=== PATIENT | female | born 1955 | race American Indian/Alaskan Native ===

== ENCOUNTER 2016-06-03 21:40 | Inpatient (IN) | payer MEDICAID ==
--- NOTE | 2016-06-03 22:20 | ED PDOC ---
Arrival/HPI - General Time Seen by Provider: 06/03/16 21:46 Historian: Patient, Parent (daughter ) - Critical Care Critical Care Minutes: 30 minutes - History of Present Illness Narrative History of Present Illness (Text): 06/03/16 22:15 Иван Stringer is a 60 year old female, with a history of uterine CA s/p hysterectomy in Mar 2015 treated with immediate followup chemotherapy and radiation, presents to the emergency department complaining of 1 week duration of weakness and lethargy. According to daughter, patient has had poor appetite and lost weight in recent past. States that cancer recurred again and was started on chemotherapy on March of 2016. Patient has appointment with PMD in a couple of weeks. Evaluated at [facility] for similar symptoms last week. Denies any fever, chills, headache, dizziness, chest pain, difficulty breathing, nausea , vomiting, diarrhea, urinary symptoms or any other complaints at this time. Time/Duration: 1 week Symptom Onset: Gradual Symptom Course: Unchanged Severity Level: Mild Activities at Onset: Light Context: Home Past Medical History - Provider Review Nursing Documentation Reviewed: Yes Family/Social History - Physician Review Nursing Documentation Reviewed: Yes Family/Social History: No Known Family HX Allergies/Home Meds Allergies/Adverse Reactions: Allergies No Known Allergies Allergy (Unverified 06/03/16 22:32) Review of Systems - Physician Review All systems were reviewed & negative as marked: Yes - Review of Systems Constitutional: Fatigue (Weak and lethargic ), Other (weight loss ). absent: Fevers Respiratory: Normal. absent: SOB, Cough Cardiovascular: Normal. absent: Chest Pain Gastrointestinal: Appetite Changes. absent: Abdominal Pain, Diarrhea, Nausea, Vomiting Neurological: Normal. absent: Headache, Dizziness Psychiatric: Normal Physical Exam Vital Signs Reviewed: Yes Vital Signs Temp Pulse Resp BP Pulse Ox 06/03/16 21:40 100.9 F H 123 H 16 116/47 L 100 Temperature: Febrile Blood Pressure: Normal Pulse: Tachycardic Respiratory Rate: Normal Appearance: Positive for: Non-Toxic, Comfortable, Cachectic Pain Distress: None Mental Status: Positive for: Alert and Oriented X 3 - Systems Exam Head: Present: Atraumatic, Normocephalic Pupils: Present: PERRL Extroacular Muscles: Present: EOMI Conjunctiva: Present: Other (sunken eyeballs ) Mouth: Present: Dry Respiratory/Chest: Present: Clear to Auscultation, Good Air Exchange. No: Respiratory Distress, Accessory Muscle Use Cardiovascular: Present: Regular Rate and Rhythm, Normal S1, S2. No: Murmurs Abdomen: Present: Distention, Normal Bowel Sounds, Other (firm, distended, and non-tender ). No: Tenderness, Peritoneal Signs Upper Extremity: Present: Normal Inspection. No: Cyanosis, Edema Lower Extremity: Present: Edema (bilateral lower extremity edema. ) Neurological: Present: GCS=15, CN II-XII Intact, Speech Normal Skin: Present: Warm, Dry, Normal Color. No: Rashes Psychiatric: Present: Alert, Oriented x 3, Normal Insight, Normal Concentration Medical Decision Making ED Course and Treatment: 06/03/16 22:24 Impression: A 60 year old female who presents to the ed complaining of generalized weakness, lethargy and weight loss for past week. Plan: -- Labs -- CT abdomen pelvis -- Labs, cardiac enzymes -- CXR Progress Notes: 06/03/16 23:55 CT abdomen pelvis reviewed: IMPRESSION: 1. There is a multiloculated right pleural effusion. This appears to have a thick soft tissue rim suggesting that this could be a malignant or an infected effusion. Within the right basilar effusion there is one and possibly 2 pleural drainage catheters. 2. There is mild perisplenic ascites. There is diffuse anasarca. 3. There is a large mass extending through the entire pelvis and lower and mid abdomen. This measures at least 22.7 CM craniocaudal by 22.6 CM transverse by 16.5 CM AP. This is compatible with the given history of uterine cancer. 4. Question rectal wall thickening versus underdistention. Underlying lesion is not excluded. 06/04/16 01:16 Patient is febrile, tachy and lactate of 2.5. Code sepsis called. Case discussed with , production control technologist, who accepts patient to the ICU for Sepsis and SIRS - Lab Interpretations Lab Results: 06/04/16 00:20 06/04/16 00:20 Lab Results 06/04/16 00:20: WBC 17.3 H, RBC 2.95 L, Hgb 8.3 L, Hct 26.7 L, MCV 90.5, MCH 28.1, MCHC 31.1, RDW 22.2 H, Plt Count 278, MPV 9.2, PT 12.0 H, INR 1.11 H, APTT 39.9 H, pO2 49, VBG pH 7.47 H, VBG pCO2 43.0, VBG HCO3 31.3 H, VBG Total CO2 32.6 H, VBG O2 Sat (Calc) 87.5 H, VBG Base Excess 6.8 H, VBG Potassium 3.0 L , Glucose 117 H, Lactate 2.5 H, FiO2 21.0, Sodium 142.0, Potassium 3.2 L, Chloride 107.0, Carbon Dioxide 31, Anion Gap 12, BUN 10, Creatinine 0.7, Est GFR ( Amer) > 60, Est GFR (Non-Af Amer) > 60, Random Glucose 109, Calcium 8.2 L, Total Bilirubin 0.5, AST 35, ALT 30, Alkaline Phosphatase 131, Lactate Dehydrogenase 2513 H, Total Creatine Kinase 24 L, Troponin I < 0.01, Total Protein 4.7 L, Albumin 2.1 L, Globulin 2.6, Albumin/Globulin Ratio 0.8 L, Lipase 12 L, Venous Blood Potassium 3.0 L I have reviewed the lab results: Yes - RAD Interpretation Narrative RAD Interpretations (Text): EXAM: CT Abdomen and Pelvis Without Intravenous Contrast FINDINGS: Lower thorax: There is a multiloculated right pleural effusion. This appears to have a thick soft tissue rim suggesting that this could be a malignant or an infected effusion. Within the right basilar effusion there is one and possibly 2 pleural drainage catheters. There is coronary artery calcification. ABDOMEN: Liver: AtThere are no focal liver lesions present. Gallbladder and bile ducts: A calcified gallstone is present. No ductal dilation. Pancreas: The pancreas is normal. No ductal dilation. Spleen: The spleen is normal. Adrenals: The adrenal glands are normal. Kidneys and ureters: The kidneys are normal. No obstructing stones. No hydronephrosis. Stomach and bowel: Question rectal wall thickening versus underdistention. Underlying lesion is not excluded. Stomach is predominantly decompressed. There is no evidence of intestinal obstruction. Appendix: No findings to suggest acute appendicitis. PELVIS: Bladder: Bladder is decompressed. No stones. Reproductive: There is a large mass extending through the entire pelvis and lower and mid abdomen. This measures at least 22.7 CM craniocaudal by 22.6 CM transverse by 16.5 CM AP. This is compatible with the given history of uterine cancer. ABDOMEN and PELVIS: Intraperitoneal space: There is mild perisplenic ascites. There is diffuse anasarca. There is no free intraperitoneal air. Bones/joints: There are moderate degenerative changes present. There is mild diffuse osteopenia. No acute fracture. No dislocation. Soft tissues: Unremarkable. Vasculature: There is mild calcification of the aortic root. The aorta demonstrates moderate atherosclerotic calcification. There is an infrarenal IVC filter. No abdominal aortic aneurysm. Lymph nodes: There is no evidence of lymphadenopathy. IMPRESSION: 1. There is a multiloculated right pleural effusion. This appears to have a thick soft tissue rim suggesting that this could be a malignant or an infected effusion. Within the right basilar effusion there is one and possibly 2 pleural drainage catheters. 2. There is mild perisplenic ascites. There is diffuse anasarca. 3. There is a large mass extending through the entire pelvis and lower and mid abdomen. This measures at least 22.7 CM craniocaudal by 22.6 CM transverse by 16.5 CM AP. This is compatible with the given history of uterine cancer. 4. Question rectal wall thickening versus underdistention. Underlying lesion is not excluded. 5. Additional incidental and/or chronic findings as described. Radiology Orders: 06/03/16 22:33 CHEST PORTABLE [RAD] Stat 06/03/16 22:35 ABD & PELVIS W/O PO OR IV CONT [CT] Stat [employer] Valuer: Radiologist - Medication Orders Current Medication Orders: Furosemide (Lasix) 40 mg IVP BID ANDRY Levofloxacin/Dextrose (Levaquin 750mg) 150 mls @ 100 mls/hr IVPB DAILY ANDRY Piperacillin Sod/Tazobactam Sod (Zosyn 3.375 In Ns 100ml) 100 mls @ 200 mls/hr IVPB Q6 ANDRY PRN Reason: Protocol Stop: 06/04/16 12:29 Vancomycin HCl (Vancomycin 1gm) 250 mls @ 167 mls/hr IVPB Q12H ANDRY PRN Reason: Protocol Discontinued Medications Furosemide (Lasix) 40 mg IVP STAT STA Stop: 06/04/16 01:29 - Scribe Statement The provider has reviewed the documentation as recorded by the Luis Enrique Castaneda Provider Attestation: All medical record entries made by the Scribe were at my direction and personally dictated by me. I have reviewed the chart and agree that the record accurately reflects my personal performance of the history, physical exam, medical decision making, and the department course for this patient. I have also personally directed, reviewed, and agree with the discharge instructions and disposition. Disposition/Present on Arrival - Present on Arrival Any Indicators Present on Arrival: No History of DVT/PE: No History of Uncontrolled Diabetes: No Urinary Catheter: No History of Decub. Ulcer: No History Surgical Site Infection Following: None - Disposition Have Diagnosis and Disposition been Completed?: Yes Diagnosis: Sepsis, SIRS (systemic inflammatory response syndrome), Uterine cancer, Pleural effusion, Abdominal mass Disposition: HOSPITALIZED Disposition Time: 01:31 Patient Plan: ICU Patient Problems: Current Active Problems Problem Status Diagnosed Abdominal mass Acute Pleural effusion Acute SIRS (systemic inflammatory response syndrome) Acute Sepsis Acute Uterine cancer Acute Condition: STABLE Discharge Instructions (ExitCare): Sepsis (ED) Referrals: Nicky Keys, [Primary Care Provider] - Follow up with primary
[2016-06-03 22:32] VITALS: BMI 22.6
--- NOTE | 2016-06-03 23:44 | CT ---
EXAM: CT Abdomen and Pelvis Without Intravenous Contrast CLINICAL HISTORY: 60 years old, female; Signs and symptoms; Bloating; Patient HX: On chemo for uterine ca. Abd mass; Additional info: Distention/hx. Uterine ca TECHNIQUE: Axial computed tomography images of the abdomen and pelvis without intravenous contrast. This CT exam was performed using one or more of the following dose reduction techniques: automated exposure control, adjustment of the mA and/or kV according to patient size, and/or use of iterative reconstruction technique. Coronal and sagittal reformatted images were created and reviewed. COMPARISON: No relevant prior studies available. FINDINGS: Lower thorax: There is a multiloculated right pleural effusion. This appears to have a thick soft tissue rim suggesting that this could be a malignant or an infected effusion. Within the right basilar effusion there is one and possibly 2 pleural drainage catheters. There is coronary artery calcification. ABDOMEN: Liver: AtThere are no focal liver lesions present. Gallbladder and bile ducts: A calcified gallstone is present. No ductal dilation. Pancreas: The pancreas is normal. No ductal dilation. Spleen: The spleen is normal. Adrenals: The adrenal glands are normal. Kidneys and ureters: The kidneys are normal. No obstructing stones. No hydronephrosis. Stomach and bowel: Question rectal wall thickening versus underdistention. Underlying lesion is not excluded. Stomach is predominantly decompressed. There is no evidence of intestinal obstruction. Appendix: No findings to suggest acute appendicitis. PELVIS: Bladder: Bladder is decompressed. No stones. Reproductive: There is a large mass extending through the entire pelvis and lower and mid abdomen. This measures at least 22.7 CM craniocaudal by 22.6 CM transverse by 16.5 CM AP. This is compatible with the given history of uterine cancer. ABDOMEN and PELVIS: Intraperitoneal space: There is mild perisplenic ascites. There is diffuse anasarca. There is no free intraperitoneal air. Bones/joints: There are moderate degenerative changes present. There is mild diffuse osteopenia. No acute fracture. No dislocation. Soft tissues: Unremarkable. Vasculature: There is mild calcification of the aortic root. The aorta demonstrates moderate atherosclerotic calcification. There is an infrarenal IVC filter. No abdominal aortic aneurysm. Lymph nodes: There is no evidence of lymphadenopathy. IMPRESSION: 1. There is a multiloculated right pleural effusion. This appears to have a thick soft tissue rim suggesting that this could be a malignant or an infected effusion. Within the right basilar effusion there is one and possibly 2 pleural drainage catheters. 2. There is mild perisplenic ascites. There is diffuse anasarca. 3. There is a large mass extending through the entire pelvis and lower and mid abdomen. This measures at least 22.7 CM craniocaudal by 22.6 CM transverse by 16.5 CM AP. This is compatible with the given history of uterine cancer. 4. Question rectal wall thickening versus underdistention. Underlying lesion is not excluded. 5. Additional incidental and/or chronic findings as described.
[2016-06-04 00:38] LABS: VENOUS BLOOD GAS BASE EXCESS 6.8 mmol/L (0.0-2.0); VENOUS BLOOD PH 7.47 (7.32-7.43)
[2016-06-04 00:43] LABS: HEMATOCRIT 26.7 % (36.0-48.0); MEAN CELL VOLUME 90.5 fL (80.0-105.0); MEAN CORPUSCULAR HEMOGLOBIN 28.1 pg (25.0-35.0); MEAN CORPUSCULAR HGB CONC 31.1 g/dl (31.0-37.0); MEAN PLATELET VOLUME 9.2 fl (7.0-11.0); WHITE BLOOD COUNT 17.3 10^3/ul (4.5-11.0)
[2016-06-04 00:48] LABS: INR 1.11 (0.93-1.08); PARTIAL THROMBOPLASTIN TIME 39.9 Seconds (23.7-30.8)
[2016-06-04 00:50] LABS: ALB/GLOB RATIO 0.8 (1.1-1.8); ALKALINE PHOSPHATASE 131 U/L (38-133); ALT/SGPT 30 U/L (7-56); AST/SGOT 35 U/L (15-39); BILIRUBIN,TOTAL 0.5 mg/dL (0.2-1.3); BLOOD UREA NITROGEN 10 mg/dL (7-21); CALCIUM 8.2 mg/dL (8.4-10.5); CARBON DIOXIDE 31 mmol/L (21-33); CHLORIDE 102 mmol/L (95-110); GFR AFRICAN-AMERICAN > 60; GLUCOSE,RANDOM 109 mg/dL (70-110); LIPASE 12 U/L (23-300); POTASSIUM 3.2 mmol/L (3.6-5.0); SODIUM 142 mmol/L (132-148); TOTAL PROTEIN 4.7 g/dL (5.8-8.3)
[2016-06-04 01:13] LABS: TROPONIN I < 0.01 ng/mL
[2016-06-04] MEDS ORDERED: Potassium Chloride 40 mEq/30 ml LIQ UD PO STA (01:40)
--- NOTE | 2016-06-04 01:50 | CP.PCM.HP ---
<RuedaMarciMarisela - Last Filed: 06/04/16 02:38> History of Present Illness - History of Present Illness History of Present Illness: Internal medicine H & P for Hospitalist Service-Marisela Rueda, PGY-1 Pt S & E at bedside. 60F w/PMH sig for uterine CA on chemo admitted to ICU with lethargy x ~1 wk. Pt reports last chemo in wk prior to [facility], has been lethargic with a poor appetite since. Admits to B/L LE swelling, "heavy legs", increased sleep, weakness, fatigue. Denies N/V/F/C, SOB, CP, abdominal pain, changes in bowel or bladder habits, recent illness, sore throat, rhinorrhea, cough, sinus congestion, changes in vision. PMH: uterine CA (03/2015) on chem x 2, LLE DVT, pleural effusions, HTN PSH: Hysterectomy (03/28), R pleurex catheter, portacath, fly filter in place All: Denies SH: remote hx of tobacco use, denies ETOH or illicit drug use PMD: [facility] Onc: Franky at [facility] Present on Admission - Present on Admission Any Indicators Present on Admission: Yes History of DVT/PE: Yes History of Uncontrolled Diabetes: No Urinary Catheter: No Decubitus Ulcer Present: No Review of Systems - Review of Systems All systems: reviewed and no additional remarkable complaints except - Constitutional Constitutional: Fatigue, Lethargy, Weight Loss, Weakness. absent: Chills, Fever , Headache, Increased Appetite - EENT Eyes: absent: Change in Vision Ears: absent: Dizziness Nose/Mouth/Throat: absent: Nasal Discharge, Sore Throat - Cardiovascular Cardiovascular: absent: Chest Pain, Chest Pain with Activity, Palpitations - Respiratory Respiratory: absent: Cough, Chest Congestion - Gastrointestinal Gastrointestinal: absent: Abdominal Pain, Constipation, Diarrhea, Hematemesis, Hematochezia, Nausea, Vomiting - Genitourinary Genitourinary: absent: Change in Urinary Stream, Dysuria - Musculoskeletal Musculoskeletal: absent: Numbness, Tingling - Integumentary Integumentary: absent: Rash - Neurological Neurological: Weakness. absent: Numbness, Headaches, Tingling Past Patient History - Past Social History Smoking Status: Never Smoked - CARDIAC Hx Hypertension: Yes - GENITOURINARY/GYNECOLOGICAL Hx Uterine Cancer: Yes - PSYCHIATRIC Hx Substance Use: No - SURGICAL HISTORY Hx Hysterectomy: Yes - ANESTHESIA Hx Anesthesia: Yes Hx Anesthesia Reactions: No Hx Malignant Hyperthermia: No Meds Allergies/Adverse Reactions: Allergies Allergy/AdvReac Type Severity Reaction Status Date / Time No Known Allergies Allergy Unverified 06/03/16 22:32 Physical Exam - Constitutional Appears: Non-toxic, No Acute Distress, Cachectic, Chronically Ill, Other ( lethargic) - Head Exam Head Exam: ATRAUMATIC, NORMAL INSPECTION, NORMOCEPHALIC - Eye Exam Eye Exam: EOMI, Normal appearance Pupil Exam: Fixed, Miosis - ENT Exam ENT Exam: Mucous Membranes Moist, Normal Exam - Neck Exam Neck exam: Positive for: Full Rom, Normal Inspection. Negative for: Tenderness - Respiratory Exam Respiratory Exam: Decreased Breath Sounds (B/L bases), NORMAL BREATHING PATTERN. absent: Accessory Muscle Use, Chest Wall Tenderness, Rales, Rhonchi, Wheezes, Respiratory Distress Additional comments: Port in Right chest wall - Cardiovascular Exam Cardiovascular Exam: Tachycardia, +S1, +S2 - GI/Abdominal Exam GI & Abdominal Exam: Distended, Firm, Hypoactive Bowel Sounds. absent: Guarding , Hernia, Rebound, Rigid, Soft, Tenderness - Extremities Exam Extremities exam: Positive for: pedal edema (3+ pitting edema). Negative for: tenderness - Neurological Exam Neurological exam: Alert, CN II-XII Intact, Oriented x3 - Psychiatric Exam Psychiatric exam: Normal Affect, Normal Mood - Skin Skin Exam: Dry, Intact, Normal Color, Warm Results - Vital Signs Recent Vital Signs: Last Vital Signs Temp 100.9 F H 06/03/16 21:40 Pulse 123 H 06/03/16 21:40 Resp 16 06/03/16 21:40 BP 116/47 L 06/03/16 21:40 Pulse Ox 100 06/03/16 21:40 - Labs Result Diagrams: 06/04/16 00:20 06/04/16 00:20 Assessment & Plan - Assessment and Plan (Free Text) Assessment: SIRS R/O sepsis Febrile 100.9 Tachycardic at 122 BP 117/59 Lactate 2.5 Leukocytosis 17.3 Hgb 8.3 Hct 26.7 LDH 2513 VBG pH 7.47, p02 49, pCO2 43, HCO3 31.3 Lasix 40mg IVP BID Started on Zosyn 3.375mg Q6H Started on Vancomycin 1gm Q12H Started on Levaquin 750mg QD FU Blood cx FU urine cx FU U/A FU TSH FU Trop FU procalcitonin ID Consulted- Karmen Hypokalemia K 3.2 Replaced 40mEq KCL Monitor Hx LLE DVT Continued on Therapeutic Lovenox 70mg SC Q12H as per pt hx Monitor Uterine CA on chemo CT ab w. There is a multiloculated right pleural effusion. This appears to have a thick soft tissue rim suggesting that this could be a malignant or an infected effusion. Within the right basilar effusion there is one and possibly 2 pleural drainage catheters. 2. There is mild perisplenic ascites. There is diffuse anasarca. 3. There is a large mass extending through the entire pelvis and lower and mid abdomen. This measures at least 22.7 CM craniocaudal by 22.6 CM transverse by 16.5 CM AP. This is compatible with the given history of uterine cancer. 4. Question rectal wall thickening versus underdistention. Underlying lesion is not excluded. GI/DVT ppx On therapeutic lovenox Protonix 40mg IVP daily SCDs contraindicated due to DVT Dispo Admit to ICU VS Q1H Zofran 4mg Q6H PRN O2 PRN HHD HOB to 30 degrees Strict I/Os DW attending - Date & Time Date: 06/04/16 Time: 02:00 Decision To Admit - Pt Status Changed To: Hospital Disposition Of: Inpatient Admission - Admit Certification Admit to Inpatient:: After my assessment, the patient will require hospitalization for at least two midnights. This is because of the severity of symptoms shown, intensity of services needed, and/or the medical risk in this patient being treated as an outpatient. - . Bed Request Type: Critical Care Admitting Physician: Wil Coleman MD <Wil Coleman MD - Last Filed: 06/04/16 03:26> Results - Vital Signs Recent Vital Signs: Last Vital Signs Temp 99.7 F H 06/04/16 02:45 Pulse 119 H 06/04/16 02:59 Resp 28 H 06/04/16 02:59 BP 125/76 06/04/16 02:59 Pulse Ox 99 06/04/16 02:59 - Labs Result Diagrams: 06/04/16 00:20 06/04/16 00:20 Labs: Laboratory Results - last 24 hr 06/04/16 02:30 Urine Color Yellow Urine Appearance Clear Urine pH 6.0 Ur Specific [place] >= 1.030 Urine Protein 100 H Urine Glucose (UA) Negative Urine Ketones Negative Urine Blood Negative Urine Nitrate Negative Urine Bilirubin Small H Urine Urobilinogen 1.0 H Ur Leukocyte Esterase Negative Attending/Attestation - Attestation I have personally seen and examined this patient.: Yes I have fully participated in the care of the patient.: Yes I have reviewed all pertinent clinical information: Yes Notes (Text): 06/04/16 03:20 -I agree with the above H&P completed by the resident physician. -Briefly, the patient is a 60 year old woman with a history of uterine cancer ( last chemo approx 2weeks ago), pleural effusions, HTN and DVT (s/p IVC and on SQ Lovenox) who presents with acute onset of lethargy and decreased appetite. In the ED, she was found to be septic, presumably due to pneumonia. Imaging shows right pleural effusion. She will be started on empiric IV antibiotics for healthcare associated pneumonia given her immunocompromised state. Also, will start IV Lasix 40mg Q12 for her anasarca. We will continue her home therapeutic dose of SQ Lovenox. ID has been consulted.
[2016-06-04 01:57] LABS: RED CELL DISTRIBUTION WIDTH 22.2 % (11.5-14.5)
[2016-06-04] MEDS: Vancomycin 1gm in NS 250ml 250 ML IVPB SCH ×2 (02:32→13:05)
[2016-06-04 02:59] LABS: URINE BILIRUBIN SMALL (NEGATIVE); URINE BLOOD NEGATIVE (NEGATIVE); URINE GLUCOSE (UA) NEGATIVE (NEGATIVE); URINE KETONE NEGATIVE (NEGATIVE); URINE LEUKOCYTE ESTERASE NEGATIVE Leu/uL (NEGATIVE); URINE PROTEIN 100 mg/dL (<30 mg/dL)
[2016-06-04 03:17] LABS: URINE APPEARANCE CLEAR (CLEAR); URINE COLOR YELLOW (YELLOW)
[2016-06-04 03:26] LABS: URINE RBC 0 - 2 /hpf (0-2)
[2016-06-04 03:31] LABS: URINE BACTERIA SMALL (NEG)
[2016-06-04 03:47] LABS: VENOUS BLOOD GAS BASE EXCESS 4.5 mmol/L (0.0-2.0); VENOUS BLOOD PH 7.42 (7.32-7.43)
[2016-06-04 04:06] LABS: ADD MANUAL DIFF? NO
[2016-06-04] MEDS ORDERED: Piperacillin/Tazobact 3.375 gm 100 ML IVPB SCH (06:00)
[2016-06-04 06:22] LABS: ALB/GLOB RATIO 0.7 (1.1-1.8); ALKALINE PHOSPHATASE 118 U/L (38-133); ALT/SGPT 24 U/L (7-56); AST/SGOT 32 U/L (15-39); BILIRUBIN,TOTAL 0.6 mg/dL (0.2-1.3); BLOOD UREA NITROGEN 10 mg/dL (7-21); CALCIUM 8.4 mg/dL (8.4-10.5); CARBON DIOXIDE 29 mmol/L (21-33); CHLORIDE 101 mmol/L (98-107); GFR AFRICAN-AMERICAN > 60; GLUCOSE,RANDOM 110 mg/dL (70-110); PHOSPHOROUS 3.4 mg/dL (2.5-4.5); POTASSIUM 3.2 mmol/L (3.6-5.0); SODIUM 140 mmol/L (132-148); TOTAL PROTEIN 5.4 g/dL (5.8-8.3)
[2016-06-04 07:35] LABS: BASO # 0.03 K/mm3 (0.0-2.0); BASO % 0.1 % (0.0-3.0); EOS % 0.2 % (1.5-5.0); GRAN # 19.64 (1.4-6.5); GRAN % 87.6 % (50.0-68.0); HEMATOCRIT 24.8 % (36.0-48.0); LYMPH # 1.2 (1.2-3.4); LYMPH % 5.4 % (22.0-35.0); MEAN CELL VOLUME 91.2 fL (80.0-105.0); MEAN CORPUSCULAR HEMOGLOBIN 28.3 pg (25.0-35.0); MEAN PLATELET VOLUME 9.3 fl (7.0-11.0); MONO # 1.5 (0.1-0.6); MONO % 6.7 % (1.0-6.0); PLATELET COUNT 300 10^3/uL (120.0-450.0); RED CELL DISTRIBUTION WIDTH 22.6 % (11.5-14.5); WHITE BLOOD COUNT 22.4 10^3/ul (4.5-11.0)
--- NOTE | 2016-06-04 07:59 | RAD ---
HISTORY: weak COMPARISON: No prior. FINDINGS: LUNGS: No pulmonary infiltrate. PLEURA: Right basilar chest tube. Small right pleural effusion. No pneumothorax. No left pleural effusion. Probable small calcified granuloma in the left upper lobe at interspace between 3rd and 4th rib posterior laterally. z CARDIOVASCULAR: Right central venous infusion port. Normal heart size. OSSEOUS STRUCTURES: No significant abnormalities. VISUALIZED UPPER ABDOMEN: Normal. OTHER FINDINGS: None. IMPRESSION: Small right pleural effusion. Right basilar chest tube. No pneumothorax. Probable old calcified granuloma left upper lobe.
--- NOTE | 2016-06-04 11:17 | CARD ---
APPROVED REPORT EKG Measurement Heart [id number] <Conclusion> Sinus tachycardia with premature atrial complexes Cannot rule out Anterior infarct, age undetermined Abnormal ECG
[2016-06-04] MEDS: Metoprolol 1 mg/ml Inj IVP SCH ×3 (12:02→23:19)
[2016-06-04] MEDS: Meropenem 1g/NS 100mL IVPB 1 GM/100 ML PIGGYBACK IVPB SCH ×3 (12:03→21:58)
[2016-06-04] MEDS ORDERED: Potassium Chloride 20 mEq ER Tab PO ONE (12:26)
--- NOTE | 2016-06-04 13:02 | CP.PCM.CON ---
History of Present Illness - History of Present Illness History of Present Illness: Palliative consult requested by Dr Beau Hoover Reason: Goals of care/advance care planning HPI: Presented to ED with lethargy, fatigue,decreased appetite lower extremity swelling since receiving chemotherapy [address] of abdomen pelvis showed multil oculated right pleural effusion with soft tissue rim suggestive of malignant or infected effusion, mild perisplenic ascites, large mass extending through the entire pelvis and lower abdomen compatible with history of uterine cancer, questionable rectal wall thickening. PMHx:uterine cancer 02/25 s/p hysterectomy, radiation,chemotherapy, recently relapsed has chemotherapy 1 week ago, LLE DVT, HTN, pleural effusions right pleurax catheter. Family History: Social History: Limited tobacco use, stopped many years ago, no alcohol or drug use.Single, lives in [facility], currently in [place] visiting daughter. Advance Care Planning:The patient does not have an Advance Directive. Review of Systems:As per HPI, all other systems reviewed and are negative Past Patient History - Past Social History Smoking Status: Former Smoker - CARDIAC Hx Cardiac Disorders: Yes Hx Hypertension: Yes - PULMONARY Hx Respiratory Disorders: Yes Other/Comment: Right pleural effusion - NEUROLOGICAL Hx Neurological Disorder: No - RENAL Hx Chronic Kidney Disease: No - ENDOCRINE/METABOLIC Hx Endocrine Disorders: No - HEMATOLOGICAL/ONCOLOGICAL Hx Cancer: Yes (Uterine -dx chemo and radiation) Other/Comment: DVT - LLE. Cancer reoccurred - chemo restarted - INTEGUMENTARY Hx Dermatological Problems: No - MUSCULOSKELETAL/RHEUMATOLOGICAL Hx Falls: No - GENITOURINARY/GYNECOLOGICAL Hx Genitourinary Disorders: No - PSYCHIATRIC Hx Psychophysiologic Disorder: No Hx Substance Use: No - SURGICAL HISTORY Hx Surgeries: Yes Hx Hysterectomy: Yes Other/Comment: IVC filter. Right Portacath. Right pleurX cath. - ANESTHESIA Hx Anesthesia: Yes Hx Anesthesia Reactions: No Hx Malignant Hyperthermia: No Meds Allergies/Adverse Reactions: Allergies Allergy/AdvReac Type Severity Reaction Status Date / Time No Known Allergies Allergy Unverified 06/03/16 22:32 - Medications Medications: Current Medications Acetaminophen (Tylenol 325mg Tab) 650 mg PO Q6H PRN PRN Reason: Fever >100.4 F Enoxaparin Sodium (Lovenox) 70 mg SC Q12H [facility] PRN Reason: Protocol Furosemide (Lasix) 40 mg IVP BID [facility] Last Admin: 06/04/16 09:29 Dose: 40 mg Levofloxacin/Dextrose (Levaquin 750mg) 150 mls @ 100 mls/hr IVPB DAILY [facility] Last Admin: 06/04/16 09:28 Dose: 100 mls/hr Vancomycin HCl (Vancomycin 1gm) 250 mls @ 167 mls/hr IVPB Q12H [facility] PRN Reason: Protocol Last Admin: 06/04/16 02:32 Dose: 167 mls/hr Meropenem 1g/NS 100mL IVPB (Meropenem 1g/Ns 100ml Ivpb) 1 gm in 100 mls @ 100 mls/hr IVPB Q8 [facility] PRN Reason: Protocol Stop: 06/11/16 10:04 Last Admin: 06/04/16 12:03 Dose: 100 mls/hr Metoprolol Tartrate (Lopressor) 5 mg IVP Q6H [facility] Last Admin: 06/04/16 12:02 Dose: 5 mg Ondansetron HCl (Zofran Inj) 4 mg IVP Q6H PRN PRN Reason: Nausea/Vomiting Pantoprazole Sodium (Protonix Inj) 40 mg IVP DAILY [facility] Last Admin: 06/04/16 09:28 Dose: 40 mg Physical Exam - Constitutional Appears: Cachectic, Chronically Ill - Eye Exam Eye Exam: Normal appearance, PERRL - ENT Exam ENT Exam: Mucous Membranes Moist, Normal Oropharynx - Neck Exam Neck exam: Positive for: Normal Inspection - Respiratory Exam Respiratory Exam: Decreased Breath Sounds, NORMAL BREATHING PATTERN Additional comments: right chest pleurex in situ - Cardiovascular Exam Cardiovascular Exam: REGULAR RHYTHM, +S1, +S2 - GI/Abdominal Exam GI & Abdominal Exam: Normal Bowel Sounds, Soft - Extremities Exam Extremities exam: Positive for: pedal pulses present Additional comments: bilateral lower extremity edema - Neurological Exam Neurological exam: Alert, Oriented x3 - Skin Skin Exam: Dry, Warm Additional comments: right chest port a cath patent Results - Vital Signs Recent Vital Signs: Last Vital Signs Temp 98.7 F 06/04/16 03:37 Pulse 126 H 06/04/16 03:37 Resp 24 06/04/16 03:37 BP 124/68 06/04/16 03:37 Pulse Ox 99 06/04/16 02:59 - Labs Result Diagrams: 06/04/16 04:00 06/04/16 04:00 Labs: Laboratory Results - last 24 hr 06/04/16 06/04/16 06/04/16 02:30 03:30 04:00 WBC 22.4 H D RBC 2.72 L Hgb 7.7 L Hct 24.8 L MCV 91.2 MCH 28.3 MCHC 31.0 RDW 22.6 H Plt Count 300 MPV 9.3 Gran % 87.6 H Lymph % (Auto) 5.4 L [place] % (Auto) 6.7 H Eos % (Auto) 0.2 L Baso % (Auto) 0.1 Gran # 19.64 H Lymph # 1.2 [place] # 1.5 H Eos # 0.0 Baso # 0.03 pO2 165 H VBG pH 7.42 VBG pCO2 46.0 VBG HCO3 29.8 H VBG Total CO2 31.2 H VBG O2 Sat (Calc) 99.7 H VBG Base Excess 4.5 H VBG Potassium 3.0 L Sodium 143.0 Chloride 110.0 H Glucose 106 H Lactate 3.6 H FiO2 21.0 Potassium Carbon Dioxide Anion Gap BUN Creatinine Est GFR ( Amer) Est GFR (Non-Af Amer) Random Glucose Calcium Phosphorus Magnesium Total Bilirubin AST ALT Alkaline Phosphatase Ammonia Total Protein Albumin Globulin Albumin/Globulin Ratio Venous Blood Potassium 3.0 L Urine Color Yellow Urine Appearance Clear Urine pH 6.0 Ur Specific [place] >= 1.030 Urine Protein 100 H Urine Glucose (UA) Negative Urine Ketones Negative Urine Blood Negative Urine Nitrate Negative Urine Bilirubin Small H Urine Urobilinogen 1.0 H Ur Leukocyte Esterase Negative Urine RBC 0 - 2 Urine WBC 2 - 5 Ur Epithelial Cells 1 - 3 Urine Bacteria Small Urine Other Mucus 06/04/16 06/04/16 04:00 11:35 WBC RBC Hgb Hct MCV MCH MCHC RDW Plt Count MPV Gran % Lymph % (Auto) [place] % (Auto) Eos % (Auto) Baso % (Auto) Gran # Lymph # [place] # Eos # Baso # pO2 VBG pH VBG pCO2 VBG HCO3 VBG Total CO2 VBG O2 Sat (Calc) VBG Base Excess VBG Potassium Sodium 140 Chloride 101 Glucose Lactate FiO2 Potassium 3.2 L Carbon Dioxide 29 Anion Gap 13 BUN 10 Creatinine 0.7 Est GFR ( Amer) > 60 Est GFR (Non-Af Amer) > 60 Random Glucose 110 Calcium 8.4 Phosphorus 3.4 Magnesium 2.0 Total Bilirubin 0.6 AST 32 ALT 24 Alkaline Phosphatase 118 Ammonia 12 Total Protein 5.4 L Albumin 2.3 L Globulin 3.1 Albumin/Globulin Ratio 0.7 L Venous Blood Potassium Urine Color Urine Appearance Urine pH Ur Specific [place] Urine Protein Urine Glucose (UA) Urine Ketones Urine Blood Urine Nitrate Urine Bilirubin Urine Urobilinogen Ur Leukocyte Esterase Urine RBC Urine WBC Ur Epithelial Cells Urine Bacteria Urine Other Assessment & Plan - Assessment and Plan (Free Text) Assessment: 60 year old female admitted admitted with sepsis. Extensive medical history , please see PHI. I was asked to see this patient to discuss goals of care advance care planning. I had extensive discussion with her oncologist, Dr Wilkins who indicated that he had initiated a discussion regarding goals of care and advance care planning during their last visit. He stated that the patient was not open to further discussion. He also indicated that she had a very strong rastafarian kwasi and that she felt God would help her to heal. During my meeting with this patient I explained the palliative services role. I clarified that she was aware of her diagnosis and the extent of her disease. I asked if she relied on her kwasi to get her through tough times, and she affirmed that she did. I asker her tell me more about her rastafarian beliefs and what was important to her. She stated that she didn't feel the need to share her thoughts. She also stated that she felt the our conversation was depressing and that there was no hope left. I explained that, to the contrary I would like to find out more about what was important to her in order to help her with future planning. She became more guarded and less talkative. I offered to bring in a spiritual counselor, which she declined. Plan: Continue current medical management Will follow and assist with establishing future goals of care
[2016-06-04] MEDS: Enoxaparin 80 mg Syringe SC SCH (13:05)
--- NOTE | 2016-06-04 13:13 | CP.PCM.CON ---
History of Present Illness - History of Present Illness History of Present Illness: 60 year old female with PMH of uterine cancer on chemotherapy last session 3 weeks ago S/P hysterectomy, history of left lower extremity DVT, HTN, S/P right pleurex catheter placement, S/P port-a-cath placement came in to [facility] complaining of lethargy for about a week now with poor appetite and generalized malaise. She denies fever or chills, no nausea or vomiting, no chest pain or SOB, no sore throat, no rhinorrhea, no cough, no has occasional abdominal discomfort, feels her lower extremities are heavy, denies diarrhea. In the ED she was noted to have leukocytosis and fever and Infectious diseases consult is requested to further evaluate and manage. Review of Systems - Review of Systems All systems: reviewed and no additional remarkable complaints except (as per HPI ) Past Patient History - Past Social History Smoking Status: Former Smoker - CARDIAC Hx Cardiac Disorders: Yes Hx Hypertension: Yes - PULMONARY Hx Respiratory Disorders: Yes Other/Comment: Right pleural effusion - NEUROLOGICAL Hx Neurological Disorder: No - RENAL Hx Chronic Kidney Disease: No - ENDOCRINE/METABOLIC Hx Endocrine Disorders: No - HEMATOLOGICAL/ONCOLOGICAL Hx Cancer: Yes (Uterine -dx chemo and radiation) Other/Comment: DVT - LLE. Cancer reoccurred - chemo restarted - INTEGUMENTARY Hx Dermatological Problems: No - MUSCULOSKELETAL/RHEUMATOLOGICAL Hx Falls: No - GENITOURINARY/GYNECOLOGICAL Hx Genitourinary Disorders: No - PSYCHIATRIC Hx Psychophysiologic Disorder: No Hx Substance Use: No - SURGICAL HISTORY Hx Surgeries: Yes Hx Hysterectomy: Yes Other/Comment: IVC filter. Right Portacath. Right pleurX cath. - ANESTHESIA Hx Anesthesia: Yes Hx Anesthesia Reactions: No Hx Malignant Hyperthermia: No Meds Allergies/Adverse Reactions: Allergies Allergy/AdvReac Type Severity Reaction Status Date / Time No Known Allergies Allergy Unverified 06/03/16 22:32 - Medications Medications: Current Medications Enoxaparin Sodium (Lovenox) 70 mg SC Q12H [facility] PRN Reason: Protocol Furosemide (Lasix) 40 mg IVP BID [facility] Last Admin: 06/04/16 09:29 Dose: 40 mg Levofloxacin/Dextrose (Levaquin 750mg) 150 mls @ 100 mls/hr IVPB DAILY [facility] Last Admin: 06/04/16 09:28 Dose: 100 mls/hr Piperacillin Sod/Tazobactam Sod (Zosyn 3.375 In Ns 100ml) 100 mls @ 200 mls/hr IVPB Q6 [facility] PRN Reason: Protocol Stop: 06/04/16 12:29 Vancomycin HCl (Vancomycin 1gm) 250 mls @ 167 mls/hr IVPB Q12H [facility] PRN Reason: Protocol Last Admin: 06/04/16 02:32 Dose: 167 mls/hr Ondansetron HCl (Zofran Inj) 4 mg IVP Q6H PRN PRN Reason: Nausea/Vomiting Pantoprazole Sodium (Protonix Inj) 40 mg IVP DAILY [facility] Last Admin: 06/04/16 09:28 Dose: 40 mg Physical Exam - Constitutional Appears: Cachectic, Chronically Ill - Head Exam Head Exam: NORMAL INSPECTION - ENT Exam ENT Exam: Mucous Membranes Moist - Neck Exam Neck exam: Negative for: Lymphadenopathy, Meningismus - Respiratory Exam Respiratory Exam: Decreased Breath Sounds - Cardiovascular Exam Cardiovascular Exam: +S1, +S2 - GI/Abdominal Exam GI & Abdominal Exam: Distended, Soft. absent: Tenderness - Extremities Exam Extremities exam: Positive for: pedal edema (4+) Results - Vital Signs Recent Vital Signs: Last Vital Signs Temp 98.7 F 06/04/16 03:37 Pulse 126 H 06/04/16 03:37 Resp 24 06/04/16 03:37 BP 124/68 06/04/16 03:37 Pulse Ox 99 06/04/16 02:59 - Labs Result Diagrams: 06/04/16 04:00 06/04/16 04:00 Labs: Laboratory Results - last 24 hr 06/04/16 06/04/16 06/04/16 02:30 03:30 04:00 WBC 22.4 H D RBC 2.72 L Hgb 7.7 L Hct 24.8 L MCV 91.2 MCH 28.3 MCHC 31.0 RDW 22.6 H Plt Count 300 MPV 9.3 Gran % 87.6 H Lymph % (Auto) 5.4 L [place] % (Auto) 6.7 H Eos % (Auto) 0.2 L Baso % (Auto) 0.1 Gran # 19.64 H Lymph # 1.2 [place] # 1.5 H Eos # 0.0 Baso # 0.03 pO2 165 H VBG pH 7.42 VBG pCO2 46.0 VBG HCO3 29.8 H VBG Total CO2 31.2 H VBG O2 Sat (Calc) 99.7 H VBG Base Excess 4.5 H VBG Potassium 3.0 L Sodium 143.0 Chloride 110.0 H Glucose 106 H Lactate 3.6 H FiO2 21.0 Potassium Carbon Dioxide Anion Gap BUN Creatinine Est GFR ( Amer) Est GFR (Non-Af Amer) Random Glucose Calcium Phosphorus Magnesium Total Bilirubin AST ALT Alkaline Phosphatase Total Protein Albumin Globulin Albumin/Globulin Ratio Venous Blood Potassium 3.0 L Urine Color Yellow Urine Appearance Clear Urine pH 6.0 Ur Specific [place] >= 1.030 Urine Protein 100 H Urine Glucose (UA) Negative Urine Ketones Negative Urine Blood Negative Urine Nitrate Negative Urine Bilirubin Small H Urine Urobilinogen 1.0 H Ur Leukocyte Esterase Negative Urine RBC 0 - 2 Urine WBC 2 - 5 Ur Epithelial Cells 1 - 3 Urine Bacteria Small Urine Other Mucus 06/04/16 04:00 WBC RBC Hgb Hct MCV MCH MCHC RDW Plt Count MPV Gran % Lymph % (Auto) [place] % (Auto) Eos % (Auto) Baso % (Auto) Gran # Lymph # [place] # Eos # Baso # pO2 VBG pH VBG pCO2 VBG HCO3 VBG Total CO2 VBG O2 Sat (Calc) VBG Base Excess VBG Potassium Sodium 140 Chloride 101 Glucose Lactate FiO2 Potassium 3.2 L Carbon Dioxide 29 Anion Gap 13 BUN 10 Creatinine 0.7 Est GFR ( Amer) > 60 Est GFR (Non-Af Amer) > 60 Random Glucose 110 Calcium 8.4 Phosphorus 3.4 Magnesium 2.0 Total Bilirubin 0.6 AST 32 ALT 24 Alkaline Phosphatase 118 Total Protein 5.4 L Albumin 2.3 L Globulin 3.1 Albumin/Globulin Ratio 0.7 L Venous Blood Potassium Urine Color Urine Appearance Urine pH Ur Specific [place] Urine Protein Urine Glucose (UA) Urine Ketones Urine Blood Urine Nitrate Urine Bilirubin Urine Urobilinogen Ur Leukocyte Esterase Urine RBC Urine WBC Ur Epithelial Cells Urine Bacteria Urine Other Assessment & Plan - Assessment and Plan (Free Text) Plan: Assessment Systemic Inflammatory Response Syndrome R/O sepsis source to be determined r/O HCAP, R/O SBP, R/O bacteremia from port infection uterine cancer on chemotherapy last session 3 weeks ago S/P hysterectomy history of left lower extremity DVT HTN S/P right pleurex catheter placement S/P port-a-cath placement Plan Started the patient on Vancomycin and Merrem pending blood cx, urine cx; reviewed CXR; follow up PCT Will trend WBC count and monitor clinically
--- NOTE | 2016-06-04 14:59 | US ---
HISTORY: Leg pain and swelling. Evaluate for DVT PHYSICIAN(S): Alistair Hare MD. TECHNIQUE: Duplex sonography and color-flow Doppler with graded compression were used to evaluate the deep venous systems of both lower extremities. The exam is limited by edema. FINDINGS: There is partially occlusive thrombus in the left common femoral vein. Adherent thrombus is noted in the proximal left femoral vein. The mid left femoral vein and distal left femoral vein are patent and compressible. The left popliteal vein is patent and compressible. There is no sonographic evidence for deep venous thrombosis the visualized segments of the right lower extremity. IMPRESSION: Segmental thrombus in the left common femoral vein and proximal left femoral vein
--- NOTE | 2016-06-04 16:03 | CP.CCUPN ---
<Heladio Bhatti - Last Filed: 06/04/16 17:46> CCU Subjective - Physician Review Subjective (Free Text): 06/04/16 15:59 Patient seen and examined at bedside in ICU. Resting comfortably in bed. No acute issues since admission. Fever in the ED resolved. Patient today states that she is generally feeling better. Denies chest pain, shortness of breath, pain with respiration, sensation of worsened LE swelling, or nausea/emesis. Malaise/Lethargy/Fatigue persist, minimally improved. Patient reports that she rarely ambulates at baseline, due to sensation of heaviness in the leg, but denies prior stroke or direct trauma to the leg. CCU Objective - Vital Signs / Intake & Output Intake and Output (Last 8hrs): Intake & Output 06/04/16 06/04/16 06/04/16 06:59 14:59 22:59 Output Total 525 Balance -525 Weight 63.503 kg Output: Urine 525 Urine, Voided 525 Other: Voiding Method Bedpan Bedpan - Physical Exam Head: Positive for: Atraumatic, Normocephalic Pupils: Negative for: Pinpoint Extroacular Muscles: Positive for: EOMI. Negative for: Gaze Palsy, Entrapment Conjunctiva: Positive for: Normal, Other (sunken eyeballs ). Negative for: Injected, Icteric Mouth: Positive for: Moist Mucous Membranes, Normal Tounge, Normal Teeth Nose (External): Positive for: Atraumatic. Negative for: Abrasion, Contusion, Laceration Neck: Positive for: Normal Range of Motion, Trachea Midline. Negative for: JVD Respiratory/Chest: Positive for: Rales (diffuse mild-moderate rales in all auscultated luong, R>L, most prominent on R base). Negative for: Clear to Auscultation, Good Air Exchange, Respiratory Distress, Accessory Muscle Use Cardiovascular: Positive for: Regular Rate and Rhythm, Normal S1, S2. Negative for: Murmurs, Irregular Rhythm, Tachycardic, Bradycardic Abdomen: Positive for: Distention, Normal Bowel Sounds, Other (firm, distended, and non-tender ). Negative for: Tenderness, Peritoneal Signs Upper Extremity: Positive for: Normal Inspection, Normal ROM, NORMAL PULSES (+2 radials bilaterally). Negative for: Cyanosis, Edema, Tenderness, Swelling, Erythema, Deformity Lower Extremity: Positive for: Edema (3+ pitting edema in bilateral legs extending from feet to inferior aspect of knees, +1 pitting edema above knees bilaterally), Swelling. Negative for: CALF TENDERNESS, NORMAL PULSES (unable to palpate pedal pulses), Normal ROM (minimal movement, 2/2 "heaviness" of legs) , Tenderness, Erythema Neurological: Positive for: GCS=15, CN II-XII Intact, Speech Normal. Negative for: Motor Func Grossly Intact (upper trunk and upper extremity ROM grossly intact, minimal LE ROM 2/2 "heaviness") Skin: Positive for: Warm, Dry, Normal Color. Negative for: Rashes Psychiatric: Positive for: Alert, Oriented x 3 (x4 (self, location, time, president)), Normal Insight, Normal Concentration, Normal Affect, Anxious - Medications Active Medications: Active Medications Generic Name Dose Route Start Last Admin Trade Name Freq PRN Reason Stop Dose Admin Acetaminophen 650 mg 06/04/16 10:58 06/04/16 15:29 Tylenol 325mg Tab PO 650 mg Q6H PRN Administration Fever >100.4 F Docusate Sodium 100 mg 06/04/16 14:00 06/04/16 13:05 Colace PO 100 mg TID ANDRY Administration Enoxaparin Sodium 70 mg 06/04/16 02:00 06/04/16 13:05 Lovenox SC 70 mg Q12H ANDRY Administration Protocol Furosemide 40 mg 06/04/16 10:00 06/04/16 09:29 Lasix IVP 40 mg BID ANDRY Administration Levofloxacin/Dextrose 150 mls @ 100 mls/hr 06/04/16 10:00 06/04/16 09:28 Levaquin 750mg IVPB 100 mls/hr DAILY ANDRY Administration Vancomycin HCl 250 mls @ 167 mls/hr 06/04/16 01:30 06/04/16 13:05 Vancomycin 1gm IVPB 167 mls/hr Q12H ANDRY Administration Protocol Meropenem 1g/NS 100mL IVPB 1 gm in 100 mls @ 100 mls/hr 06/04/16 10:03 14:44 Meropenem 1g/Ns 100ml Ivpb IVPB 06/11/16 10:04 100 mls/hr Q8 ANDRY Administration Protocol Metoprolol Tartrate 5 mg 06/04/16 11:30 06/04/16 12:02 Lopressor IVP 5 mg Q6H ANDRY Administration Ondansetron HCl 4 mg 06/04/16 01:30 Zofran Inj IVP Q6H PRN Nausea/Vomiting Pantoprazole Sodium 40 mg 06/04/16 10:00 06/04/16 09:28 Protonix Inj IVP 40 mg DAILY ANDRY Administration Polyethylene Glycol 17 gm 06/04/16 18:00 Miralax PO BID ANDRY - Patient Studies Lab Studies: Lab Studies 06/04/16 06/04/16 06/04/16 Range/Units 12:50 11:35 04:00 WBC (4.5-11.0) 10^3/ul RBC (3.5-6.1) 10^6/uL Hgb (12.0-16.0) gm/dL Hct (36.0-48.0) % MCV (80.0-105.0) fL MCH (25.0-35.0) pg MCHC (31.0-37.0) g/dl RDW (11.5-14.5) % Plt Count (120.0-450.0) 10^3/uL MPV (7.0-11.0) fl Gran % (50.0-68.0) % Lymph % (Auto) (22.0-35.0) % Bibb % (Auto) (1.0-6.0) % Eos % (Auto) (1.5-5.0) % Baso % (Auto) (0.0-3.0) % Gran # (1.4-6.5) Lymph # (1.2-3.4) Bibb # (0.1-0.6) Eos # (0.0-0.7) Baso # (0.0-2.0) K/mm3 pO2 (30-55) mm/Hg VBG pH (7.32-7.43) VBG pCO2 (40-60) VBG HCO3 (21-28) mmol/l VBG Total CO2 (22-28) mmol.L VBG O2 Sat (Calc) (40-65) % VBG Base Excess (0.0-2.0) mmol/L VBG Potassium (3.6-5.2) mmol/L Sodium 140 (132-148) mmol/L Chloride 101 (98-107) mmol/L Glucose (65-105) mg/dl Lactate (0.7-2.1) mmol/L FiO2 % Potassium 3.2 L (3.6-5.0) mmol/L Carbon Dioxide 29 (21-33) mmol/L Anion Gap 13 (10-20) BUN 10 (7-21) mg/dL Creatinine 0.7 (0.5-1.4) mg/dL Est GFR ( Amer) > 60 Est GFR (Non-Af Amer) > 60 Random Glucose 110 (70-110) mg/dL Calcium 8.4 (8.4-10.5) mg/dL Phosphorus 3.4 (2.5-4.5) mg/dL Magnesium 2.0 (1.7-2.2) mg/dL Total Bilirubin 0.6 (0.2-1.3) mg/dL AST 32 (15-39) U/L ALT 24 (7-56) U/L Alkaline Phosphatase 118 (38-133) U/L Ammonia 12 (9-33) umol/L NT-Pro-B Natriuret Pep 507 H (0-450) pg/mL Total Protein 5.4 L (5.8-8.3) g/dL Albumin 2.3 L (3.0-4.8) g/dL Globulin 3.1 gm/dL Albumin/Globulin Ratio 0.7 L (1.1-1.8) Procalcitonin (0.19-0.49) NG/ML Venous Blood Potassium (3.6-5.2) mmol/L Urine Color (YELLOW) Urine Appearance (CLEAR) Urine pH (4.7-8.0) Ur Specific [place] (1.005-1.035) Urine Protein (<30 mg/dL) mg/dL Urine Glucose (UA) (NEGATIVE) mg/dL Urine Ketones (NEGATIVE) mg/dL Urine Blood (NEGATIVE) Urine Nitrate (NEGATIVE) Urine Bilirubin (NEGATIVE) Urine Urobilinogen (<1 E.U./dL) E.U./dL Ur Leukocyte Esterase (NEGATIVE) Joseph/uL Urine RBC (0-2) /hpf Urine WBC (0-6) /hpf Ur Epithelial Cells (0-5) /hpf Urine Bacteria (NEG) Urine Other 06/04/16 06/04/1617 Range/Units 04:00 04:00 03:30 WBC 22.4 H D (4.5-11.0) 10^3/ul RBC 2.72 L (3.5-6.1) 10^6/uL Hgb 7.7 L (12.0-16.0) gm/dL Hct 24.8 L (36.0-48.0) % MCV 91.2 (80.0-105.0) fL MCH 28.3 (25.0-35.0) pg MCHC 31.0 (31.0-37.0) g/dl RDW 22.6 H (11.5-14.5) % Plt Count 300 (120.0-450.0) 10^3/uL MPV 9.3 (7.0-11.0) fl Gran % 87.6 H (50.0-68.0) % Lymph % (Auto) 5.4 L (22.0-35.0) % Bibb % (Auto) 6.7 H (1.0-6.0) % Eos % (Auto) 0.2 L (1.5-5.0) % Baso % (Auto) 0.1 (0.0-3.0) % Gran # 19.64 H (1.4-6.5) Lymph # 1.2 (1.2-3.4) Bibb # 1.5 H (0.1-0.6) Eos # 0.0 (0.0-0.7) Baso # 0.03 (0.0-2.0) K/mm3 pO2 165 H (30-55) mm/Hg VBG pH 7.42 (7.32-7.43) VBG pCO2 46.0 (40-60) VBG HCO3 29.8 H (21-28) mmol/l VBG Total CO2 31.2 H (22-28) mmol.L VBG O2 Sat (Calc) 99.7 H (40-65) % VBG Base Excess 4.5 H (0.0-2.0) mmol/L VBG Potassium 3.0 L (3.6-5.2) mmol/L Sodium 143.0 (132-148) mmol/L Chloride 110.0 H (98-107) mmol/L Glucose 106 H (65-105) mg/dl Lactate 3.6 H (0.7-2.1) mmol/L FiO2 21.0 % Potassium (3.6-5.0) mmol/L Carbon Dioxide (21-33) mmol/L Anion Gap (10-20) BUN (7-21) mg/dL Creatinine (0.5-1.4) mg/dL Est GFR ( Amer) Est GFR (Non-Af Amer) Random Glucose (70-110) mg/dL Calcium (8.4-10.5) mg/dL Phosphorus (2.5-4.5) mg/dL Magnesium (1.7-2.2) mg/dL Total Bilirubin (0.2-1.3) mg/dL AST (15-39) U/L ALT (7-56) U/L Alkaline Phosphatase (38-133) U/L Ammonia (9-33) umol/L NT-Pro-B Natriuret Pep (0-450) pg/mL Total Protein (5.8-8.3) g/dL Albumin (3.0-4.8) g/dL Globulin gm/dL Albumin/Globulin Ratio (1.1-1.8) Procalcitonin 30.13 H (0.19-0.49) NG/ML Venous Blood Potassium 3.0 L (3.6-5.2) mmol/L Urine Color (YELLOW) Urine Appearance (CLEAR) Urine pH (4.7-8.0) Ur Specific [place] (1.005-1.035) Urine Protein (<30 mg/dL) mg/dL Urine Glucose (UA) (NEGATIVE) mg/dL Urine Ketones (NEGATIVE) mg/dL Urine Blood (NEGATIVE) Urine Nitrate (NEGATIVE) Urine Bilirubin (NEGATIVE) Urine Urobilinogen (<1 E.U./dL) E.U./dL Ur Leukocyte Esterase (NEGATIVE) Joseph/uL Urine RBC (0-2) /hpf Urine WBC (0-6) /hpf Ur Epithelial Cells (0-5) /hpf Urine Bacteria (NEG) Urine Other 06/04/16 Range/Units 02:30 WBC (4.5-11.0) 10^3/ul RBC (3.5-6.1) 10^6/uL Hgb (12.0-16.0) gm/dL Hct (36.0-48.0) % MCV (80.0-105.0) fL MCH (25.0-35.0) pg MCHC (31.0-37.0) g/dl RDW (11.5-14.5) % Plt Count (120.0-450.0) 10^3/uL MPV (7.0-11.0) fl Gran % (50.0-68.0) % Lymph % (Auto) (22.0-35.0) % Bibb % (Auto) (1.0-6.0) % Eos % (Auto) (1.5-5.0) % Baso % (Auto) (0.0-3.0) % Gran # (1.4-6.5) Lymph # (1.2-3.4) Bibb # (0.1-0.6) Eos # (0.0-0.7) Baso # (0.0-2.0) K/mm3 pO2 (30-55) mm/Hg VBG pH (7.32-7.43) VBG pCO2 (40-60) VBG HCO3 (21-28) mmol/l VBG Total CO2 (22-28) mmol.L VBG O2 Sat (Calc) (40-65) % VBG Base Excess (0.0-2.0) mmol/L VBG Potassium (3.6-5.2) mmol/L Sodium (132-148) mmol/L Chloride (98-107) mmol/L Glucose (65-105) mg/dl Lactate (0.7-2.1) mmol/L FiO2 % Potassium (3.6-5.0) mmol/L Carbon Dioxide (21-33) mmol/L Anion Gap (10-20) BUN (7-21) mg/dL Creatinine (0.5-1.4) mg/dL Est GFR ( Amer) Est GFR (Non-Af Amer) Random Glucose (70-110) mg/dL Calcium (8.4-10.5) mg/dL Phosphorus (2.5-4.5) mg/dL Magnesium (1.7-2.2) mg/dL Total Bilirubin (0.2-1.3) mg/dL AST (15-39) U/L ALT (7-56) U/L Alkaline Phosphatase (38-133) U/L Ammonia (9-33) umol/L NT-Pro-B Natriuret Pep (0-450) pg/mL Total Protein (5.8-8.3) g/dL Albumin (3.0-4.8) g/dL Globulin gm/dL Albumin/Globulin Ratio (1.1-1.8) Procalcitonin (0.19-0.49) NG/ML Venous Blood Potassium (3.6-5.2) mmol/L Urine Color Yellow (YELLOW) Urine Appearance Clear (CLEAR) Urine pH 6.0 (4.7-8.0) Ur Specific [place] >= 1.030 (1.005-1.035) Urine Protein 100 H (<30 mg/dL) mg/dL Urine Glucose (UA) Negative (NEGATIVE) mg/dL Urine Ketones Negative (NEGATIVE) mg/dL Urine Blood Negative (NEGATIVE) Urine Nitrate Negative (NEGATIVE) Urine Bilirubin Small H (NEGATIVE) Urine Urobilinogen 1.0 H (<1 E.U./dL) E.U./dL Ur Leukocyte Esterase Negative (NEGATIVE) Joseph/uL Urine RBC 0 - 2 (0-2) /hpf Urine WBC 2 - 5 (0-6) /hpf Ur Epithelial Cells 1 - 3 (0-5) /hpf Urine Bacteria Small (NEG) Urine Other Mucus Laboratory Results - last 24 hr 06/04/16 06/04/16 06/04/16 02:30 03:30 04:00 WBC RBC Hgb Hct MCV MCH MCHC RDW Plt Count MPV Gran % Lymph % (Auto) Bibb % (Auto) Eos % (Auto) Baso % (Auto) Gran # Lymph # Bibb # Eos # Baso # pO2 165 H VBG pH 7.42 VBG pCO2 46.0 VBG HCO3 29.8 H VBG Total CO2 31.2 H VBG O2 Sat (Calc) 99.7 H VBG Base Excess 4.5 H VBG Potassium 3.0 L Sodium 143.0 Chloride 110.0 H Glucose 106 H Lactate 3.6 H FiO2 21.0 Potassium Carbon Dioxide Anion Gap BUN Creatinine Est GFR ( Amer) Est GFR (Non-Af Amer) Random Glucose Calcium Phosphorus Magnesium Total Bilirubin AST ALT Alkaline Phosphatase Ammonia NT-Pro-B Natriuret Pep Total Protein Albumin Globulin Albumin/Globulin Ratio Procalcitonin 30.13 H Venous Blood Potassium 3.0 L Urine Color Yellow Urine Appearance Clear Urine pH 6.0 Ur Specific [place] >= 1.030 Urine Protein 100 H Urine Glucose (UA) Negative Urine Ketones Negative Urine Blood Negative Urine Nitrate Negative Urine Bilirubin Small H Urine Urobilinogen 1.0 H Ur Leukocyte Esterase Negative Urine RBC 0 - 2 Urine WBC 2 - 5 Ur Epithelial Cells 1 - 3 Urine Bacteria Small Urine Other Mucus 06/04/16 06/04/16 06/04/16 04:00 04:00 11:35 WBC 22.4 H D RBC 2.72 L Hgb 7.7 L Hct 24.8 L MCV 91.2 MCH 28.3 MCHC 31.0 RDW 22.6 H Plt Count 300 MPV 9.3 Gran % 87.6 H Lymph % (Auto) 5.4 L Bibb % (Auto) 6.7 H Eos % (Auto) 0.2 L Baso % (Auto) 0.1 Gran # 19.64 H Lymph # 1.2 Bibb # 1.5 H Eos # 0.0 Baso # 0.03 pO2 VBG pH VBG pCO2 VBG HCO3 VBG Total CO2 VBG O2 Sat (Calc) VBG Base Excess VBG Potassium Sodium 140 Chloride 101 Glucose Lactate FiO2 Potassium 3.2 L Carbon Dioxide 29 Anion Gap 13 BUN 10 Creatinine 0.7 Est GFR ( Amer) > 60 Est GFR (Non-Af Amer) > 60 Random Glucose 110 Calcium 8.4 Phosphorus 3.4 Magnesium 2.0 Total Bilirubin 0.6 AST 32 ALT 24 Alkaline Phosphatase 118 Ammonia 12 NT-Pro-B Natriuret Pep Total Protein 5.4 L Albumin 2.3 L Globulin 3.1 Albumin/Globulin Ratio 0.7 L Procalcitonin Venous Blood Potassium Urine Color Urine Appearance Urine pH Ur Specific [place] Urine Protein Urine Glucose (UA) Urine Ketones Urine Blood Urine Nitrate Urine Bilirubin Urine Urobilinogen Ur Leukocyte Esterase Urine RBC Urine WBC Ur Epithelial Cells Urine Bacteria Urine Other 06/04/16 12:50 WBC RBC Hgb Hct MCV MCH MCHC RDW Plt Count MPV Gran % Lymph % (Auto) Bibb % (Auto) Eos % (Auto) Baso % (Auto) Gran # Lymph # Bibb # Eos # Baso # pO2 VBG pH VBG pCO2 VBG HCO3 VBG Total CO2 VBG O2 Sat (Calc) VBG Base Excess VBG Potassium Sodium Chloride Glucose Lactate FiO2 Potassium Carbon Dioxide Anion Gap BUN Creatinine Est GFR ( Amer) Est GFR (Non-Af Amer) Random Glucose Calcium Phosphorus Magnesium Total Bilirubin AST ALT Alkaline Phosphatase Ammonia NT-Pro-B Natriuret Pep 507 H Total Protein Albumin Globulin Albumin/Globulin Ratio Procalcitonin Venous Blood Potassium Urine Color Urine Appearance Urine pH Ur Specific [place] Urine Protein Urine Glucose (UA) Urine Ketones Urine Blood Urine Nitrate Urine Bilirubin Urine Urobilinogen Ur Leukocyte Esterase Urine RBC Urine WBC Ur Epithelial Cells Urine Bacteria Urine Other Review of Systems - Constitutional Constitutional: Weakness, Malaise. absent: Fever, Chills - EENT Eyes: absent: Blurred Vision, Change in Vision, Loss of Vision Ears: absent: Dizziness Nose/Mouth/Throat: absent: Sore Throat, Neck Pain - Cardiovascular Cardiovascular: absent: Chest Pain, Dyspnea, Lightheadedness, Syncope - Respiratory Respiratory: absent: Cough, Dyspnea, Hemoptysis, Pain on Inspiration - Gastrointestinal Gastrointestinal: Constipation (normally moves bowels every 1-2 days, reports no BM x4 days, but still passing flatus). absent: Abdominal Pain (but complains of abdominal fullness), Diarrhea, Nausea, Vomiting - Genitourinary Genitourinary: absent: Dysuria, Flank Pain, Hematuria - Musculoskeletal Musculoskeletal: absent: Numbness - Integumentary Integumentary: Swelling (in bilateral LE, longstanding but worse in last week). absent: Pruritus, Rash - Neurological Neurological: Abnormal Gait (limited walking due to "heaviness" in legs), Weakness. absent: Confusion, Focal Weakness, Loss of Vision, Syncope, Other Visual Disturbances - Endocrine Endocrine: Fatigue. absent: Palpitations Critical Care Progress Note - Nutrition Nutrition: Nutrition Category Date Time Status Heart Healthy Diet [DIET] Diets 06/04/16 Breakfast Ordered Assessment/Plan - Assessment and Plan (Free Text) Assessment: This is a 60 yo AA F with PMH of Metastatic Uterine CA (s/p Chemo + Surgery, now on Chemo s/p reoccurence of CA), LLE DVT, prior pleural effusions and abdominal ascites (s/p thoracentesis and paracentesis ~1 year prior), and HTN who was admitted to the ICU for possible sepsis with multiloculated R pleural effusion. Plan: Neuro: -AAOx4, moving upper extremities and following all commands appropriately -maintain normothermia; fever with Tmax 100.9 F on admission, no further fevers but has PRN tylenol should they recur -continue to monitor -PT/OT Pulm: -CT abd on admission notable for: Right multiloculated pleural effusion, soft tissue rim suggestive of malignant vs infected effusion -IR consult for drainage of effusion/assess for empyema pending decision by patient and family regarding goals of care (Palliative care consulted) -Satting well on room air, no indication for supplemental O2 at this time -Maintain SaO2 > 90% -Covering with Meropenem and Vanc, as per ID -ID (Dr. Peraza) and Heme/Onc (Dr. Syeda Grullon) consulted, appreciate any recs -procal 30.13 Cardio: -Tachycardic but regular, may be 2/2 sepsis vs off of home lopressor, will restart lopressor -Maintain MAP > 65 -therapeutic lovenox q12 for LLE DVT, high risk for DVT/PE given cancer and bed- bound state -Pitting edema vs ANASARCA in bilateral LE, given malignancy and large mass may be compressing the IVC and impeding venous return -Continuing Lasix 40mg IV BID to diurese GI: -Heart-healthy diet -Protonix for GI ppx -CT abd notable for mild perisplenic ascites, diffuse anasarca, large mass through pelvic and lower/mid abdomen (22.7x22.6x16.5 cm), and questionable rectal wall thickening vs underdistention -Heme/onc consulted, appreciate any recs Renal: -Cr 0.7 -monitor and replete electrolytes as needed; K repleted, recheck ordered -avoid nephrotoxic drugs where feasible -maintain euglycemia (BG 140-180); not euvolemia as diuresing with Lasix BID ID: -WBC increased to 22.4, febrile overnight but resolved since this AM -possible infectious effusion/empyema vs 2/2 malignancy -Procal 30.13, more indicative of infectious etiology -ID (Dr. Peraza) on board, appreciate all recs -Covering with Meropenem and Vanc per ID -Blood, Urine, and MRSA cultures pending Heme: -Hgb 7.7, was 8.3 -continue to monitor, if Hgb < 7 would consider transfusing -Therapeutic lovenox q12 for LLE DVT Dispo: ICU, stable for transfer to telemetry, pending Palliative discussion with patient and family regarding goals of care FEN: Heart-healthy diet Access: Peripheral IV, R-chest port-a-cath Consults: ID, Heme-onc, Palliative Ppx: Protonix for GI, Therapeutic lovenox covers for DVT Patient seen, reviewed, and discussed with attending, Dr. Lomeli. - Date & Time Date: 06/04/16 Time: 17:54 <Kvng Lomeli - Last Filed: 06/05/16 16:14> CCU Objective - Vital Signs / Intake & Output Vital Signs (Last 4 hours): Vital Signs Temp Pulse Resp BP 06/05/16 15:40 98.9 F 130 H 33 H 138/78 06/05/16 14:32 138/86 06/05/16 12:54 99.4 F 102 H 29 H 120/65 06/05/16 12:32 123 H 124/40 L Intake and Output (Last 8hrs): Intake & Output 06/05/16 06/05/16 06/05/16 06:59 14:59 22:59 Intake Total 450 0 375 Output Total 1000 Balance -550 0 375 Weight 183 lb 1.6 oz Intake: IV 200 Right Hand 200 Oral 250 Blood Product 0 325 Red Blood Cells Cpd As1 0 325 Lr Unit [id number] Other 50 Red Blood Cells Cpd As1 50 Lr Unit [id number] Output: Urine 500 Urine, Voided 500 Stool 500 Other: Voiding Method Bedpan # Bowel Movements 0 - Medications Active Medications: Active Medications Generic Name Dose Route Start Last Admin Trade Name Freq PRN Reason Stop Dose Admin Acetaminophen 650 mg 06/04/16 10:58 06/05/16 05:07 Tylenol 325mg Tab PO 650 mg Q6H PRN Administration Fever >100.4 F Docusate Sodium 100 mg 06/04/16 14:00 06/05/16 13:10 Colace PO 100 mg TID ANDRY Administration Enoxaparin Sodium 70 mg 06/04/16 02:00 06/05/16 13:10 Lovenox SC 70 mg Q12H ANDRY Administration Protocol Furosemide 40 mg 06/04/16 10:00 06/04/16 09:29 Lasix IVP 40 mg BID ANDRY Administration Hydromorphone HCl 0.5 mg 06/05/16 16:05 Dilaudid IVP Q3H PRN Pain, moderate (4-7) Levofloxacin/Dextrose 150 mls @ 100 mls/hr 06/04/16 10:00 06/05/16 09:50 Levaquin 750mg IVPB 100 mls/hr DAILY ANDRY Administration Vancomycin HCl 250 mls @ 167 mls/hr 06/04/16 01:30 06/05/16 13:11 Vancomycin 1gm IVPB 167 mls/hr Q12H ANDRY Administration Protocol Meropenem 1g/NS 100mL IVPB 1 gm in 100 mls @ 100 mls/hr 06/04/16 10:03 13:12 Meropenem 1g/Ns 100ml Ivpb IVPB 06/11/16 10:04 100 mls/hr Q8 ANDRY Administration Protocol Metoprolol Tartrate 5 mg 06/04/16 11:30 06/05/16 12:32 Lopressor IVP 5 mg Q6H ANDRY Administration Ondansetron HCl 4 mg 06/04/16 01:30 Zofran Inj IVP Q6H PRN Nausea/Vomiting Pantoprazole Sodium 40 mg 06/04/16 10:00 06/05/16 09:50 Protonix Inj IVP 40 mg DAILY ANDRY Administration Polyethylene Glycol 17 gm 06/04/16 18:00 06/05/16 09:50 Miralax PO 17 gm BID ANDRY Administration - Patient Studies Lab Studies: Microbiology Studies 06/04/16 04:05 MRSA Culture (Admit) - Final Nose MRSA NOT DETECTED 06/04/16 02:30 Urine Culture - Preliminary Urine Gram Positive Cocci 06/04/16 01:30 Blood Culture - Preliminary Blood-Venous NO GROWTH AFTER 24 HOURS Lab Studies 06/05/16 06/05/16 06/05/16 Range/Units 09:41 08:50 08:50 WBC (4.5-11.0) 10^3/ul RBC (3.5-6.1) 10^6/uL Hgb (12.0-16.0) gm/dL Hct (36.0-48.0) % MCV (80.0-105.0) fL MCH (25.0-35.0) pg MCHC (31.0-37.0) g/dl RDW (11.5-14.5) % Plt Count (120.0-450.0) 10^3/uL MPV (7.0-11.0) fl Gran % (50.0-68.0) % Lymph % (Auto) (22.0-35.0) % Bibb % (Auto) (1.0-6.0) % Eos % (Auto) (1.5-5.0) % Baso % (Auto) (0.0-3.0) % Gran # (1.4-6.5) Lymph # (1.2-3.4) Bibb # (0.1-0.6) Eos # (0.0-0.7) Baso # (0.0-2.0) K/mm3 Retic Count (0.5-1.5) % Sodium (132-148) mmol/L Potassium (3.6-5.0) mmol/L Chloride (98-107) mmol/L Carbon Dioxide (21-33) mmol/L Anion Gap (10-20) BUN (7-21) mg/dL Creatinine (0.5-1.4) mg/dL Est GFR ( Amer) Est GFR (Non-Af Amer) Random Glucose (70-110) mg/dL Calcium (8.4-10.5) mg/dL Phosphorus (2.5-4.5) mg/dL Magnesium (1.7-2.2) mg/dL Iron (45-180) ug/dL TIBC (265-497) ug/dL % Saturation (20-55) % Ferritin 3730.0 ng/mL Total Bilirubin (0.2-1.3) mg/dL AST (15-39) U/L ALT (7-56) U/L Alkaline Phosphatase (38-133) U/L Troponin I ng/mL Total Protein (5.8-8.3) g/dL Albumin (3.0-4.8) g/dL Globulin gm/dL Albumin/Globulin Ratio (1.1-1.8) Vitamin B12 > 1000 H (239-931) pg/mL Folate 4.9 ng/mL TSH 3rd Generation (0.46-4.68) mIU/mL Blood Type O POSITIVE Blood Type Confirm O POSITIVE Antibody Screen Negative Crossmatch See Detail BBK History Checked No verified bt 06/05/16 06/05/16 06/05/16 Range/Units 08:50 07:30 06:00 WBC (4.5-11.0) 10^3/ul RBC (3.5-6.1) 10^6/uL Hgb (12.0-16.0) gm/dL Hct (36.0-48.0) % MCV (80.0-105.0) fL MCH (25.0-35.0) pg MCHC (31.0-37.0) g/dl RDW (11.5-14.5) % Plt Count (120.0-450.0) 10^3/uL MPV (7.0-11.0) fl Gran % (50.0-68.0) % Lymph % (Auto) (22.0-35.0) % Bibb % (Auto) (1.0-6.0) % Eos % (Auto) (1.5-5.0) % Baso % (Auto) (0.0-3.0) % Gran # (1.4-6.5) Lymph # (1.2-3.4) Bibb # (0.1-0.6) Eos # (0.0-0.7) Baso # (0.0-2.0) K/mm3 Retic Count 1.83 H (0.5-1.5) % Sodium (132-148) mmol/L Potassium (3.6-5.0) mmol/L Chloride (98-107) mmol/L Carbon Dioxide (21-33) mmol/L Anion Gap (10-20) BUN (7-21) mg/dL Creatinine (0.5-1.4) mg/dL Est GFR ( Amer) Est GFR (Non-Af Amer) Random Glucose (70-110) mg/dL Calcium (8.4-10.5) mg/dL Phosphorus (2.5-4.5) mg/dL Magnesium (1.7-2.2) mg/dL Iron 20 L (45-180) ug/dL TIBC 120 L (265-497) ug/dL % Saturation 17 L (20-55) % Ferritin ng/mL Total Bilirubin (0.2-1.3) mg/dL AST (15-39) U/L ALT (7-56) U/L Alkaline Phosphatase (38-133) U/L Troponin I ng/mL Total Protein (5.8-8.3) g/dL Albumin (3.0-4.8) g/dL Globulin gm/dL Albumin/Globulin Ratio (1.1-1.8) Vitamin B12 (239-931) pg/mL Folate ng/mL TSH 3rd Generation 4.69 H (0.46-4.68) mIU/mL Blood Type Blood Type Confirm Antibody Screen Crossmatch BBK History Checked 06/05/16 06/05/16 06/04/16 Range/Units 06:00 06:00 21:54 WBC 17.4 H D (4.5-11.0) 10^3/ul RBC 2.43 L (3.5-6.1) 10^6/uL Hgb 6.9 L* (12.0-16.0) gm/dL Hct 22.0 L (36.0-48.0) % MCV 90.5 (80.0-105.0) fL MCH 28.4 (25.0-35.0) pg MCHC 31.4 (31.0-37.0) g/dl RDW 22.4 H (11.5-14.5) % Plt Count 248 (120.0-450.0) 10^3/uL MPV 8.7 (7.0-11.0) fl Gran % 90.9 H (50.0-68.0) % Lymph % (Auto) 3.8 L (22.0-35.0) % Bibb % (Auto) 5.1 (1.0-6.0) % Eos % (Auto) 0.1 L (1.5-5.0) % Baso % (Auto) 0.1 (0.0-3.0) % Gran # 15.83 H (1.4-6.5) Lymph # 0.7 L (1.2-3.4) Bibb # 0.9 H (0.1-0.6) Eos # 0.0 (0.0-0.7) Baso # 0.01 (0.0-2.0) K/mm3 Retic Count (0.5-1.5) % Sodium 141 (132-148) mmol/L Potassium 3.7 3.2 L (3.6-5.0) mmol/L Chloride 102 (98-107) mmol/L Carbon Dioxide 31 (21-33) mmol/L Anion Gap 12 (10-20) BUN 14 (7-21) mg/dL Creatinine 0.8 (0.5-1.4) mg/dL Est GFR ( Amer) > 60 Est GFR (Non-Af Amer) > 60 Random Glucose 104 (70-110) mg/dL Calcium 8.0 L (8.4-10.5) mg/dL Phosphorus 2.8 (2.5-4.5) mg/dL Magnesium 1.8 (1.7-2.2) mg/dL Iron (45-180) ug/dL TIBC (265-497) ug/dL % Saturation (20-55) % Ferritin ng/mL Total Bilirubin 0.5 (0.2-1.3) mg/dL AST 39 (15-39) U/L ALT 32 (7-56) U/L Alkaline Phosphatase 112 (38-133) U/L Troponin I < 0.01 ng/mL Total Protein 5.0 L (5.8-8.3) g/dL Albumin 2.0 L (3.0-4.8) g/dL Globulin 2.9 gm/dL Albumin/Globulin Ratio 0.7 L (1.1-1.8) Vitamin B12 (239-931) pg/mL Folate ng/mL TSH 3rd Generation (0.46-4.68) mIU/mL Blood Type Blood Type Confirm Antibody Screen Crossmatch BBK History Checked Laboratory Results - last 24 hr 06/04/16 06/05/16 06/05/16 21:54 06:00 06:00 WBC 17.4 H D RBC 2.43 L Hgb 6.9 L* Hct 22.0 L MCV 90.5 MCH 28.4 MCHC 31.4 RDW 22.4 H Plt Count 248 MPV 8.7 Gran % 90.9 H Lymph % (Auto) 3.8 L [place] % (Auto) 5.1 Eos % (Auto) 0.1 L Baso % (Auto) 0.1 Gran # 15.83 H Lymph # 0.7 L [place] # 0.9 H Eos # 0.0 Baso # 0.01 Retic Count Sodium 141 Potassium 3.2 L 3.7 Chloride 102 Carbon Dioxide 31 Anion Gap 12 BUN 14 Creatinine 0.8 Est GFR ( Amer) > 60 Est GFR (Non-Af Amer) > 60 Random Glucose 104 Calcium 8.0 L Phosphorus 2.8 Magnesium 1.8 Iron TIBC % Saturation Ferritin Total Bilirubin 0.5 AST 39 ALT 32 Alkaline Phosphatase 112 Troponin I < 0.01 Total Protein 5.0 L Albumin 2.0 L Globulin 2.9 Albumin/Globulin Ratio 0.7 L Vitamin B12 Folate TSH 3rd Generation Blood Type Blood Type Confirm Antibody Screen Crossmatch BBK History Checked 06/05/16 06/05/16 06/05/16 06:00 07:30 08:50 WBC RBC Hgb Hct MCV MCH MCHC RDW Plt Count MPV Gran % Lymph % (Auto) [place] % (Auto) Eos % (Auto) Baso % (Auto) Gran # Lymph # [place] # Eos # Baso # Retic Count 1.83 H Sodium Potassium Chloride Carbon Dioxide Anion Gap BUN Creatinine Est GFR ( Amer) Est GFR (Non-Af Amer) Random Glucose Calcium Phosphorus Magnesium Iron 20 L TIBC 120 L % Saturation 17 L Ferritin Total Bilirubin AST ALT Alkaline Phosphatase Troponin I Total Protein Albumin Globulin Albumin/Globulin Ratio Vitamin B12 Folate TSH 3rd Generation 4.69 H Blood Type Blood Type Confirm Antibody Screen Crossmatch BBK History Checked 06/05/16 06/05/16 06/05/16 08:50 08:50 09:41 WBC RBC Hgb Hct MCV MCH MCHC RDW Plt Count MPV Gran % Lymph % (Auto) [place] % (Auto) Eos % (Auto) Baso % (Auto) Gran # Lymph # [place] # Eos # Baso # Retic Count Sodium Potassium Chloride Carbon Dioxide Anion Gap BUN Creatinine Est GFR ( Amer) Est GFR (Non-Af Amer) Random Glucose Calcium Phosphorus Magnesium Iron TIBC % Saturation Ferritin 3730.0 Total Bilirubin AST ALT Alkaline Phosphatase Troponin I Total Protein Albumin Globulin Albumin/Globulin Ratio Vitamin B12 > 1000 H Folate 4.9 TSH 3rd Generation Blood Type O POSITIVE Blood Type Confirm O POSITIVE Antibody Screen Negative Crossmatch See Detail BBK History Checked No verified bt Critical Care Progress Note - Nutrition Nutrition: Nutrition Category Date Time Status Heart Healthy Diet [DIET] Diets 06/04/16 Breakfast Ordered Addendum Addendum: 06/05/16 16:[address] Lomeli's note
--- NOTE | 2016-06-04 16:30 | PN ---
DATE: 06/04/2016 This is a 60-year-old lady with history of uterine cancer stage IV, status post hysterectomy in 03/2015, treated with immediate chemotherapy and XRT who presented yesterday to [facility] ER complaining of 1-week duration of weakness and lethargy. She had fatigue and malaise and had poor appetite and lost some weight in recent past. No nausea, no vomiting, no diarrhea, no constipation. PAST MEDICAL HISTORY: Pleural effusion, hypertension, left lower extremity DVT. SOCIAL HISTORY: Remote history of tobacco use. No alcohol or illicit drug abuse. FAMILY HISTORY: Noncontributory. ALLERGIES: NKDA. MEDICATIONS: Tylenol p.r.n., Colace, Lovenox 70 mg subQ q. 12, levofloxacin, meropenem, metoprolol 5 mg IV q. 6 hours, Zofran p.r.n., Protonix, vancomycin. PHYSICAL EXAMINATION: VITAL SIGNS: Heart rate 123, blood pressure 116/56, oxygen saturation 97%, respiratory rate 20-30. HEAD AND NECK: Atraumatic. LUNGS: Clear to auscultation bilaterally. HEART: Regular rate and rhythm. S1, S2 normal. ABDOMEN: A little bit tense, distended (there is residual mass after hysterectomy due to cancer). MUSCULOSKELETAL: 3+ bilateral pedal and ankle edema. NEUROLOGIC: The patient moves all extremities spontaneously. PSYCHIATRIC: The patient is alert and oriented x 3. LABORATORY DATA: WBC 22.4, hemoglobin 7.7, platelet count 300. Sodium 140, potassium 3.2, chloride 101, carbon dioxide 29, BUN 10, creatinine 0.7. Ammonia 12, albumin 2.3, glucose 110. AST 32, ALT 24. ASSESSMENT AND PLAN: This is a 60-year-old lady who presented with severe sepsis with potential source being infected loculated effusion in the right lower lobe. Pleurex catheter was removed by IR. We will continue with fluid maintenance, broad-spectrum antibiotics, infectious disease service consultation. The patient is on therapeutic anticoagulation for deep venous thrombosis. We will continue with that. The patient was on beta blockers at home. We will continue with that as well. We will continue to target euvolemia , euglycemia, normothermia and oxygen saturation more than 90%. We will continue with gastrointestinal prophylaxis. Addendum: If patient still deteriorated after catheter removal, repeated thoracenthesis would need to be attempted to rule out empyema with its subsequent drainage ccm time 40 min Kvng Lomeli MD cc: [id number] TT: 06/04/2016 16:30:07 Confirmation # [id number] Dictation # [id number] tn BETTINA
[2016-06-04] MEDS ORDERED: Lidocaine 1% Inj (20ml) IJ STA (16:58)
[2016-06-04] MEDS ORDERED: Morphine 2 mg/ml ISec IVP ONE (17:15)
[2016-06-04] MEDS: POLYETHYLENE GLYCOL 3350 17 GM/Dose PACKET PO SCH (17:27)
[2016-06-04] MEDS ORDERED: Potassium Chloride 40 mEq/30 ml LIQ UD PO ONE (23:42)
[2016-06-05] MEDS: Enoxaparin 80 mg Syringe SC SCH ×2 (02:01→13:10)
[2016-06-05] MEDS: Meropenem 1g/NS 100mL IVPB 1 GM/100 ML PIGGYBACK IVPB SCH ×3 (05:07→22:09)
--- NOTE | 2016-06-05 05:24 | CP.PCM.CON ---
History of Present Illness - History of Present Illness History of Present Illness: Surgery for Dr. Coughlin 60 year old female with PMH of uterine cancer on chemotherapy last session 3 weeks ago S/P hysterectomy, history of left lower extremity DVT, HTN, S/P right pleurex catheter placement, S/P port-a-cath placement and IVC filter came in to [facility] complaining of lethargy for about a week now with poor appetite and generalized malaise. She denies fever or chills, no nausea or vomiting, no chest pain or SOB, no sore throat, no rhinorrhea, no cough. Pt has occasional abdominal discomfort, feels her lower extremities are heavy, denies diarrhea. In the ED she was noted to have leukocytosis and fever. CT showed loculated pleural effusion on the R chest. Pt came with pleurex catheter that was put in a few weeks ago at [facility]. It was taken out yesterday for possible source of sepsis. Review of Systems - Review of Systems Review of Systems: See HPI Past Patient History - Past Social History Smoking Status: Former Smoker - CARDIAC Hx Cardiac Disorders: Yes Hx Hypertension: Yes - PULMONARY Hx Respiratory Disorders: Yes Other/Comment: Right pleural effusion - NEUROLOGICAL Hx Neurological Disorder: No - RENAL Hx Chronic Kidney Disease: No - ENDOCRINE/METABOLIC Hx Endocrine Disorders: No - HEMATOLOGICAL/ONCOLOGICAL Hx Cancer: Yes (Uterine -dx chemo and radiation) Other/Comment: DVT - LLE. Cancer reoccurred - chemo restarted - INTEGUMENTARY Hx Dermatological Problems: No - MUSCULOSKELETAL/RHEUMATOLOGICAL Hx Falls: No - GENITOURINARY/GYNECOLOGICAL Hx Genitourinary Disorders: No - PSYCHIATRIC Hx Psychophysiologic Disorder: No Hx Substance Use: No - SURGICAL HISTORY Hx Surgeries: Yes Hx Hysterectomy: Yes Other/Comment: IVC filter. Right Portacath. Right pleurX cath. - ANESTHESIA Hx Anesthesia: Yes Hx Anesthesia Reactions: No Hx Malignant Hyperthermia: No Meds Allergies/Adverse Reactions: Allergies Allergy/AdvReac Type Severity Reaction Status Date / Time No Known Allergies Allergy Unverified 06/03/16 22:32 - Medications Medications: Current Medications Acetaminophen (Tylenol 325mg Tab) 650 mg PO Q6H PRN PRN Reason: Fever >100.4 F Last Admin: 06/05/16 05:07 Dose: 650 mg Docusate Sodium (Colace) 100 mg PO TID [facility] Last Admin: 06/04/16 17:27 Dose: 100 mg Enoxaparin Sodium (Lovenox) 70 mg SC Q12H [facility] PRN Reason: Protocol Last Admin: 06/05/16 02:01 Dose: 70 mg Furosemide (Lasix) 40 mg IVP BID [facility] Last Admin: 06/04/16 09:29 Dose: 40 mg Levofloxacin/Dextrose (Levaquin 750mg) 150 mls @ 100 mls/hr IVPB DAILY [facility] Last Admin: 06/04/16 09:28 Dose: 100 mls/hr Vancomycin HCl (Vancomycin 1gm) 250 mls @ 167 mls/hr IVPB Q12H [facility] PRN Reason: Protocol Last Admin: 06/04/16 13:05 Dose: 167 mls/hr Meropenem 1g/NS 100mL IVPB (Meropenem 1g/Ns 100ml Ivpb) 1 gm in 100 mls @ 100 mls/hr IVPB Q8 [facility] PRN Reason: Protocol Stop: 06/11/16 10:04 Last Admin: 06/05/16 05:07 Dose: 100 mls/hr Metoprolol Tartrate (Lopressor) 5 mg IVP Q6H [facility] Last Admin: 06/04/16 23:19 Dose: 5 mg Ondansetron HCl (Zofran Inj) 4 mg IVP Q6H PRN PRN Reason: Nausea/Vomiting Pantoprazole Sodium (Protonix Inj) 40 mg IVP DAILY [facility] Last Admin: 06/04/16 09:28 Dose: 40 mg Polyethylene Glycol (Miralax) 17 gm PO BID [facility] Last Admin: 06/04/16 17:27 Dose: 17 gm Physical Exam - Constitutional Appears: Non-toxic - Head Exam Head Exam: ATRAUMATIC, NORMAL INSPECTION, NORMOCEPHALIC - Eye Exam Eye Exam: EOMI, Normal appearance, PERRL Pupil Exam: NORMAL ACCOMODATION, PERRL - ENT Exam ENT Exam: Mucous Membranes Moist, Normal Exam - Neck Exam Neck exam: Positive for: Normal Inspection - Respiratory Exam Respiratory Exam: Clear to Auscultation Bilateral, NORMAL BREATHING PATTERN. absent: Accessory Muscle Use, Respiratory Distress - Cardiovascular Exam Cardiovascular Exam: Tachycardia, REGULAR RHYTHM - GI/Abdominal Exam GI & Abdominal Exam: Distended, Soft. absent: Guarding, Hernia, Pulsatile Mass , Rebound, Rigid, Tenderness - Extremities Exam Extremities exam: Positive for: full ROM, normal inspection - Back Exam Back exam: NORMAL INSPECTION - Neurological Exam Neurological exam: Alert, CN II-XII Intact, Oriented x3, Reflexes Normal - Psychiatric Exam Psychiatric exam: Normal Affect, Normal Mood - Skin Skin Exam: Dry, Intact, Normal Color, Warm Results - Vital Signs Recent Vital Signs: Last Vital Signs Temp 98.6 F 06/05/16 00:00 Pulse 116 H 06/04/16 23:19 Resp 32 H 06/04/16 20:20 BP 100/54 L 06/04/16 23:19 Pulse Ox 100 06/04/16 20:20 - Labs Result Diagrams: 06/04/16 04:00 06/04/16 21:54 Labs: Laboratory Results - last 24 hr 06/04/16 06/04/16 06/04/16 04:00 04:00 04:00 WBC 22.4 H D RBC 2.72 L Hgb 7.7 L Hct 24.8 L MCV 91.2 MCH 28.3 MCHC 31.0 RDW 22.6 H Plt Count 300 MPV 9.3 Gran % 87.6 H Lymph % (Auto) 5.4 L [place] % (Auto) 6.7 H Eos % (Auto) 0.2 L Baso % (Auto) 0.1 Gran # 19.64 H Lymph # 1.2 [place] # 1.5 H Eos # 0.0 Baso # 0.03 Sodium 140 Potassium 3.2 L Chloride 101 Carbon Dioxide 29 Anion Gap 13 BUN 10 Creatinine 0.7 Est GFR ( Amer) > 60 Est GFR (Non-Af Amer) > 60 Random Glucose 110 Calcium 8.4 Phosphorus 3.4 Magnesium 2.0 Total Bilirubin 0.6 AST 32 ALT 24 Alkaline Phosphatase 118 Ammonia NT-Pro-B Natriuret Pep Total Protein 5.4 L Albumin 2.3 L Globulin 3.1 Albumin/Globulin Ratio 0.7 L Procalcitonin 30.13 H 06/04/16 06/04/16 06/04/16 11:35 12:50 21:54 WBC RBC Hgb Hct MCV MCH MCHC RDW Plt Count MPV Gran % Lymph % (Auto) [place] % (Auto) Eos % (Auto) Baso % (Auto) Gran # Lymph # [place] # Eos # Baso # Sodium Potassium 3.2 L Chloride Carbon Dioxide Anion Gap BUN Creatinine Est GFR ( Amer) Est GFR (Non-Af Amer) Random Glucose Calcium Phosphorus Magnesium Total Bilirubin AST ALT Alkaline Phosphatase Ammonia 12 NT-Pro-B Natriuret Pep 507 H Total Protein Albumin Globulin Albumin/Globulin Ratio Procalcitonin Assessment & Plan - Assessment and Plan (Free Text) Assessment: R Loculated pleural effusion s/p R pleurex removal Pt is on theraputic Lovenox for LLE DVT Procal: 30 No dyspnea Leukocytosis 22k -CXR -f/u pleural fluids cx, catheter tip cx -Continue medical management -We will continue to follow Will [place] Coughlin
[2016-06-05 06:20] LABS: ADD MANUAL DIFF? NO
[2016-06-05 06:26] LABS: BASO # 0.01 K/mm3 (0.0-2.0); BASO % 0.1 % (0.0-3.0); EOS % 0.1 % (1.5-5.0); GRAN # 15.83 (1.4-6.5); GRAN % 90.9 % (50.0-68.0); LYMPH # 0.7 (1.2-3.4); LYMPH % 3.8 % (22.0-35.0); MEAN CELL VOLUME 90.5 fL (80.0-105.0); MEAN CORPUSCULAR HEMOGLOBIN 28.4 pg (25.0-35.0); MEAN CORPUSCULAR HGB CONC 31.4 g/dl (31.0-37.0); MEAN PLATELET VOLUME 8.7 fl (7.0-11.0); MONO # 0.9 (0.1-0.6); MONO % 5.1 % (1.0-6.0); PLATELET COUNT 248 10^3/uL (120.0-450.0); RED CELL DISTRIBUTION WIDTH 22.4 % (11.5-14.5); WHITE BLOOD COUNT 17.4 10^3/ul (4.5-11.0)
[2016-06-05 06:38] LABS: ALB/GLOB RATIO 0.7 (1.1-1.8); ALKALINE PHOSPHATASE 112 U/L (38-133); ALT/SGPT 32 U/L (7-56); AST/SGOT 39 U/L (15-39); BILIRUBIN,TOTAL 0.5 mg/dL (0.2-1.3); BLOOD UREA NITROGEN 14 mg/dL (7-21); CARBON DIOXIDE 31 mmol/L (21-33); CHLORIDE 102 mmol/L (98-107); GFR AFRICAN-AMERICAN > 60; GLUCOSE,RANDOM 104 mg/dL (70-110); MAGNESIUM 1.8 mg/dL (1.7-2.2); PHOSPHOROUS 2.8 mg/dL (2.5-4.5); POTASSIUM 3.7 mmol/L (3.6-5.0); SODIUM 141 mmol/L (132-148)
--- NOTE | 2016-06-05 07:03 | CP.PCM.CON ---
History of Present Illness - History of Present Illness History of Present Illness: 60 year old female with a history of stated uterine cancer diagnosed in 2016 and treated with hysterectomy, currently on chemotherapy, DVT with an IVC filter and treated with anticoagulation, admitted with failure to thrive and loculated pleural effusion. The patient reports to progressive weakness and debility. She is in [place] visiting her daughter and was brought to the hospital due to her profound fatigue. Her appetite is poor and she is losing weight. Past medical history: Likely stage IV uterine cancer, DVT Past surgical history: hysterectomy Family history: Mother had breast cancer. Social history: Denies tobacco, alcohol, and illicit drug use. Allergies: NKA Review of systems: All remaining review of systems including HEENT, cardiovascular, respiratory, gastrointestinal, genitourinary, musculoskeletal, dermatologic, neurologic, and psychiatric are negative unless mentioned in the HPI. Past Patient History - Past Social History Smoking Status: Former Smoker - CARDIAC Hx Cardiac Disorders: Yes Hx Hypertension: Yes - PULMONARY Hx Respiratory Disorders: Yes Other/Comment: Right pleural effusion - NEUROLOGICAL Hx Neurological Disorder: No - RENAL Hx Chronic Kidney Disease: No - ENDOCRINE/METABOLIC Hx Endocrine Disorders: No - HEMATOLOGICAL/ONCOLOGICAL Hx Cancer: Yes (Uterine -dx chemo and radiation) Other/Comment: DVT - LLE. Cancer reoccurred - chemo restarted - INTEGUMENTARY Hx Dermatological Problems: No - MUSCULOSKELETAL/RHEUMATOLOGICAL Hx Falls: No - GENITOURINARY/GYNECOLOGICAL Hx Genitourinary Disorders: No - PSYCHIATRIC Hx Psychophysiologic Disorder: No Hx Substance Use: No - SURGICAL HISTORY Hx Surgeries: Yes Hx Hysterectomy: Yes Other/Comment: IVC filter. Right Portacath. Right pleurX cath. - ANESTHESIA Hx Anesthesia: Yes Hx Anesthesia Reactions: No Hx Malignant Hyperthermia: No Meds Allergies/Adverse Reactions: Allergies Allergy/AdvReac Type Severity Reaction Status Date / Time No Known Allergies Allergy Unverified 06/03/16 22:32 - Medications Medications: Current Medications Acetaminophen (Tylenol 325mg Tab) 650 mg PO Q6H PRN PRN Reason: Fever >100.4 F Last Admin: 06/05/16 05:07 Dose: 650 mg Docusate Sodium (Colace) 100 mg PO TID [facility] Last Admin: 06/04/16 17:27 Dose: 100 mg Enoxaparin Sodium (Lovenox) 70 mg SC Q12H [facility] PRN Reason: Protocol Last Admin: 06/05/16 02:01 Dose: 70 mg Furosemide (Lasix) 40 mg IVP BID [facility] Last Admin: 06/04/16 09:29 Dose: 40 mg Levofloxacin/Dextrose (Levaquin 750mg) 150 mls @ 100 mls/hr IVPB DAILY [facility] Last Admin: 06/04/16 09:28 Dose: 100 mls/hr Vancomycin HCl (Vancomycin 1gm) 250 mls @ 167 mls/hr IVPB Q12H [facility] PRN Reason: Protocol Last Admin: 06/04/16 13:05 Dose: 167 mls/hr Meropenem 1g/NS 100mL IVPB (Meropenem 1g/Ns 100ml Ivpb) 1 gm in 100 mls @ 100 mls/hr IVPB Q8 [facility] PRN Reason: Protocol Stop: 06/11/16 10:04 Last Admin: 06/05/16 05:07 Dose: 100 mls/hr Metoprolol Tartrate (Lopressor) 5 mg IVP Q6H [facility] Last Admin: 06/04/16 23:19 Dose: 5 mg Ondansetron HCl (Zofran Inj) 4 mg IVP Q6H PRN PRN Reason: Nausea/Vomiting Pantoprazole Sodium (Protonix Inj) 40 mg IVP DAILY [facility] Last Admin: 06/04/16 09:28 Dose: 40 mg Polyethylene Glycol (Miralax) 17 gm PO BID [facility] Last Admin: 06/04/16 17:27 Dose: 17 gm Physical Exam - Constitutional Appears: Cachectic - Head Exam Head Exam: ATRAUMATIC - Eye Exam Eye Exam: Normal appearance - ENT Exam ENT Exam: Mucous Membranes Dry - Respiratory Exam Respiratory Exam: Decreased Breath Sounds - Cardiovascular Exam Cardiovascular Exam: +S1, +S2 - GI/Abdominal Exam GI & Abdominal Exam: Normal Bowel Sounds - Extremities Exam Extremities exam: Positive for: pedal edema - Neurological Exam Neurological exam: Oriented x3 - Psychiatric Exam Psychiatric exam: Normal Affect, Normal Mood - Skin Skin Exam: Warm Results - Vital Signs Recent Vital Signs: Last Vital Signs Temp 98.6 F 06/05/16 00:00 Pulse 118 H 06/05/16 05:30 Resp 26 H 06/05/16 05:30 BP 123/67 06/05/16 05:00 Pulse Ox 99 06/05/16 05:30 - Labs Result Diagrams: 06/05/16 06:00 06/04/16 21:54 Labs: Laboratory Results - last 24 hr 06/04/16 06/04/16 06/04/16 04:00 04:00 11:35 WBC 22.4 H D RBC 2.72 L Hgb 7.7 L Hct 24.8 L MCV 91.2 MCH 28.3 MCHC 31.0 RDW 22.6 H Plt Count 300 MPV 9.3 Gran % 87.6 H Lymph % (Auto) 5.4 L [place] % (Auto) 6.7 H Eos % (Auto) 0.2 L Baso % (Auto) 0.1 Gran # 19.64 H Lymph # 1.2 [place] # 1.5 H Eos # 0.0 Baso # 0.03 Potassium Ammonia 12 NT-Pro-B Natriuret Pep Procalcitonin 30.13 H 06/04/16 06/04/16 06/05/16 12:50 21:54 06:00 WBC 17.4 H D RBC 2.43 L Hgb 6.9 L* Hct 22.0 L MCV 90.5 MCH 28.4 MCHC 31.4 RDW 22.4 H Plt Count 248 MPV 8.7 Gran % 90.9 H Lymph % (Auto) 3.8 L [place] % (Auto) 5.1 Eos % (Auto) 0.1 L Baso % (Auto) 0.1 Gran # 15.83 H Lymph # 0.7 L [place] # 0.9 H Eos # 0.0 Baso # 0.01 Potassium 3.2 L Ammonia NT-Pro-B Natriuret Pep 507 H Procalcitonin Assessment & Plan - Assessment and Plan (Free Text) Assessment: 1. Anemia - will check ferritin, retic count, b12, folate, FOBT to further characterize - likely anemia of chronic disease from malignancy - transfusion support PRN 2. Pleural effusion - suspect malignant effusion - evaluation for drainage and chest tube 3. DVT - likely provoked from immobility and malignancy - had IVC filter, on therapeutic lovenox 4. Leukocytosis - on antibiotics 5. Uterine cancer - supportive care, palliative care - poor prognosis Thank you for this interesting consult.
[2016-06-05 07:06] LABS: TROPONIN I < 0.01 ng/mL
[2016-06-05] MEDS: Metoprolol 1 mg/ml Inj IVP SCH ×4 (07:28→23:44)
--- NOTE | 2016-06-05 08:39 | RAD ---
HISTORY: R loculated pleural effusion, s/p pleurex removal COMPARISON: 06/03/2016 FINDINGS: LUNGS: The right inferolateral pleural parenchymal opacity consistent with an element pleural fluid here probably loculated is renoted. The overlying drains here have been removed. No pneumothorax is appreciated. No new opacities are perceived. The prior right central line in the superior vena cava -right atrial junction is as before. Left perihilar nodular opacities in left upper lobe 2 to 3 mm nodular opacity is present these findings are unchanged no earlier chest x-rays to assess stability are available. Their etiology is uncertain. Tiny benign and malignant etiologies are considerations. PLEURA: As above CARDIOVASCULAR: Left ventricular enlargement configuration suggested- unchanged OSSEOUS STRUCTURES: No significant abnormalities. VISUALIZED UPPER ABDOMEN: Normal. OTHER FINDINGS: Elevated right [id number] IMPRESSION: Interval removal of drains over a right inferolateral pleural parenchymal opacity - consistent with a loculated pleural effusion component. The overall opacity here is unchanged. No interval pneumothorax appreciated Tiny sub cm left perihilar and left upper lobe nodular opacities of unclear significance as discussed above. If further evaluation needed consider CT chest imaging
[2016-06-05 09:21] LABS: IRON 20 ug/dL (45-180)
[2016-06-05] MEDS: POLYETHYLENE GLYCOL 3350 17 GM/Dose PACKET PO SCH ×2 (09:50→18:20)
--- NOTE | 2016-06-05 10:44 | CP.PCM.PN ---
<Bridget Washington - Last Filed: 06/05/16 11:51> Subjective - Date & Time of Evaluation Date of Evaluation: 06/05/16 Time of Evaluation: 08:05 - Subjective Subjective: Hosptalist progress note for Dr. Gonzalez Pt s/e at bedside in the ICU this AM. NAEO. Patient states that she is feeling better and was able to tolerate food yesterday. Patient states that she is passing gas but denies bowel movement. Denies SOB, chest pain, fevers, chills, light headedness, abdominal pain, dysuria, or hematuria. Objective - Vital Signs/Intake and Output Vital Signs (last 24 hours): Temp Pulse Resp BP Pulse Ox 98.9 F 117 H 25 H 96/67 L 100 06/05/16 06:07 06/05/16 07:50 06/05/16 07:50 06/05/16 07:28 06/05/16 07:50 Intake and Output: 06/05/16 06/05/16 06:59 18:59 Intake Total 450 Output Total 1000 Balance -550 - Medications Medications: Current Medications Acetaminophen (Tylenol 325mg Tab) 650 mg PO Q6H PRN PRN Reason: Fever >100.4 F Last Admin: 06/05/16 05:07 Dose: 650 mg Docusate Sodium (Colace) 100 mg PO TID [facility] Last Admin: 06/05/16 09:50 Dose: 100 mg Enoxaparin Sodium (Lovenox) 70 mg SC Q12H ANDRY PRN Reason: Protocol Last Admin: 06/05/16 02:01 Dose: 70 mg Furosemide (Lasix) 40 mg IVP BID ANDRY Last Admin: 06/04/16 09:29 Dose: 40 mg Levofloxacin/Dextrose (Levaquin 750mg) 150 mls @ 100 mls/hr IVPB DAILY [facility] Last Admin: 06/05/16 09:50 Dose: 100 mls/hr Vancomycin HCl (Vancomycin 1gm) 250 mls @ 167 mls/hr IVPB Q12H ANDRY PRN Reason: Protocol Last Admin: 06/04/16 13:05 Dose: 167 mls/hr Meropenem 1g/NS 100mL IVPB (Meropenem 1g/Ns 100ml Ivpb) 1 gm in 100 mls @ 100 mls/hr IVPB Q8 ANDRY PRN Reason: Protocol Stop: 06/11/16 10:04 Last Admin: 06/05/16 05:07 Dose: 100 mls/hr Metoprolol Tartrate (Lopressor) 5 mg IVP Q6H [facility] Last Admin: 06/05/16 07:28 Dose: 5 mg Ondansetron HCl (Zofran Inj) 4 mg IVP Q6H PRN PRN Reason: Nausea/Vomiting Pantoprazole Sodium (Protonix Inj) 40 mg IVP DAILY [facility] Last Admin: 06/05/16 09:50 Dose: 40 mg Polyethylene Glycol (Miralax) 17 gm PO BID [facility] Last Admin: 06/05/16 09:50 Dose: 17 gm - Labs Labs: 06/05/16 06:00 06/05/16 06:00 PT 12.0 Seconds (9.9-11.8) H 06/04/16 00:20 INR 1.11 (0.93-1.08) H 06/04/16 00:20 APTT 39.9 Seconds (23.7-30.8) H 06/04/16 00:20 - Constitutional Appears: No Acute Distress, Older Than Stated Age, Cachectic, Chronically Ill - Head Exam Head Exam: ATRAUMATIC, NORMOCEPHALIC - Eye Exam Eye Exam: Normal appearance. absent: Conjunctival injection, Scleral icterus - ENT Exam ENT Exam: Mucous Membranes Moist, Normal Oropharynx - Respiratory Exam Respiratory Exam: Clear to Ausculation Bilateral. absent: Accessory Muscle Use , Respiratory Distress - Cardiovascular Exam Cardiovascular Exam: Tachycardia, REGULAR RHYTHM, +S1, +S2. absent: Murmur - GI/Abdominal Exam GI & Abdominal Exam: Distended (severely distended), Soft, Mass (large mass R>L) . absent: Tenderness - Extremities Exam Extremities Exam: Pedal Edema (3+ pitting edema from the feet extending to upper thigh). absent: Calf Tenderness - Neurological Exam Neurological Exam: Alert, Awake, Oriented x3 - Psychiatric Exam Psychiatric exam: Flat Affect, Normal Mood - Skin Skin Exam: Dry, Intact, Normal Color, Warm Assessment and Plan - Assessment and Plan (Free Text) Assessment: 60 yo F with PMH of Metastatic Uterine CA (s/p Chemo + Surgery, now on Chemo s/ p recurrence of CA), LLE DVT, persistent R pleural effusions s/p indwelling R pleural cath insertion, abdominal ascites, and HTN who was admitted to the ICU for possible sepsis with multiloculated R pleural effusion. SIRS R/O sepsis Afebrile overnight Persistent tachycardia 110-120's BP 123/63 Leukocytosis 17.4 down from 22.4 yesterday Hgb 6.9 Blood cx: [id number] procalcitonin 30 Pleural cath d/c'd as possible nidus of sepsis Per Dr. 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 CXR: no change in effusion Plan: Lasix 40mg IVP BID--May give stat dose of 20IV if concern for fluid overload post transfusion Merrem, Vanc, and Levaquin per ID F/u heme/onc recs f/u ID recs f/u blood and pleural fluid culture Persistent R pleural effusion CXR: no change in effusion IR stated that the could not use pleural catheter, it was d/c'd as possible nidus of infection bnp: 500 Plan Continue ABX per ID f/u ID recs f/u surgery recs monitor for SOB Lasix 40 IV BID Anemia Hgb 6.9 down from 7.7 Tachycardia 110-120's mildly improved from yesterday Iron: 20, TIBC: 120, 17% saturation Plan Transfuse 1 unit PRBC. Have one unit on hold. Repeat H/H after transfusion F/u heme/onc recs Monitor for fluid overload, administer 20 iv lasix if SOB f/u ferriten f/u folate, b12 Hypokalemia K 3.7 up from 3.2 Monitor Hx LLE DVT BL LE duplex: Segmental thrombus in L common femoral and L proximal femoral vein S/p IVC filter Plan Continued on Therapeutic Lovenox 70mg SC Q12H as per pt hx Monitor No SCD's Uterine CA on chemo CT Abd/pelvis: large neoplasm throughout the pelvis, perisplenic ascites, multiloculated pleural effusion Per Dr. 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 Grullon recs f/u Diane Paramontdoris discussions with patient and family regarding end of life decisions/therapy Constipation BM for 5-6 days Passing gas plan: miralax, colace GI/DVT ppx On therapeutic lovenox Protonix 40mg IVP daily SCDs contraindicated due to DVT Dispo transferred to Telemetry when bed available VS Q4H Zofran 4mg Q6H PRN O2 PRN HHD HOB to 30 degrees Strict I/Os Patient seen and discussed with Dr. Lisa Washington, PGy1 <Alyson Gonzalez - Last Filed: 06/05/16 12:42> Objective - Vital Signs/Intake and Output Vital Signs (last 24 hours): Temp Pulse Resp BP Pulse Ox 99.2 F 120 H 24 134/73 100 06/05/16 12:09 06/05/16 12:09 06/05/16 12:09 06/05/16 12:09 06/05/16 07:50 Intake and Output: 06/05/16 06/05/16 06:59 18:59 Intake Total 450 0 Output Total 1000 Balance -550 0 - Medications Medications: Current Medications Acetaminophen (Tylenol 325mg Tab) 650 mg PO Q6H PRN PRN Reason: Fever >100.4 F Last Admin: 06/05/16 05:07 Dose: 650 mg Docusate Sodium (Colace) 100 mg PO TID [facility] Last Admin: 06/05/16 09:50 Dose: 100 mg Enoxaparin Sodium (Lovenox) 70 mg SC Q12H ANDRY PRN Reason: Protocol Last Admin: 06/05/16 02:01 Dose: 70 mg Furosemide (Lasix) 40 mg IVP BID [facility] Last Admin: 06/04/16 09:29 Dose: 40 mg Levofloxacin/Dextrose (Levaquin 750mg) 150 mls @ 100 mls/hr IVPB DAILY [facility] Last Admin: 06/05/16 09:50 Dose: 100 mls/hr Vancomycin HCl (Vancomycin 1gm) 250 mls @ 167 mls/hr IVPB Q12H ANDRY PRN Reason: Protocol Last Admin: 06/04/16 13:05 Dose: 167 mls/hr Meropenem 1g/NS 100mL IVPB (Meropenem 1g/Ns 100ml Ivpb) 1 gm in 100 mls @ 100 mls/hr IVPB Q8 ANDRY PRN Reason: Protocol Stop: 06/11/16 10:04 Last Admin: 06/05/16 05:07 Dose: 100 mls/hr Metoprolol Tartrate (Lopressor) 5 mg IVP Q6H [facility] Last Admin: 06/05/16 07:28 Dose: 5 mg Ondansetron HCl (Zofran Inj) 4 mg IVP Q6H PRN PRN Reason: Nausea/Vomiting Pantoprazole Sodium (Protonix Inj) 40 mg IVP DAILY [facility] Last Admin: 06/05/16 09:50 Dose: 40 mg Polyethylene Glycol (Miralax) 17 gm PO BID [facility] Last Admin: 06/05/16 09:50 Dose: 17 gm - Labs Labs: 06/05/16 06:00 06/05/16 06:00 PT 12.0 Seconds (9.9-11.8) H 06/04/16 00:20 INR 1.11 (0.93-1.08) H 06/04/16 00:20 APTT 39.9 Seconds (23.7-30.8) H 06/04/16 00:20 Attending/Attestation - Attestation I have personally seen and examined this patient.: Yes I have fully participated in the care of the patient.: Yes I have reviewed all pertinent clinical information, including history, physical exam and plan: Yes Notes (Text): 06/05/16 12:18 60 year old female with past medical history of uterine cancer on chemotherapy s /p hysterectomy, pleural effusions s/p right pleurex catheter, s/p port-a-cath placement, LLE DVT on anticoagulation, and hypertension who presented with complaint of weakness and lethargy. She was admitted for SIRS r/o sepsis. CT scan showed large neoplasm throughout the pelvis, anasarca and multiloculated pleural effusion. Procalcitonin is elevated. Leukocytosis is noted. Continue with iv antibiotics as per ID. Pleural catheter was removed yesterday. Surgery is following. Will follow up on cultures. Today she is anemic at 6.9. Anemia workup is ordered. Will transfuse prbc and monitor. Hematology evaluation was appreciated. She has anasarca for which she is on lasix bid. Will obtain echocardiogram. She is on lopressor for hypertension. Continue with lovenox for history of DVT. She has history of IVC filter. LE doppler was reviewed. She is being followed by Dr. Grullon for anemia and uterine cancer while in hospital. She sees Dr. Wilkins as outpatient. Palliative care consult was appreciated as well. She is on miralax and colace for constipation. Alyson Gonzalez MD Hospitalist.
[2016-06-05] MEDS: Vancomycin 1gm in NS 250ml 250 ML IVPB SCH (13:11)
[2016-06-05 13:22] LABS: FOLATE 4.9 ng/mL
[2016-06-05] MEDS ORDERED: Barium Sulfate Susp 2.1% w/v, 2.0% w/w 450 mL Bottle PO ONE (14:32)
--- NOTE | 2016-06-05 14:32 | CP.PCM.PN ---
Subjective - Date & Time of Evaluation Date of Evaluation: 06/05/16 Time of Evaluation: 10:40 - Subjective Subjective: Patient is feeling a little better today, no fevers overnight. Her pleurex catheter on the right chest has no been removed. Objective - Vital Signs/Intake and Output Vital Signs (last 24 hours): Temp Pulse Resp BP Pulse Ox 99.4 F 102 H 29 H 120/65 100 06/05/16 12:54 06/05/16 12:54 06/05/16 12:54 06/05/16 12:54 06/05/16 07:50 Intake and Output: 06/05/16 06/05/16 06:59 18:59 Intake Total 450 0 Output Total 1000 Balance -550 0 - Medications Medications: Current Medications Acetaminophen (Tylenol 325mg Tab) 650 mg PO Q6H PRN PRN Reason: Fever >100.4 F Last Admin: 06/05/16 05:07 Dose: 650 mg Docusate Sodium (Colace) 100 mg PO TID [facility] Last Admin: 06/05/16 13:10 Dose: 100 mg Enoxaparin Sodium (Lovenox) 70 mg SC Q12H ANDRY PRN Reason: Protocol Last Admin: 06/05/16 13:10 Dose: 70 mg Furosemide (Lasix) 40 mg IVP BID [facility] Last Admin: 06/04/16 09:29 Dose: 40 mg Furosemide (Lasix) 40 mg IVP ONCE ONE Stop: 06/05/16 15:01 Levofloxacin/Dextrose (Levaquin 750mg) 150 mls @ 100 mls/hr IVPB DAILY [facility] Last Admin: 06/05/16 09:50 Dose: 100 mls/hr Vancomycin HCl (Vancomycin 1gm) 250 mls @ 167 mls/hr IVPB Q12H ANDRY PRN Reason: Protocol Last Admin: 06/05/16 13:11 Dose: 167 mls/hr Meropenem 1g/NS 100mL IVPB (Meropenem 1g/Ns 100ml Ivpb) 1 gm in 100 mls @ 100 mls/hr IVPB Q8 ANDRY PRN Reason: Protocol Stop: 06/11/16 10:04 Last Admin: 06/05/16 13:12 Dose: 100 mls/hr Metoprolol Tartrate (Lopressor) 5 mg IVP Q6H [facility] Last Admin: 06/05/16 12:32 Dose: 5 mg Ondansetron HCl (Zofran Inj) 4 mg IVP Q6H PRN PRN Reason: Nausea/Vomiting Pantoprazole Sodium (Protonix Inj) 40 mg IVP DAILY [facility] Last Admin: 06/05/16 09:50 Dose: 40 mg Polyethylene Glycol (Miralax) 17 gm PO BID [facility] Last Admin: 06/05/16 09:50 Dose: 17 gm - Labs Labs: 06/05/16 06:00 06/05/16 06:00 PT 12.0 Seconds (9.9-11.8) H 06/04/16 00:20 INR 1.11 (0.93-1.08) H 06/04/16 00:20 APTT 39.9 Seconds (23.7-30.8) H 06/04/16 00:20 - Constitutional Appears: Non-toxic, No Acute Distress - Head Exam Head Exam: NORMAL INSPECTION - ENT Exam ENT Exam: Mucous Membranes Moist - Neck Exam Neck Exam: absent: Lymphadenopathy, Meningismus - Respiratory Exam Respiratory Exam: Decreased Breath Sounds - Cardiovascular Exam Cardiovascular Exam: +S1, +S2 - GI/Abdominal Exam GI & Abdominal Exam: Soft. absent: Tenderness - Extremities Exam Extremities Exam: Pedal Edema (4+) Assessment and Plan - Assessment and Plan (Free Text) Plan: Assessment Systemic Inflammatory Response Syndrome R/O sepsis source to be determined r/O HCAP, R/O pleural catheter infection on the right S/P removal uterine cancer on chemotherapy last session 3 weeks ago S/P hysterectomy history of left lower extremity DVT HTN S/P right pleurex catheter placement S/P port-a-cath placement Plan continue Vancomycin and Merrem day 2 pending final blood cx, pleural catheter cx results; reviewed CXR; PCT is elevated at 30.13 Will continue to trend WBC count and monitor clinically
[2016-06-05 14:38] LABS: RETIC% 1.83 % (0.5-1.5)
[2016-06-05] MEDS ORDERED: Iohexol 240 (50 ml) ONE (14:41)
[2016-06-05] MEDS: HYDROmorphone 0.5 mg/0.5 ml ISec IVP PRN (16:25)
--- NOTE | 2016-06-05 18:05 | CT ---
PROCEDURE: CT Chest without contrast HISTORY: R pleural effusion COMPARISON: None. TECHNIQUE: Contiguous axial images were obtained through the chest without intravenous contrast enhancement. Sagittal and coronal reconstructions were performed. Radiation dose (DLP): 515.33 mGy-cm. This CT exam was performed using one or more of the following dose reduction techniques: Automated exposure control, adjustment of the mA and/or kV according to patient size, and/or use of iterative reconstruction technique. FINDINGS: LUNGS: Probable compressive atelectasis right lower lobe. There is also ground-glass density in the posterior right lower lobe, possibly reflecting subsegmental atelectasis although a pneumonia cannot be excluded. There is calcified granuloma in the left upper lobe (series 4, image 36). There is trace left lower lobe compressive atelectasis. There is a calcified granuloma within this minimal atelectasis of the left lower lobe. MEDIASTINUM: Unremarkable thoracic aorta. No aneurysm. Normal sized heart. Main pulmonary artery unremarkable. No vascular congestion. No significant mediastinal or hilar lymphadenopathy. Calcified nodes are seen in the mediastinum and left hilum consistent with old granulomatous disease. A right central venous infusion port is noted. PLEURA: Loculated right pleural effusion. The 2 drainage catheters in the lateral lock you will of fluid seen on abdominal/pelvic CT of 06/03/2016 have been removed. There are additional small loculations of pleural fluid seen along the superior posterior pleural surface. There is also pleural fluid at the right lung base posteriorly and medially. There is a small left pleural effusion. BONES: Small lytic lesions are seen in multiple thoracic vertebral bodies. . Suspicious for metastasis. Mild anterior wedge compression deformity of the T7 vertebra, age indeterminate. No other fracture identified. UPPER ABDOMEN: Ascites. Anasarca. Punctate splenic calcifications consistent with old granulomatous disease. OTHER FINDINGS: None. IMPRESSION: Loculated right pleural effusion. Status post removal of drainage catheters compared to abdominal/pelvic CT of 06/03/2016. Small left pleural effusion. Compressive atelectasis at both lung bases, right greater than left. Cannot rule out right lower lobe pneumonia though the right lower lobe opacity most likely represents dependent atelectasis. Ascites. Anasarca. Mild compression deformity T7 vertebral body, age indeterminate. Small lucent lesions in multiple thoracic vertebral bodies suspicious for metastasis.
--- NOTE | 2016-06-05 19:08 | CP.PCM.PN ---
Subjective - Date & Time of Evaluation Date of Evaluation: 06/05/16 Time of Evaluation: 16:00 - Subjective Subjective: Lying in bed without any new complaints. No oxygen, no coughing, No overnight events Objective - Vital Signs/Intake and Output Vital Signs (last 24 hours): Temp Pulse Resp BP Pulse Ox 98.9 F 130 H 27 H 138/78 97 06/05/16 16:00 06/05/16 18:20 06/05/16 16:00 06/05/16 18:20 06/05/16 16:00 Intake and Output: 06/05/16 06/06/16 18:59 06:59 Intake Total 1560 Output Total 650 Balance 910 - Medications Medications: Current Medications Acetaminophen (Tylenol 325mg Tab) 650 mg PO Q6H PRN PRN Reason: Fever >100.4 F Last Admin: 06/05/16 05:07 Dose: 650 mg Docusate Sodium (Colace) 100 mg PO TID [facility] Last Admin: 06/05/16 18:19 Dose: 100 mg Enoxaparin Sodium (Lovenox) 70 mg SC Q12H ANDRY PRN Reason: Protocol Last Admin: 06/05/16 13:10 Dose: 70 mg Furosemide (Lasix) 40 mg IVP BID [facility] Last Admin: 06/05/16 18:20 Dose: 40 mg Hydromorphone HCl (Dilaudid) 0.5 mg IVP Q3H PRN PRN Reason: Pain, moderate (4-7) Last Admin: 06/05/16 16:25 Dose: 0.5 mg Levofloxacin/Dextrose (Levaquin 750mg) 150 mls @ 100 mls/hr IVPB DAILY [facility] Last Admin: 06/05/16 09:50 Dose: 100 mls/hr Vancomycin HCl (Vancomycin 1gm) 250 mls @ 167 mls/hr IVPB Q12H ANDRY PRN Reason: Protocol Last Admin: 06/05/16 13:11 Dose: 167 mls/hr Meropenem 1g/NS 100mL IVPB (Meropenem 1g/Ns 100ml Ivpb) 1 gm in 100 mls @ 100 mls/hr IVPB Q8 ANDRY PRN Reason: Protocol Stop: 06/11/16 10:04 Last Admin: 06/05/16 13:12 Dose: 100 mls/hr Metoprolol Tartrate (Lopressor) 5 mg IVP Q6H [facility] Last Admin: 06/05/16 18:20 Dose: 5 mg Ondansetron HCl (Zofran Inj) 4 mg IVP Q6H PRN PRN Reason: Nausea/Vomiting Pantoprazole Sodium (Protonix Inj) 40 mg IVP DAILY [facility] Last Admin: 06/05/16 09:50 Dose: 40 mg Polyethylene Glycol (Miralax) 17 gm PO BID [facility] Last Admin: 06/05/16 18:20 Dose: 17 gm - Labs Labs: 06/05/16 06:00 06/05/16 06:00 PT 12.0 Seconds (9.9-11.8) H 06/04/16 00:20 INR 1.11 (0.93-1.08) H 06/04/16 00:20 APTT 39.9 Seconds (23.7-30.8) H 06/04/16 00:20 - Constitutional Appears: Unkempt, Cachectic - Head Exam Head Exam: NORMAL INSPECTION - Eye Exam Eye Exam: EOMI Pupil Exam: NORMAL ACCOMODATION - ENT Exam ENT Exam: Mucous Membranes Moist - Neck Exam Neck Exam: Full ROM - Respiratory Exam Respiratory Exam: Decreased Breath Sounds, Rhonchi - GI/Abdominal Exam GI & Abdominal Exam: Soft, Normal Bowel Sounds - Extremities Exam Extremities Exam: Full ROM - Back Exam Back Exam: NORMAL INSPECTION - Neurological Exam Neurological Exam: Alert, Oriented x3 Assessment and Plan - Assessment and Plan (Free Text) Assessment: 60 y/o F w/ Metastatic Ca with likely R malignant Pleural effusion w/ removal of In dwelling catheter with concern of infection. On empiric abx, cx pending No resp Distress. On Inhalers PRN Surgical team follow up if need for pleurex or other care home catheter. No drainage of Pleural fluid, Not likely Empyema, but could be parapneumonic and or complicated PNA. Onc- Feels very end stage and no new line of treatment. Palliative care needed. .
[2016-06-05 19:38] LABS: HEMATOCRIT 28.4 % (36.0-48.0)
--- NOTE | 2016-06-05 22:34 | CP.PCM.PN ---
Subjective - Date & Time of Evaluation Date of Evaluation: 06/05/16 Time of Evaluation: 19:00 - Subjective Subjective: Feels better but still weak Objective - Vital Signs/Intake and Output Vital Signs (last 24 hours): Temp Pulse Resp BP Pulse Ox 98.9 F 119 H 28 H 119/97 H 97 06/05/16 20:00 06/05/16 20:00 06/05/16 20:00 06/05/16 20:00 06/05/16 20:00 Intake and Output: 06/05/16 06/06/16 18:59 06:59 Intake Total 1560 Output Total 650 Balance 910 - Medications Medications: Current Medications Acetaminophen (Tylenol 325mg Tab) 650 mg PO Q6H PRN PRN Reason: Fever >100.4 F Last Admin: 06/05/16 05:07 Dose: 650 mg Docusate Sodium (Colace) 100 mg PO TID [facility] Last Admin: 06/05/16 18:19 Dose: 100 mg Enoxaparin Sodium (Lovenox) 70 mg SC Q12H ANDRY PRN Reason: Protocol Last Admin: 06/05/16 13:10 Dose: 70 mg Furosemide (Lasix) 40 mg IVP BID [facility] Last Admin: 06/05/16 18:20 Dose: 40 mg Hydromorphone HCl (Dilaudid) 0.5 mg IVP Q3H PRN PRN Reason: Pain, moderate (4-7) Last Admin: 06/05/16 16:25 Dose: 0.5 mg Levofloxacin/Dextrose (Levaquin 750mg) 150 mls @ 100 mls/hr IVPB DAILY [facility] Last Admin: 06/05/16 09:50 Dose: 100 mls/hr Vancomycin HCl (Vancomycin 1gm) 250 mls @ 167 mls/hr IVPB Q12H ANDRY PRN Reason: Protocol Last Admin: 06/05/16 13:11 Dose: 167 mls/hr Meropenem 1g/NS 100mL IVPB (Meropenem 1g/Ns 100ml Ivpb) 1 gm in 100 mls @ 100 mls/hr IVPB Q8 ANDRY PRN Reason: Protocol Stop: 06/11/16 10:04 Last Admin: 06/05/16 22:09 Dose: 100 mls/hr Metoprolol Tartrate (Lopressor) 5 mg IVP Q6H [facility] Last Admin: 06/05/16 18:20 Dose: 5 mg Ondansetron HCl (Zofran Inj) 4 mg IVP Q6H PRN PRN Reason: Nausea/Vomiting Pantoprazole Sodium (Protonix Inj) 40 mg IVP DAILY [facility] Last Admin: 06/05/16 09:50 Dose: 40 mg Polyethylene Glycol (Miralax) 17 gm PO BID [facility] Last Admin: 06/05/16 18:20 Dose: 17 gm - Labs Labs: 06/05/16 19:32 06/05/16 06:00 PT 12.0 Seconds (9.9-11.8) H 06/04/16 00:20 INR 1.11 (0.93-1.08) H 06/04/16 00:20 APTT 39.9 Seconds (23.7-30.8) H 06/04/16 00:20 - Head Exam Head Exam: ATRAUMATIC - Eye Exam Eye Exam: Normal appearance - ENT Exam ENT Exam: Mucous Membranes Dry - Respiratory Exam Respiratory Exam: NORMAL BREATHING PATTERN - Cardiovascular Exam Cardiovascular Exam: +S1, +S2 - GI/Abdominal Exam GI & Abdominal Exam: Normal Bowel Sounds - Extremities Exam Extremities Exam: Normal Inspection Assessment and Plan (1) Anemia Assessment & Plan: chronic disease stool occult negative transfusion support PRN Status: Acute (2) Leukocytosis Assessment & Plan: on antibiotics Status: Acute (3) Uterine cancer Assessment & Plan: likely stage IV abdominal mass noted ?malignant effusion; for drainage supportive and palliative care Status: Acute
[2016-06-06] MEDS: Vancomycin 1gm in NS 250ml 250 ML IVPB SCH (01:56)
[2016-06-06] MEDS: Enoxaparin 80 mg Syringe SC SCH ×2 (01:57→14:45)
[2016-06-06] MEDS: Metoprolol 1 mg/ml Inj IVP SCH ×3 (05:35→18:13)
[2016-06-06] MEDS: Meropenem 1g/NS 100mL IVPB 1 GM/100 ML PIGGYBACK IVPB SCH ×3 (05:36→21:57)
[2016-06-06 06:02] LABS: ALB/GLOB RATIO 0.7 (1.1-1.8); ALKALINE PHOSPHATASE 148 U/L (38-133); ALT/SGPT 29 U/L (7-56); AST/SGOT 48 U/L (15-39); BILIRUBIN,TOTAL 0.5 mg/dL (0.2-1.3); BLOOD UREA NITROGEN 16 mg/dL (7-21); CALCIUM 8.1 mg/dL (8.4-10.5); CARBON DIOXIDE 32 mmol/L (21-33); CHLORIDE 102 mmol/L (98-107); GFR AFRICAN-AMERICAN > 60; GLUCOSE,RANDOM 91 mg/dL (70-110); MAGNESIUM 1.7 mg/dL (1.7-2.2); PHOSPHOROUS 3.3 mg/dL (2.5-4.5); POTASSIUM 3.5 mmol/L (3.6-5.0); SODIUM 139 mmol/L (132-148); TOTAL PROTEIN 5.2 g/dL (5.8-8.3)
[2016-06-06 06:16] LABS: HEMATOCRIT 27.5 % (36.0-48.0); MEAN CELL VOLUME 87.6 fL (80.0-105.0); MEAN PLATELET VOLUME 8.9 fl (7.0-11.0); PLATELET COUNT 270 10^3/uL (120.0-450.0); RED CELL DISTRIBUTION WIDTH 22.6 % (11.5-14.5); WHITE BLOOD COUNT 19.4 10^3/ul (4.5-11.0)
[2016-06-06 06:22] LABS: ADD MANUAL DIFF? YES
[2016-06-06 07:06] LABS: ANISOCYTOSIS 1+; ATYPICAL LYMPHOCYTE 1 % (0.0-0.0); BAND 1 % (0-2); NEUTROPHIL 85 % (50.0-70.0); PLATELET ESTIMATE NORMAL (NORMAL)
[2016-06-06] MEDS ORDERED: Potassium Chloride 20 mEq ER Tab PO ONE (10:03)
--- NOTE | 2016-06-06 10:10 | CP.PCM.PN ---
Subjective - Date & Time of Evaluation Date of Evaluation: 06/06/16 - Subjective Subjective: Hospitalist progress note for Dr. Lee Objective - Vital Signs/Intake and Output Vital Signs (last 24 hours): Temp Pulse Resp BP Pulse Ox 98.2 F 105 H 18 119/74 100 06/06/16 05:59 06/06/16 05:59 06/06/16 05:59 06/06/16 05:59 06/06/16 05:59 Intake and Output: 06/06/16 06/06/16 06:59 18:59 Intake Total 450 Balance 450 - Medications Medications: Current Medications Acetaminophen (Tylenol 325mg Tab) 650 mg PO Q6H PRN PRN Reason: Fever >100.4 F Last Admin: 06/05/16 05:07 Dose: 650 mg Docusate Sodium (Colace) 100 mg PO TID [facility] Last Admin: 06/05/16 18:19 Dose: 100 mg Enoxaparin Sodium (Lovenox) 70 mg SC Q12H ANDRY PRN Reason: Protocol Last Admin: 06/06/16 01:57 Dose: 70 mg Furosemide (Lasix) 40 mg IVP BID [facility] Last Admin: 06/05/16 18:20 Dose: 40 mg Hydromorphone HCl (Dilaudid) 0.5 mg IVP Q3H PRN PRN Reason: Pain, moderate (4-7) Last Admin: 06/05/16 16:25 Dose: 0.5 mg Levofloxacin/Dextrose (Levaquin 750mg) 150 mls @ 100 mls/hr IVPB DAILY [facility] Last Admin: 06/05/16 09:50 Dose: 100 mls/hr Vancomycin HCl (Vancomycin 1gm) 250 mls @ 167 mls/hr IVPB Q12H ANDRY PRN Reason: Protocol Last Admin: 06/06/16 01:56 Dose: 167 mls/hr Meropenem 1g/NS 100mL IVPB (Meropenem 1g/Ns 100ml Ivpb) 1 gm in 100 mls @ 100 mls/hr IVPB Q8 ANDRY PRN Reason: Protocol Stop: 06/11/16 10:04 Last Admin: 06/06/16 05:36 Dose: 100 mls/hr Metoprolol Tartrate (Lopressor) 5 mg IVP Q6H [facility] Last Admin: 06/06/16 05:35 Dose: 5 mg Ondansetron HCl (Zofran Inj) 4 mg IVP Q6H PRN PRN Reason: Nausea/Vomiting Pantoprazole Sodium (Protonix Inj) 40 mg IVP DAILY [facility] Last Admin: 06/05/16 09:50 Dose: 40 mg Polyethylene Glycol (Miralax) 17 gm PO BID [facility] Last Admin: 06/05/16 18:20 Dose: 17 gm Potassium Chloride (K-Dur 20 Meq Er Tab) 20 meq PO ONCE ONE Stop: 06/06/16 10:04 - Labs Labs: 06/06/16 05:00 06/06/16 05:00 PT 12.0 Seconds (9.9-11.8) H 06/04/16 00:20 INR 1.11 (0.93-1.08) H 06/04/16 00:20 APTT 39.9 Seconds (23.7-30.8) H 06/04/16 00:20
[2016-06-06] MEDS: POLYETHYLENE GLYCOL 3350 17 GM/Dose PACKET PO SCH ×2 (10:11→18:15)
--- NOTE | 2016-06-06 10:39 | CP.PCM.PN ---
<Boone Bowens - Last Filed: 06/06/16 10:28> Subjective - Date & Time of Evaluation Date of Evaluation: 06/06/16 Time of Evaluation: 10:28 - Subjective Subjective: Hospitalist note Pt s&e. Hbg found to be 6.0 yesterday. Got 1PRBC. Improved to 9.2 then 8.8 this AM. No complaints. Have some weakness. Has not walked with PT yet. No BM since admission. Denies F/C/N/V/D/CP/SOB. Tolerating PO. Objective - Vital Signs/Intake and Output Vital Signs (last 24 hours): Temp Pulse Resp BP Pulse Ox 98.2 F 105 H 18 129/79 100 06/06/16 05:59 06/06/16 05:59 06/06/16 05:59 06/06/16 10:13 06/06/16 05:59 Intake and Output: 06/06/16 06/06/16 06:59 18:59 Intake Total 450 Balance 450 - Medications Medications: Current Medications Acetaminophen (Tylenol 325mg Tab) 650 mg PO Q6H PRN PRN Reason: Fever >100.4 F Last Admin: 06/05/16 05:07 Dose: 650 mg Docusate Sodium (Colace) 100 mg PO TID [facility] Last Admin: 06/06/16 10:10 Dose: 100 mg Doxycycline Hyclate (Doryx) 100 mg PO Q12 [facility]RY PRN Reason: Protocol Stop: 06/13/16 22:01 Enoxaparin Sodium (Lovenox) 70 mg SC Q12H ANDRY PRN Reason: Protocol Last Admin: 06/06/16 01:57 Dose: 70 mg Furosemide (Lasix) 40 mg IVP BID [facility] Last Admin: 06/06/16 10:13 Dose: 40 mg Hydromorphone HCl (Dilaudid) 0.5 mg IVP Q3H PRN PRN Reason: Pain, moderate (4-7) Last Admin: 06/05/16 16:25 Dose: 0.5 mg Meropenem 1g/NS 100mL IVPB (Meropenem 1g/Ns 100ml Ivpb) 1 gm in 100 mls @ 100 mls/hr IVPB Q8 ANDRY PRN Reason: Protocol Stop: 06/11/16 10:04 Last Admin: 06/06/16 05:36 Dose: 100 mls/hr Metoprolol Tartrate (Lopressor) 5 mg IVP Q6H [facility] Last Admin: 06/06/16 05:35 Dose: 5 mg Ondansetron HCl (Zofran Inj) 4 mg IVP Q6H PRN PRN Reason: Nausea/Vomiting Pantoprazole Sodium (Protonix Inj) 40 mg IVP DAILY [facility] Last Admin: 06/06/16 10:13 Dose: 40 mg Polyethylene Glycol (Miralax) 17 gm PO BID [facility] Last Admin: 06/06/16 10:11 Dose: 17 gm - Labs Labs: 06/06/16 05:00 06/06/16 05:00 PT 12.0 Seconds (9.9-11.8) H 06/04/16 00:20 INR 1.11 (0.93-1.08) H 06/04/16 00:20 APTT 39.9 Seconds (23.7-30.8) H 06/04/16 00:20 - Constitutional Appears: No Acute Distress - Head Exam Head Exam: ATRAUMATIC, NORMAL INSPECTION, NORMOCEPHALIC - Eye Exam Eye Exam: EOMI, Normal appearance, PERRL Pupil Exam: NORMAL ACCOMODATION, PERRL - ENT Exam ENT Exam: Mucous Membranes Moist, Normal Exam - Neck Exam Neck Exam: Full ROM, Normal Inspection. absent: Lymphadenopathy - Respiratory Exam Respiratory Exam: Clear to Ausculation Bilateral, NORMAL BREATHING PATTERN. absent: Accessory Muscle Use, Respiratory Distress - Cardiovascular Exam Cardiovascular Exam: Tachycardia, REGULAR RHYTHM, +S1, +S2. absent: Murmur - GI/Abdominal Exam GI & Abdominal Exam: Distended, Firm, Soft, Normal Bowel Sounds. absent: Guarding, Rigid, Tenderness, Hernia, Pulsatile Mass, Rebound - Extremities Exam Extremities Exam: Normal Capillary Refill - Back Exam Back Exam: NORMAL INSPECTION - Neurological Exam Neurological Exam: Alert, Awake, CN II-XII Intact, Oriented x3 - Psychiatric Exam Psychiatric exam: Normal Affect, Normal Mood - Skin Skin Exam: Dry, Intact, Normal Color, Warm Assessment and Plan - Assessment and Plan (Free Text) Assessment: 60 yo F with PMH of Metastatic Uterine CA (s/p Chemo + Surgery, now on Chemo s/ p recurrence of CA), LLE DVT, persistent R pleural effusions s/p indwelling R pleural cath insertion, abdominal ascites, and HTN who was admitted to the ICU for possible sepsis with multiloculated R pleural effusion. SIRS R/O sepsis 2/2 pneumonia v UTI v Catheter infection Afebrile overnight Persistent tachycardia 100-130's Leukocytosis 19.4 <- 17.4 <-22.4 Hgb 6.9-> 8.8 after 1 PRBC Blood cx: [id number] procalcitonin 30 Pleural cath d/c'd as possible source of sepsis Per Dr. 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 Ascites, Possible metastatic lesions of vertebral body. Urine Cx: Gram + cocci Plan: Lasix 40mg IVP BID--May give stat dose of 20IV if concern for fluid overload post transfusion Merrem, Vanc, and Levaquin per ID F/u heme/onc recs f/u ID recs f/u blood and pleural fluid culture, catheter tip culture Persistent R pleural effusion CXR: no change in effusion IR stated that the could not use pleural catheter, it was d/c'd as possible nidus of infection bnp: 500 Plan Continue ABX per ID f/u ID recs f/u surgery recs monitor for SOB Lasix 40 IV BID Anemia : Imrpoved Hgb 8.8 <- 6.9 s/p 1 PRBC Tachycardia 100-130's Iron: 20, TIBC: 120, 17% saturation Plan F/u heme/onc recs Monitor for fluid overload, administer 20 iv lasix if SOB f/u ferriten f/u folate, b12 Hypokalemia K 3.5 20 po KDur Monitor Hx LLE DVT BL LE duplex: Segmental thrombus in L common femoral and L proximal femoral vein S/p IVC filter Plan Continued on Therapeutic Lovenox 70mg SC Q12H as per pt hx Monitor No SCD's Uterine CA on chemo CT Abd/pelvis: large neoplasm throughout the pelvis, perisplenic ascites, multiloculated pleural effusion Per Dr. 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 Grullon recs: Stage IV, surrportive care f/u Diane Paramonte discussions with patient and family regarding end of life decisions/therapy Constipation No BM for 5-6 days Passing gas plan: miralax, colace GI/DVT ppx On therapeutic lovenox Protonix 40mg IVP daily SCDs contraindicated due to DVT Dispo transferred to Telemetry VS Q4H Zofran 4mg Q6H PRN O2 PRN HHD HOB to 30 degrees Strict I/Os <Dariana Lee MD - Last Filed: 06/06/16 15:45> Objective - Vital Signs/Intake and Output Vital Signs (last 24 hours): Temp Pulse Resp BP Pulse Ox 97.8 F 112 H 20 124/79 100 06/06/16 12:00 06/06/16 13:55 06/06/16 12:00 06/06/16 13:55 06/06/16 05:59 Intake and Output: 06/06/16 06/06/16 06:59 18:59 Intake Total 450 Balance 450 - Medications Medications: Current Medications Acetaminophen (Tylenol 325mg Tab) 650 mg PO Q6H PRN PRN Reason: Fever >100.4 F Last Admin: 06/05/16 05:07 Dose: 650 mg Docusate Sodium (Colace) 100 mg PO TID [facility] Last Admin: 06/06/16 14:45 Dose: 100 mg Doxycycline Hyclate (Doryx) 100 mg PO Q12 ANDRY PRN Reason: Protocol Stop: 06/13/16 22:01 Enoxaparin Sodium (Lovenox) 70 mg SC Q12H [facility] PRN Reason: Protocol Last Admin: 06/06/16 14:45 Dose: 70 mg Furosemide (Lasix) 40 mg IVP BID [facility] Last Admin: 06/06/16 10:13 Dose: 40 mg Hydromorphone HCl (Dilaudid) 0.5 mg IVP Q3H PRN PRN Reason: Pain, moderate (4-7) Last Admin: 06/05/16 16:25 Dose: 0.5 mg Meropenem 1g/NS 100mL IVPB (Meropenem 1g/Ns 100ml Ivpb) 1 gm in 100 mls @ 100 mls/hr IVPB Q8 ANDRY PRN Reason: Protocol Stop: 06/11/16 10:04 Last Admin: 06/06/16 14:46 Dose: 100 mls/hr Metoprolol Tartrate (Lopressor) 5 mg IVP Q6H [facility] Last Admin: 06/06/16 13:55 Dose: 5 mg Ondansetron HCl (Zofran Inj) 4 mg IVP Q6H PRN PRN Reason: Nausea/Vomiting Pantoprazole Sodium (Protonix Inj) 40 mg IVP DAILY [facility] Last Admin: 06/06/16 10:13 Dose: 40 mg Polyethylene Glycol (Miralax) 17 gm PO BID [facility] Last Admin: 06/06/16 10:11 Dose: 17 gm - Labs Labs: 06/06/16 05:00 06/06/16 05:00 PT 12.0 Seconds (9.9-11.8) H 06/04/16 00:20 INR 1.11 (0.93-1.08) H 06/04/16 00:20 APTT 39.9 Seconds (23.7-30.8) H 06/04/16 00:20 Attending/Attestation - Attestation I have personally seen and examined this patient.: Yes I have fully participated in the care of the patient.: Yes I have reviewed all pertinent clinical information, including history, physical exam and plan: Yes Notes (Text): 06/06/16 15:43 Patient was seen and examined with medical administrative .Agreed with resident assessment and plan. 60 year old female with past medical history of uterine cancer on chemotherapy s /p hysterectomy, pleural effusions s/p right pleurex catheter, s/p port-a-cath placement, LLE DVT on anticoagulation, and hypertension who presented with complaint of weakness and lethargy. She was admitted for SIRS r/o sepsis. CT scan showed large neoplasm throughout the pelvis, anasarca and multiloculated pleural effusion. Procalcitonin was elevated, blood cultures are negative for any growth.SHe is on Meropenen and doxycycline as per ID.Pleural cathere was removed 2 days back. Prognosis is guarded. Management plan was discussed in detail with patient Education was provided.
--- NOTE | 2016-06-06 10:58 | PN ---
DATE: 06/06/2016 The patient is in bed, was seen earlier this morning in 265, bed 2. Uneventful night. No fevers and chills. PHYSICAL EXAMINATION: VITAL SIGNS: Temperature is 98, blood pressure is 119/70, respiratory rate of 18, heart rate of 105. HEENT: Unremarkable. NECK: Supple. LUNGS: Have decreased breath sounds. HEART: Normal S1, S2. ABDOMEN: Soft, nontender. LABORATORY EXAMINATION: Reveals a white count 19,400, hemoglobin of 8. Chemistries reveal the BUN o f 16, creatinine of 0.8 and procalcitonin level was 30.13 with a creatinine of 0.8. Microbiology rev eals the urine culture had gram-positive cocci. Nasal MRSA is negative. The blood cultures are nega tive. The patient had a CAT scan of the chest which reveals the patient to have a loculated right pl eural effusion, status post removal of drainage catheter compared to the CAT scan of the abdomen on and lytic lesions. Review of the orders reveals the patient is on IV Levaquin, IV vancomycin and meropenem. ASSESSMENT AND PLAN: A 60-year-old female with systemic inflammatory response syndrome with sepsis, healthcare-associated pneumonia with pleural catheter, loculated effusion, uterine cancer on chemothe rapy, status post hysterectomy, on vancomycin, meropenem, elevated procalcitonin. The patient is als o on Levaquin. EKG is reviewed. The patient with a QTC of 458 with negative blood cultures, gram-po sitive cocci in the urine with negative urinalysis. We will discontinue Levaquin and the IV vancomyc in and we will continue with meropenem and add p.o. doxycycline. I will make further recommendations . We will follow the WBCs, probably from the loculated effusion. Jose Solitario MD cc: 350 TT: 06/06/2016 10:57:18 Confirmation # [id number] Dictation # [id number] tn
--- NOTE | 2016-06-06 14:37 | CARD ---
APPROVED REPORT EXAM: Two-dimensional and M-mode echocardiogram with Doppler and color Doppler. INDICATION LV Function:SystolicDiastolic 2D DIMENSIONS Left Atrium (2D)4.1 (1.6-4.0cm)IVSd1.0 (0.7-1.1cm) LVDd4.4 (3.9-5.9cm)PWd1.0 (0.7-1.1cm) LVDs3.4 (2.5-4.0cm)FS (%) 23.3 % LVEF (%)46.8 (>50%) M-Mode DIMENSIONS Aortic Root2.90 (2.2-3.7cm)Aortic Cusp Exc.1.50 (1.5-2.0cm) Aortic Valve AoV Peak Hoifhnkl549.0cm/Jennifer Peak GR.7mmHg Mitral Valve E/A ratio0.0 TDI E/Lateral E'0.0E/Medial E'0.0 Tricuspid Valve TR Peak [id number] Peak Gr.27mmHg [id number] LEFT VENTRICLE The left ventricle is normal size. There is borderline concentric left ventricular hypertrophy. The systolic function is low normal to mildly impaired.EF-50% There is normal LV segmental wall motion. The left ventricular diastolic function is normal. No left ventricle thrombus noted on this study. There is no ventricular septal defect visualized. There is no left ventricular aneurysm. There is no mass noted in the left ventricle. RIGHT VENTRICLE The right ventricle is mildly to moderately dilated. There is normal right ventricular wall thickness. Systolic function of RV is mildly to moderately reduced. ATRIA The left atrium is mildly dilated. The right atrium is borderline dilated. The interatrial septum is intact with no evidence for an atrial septal defect. AORTIC VALVE The aortic valve is thickened but opens well. The aortic valve is mildly sclerotic. There is trace aortic regurgitation. There is no aortic valvular stenosis. There is no aortic valvular vegetation. MITRAL VALVE The mitral valve is thickened but opens well. Mitral regurgitation is mild. There is no mitral valve stenosis. There is no evidence of mitral valve prolapse. TRICUSPID VALVE The tricuspid valve leaflets are thickened , but open well. There is mild to moderate tricuspid regurgitation.RVSP-37 mmof Hg. There is no tricuspid valve stenosis. There is no tricuspid valve prolapse or vegetation. PULMONIC VALVE The pulmonic valve is not well visualized. GREAT VESSELS The aortic root is normal in size. The ascending aorta is normal in size. The pulmonary artery is normal. The IVC is normal in size and collapses >50% with inspiration. PERICARDIAL EFFUSION There is no pleural effusion. There is no pericardial effusion. <Conclusion> The left ventricle is normal size. There is borderline concentric left ventricular hypertrophy. The systolic function is low normal to mildly impaired.EF-50% The right ventricle is mildly to moderately dilated. Systolic function of RV is mildly to moderately reduced. There is trace aortic regurgitation. Mitral regurgitation is mild. There is mild to moderate tricuspid regurgitation.RVSP-37 mmof Hg. No Vegetation or thrombus noted.
--- NOTE | 2016-06-06 15:38 | CP.PCM.PN ---
Subjective - Date & Time of Evaluation Date of Evaluation: 06/06/16 Time of Evaluation: 15:36 - Subjective Subjective: No acute events overnight. Patient is afebrile. Denies shortness of breath, chills. Hgb is improved. Objective - Vital Signs/Intake and Output Vital Signs (last 24 hours): Temp Pulse Resp BP Pulse Ox 97.8 F 112 H 20 124/79 100 06/06/16 12:00 06/06/16 13:55 06/06/16 12:00 06/06/16 13:55 06/06/16 05:59 Intake and Output: 06/06/16 06/06/16 06:59 18:59 Intake Total 450 Balance 450 - Medications Medications: Current Medications Acetaminophen (Tylenol 325mg Tab) 650 mg PO Q6H PRN PRN Reason: Fever >100.4 F Last Admin: 06/05/16 05:07 Dose: 650 mg Docusate Sodium (Colace) 100 mg PO TID [facility] Last Admin: 06/06/16 14:45 Dose: 100 mg Doxycycline Hyclate (Doryx) 100 mg PO Q12 [facility] PRN Reason: Protocol Stop: 06/13/16 22:01 Enoxaparin Sodium (Lovenox) 70 mg SC Q12H ANDRY PRN Reason: Protocol Last Admin: 06/06/16 14:45 Dose: 70 mg Furosemide (Lasix) 40 mg IVP BID [facility] Last Admin: 06/06/16 10:13 Dose: 40 mg Hydromorphone HCl (Dilaudid) 0.5 mg IVP Q3H PRN PRN Reason: Pain, moderate (4-7) Last Admin: 06/05/16 16:25 Dose: 0.5 mg Meropenem 1g/NS 100mL IVPB (Meropenem 1g/Ns 100ml Ivpb) 1 gm in 100 mls @ 100 mls/hr IVPB Q8 ANDRY PRN Reason: Protocol Stop: 06/11/16 10:04 Last Admin: 06/06/16 14:46 Dose: 100 mls/hr Metoprolol Tartrate (Lopressor) 5 mg IVP Q6H [facility] Last Admin: 06/06/16 13:55 Dose: 5 mg Ondansetron HCl (Zofran Inj) 4 mg IVP Q6H PRN PRN Reason: Nausea/Vomiting Pantoprazole Sodium (Protonix Inj) 40 mg IVP DAILY [facility] Last Admin: 06/06/16 10:13 Dose: 40 mg Polyethylene Glycol (Miralax) 17 gm PO BID [facility] Last Admin: 06/06/16 10:11 Dose: 17 gm - Labs Labs: 06/06/16 05:00 06/06/16 05:00 PT 12.0 Seconds (9.9-11.8) H 06/04/16 00:20 INR 1.11 (0.93-1.08) H 06/04/16 00:20 APTT 39.9 Seconds (23.7-30.8) H 06/04/16 00:20 - Constitutional Appears: Non-toxic, No Acute Distress - Head Exam Head Exam: ATRAUMATIC, NORMOCEPHALIC - Eye Exam Eye Exam: EOMI, PERRL - ENT Exam ENT Exam: Mucous Membranes Moist - Neck Exam Neck Exam: Full ROM, Normal Inspection - Respiratory Exam Respiratory Exam: Decreased Breath Sounds - Cardiovascular Exam Cardiovascular Exam: REGULAR RHYTHM, +S1, +S2 - GI/Abdominal Exam GI & Abdominal Exam: Soft. absent: Tenderness - Extremities Exam Extremities Exam: absent: Calf Tenderness, Pedal Edema - Neurological Exam Neurological Exam: Alert, Awake, Oriented x3 - Psychiatric Exam Psychiatric exam: Normal Affect, Normal Mood - Skin Skin Exam: Normal Color, Warm Assessment and Plan - Assessment and Plan (Free Text) Assessment: 60 y/o female with loculated pleaural effusion, sepsis s/p pleurx catheter removal - continue abx per ID - blood cx negative x2 - pleural fluid analysis and culture pending - will continue to follow
[2016-06-07] MEDS: Enoxaparin 80 mg Syringe SC SCH ×3 (01:54→15:15)
[2016-06-07] MEDS: Metoprolol 1 mg/ml Inj IVP SCH ×4 (05:45→22:41)
[2016-06-07] MEDS: Meropenem 1g/NS 100mL IVPB 1 GM/100 ML PIGGYBACK IVPB SCH ×3 (06:07→21:22)
[2016-06-07 07:23] LABS: ADD MANUAL DIFF? NO
[2016-06-07 07:33] LABS: EOS % 0.1 % (1.5-5.0); GRAN % 88.2 % (50.0-68.0); HEMATOCRIT 26.7 % (36.0-48.0); LYMPH % 6.4 % (22.0-35.0); MEAN CELL VOLUME 88.4 fL (80.0-105.0); MEAN CORPUSCULAR HEMOGLOBIN 27.5 pg (25.0-35.0); MEAN CORPUSCULAR HGB CONC 31.1 g/dl (31.0-37.0); MEAN PLATELET VOLUME 8.9 fl (7.0-11.0); MONO # 0.8 (0.1-0.6); MONO % 5.3 % (1.0-6.0); PLATELET COUNT 265 10^3/uL (120.0-450.0); RED CELL DISTRIBUTION WIDTH 22.6 % (11.5-14.5); WHITE BLOOD COUNT 15.4 10^3/ul (4.5-11.0)
[2016-06-07 07:59] LABS: ALB/GLOB RATIO 0.7 (1.1-1.8); ALKALINE PHOSPHATASE 166 U/L (38-133); ALT/SGPT 28 U/L (7-56); AST/SGOT 45 U/L (15-39); BILIRUBIN,TOTAL 0.4 mg/dL (0.2-1.3); BLOOD UREA NITROGEN 20 mg/dL (7-21); CALCIUM 8.1 mg/dL (8.4-10.5); CARBON DIOXIDE 32 mmol/L (21-33); CHLORIDE 99 mmol/L (98-107); GFR AFRICAN-AMERICAN > 60; GLUCOSE,RANDOM 81 mg/dL (70-110); MAGNESIUM 1.7 mg/dL (1.7-2.2); PHOSPHOROUS 2.8 mg/dL (2.5-4.5); POTASSIUM 3.3 mmol/L (3.6-5.0); SODIUM 138 mmol/L (132-148); TOTAL PROTEIN 4.9 g/dL (5.8-8.3)
[2016-06-07] MEDS ORDERED: Potassium Chloride 20 mEq ER Tab PO ONE (09:22)
[2016-06-07] MEDS: POLYETHYLENE GLYCOL 3350 17 GM/Dose PACKET PO SCH ×2 (09:50→17:56)
--- NOTE | 2016-06-07 11:48 | PN ---
DATE: 06/07/2016 SUBJECTIVE: The patient was seen earlier today in 265, bed 2. No fevers and no chills. Had an unev entful night overall. PHYSICAL EXAMINATION: VITAL SIGNS: Temperature is 98, blood pressure is 111/50, respiratory rate of 20, heart rate of 113. HEENT: Unremarkable. NECK: Supple. LUNGS: Have decreased breath sounds. HEART: Normal S1, S2. ABDOMEN: Soft. LABORATORY DATA: Reveals a white count of 15,400, hemoglobin of 8, platelets of 265, BUN of 20, crea tinine of 0.9 and procalcitonin is 30.13. Urinalysis is noted. ASSESSMENT AND PLAN: This is a 60-year-old female with systemic inflammatory response syndrome with sepsis, healthcare-associated pneumonia, pleural catheter, loculated effusion, uterine cancer and bob motherapy, status post hysterectomy. The patient's white count has improved this morning. note is reviewed. Dr. Dariana Lee's note is also reviewed. Currently the patient is on meropene m and doxycycline. We will continue the current therapy, follow the WBC count. Jose Solitario MD cc: 350 TT: 06/07/2016 11:48:10 Confirmation # [id number] Dictation # [id number]
--- NOTE | 2016-06-07 12:12 | CP.PCM.PN ---
<Boone Bowens - Last Filed: 06/07/16 12:07> Subjective - Date & Time of Evaluation Date of Evaluation: 06/07/16 Time of Evaluation: 12:07 - Subjective Subjective: Hospitalist note Pt s&e w attending. JOAQUIN. Denies F/C/N/V/D/CP/SOB. Had regular BM. Non bloody. Objective - Vital Signs/Intake and Output Vital Signs (last 24 hours): Temp Pulse Resp BP Pulse Ox 97.1 F L 118 H 20 123/74 99 06/07/16 11:45 06/07/16 11:45 06/07/16 11:45 06/07/16 11:45 06/07/16 05:33 Intake and Output: 06/07/16 06/07/16 06:59 18:59 Intake Total 60 Balance 60 - Medications Medications: Current Medications Acetaminophen (Tylenol 325mg Tab) 650 mg PO Q6H PRN PRN Reason: Fever >100.4 F Last Admin: 06/05/16 05:07 Dose: 650 mg Docusate Sodium (Colace) 100 mg PO TID [facility] Last Admin: 06/07/16 09:49 Dose: 100 mg Doxycycline Hyclate (Doryx) 100 mg PO Q12 ANDRY PRN Reason: Protocol Stop: 06/13/16 22:01 Last Admin: 06/07/16 09:49 Dose: 100 mg Enoxaparin Sodium (Lovenox) 70 mg SC Q12H ANDRY PRN Reason: Protocol Last Admin: 06/07/16 01:54 Dose: 70 mg Furosemide (Lasix) 40 mg IVP BID [facility] Last Admin: 06/07/16 09:57 Dose: 40 mg Hydromorphone HCl (Dilaudid) 0.5 mg IVP Q3H PRN PRN Reason: Pain, moderate (4-7) Last Admin: 06/05/16 16:25 Dose: 0.5 mg Meropenem 1g/NS 100mL IVPB (Meropenem 1g/Ns 100ml Ivpb) 1 gm in 100 mls @ 100 mls/hr IVPB Q8 ANDRY PRN Reason: Protocol Stop: 06/11/16 10:04 Last Admin: 06/07/16 06:07 Dose: 100 mls/hr Metoprolol Tartrate (Lopressor) 5 mg IVP Q6H [facility] Last Admin: 06/07/16 05:45 Dose: 5 mg Ondansetron HCl (Zofran Inj) 4 mg IVP Q6H PRN PRN Reason: Nausea/Vomiting Pantoprazole Sodium (Protonix Inj) 40 mg IVP DAILY [facility] Last Admin: 06/07/16 09:50 Dose: 40 mg Polyethylene Glycol (Miralax) 17 gm PO BID [facility] Last Admin: 06/07/16 09:50 Dose: Not Given - Labs Labs: 06/07/16 06:30 06/07/16 06:30 PT 12.0 Seconds (9.9-11.8) H 06/04/16 00:20 INR 1.11 (0.93-1.08) H 06/04/16 00:20 APTT 39.9 Seconds (23.7-30.8) H 06/04/16 00:20 - Constitutional Appears: No Acute Distress, Cachectic - Head Exam Head Exam: ATRAUMATIC, NORMAL INSPECTION, NORMOCEPHALIC - Eye Exam Eye Exam: EOMI, Normal appearance, PERRL Pupil Exam: NORMAL ACCOMODATION, PERRL - ENT Exam ENT Exam: Mucous Membranes Moist, Normal Exam - Neck Exam Neck Exam: Full ROM, Normal Inspection. absent: Lymphadenopathy - Respiratory Exam Respiratory Exam: Clear to Ausculation Bilateral, NORMAL BREATHING PATTERN. absent: Accessory Muscle Use, Respiratory Distress - Cardiovascular Exam Cardiovascular Exam: Tachycardia, +S1, +S2. absent: Murmur - GI/Abdominal Exam GI & Abdominal Exam: Distended, Firm, Soft, Normal Bowel Sounds. absent: Guarding, Rigid, Tenderness, Rebound - Extremities Exam Extremities Exam: Full ROM, Normal Capillary Refill, Normal Inspection. absent : Joint Swelling, Pedal Edema - Back Exam Back Exam: NORMAL INSPECTION - Neurological Exam Neurological Exam: Alert, Awake, CN II-XII Intact, Oriented x3 - Psychiatric Exam Psychiatric exam: Normal Affect, Normal Mood - Skin Skin Exam: Dry, Intact, Normal Color, Warm Assessment and Plan - Assessment and Plan (Free Text) Assessment: 60 yo F with PMH of Metastatic Uterine CA (s/p Chemo + Surgery, now on Chemo s/ p recurrence of CA), LLE DVT, persistent R pleural effusions s/p indwelling R pleural cath insertion, abdominal ascites, and HTN SIRS R/O sepsis 2/2 pneumonia v UTI v Catheter infection Afebrile overnight Persistent tachycardia 100-120's Leukocytosis 15.4 <-19.4 <- 17.4 <-22.4 Improving Hgb 6.9-> 8.3 s/p 1 prbc Blood cx: NGTD procalcitonin 30, f/u repeat procal Pleural cath d/c'd as possible source of sepsis Per Dr. 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 Ascites, Possible metastatic lesions of vertebral body. Urine Cx: Group B strep Plan: Merrem, Vanc per ID F/u heme/onc recs f/u ID recs f/u blood and pleural fluid culture, catheter tip culture Ascites -Lasix 40mg IVP BID -Paracenthesis ordered Persistent R pleural effusion CXR: no change in effusion IR stated that the could not use pleural catheter, it was d/c'd as possible nidus of infection bnp: 500 Plan Continue ABX per ID f/u ID recs f/u surgery recs monitor for SOB Lasix 40 IV BID Anemia : Imrpoved Hgb 8.3 <- 6.9 s/p 1 PRBC Tachycardia 100-130's Iron: 20, TIBC: 120, 17% saturation Plan F/u heme/onc recs Monitor for fluid overload, administer 20 iv lasix if SOB Hypokalemia K 3.3 20 po KDur Monitor Hx LLE DVT BL LE duplex: Segmental thrombus in L common femoral and L proximal femoral vein S/p IVC filter Plan Continued on Therapeutic Lovenox 70mg SC Q12H as per pt hx Monitor No SCD's Uterine CA on chemo CT Abd/pelvis: large neoplasm throughout the pelvis, perisplenic ascites, multiloculated pleural effusion Per Dr. 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 Grullon recs: Stage IV, surpportive care f/u Diane Barrios discussions with patient and family regarding end of life decisions/therapy Constipation: had BM plan: miralax, colace GI/DVT ppx On therapeutic lovenox Protonix 40mg IVP daily SCDs contraindicated due to DVT Dispo transferred to Telemetry VS Q4H Zofran 4mg Q6H PRN O2 PRN HHD HOB to 30 degrees Strict I/Os Transition to PO ABX and possible DC soon. <Dariana Lee MD - Last Filed: 06/07/16 15:57> Objective - Vital Signs/Intake and Output Vital Signs (last 24 hours): Temp Pulse Resp BP Pulse Ox 97.1 F L 127 H 20 123/74 99 06/07/16 11:45 06/07/16 12:14 06/07/16 11:45 06/07/16 12:14 06/07/16 05:33 Intake and Output: 06/07/16 06/07/16 06:59 18:59 Intake Total 60 540 Balance 60 540 - Medications Medications: Current Medications Acetaminophen (Tylenol 325mg Tab) 650 mg PO Q6H PRN PRN Reason: Fever >100.4 F Last Admin: 06/05/16 05:07 Dose: 650 mg Docusate Sodium (Colace) 100 mg PO TID [facility] Last Admin: 06/07/16 14:30 Dose: Not Given Doxycycline Hyclate (Doryx) 100 mg PO Q12 ANDRY PRN Reason: Protocol Stop: 06/13/16 22:01 Last Admin: 06/07/16 09:49 Dose: 100 mg Enoxaparin Sodium (Lovenox) 70 mg SC Q12H ANDRY PRN Reason: Protocol Last Admin: 06/07/16 15:15 Dose: 70 mg Furosemide (Lasix) 40 mg IVP BID [facility] Last Admin: 06/07/16 09:57 Dose: 40 mg Hydromorphone HCl (Dilaudid) 0.5 mg IVP Q3H PRN PRN Reason: Pain, moderate (4-7) Last Admin: 06/05/16 16:25 Dose: 0.5 mg Meropenem 1g/NS 100mL IVPB (Meropenem 1g/Ns 100ml Ivpb) 1 gm in 100 mls @ 100 mls/hr IVPB Q8 ANDRY PRN Reason: Protocol Stop: 06/11/16 10:04 Last Admin: 06/07/16 15:15 Dose: 100 mls/hr Metoprolol Tartrate (Lopressor) 5 mg IVP Q6H [facility] Last Admin: 06/07/16 12:14 Dose: 5 mg Ondansetron HCl (Zofran Inj) 4 mg IVP Q6H PRN PRN Reason: Nausea/Vomiting Pantoprazole Sodium (Protonix Inj) 40 mg IVP DAILY [facility] Last Admin: 06/07/16 09:50 Dose: 40 mg Polyethylene Glycol (Miralax) 17 gm PO BID [facility] Last Admin: 06/07/16 09:50 Dose: Not Given - Labs Labs: 06/07/16 06:30 06/07/16 06:30 PT 12.0 Seconds (9.9-11.8) H 06/04/16 00:20 INR 1.11 (0.93-1.08) H 06/04/16 00:20 APTT 39.9 Seconds (23.7-30.8) H 06/04/16 00:20 Attending/Attestation - Attestation I have personally seen and examined this patient.: Yes I have fully participated in the care of the patient.: Yes I have reviewed all pertinent clinical information, including history, physical exam and plan: Yes Notes (Text): Patient was seen and examined with nurses medical assistants phlebotomists .Agreed with resident assessment and plan. 60 year old female with PMH of uterine ca s/p hysterectomy on chemo presented with sepsis likely secondary to HCAP/Group B streptococcus UTI, on Meropenem as per ID.Blood cultures are negative.Patient has loculated pleural effusion on Chest CT with anasarca. Had pleurex cath which was removed .WBC count is coming down On Lasix for anasarca. Not enough ascites to be drained. She is on lovenox for DVT.Hemoglobin is stable. Heme/ID/sx are following. Patient is refusing palliative care. Prognosis is guarded. Management plan was discussed in detail with patient Education was provided.
--- NOTE | 2016-06-07 14:26 | CP.PCM.PN ---
Subjective - Date & Time of Evaluation Date of Evaluation: 06/07/16 Time of Evaluation: 09:00 - Subjective Subjective: Patient seen and evaluated at bedside. No acute events overnight. Patient with sinus tachycardia this morning. She remains afebrile. Denies chills, abd pain, b /v/d. Objective - Vital Signs/Intake and Output Vital Signs (last 24 hours): Temp Pulse Resp BP Pulse Ox 97.1 F L 127 H 20 123/74 99 06/07/16 11:45 06/07/16 12:14 06/07/16 11:45 06/07/16 12:14 06/07/16 05:33 Intake and Output: 06/07/16 06/07/16 06:59 18:59 Intake Total 60 Balance 60 - Medications Medications: Current Medications Acetaminophen (Tylenol 325mg Tab) 650 mg PO Q6H PRN PRN Reason: Fever >100.4 F Last Admin: 06/05/16 05:07 Dose: 650 mg Docusate Sodium (Colace) 100 mg PO TID [facility] Last Admin: 06/07/16 09:49 Dose: 100 mg Doxycycline Hyclate (Doryx) 100 mg PO Q12 ANDRY PRN Reason: Protocol Stop: 06/13/16 22:01 Last Admin: 06/07/16 09:49 Dose: 100 mg Enoxaparin Sodium (Lovenox) 70 mg SC Q12H ANDRY PRN Reason: Protocol Last Admin: 06/07/16 01:54 Dose: 70 mg Furosemide (Lasix) 40 mg IVP BID [facility] Last Admin: 06/07/16 09:57 Dose: 40 mg Hydromorphone HCl (Dilaudid) 0.5 mg IVP Q3H PRN PRN Reason: Pain, moderate (4-7) Last Admin: 06/05/16 16:25 Dose: 0.5 mg Meropenem 1g/NS 100mL IVPB (Meropenem 1g/Ns 100ml Ivpb) 1 gm in 100 mls @ 100 mls/hr IVPB Q8 ANDRY PRN Reason: Protocol Stop: 06/11/16 10:04 Last Admin: 06/07/16 06:07 Dose: 100 mls/hr Metoprolol Tartrate (Lopressor) 5 mg IVP Q6H [facility] Last Admin: 06/07/16 12:14 Dose: 5 mg Ondansetron HCl (Zofran Inj) 4 mg IVP Q6H PRN PRN Reason: Nausea/Vomiting Pantoprazole Sodium (Protonix Inj) 40 mg IVP DAILY [facility] Last Admin: 06/07/16 09:50 Dose: 40 mg Polyethylene Glycol (Miralax) 17 gm PO BID [facility] Last Admin: 06/07/16 09:50 Dose: Not Given - Labs Labs: 06/07/16 06:30 06/07/16 06:30 PT 12.0 Seconds (9.9-11.8) H 06/04/16 00:20 INR 1.11 (0.93-1.08) H 06/04/16 00:20 APTT 39.9 Seconds (23.7-30.8) H 06/04/16 00:20 - Constitutional Appears: Non-toxic, No Acute Distress - Head Exam Head Exam: ATRAUMATIC, NORMOCEPHALIC - Eye Exam Eye Exam: EOMI, PERRL - ENT Exam ENT Exam: Mucous Membranes Moist - Neck Exam Neck Exam: Normal Inspection - Respiratory Exam Respiratory Exam: Decreased Breath Sounds (bilateral bases). absent: Respiratory Distress - Cardiovascular Exam Cardiovascular Exam: REGULAR RHYTHM, +S1, +S2 - GI/Abdominal Exam GI & Abdominal Exam: Soft, Normal Bowel Sounds. absent: Tenderness - Extremities Exam Extremities Exam: absent: Calf Tenderness, Pedal Edema - Back Exam Back Exam: NORMAL INSPECTION - Neurological Exam Neurological Exam: Alert, Awake - Skin Skin Exam: Normal Color, Warm Assessment and Plan - Assessment and Plan (Free Text) Assessment: 60 y/o female with PMH metastatic uterine on chemo presenting with loculated pleaural effusion likely 2/2 malignancy as well as sepsis. S/p pleural catheter removal due to possible source of sepsis. - continue vanc, merrem per ID - blood cx negative x2 - patient with stage IV malignancy. Palliative care consulted. Oncology is following - will continue to follow
--- NOTE | 2016-06-07 14:37 | PN ---
DATE: 06/07/2016 I reviewed the patient's abdominal/pelvic CT scan from 06/03/2016. There is a huge uterine mass with abdominal distention present. No significant ascites was appreciated. At the current time, I do not think a therapeutic paracentesis is indicated. An abdominal ultrasound can be performed to confirm the presence of significant ascites before paracentesis is ordered. Alistair Hare MD cc: [id number] TT: 06/07/2016 14:36:54 Confirmation # [id number] Dictation # [id number] barbara DUNBAR
--- NOTE | 2016-06-08 00:44 | CP.PCM.PN ---
Subjective - Date & Time of Evaluation Date of Evaluation: 06/08/16 Time of Evaluation: 06:41 - Subjective Subjective: General Surgery progress note for Dr. Coughlin Pt s/e at bedside, OSKAREO. Patient reports mild dyspnea today but denies any fevers, chills, chest pain, cough, abdominal pain, or any other symptoms. Diet is tolerated but she does not have a good appetite. Reports bowel movement last night. Objective - Vital Signs/Intake and Output Vital Signs (last 24 hours): Temp Pulse Resp BP Pulse Ox 98.6 F 117 H 22 120/70 99 06/07/16 18:00 06/07/16 22:41 06/07/16 18:00 06/07/16 22:41 06/07/16 05:33 Intake and Output: 06/07/16 06/08/16 18:59 06:59 Intake Total 540 420 Balance 540 420 - Medications Medications: Current Medications Acetaminophen (Tylenol 325mg Tab) 650 mg PO Q6H PRN PRN Reason: Fever >100.4 F Last Admin: 06/05/16 05:07 Dose: 650 mg Docusate Sodium (Colace) 100 mg PO TID [facility] Last Admin: 06/07/16 17:55 Dose: Not Given Doxycycline Hyclate (Doryx) 100 mg PO Q12 ANDRY PRN Reason: Protocol Stop: 06/13/16 22:01 Last Admin: 06/07/16 21:22 Dose: 100 mg Enoxaparin Sodium (Lovenox) 70 mg SC Q12H ANDRY PRN Reason: Protocol Last Admin: 06/07/16 15:15 Dose: 70 mg Furosemide (Lasix) 40 mg IVP BID [facility] Last Admin: 06/07/16 17:55 Dose: 40 mg Hydromorphone HCl (Dilaudid) 0.5 mg IVP Q3H PRN PRN Reason: Pain, moderate (4-7) Last Admin: 06/05/16 16:25 Dose: 0.5 mg Meropenem 1g/NS 100mL IVPB (Meropenem 1g/Ns 100ml Ivpb) 1 gm in 100 mls @ 100 mls/hr IVPB Q8 ANDRY PRN Reason: Protocol Stop: 06/11/16 10:04 Last Admin: 06/07/16 21:22 Dose: 100 mls/hr Metoprolol Tartrate (Lopressor) 5 mg IVP Q6H [facility] Last Admin: 06/07/16 22:41 Dose: 5 mg Ondansetron HCl (Zofran Inj) 4 mg IVP Q6H PRN PRN Reason: Nausea/Vomiting Pantoprazole Sodium (Protonix Inj) 40 mg IVP DAILY [facility] Last Admin: 06/07/16 09:50 Dose: 40 mg Polyethylene Glycol (Miralax) 17 gm PO BID [facility] Last Admin: 06/07/16 17:56 Dose: Not Given - Labs Labs: 06/07/16 06:30 06/07/16 06:30 PT 12.0 Seconds (9.9-11.8) H 06/04/16 00:20 INR 1.11 (0.93-1.08) H 06/04/16 00:20 APTT 39.9 Seconds (23.7-30.8) H 06/04/16 00:20 - Constitutional Appears: No Acute Distress, Older Than Stated Age, Cachectic - Head Exam Head Exam: ATRAUMATIC, NORMOCEPHALIC - Eye Exam Eye Exam: Normal appearance. absent: Conjunctival injection, Scleral icterus - ENT Exam ENT Exam: Mucous Membranes Moist, Normal Oropharynx - Respiratory Exam Respiratory Exam: NORMAL BREATHING PATTERN. absent: Accessory Muscle Use, Respiratory Distress Additional comments: Dressing over former catheter site in right chest dry and intact with minimal old serous saturation - Cardiovascular Exam Cardiovascular Exam: Tachycardia, REGULAR RHYTHM - GI/Abdominal Exam GI & Abdominal Exam: Distended, Soft, Mass. absent: Tenderness - Extremities Exam Extremities Exam: absent: Calf Tenderness, Pedal Edema, Tenderness - Back Exam Back Exam: absent: CVA tenderness (L), CVA tenderness (R) - Neurological Exam Neurological Exam: Alert, Awake, Oriented x3 - Psychiatric Exam Psychiatric exam: Flat Affect, Normal Mood - Skin Skin Exam: Dry, Intact, Normal Color, Warm Assessment and Plan - Assessment and Plan (Free Text) Assessment: 60 y/o female with PMH metastatic uterine on chemo presenting with loculated pleaural effusion likely 2/2 malignancy as well as sepsis. S/p pleural catheter removal due to possible source of sepsis. Afebrile, VSS CXR: grossly unchanged from prior CXR, official report pending Plan: - F/u CXR report - F/U CBC - continue vanc, merrem per ID - blood cx negative x2 - patient with stage IV malignancy. Follow palliative and oncology recs - will continue to follow Discussed with Dr. Ced Washington, PGY1
[2016-06-08] MEDS: Enoxaparin 80 mg Syringe SC SCH ×2 (03:10→14:17)
[2016-06-08] MEDS: Meropenem 1g/NS 100mL IVPB 1 GM/100 ML PIGGYBACK IVPB SCH ×3 (05:27→21:45)
[2016-06-08] MEDS: Metoprolol 1 mg/ml Inj IVP SCH ×5 (05:44→23:45)
[2016-06-08 07:21] LABS: ADD MANUAL DIFF? NO
[2016-06-08 07:31] LABS: BASO # 0.01 K/mm3 (0.0-2.0); BASO % 0.1 % (0.0-3.0); EOS % 0.2 % (1.5-5.0); GRAN # 10.74 (1.4-6.5); GRAN % 85.6 % (50.0-68.0); HEMATOCRIT 26.7 % (36.0-48.0); LYMPH % 7.6 % (22.0-35.0); MEAN CELL VOLUME 88.7 fL (80.0-105.0); MEAN CORPUSCULAR HEMOGLOBIN 27.6 pg (25.0-35.0); MEAN CORPUSCULAR HGB CONC 31.1 g/dl (31.0-37.0); MEAN PLATELET VOLUME 9.3 fl (7.0-11.0); MONO # 0.8 (0.1-0.6); MONO % 6.5 % (1.0-6.0); PLATELET COUNT 263 10^3/uL (120.0-450.0); WHITE BLOOD COUNT 12.6 10^3/ul (4.5-11.0)
[2016-06-08 07:42] LABS: ALB/GLOB RATIO 0.7 (1.1-1.8); ALKALINE PHOSPHATASE 127 U/L (38-133); ALT/SGPT 29 U/L (7-56); AST/SGOT 35 U/L (15-39); BILIRUBIN,TOTAL 0.3 mg/dL (0.2-1.3); BLOOD UREA NITROGEN 23 mg/dL (7-21); CARBON DIOXIDE 32 mmol/L (21-33); CHLORIDE 98 mmol/L (95-110); GFR AFRICAN-AMERICAN > 60; GLUCOSE,RANDOM 96 mg/dL (70-110); MAGNESIUM 1.5 mg/dL (1.7-2.2); PHOSPHOROUS 2.9 mg/dL (2.5-4.5); POTASSIUM 3.4 mmol/L (3.6-5.0); SODIUM 135 mmol/L (132-148); TOTAL PROTEIN 4.8 g/dL (5.8-8.3)
[2016-06-08] MEDS ORDERED: Magnesium Sulfate 2 GM in Sodium Chloride 0.9% 100 ML IVPB ONE (07:58)
[2016-06-08] MEDS: POLYETHYLENE GLYCOL 3350 17 GM/Dose PACKET PO SCH ×2 (09:45→17:34)
--- NOTE | 2016-06-08 11:33 | CP.PCM.PN ---
<GaboDafne - Last Filed: 06/08/16 11:26> Subjective - Date & Time of Evaluation Date of Evaluation: 06/08/16 Time of Evaluation: 11:26 - Subjective Subjective: HOSPITALIST PROGRESS NOTE Pt seen and examined at bedside. no acute events overnight. Patient is resting comfortably. Denies having any CP, SOB, abd pain, N/V/D/C. Continues to c/o LE edema Objective - Vital Signs/Intake and Output Vital Signs (last 24 hours): Temp Pulse Resp BP Pulse Ox 98.4 F 119 H 19 112/68 100 06/08/16 05:54 06/08/16 10:00 06/08/16 05:54 06/08/16 09:31 06/08/16 05:54 Intake and Output: 06/08/16 06/08/16 06:59 18:59 Intake Total 660 Output Total 0 Balance 660 - Medications Medications: Current Medications Acetaminophen (Tylenol 325mg Tab) 650 mg PO Q6H PRN PRN Reason: Fever >100.4 F Last Admin: 06/05/16 05:07 Dose: 650 mg Docusate Sodium (Colace) 100 mg PO TID [facility] Last Admin: 06/08/16 09:30 Dose: 100 mg Doxycycline Hyclate (Doryx) 100 mg PO Q12 ANDRY PRN Reason: Protocol Stop: 06/13/16 22:01 Last Admin: 06/08/16 09:30 Dose: 100 mg Enoxaparin Sodium (Lovenox) 70 mg SC Q12H ANDRY PRN Reason: Protocol Last Admin: 06/08/16 03:10 Dose: 70 mg Furosemide (Lasix) 40 mg IVP BID [facility] Last Admin: 06/08/16 09:31 Dose: 40 mg Hydromorphone HCl (Dilaudid) 0.5 mg IVP Q3H PRN PRN Reason: Pain, moderate (4-7) Last Admin: 06/05/16 16:25 Dose: 0.5 mg Meropenem 1g/NS 100mL IVPB (Meropenem 1g/Ns 100ml Ivpb) 1 gm in 100 mls @ 100 mls/hr IVPB Q8 ANDRY PRN Reason: Protocol Stop: 06/11/16 10:04 Last Admin: 06/08/16 05:27 Dose: 100 mls/hr Potassium Chloride (Potassium Chloride 20 Meq/100 Ml) 20 meq in 100 mls @ 50 mls/hr IVPB Q2H [facility] Stop: 06/08/16 11:59 Last Admin: 06/08/16 08:25 Dose: 50 mls/hr Metoprolol Tartrate (Lopressor) 5 mg IVP Q6H [facility] Last Admin: 06/08/16 05:44 Dose: 5 mg Ondansetron HCl (Zofran Inj) 4 mg IVP Q6H PRN PRN Reason: Nausea/Vomiting Pantoprazole Sodium (Protonix Inj) 40 mg IVP DAILY [facility] Last Admin: 06/08/16 09:46 Dose: 40 mg Polyethylene Glycol (Miralax) 17 gm PO BID [facility] Last Admin: 06/08/16 09:45 Dose: 17 gm - Labs Labs: 06/08/16 05:00 06/08/16 05:00 PT 12.0 Seconds (9.9-11.8) H 06/04/16 00:20 INR 1.11 (0.93-1.08) H 06/04/16 00:20 APTT 39.9 Seconds (23.7-30.8) H 06/04/16 00:20 - Constitutional Appears: Non-toxic, No Acute Distress - Head Exam Head Exam: ATRAUMATIC - Eye Exam Eye Exam: EOMI Pupil Exam: PERRL - ENT Exam ENT Exam: Mucous Membranes Moist - Respiratory Exam Respiratory Exam: Clear to Ausculation Bilateral. absent: Rales, Rhonchi, Wheezes - GI/Abdominal Exam GI & Abdominal Exam: Distended, Firm. absent: Guarding, Rigid, Tenderness - Extremities Exam Extremities Exam: Pedal Edema Additional comments: LE swelling 3+ up to mid thighs - Neurological Exam Neurological Exam: Alert, Awake, Oriented x3 - Psychiatric Exam Psychiatric exam: Normal Affect, Normal Mood - Skin Skin Exam: Dry, Intact, Normal Color, Warm Assessment and Plan - Assessment and Plan (Free Text) Assessment: 60 yo F with PMH of Metastatic Uterine CA (s/p Chemo + Surgery, now on Chemo s/ p recurrence of CA), LLE DVT, persistent R pleural effusions s/p indwelling R pleural cath insertion, abdominal ascites, and HTN SIRS R/O sepsis 2/2 pneumonia v UTI v Catheter infection Afebrile overnight Persistent tachycardia 100-120's WBC count trending down Hgb stable currently Blood cx: NGTD repeat procalcitonin 22.38 Pleural cath d/c'd as possible source of sepsis Per Dr. 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 Ascites, Possible metastatic lesions of vertebral body. Urine Cx: Group B strep Plan: Merrem, Vanc per ID F/u heme/onc recs f/u ID recs f/u blood and pleural fluid culture, catheter tip culture Ascites -Lasix 40mg IVP BID -No paracentesis performed because not enough fluid identified. Abd US ordered Persistent R pleural effusion CXR: no change in effusion IR stated that they could not use pleural catheter, it was d/c'd as possible nidus of infection bnp: 500 Plan Continue ABX per ID f/u ID recs f/u surgery recs monitor for SOB Lasix 40 IV BID Anemia : Imrpoved Hgb 8.3 <- 6.9 s/p 1 PRBC Tachycardia 100-130's Iron: 20, TIBC: 120, 17% saturation Plan F/u heme/onc recs Monitor for fluid overload, administer 20 iv lasix if SOB Hypokalemia will continue to monitor and replace as needed Hx LLE DVT BL LE duplex: Segmental thrombus in L common femoral and L proximal femoral vein S/p IVC filter Plan Continued on Therapeutic Lovenox 70mg SC Q12H as per pt hx Monitor No SCD's Uterine CA on chemo CT Abd/pelvis: large neoplasm throughout the pelvis, perisplenic ascites, multiloculated pleural effusion Per Dr. 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 Grullon recs: Stage IV, supportive care f/u Diane Barrios discussions with patient and family regarding end of life decisions/therapy Constipation: had BM plan: miralax, colace GI/DVT ppx On therapeutic lovenox Protonix 40mg IVP daily SCDs contraindicated due to DVT Dispo transferred to Telemetry VS Q4H Zofran 4mg Q6H PRN O2 PRN HHD HOB to 30 degrees Strict I/Os Transition to PO ABX and possible DC soon. Case discussed with attending Dr. Gonzalez <Alyson Gonzalez A - Last Filed: 06/08/16 12:13> Objective - Vital Signs/Intake and Output Vital Signs (last 24 hours): Temp Pulse Resp BP Pulse Ox 98.4 F 120 H 19 118/66 100 06/08/16 05:54 06/08/16 11:38 06/08/16 05:54 06/08/16 11:38 06/08/16 05:54 Intake and Output: 06/08/16 06/08/16 06:59 18:59 Intake Total 660 Output Total 0 Balance 660 - Medications Medications: Current Medications Acetaminophen (Tylenol 325mg Tab) 650 mg PO Q6H PRN PRN Reason: Fever >100.4 F Last Admin: 06/05/16 05:07 Dose: 650 mg Docusate Sodium (Colace) 100 mg PO TID [facility] Last Admin: 06/08/16 09:30 Dose: 100 mg Doxycycline Hyclate (Doryx) 100 mg PO Q12 [facility] PRN Reason: Protocol Stop: 06/13/16 22:01 Last Admin: 06/08/16 09:30 Dose: 100 mg Enoxaparin Sodium (Lovenox) 70 mg SC Q12H ANDRY PRN Reason: Protocol Last Admin: 06/08/16 03:10 Dose: 70 mg Furosemide (Lasix) 40 mg IVP BID [facility] Last Admin: 06/08/16 09:31 Dose: 40 mg Hydromorphone HCl (Dilaudid) 0.5 mg IVP Q3H PRN PRN Reason: Pain, moderate (4-7) Last Admin: 06/05/16 16:25 Dose: 0.5 mg Meropenem 1g/NS 100mL IVPB (Meropenem 1g/Ns 100ml Ivpb) 1 gm in 100 mls @ 100 mls/hr IVPB Q8 ANDRY PRN Reason: Protocol Stop: 06/11/16 10:04 Last Admin: 06/08/16 05:27 Dose: 100 mls/hr Metoprolol Tartrate (Lopressor) 5 mg IVP Q6H [facility] Last Admin: 06/08/16 11:38 Dose: 5 mg Ondansetron HCl (Zofran Inj) 4 mg IVP Q6H PRN PRN Reason: Nausea/Vomiting Pantoprazole Sodium (Protonix Inj) 40 mg IVP DAILY [facility] Last Admin: 06/08/16 09:46 Dose: 40 mg Polyethylene Glycol (Miralax) 17 gm PO BID [facility] Last Admin: 06/08/16 09:45 Dose: 17 gm - Labs Labs: 06/08/16 05:00 06/08/16 05:00 PT 12.0 Seconds (9.9-11.8) H 06/04/16 00:20 INR 1.11 (0.93-1.08) H 06/04/16 00:20 APTT 39.9 Seconds (23.7-30.8) H 06/04/16 00:20 Attending/Attestation - Attestation I have personally seen and examined this patient.: Yes I have fully participated in the care of the patient.: Yes I have reviewed all pertinent clinical information, including history, physical exam and plan: Yes Notes (Text): 06/08/16 12:09 60 year old female with past medical history of uterine cancer s/p hysterectomy on chemotherapy who presented with sepsis secondary to HCAP and GBS UTI. CT showed loculated pleural effusion and anasarca. Continue with antibiotics as per ID. Her pleurex catheter was removed. She is on lasix bid for anasarca and on anticoagulation for DVT. Abdominal ultrasound is pending. Continue to monitor cbc closely for anemia. Will replete and repeat potassium. She is being followed by hematology / oncology. She was also seen by palliative care earlier this week. Alyson Gonzalez MD Hospitalist.
--- NOTE | 2016-06-08 16:55 | RAD ---
HISTORY: SOB COMPARISON: Chest radiograph and CT scan chest both dated muse 06/05/2016 FINDINGS: LUNGS: Re- demonstrated is opacity in the right lateral lower lung field likely representing previously noted loculated right-sided effusion and compressive atelectasis seen to better advantage on prior CT scan. Small left effusion and minimal left basilar atelectasis also seen to better advantage on prior CT scan PLEURA: No pneumothorax apparent. CARDIOVASCULAR: Borderline cardiomegaly. OSSEOUS STRUCTURES: No significant abnormalities. VISUALIZED UPPER ABDOMEN: Normal. OTHER FINDINGS: No change right IJ MediPort. Muse IMPRESSION: Re- demonstrated is opacity in the right lateral lower lung field likely representing previously noted loculated right-sided effusion and compressive atelectasis seen to better advantage on prior CT scan. Small left effusion and minimal left basilar atelectasis also seen to better advantage on prior CT scan
--- NOTE | 2016-06-08 18:45 | PN ---
DATE: 06/08/2016 The patient is in bed in no acute distress, nontoxic. PHYSICAL EXAMINATION: VITAL SIGNS: Temperature is 98. The patient was seen earlier this morning in 265, bed 2 with a temp erature of 98, blood pressure is 110/70, respiratory rate of 16. HEENT: Unremarkable. NECK: Supple. LUNGS: Have decreased breath sounds. HEART: Normal S1, S2. ABDOMEN: Soft. LABORATORY DATA: Reveals the patient's white count is 12,600, hemoglobin of 8, platelets of 263. Ch emistries are BUN of 23, creatinine of 0.9. Procalcitonin yesterday was 22.38 which is less than bef ore, it was 30. Urinalysis is noted. Serology is negative. Microbiology reveals the urine culture has had a group B strep beta hemolytic strep, pansensitive and is resistant to clindamycin. Blood cu ltures have no growth. Review of the orders reveals the patient to be on p.o. doxycycline and meropenem. Review of the ches t x-ray from this morning reveals the redemonstrated opacity in the right lateral lower lobe lung fie ld. Dr. Gonzalez's note is reviewed and appreciated. Dr. Bridget Moore's note is reviewed from today. Review of the white count reveals the patient's white count is down to 12,600. The patient is on do xycycline and meropenem. Dr. Alistair Hare's note is reviewed which states that he has reviewed the CA T scan from 06/03, there is a huge uterine mass with abdominal distention present. No ascites. He do es not feel paracenteses is indicated and ____ note is reviewed. ASSESSMENT AND PLAN: This is a 60-year-old female with sepsis with group B strep urinary tract infec tion, healthcare-associated pneumonia, pleural catheter, loculated effusions, uterine cancer on chemo therapy, status post hysterectomy. Currently on doxycycline and meropenem. We will continue to foll ow the white count and thus far, there is just a group B strep in the urine culture, although the uri nalysis is not significant. The lytic lesion is to be worked up. Will also order an HIV on this pat ient because of her age. Will continue the doxycycline, meropenem and check on the white count in a. m. Jose Solitario MD cc: 350 TT: 06/08/2016 18:44:39 Confirmation # [id number] Dictation # [id number]
[2016-06-09] MEDS: Enoxaparin 80 mg Syringe SC SCH ×2 (02:17→14:15)
[2016-06-09] MEDS: Meropenem 1g/NS 100mL IVPB 1 GM/100 ML PIGGYBACK IVPB SCH ×2 (05:23→14:15)
[2016-06-09] MEDS: Metoprolol 1 mg/ml Inj IVP SCH ×5 (05:36→23:59)
[2016-06-09] MEDS: Pantoprazole 40 mg EC Tab PO SCH (05:37)
[2016-06-09 06:30] LABS: HEMATOCRIT 29.2 % (36.0-48.0); MEAN CELL VOLUME 88.5 fL (80.0-105.0); MEAN CORPUSCULAR HEMOGLOBIN 27.6 pg (25.0-35.0); MEAN CORPUSCULAR HGB CONC 31.2 g/dl (31.0-37.0); MEAN PLATELET VOLUME 9.4 fl (7.0-11.0); PLATELET COUNT 251 10^3/uL (120.0-450.0); RED CELL DISTRIBUTION WIDTH 21.7 % (11.5-14.5); WHITE BLOOD COUNT 10.7 10^3/ul (4.5-11.0)
[2016-06-09 06:34] LABS: ADD MANUAL DIFF? YES
[2016-06-09 06:43] LABS: ALB/GLOB RATIO 0.7 (1.1-1.8); ALKALINE PHOSPHATASE 128 U/L (38-133); ALT/SGPT 28 U/L (7-56); AST/SGOT 38 U/L (15-39); BILIRUBIN,TOTAL 0.5 mg/dL (0.2-1.3); BLOOD UREA NITROGEN 24 mg/dL (7-21); CALCIUM 8.1 mg/dL (8.4-10.5); CARBON DIOXIDE 33 mmol/L (21-33); CHLORIDE 97 mmol/L (98-107); GFR AFRICAN-AMERICAN > 60; GLUCOSE,RANDOM 100 mg/dL (70-110); MAGNESIUM 1.9 mg/dL (1.7-2.2); PHOSPHOROUS 3.2 mg/dL (2.5-4.5); POTASSIUM 3.5 mmol/L (3.6-5.0); SODIUM 134 mmol/L (132-148)
[2016-06-09] MEDS ORDERED: Potassium Chloride 40 mEq/30 ml LIQ UD PO ONE (06:52)
[2016-06-09 07:35] LABS: NEUTROPHIL 83 % (50.0-70.0)
[2016-06-09] MEDS: POLYETHYLENE GLYCOL 3350 17 GM/Dose PACKET PO SCH ×2 (11:02→18:28)
--- NOTE | 2016-06-09 13:42 | CP.PCM.PN ---
<Yaakov Schroeder - Last Filed: 06/09/16 13:36> Subjective - Date & Time of Evaluation Date of Evaluation: 06/09/16 Time of Evaluation: 08:15 - Subjective Subjective: Dr. Schroeder PGY 1 Hospitalist note Patient seen and evaluated at bedside with attending physician. She reports feeling bloated and constipated. She complains of some abdominal discomfort and waiting to have a bowel movement. She denies any pain, SOB, nausea, vomiting, fever, or chills. Per nursing, no acute events over night. She continues to have lower extremity edema. Objective - Vital Signs/Intake and Output Vital Signs (last 24 hours): Temp Pulse Resp BP Pulse Ox 98.6 F 119 H 22 100/53 L 98 06/09/16 12:00 06/09/16 12:00 06/09/16 12:00 06/09/16 12:00 06/09/16 06:00 Intake and Output: 06/09/16 06/09/16 06:59 18:59 Intake Total 200 Balance 200 - Medications Medications: Current Medications Acetaminophen (Tylenol 325mg Tab) 650 mg PO Q6H PRN PRN Reason: Fever >100.4 F Last Admin: 06/05/16 05:07 Dose: 650 mg Docusate Sodium (Colace) 100 mg PO TID [facility] Last Admin: 06/09/16 11:01 Dose: 100 mg Doxycycline Hyclate (Doryx) 100 mg PO Q12 [facility] PRN Reason: Protocol Stop: 06/13/16 22:01 Last Admin: 06/09/16 11:01 Dose: 100 mg Enoxaparin Sodium (Lovenox) 70 mg SC Q12H [facility] PRN Reason: Protocol Last Admin: 06/09/16 02:17 Dose: 70 mg Furosemide (Lasix) 40 mg IVP BID [facility] Last Admin: 06/09/16 11:02 Dose: Not Given Hydromorphone HCl (Dilaudid) 0.5 mg IVP Q3H PRN PRN Reason: Pain, moderate (4-7) Last Admin: 06/05/16 16:25 Dose: 0.5 mg Meropenem 1g/NS 100mL IVPB (Meropenem 1g/Ns 100ml Ivpb) 1 gm in 100 mls @ 100 mls/hr IVPB Q8 [facility] PRN Reason: Protocol Stop: 06/11/16 10:04 Last Admin: 06/09/16 05:23 Dose: 100 mls/hr Metoprolol Tartrate (Lopressor) 5 mg IVP Q6H [facility] Last Admin: 06/09/16 11:32 Dose: 5 mg Ondansetron HCl (Zofran Inj) 4 mg IVP Q6H PRN PRN Reason: Nausea/Vomiting Pantoprazole Sodium (Protonix Ec Tab) 40 mg PO 0630 [facility] Last Admin: 06/09/16 05:37 Dose: 40 mg Polyethylene Glycol (Miralax) 17 gm PO BID [facility] Last Admin: 06/09/16 11:02 Dose: 17 gm - Labs Labs: 06/09/16 06:00 06/09/16 06:00 PT 12.0 Seconds (9.9-11.8) H 06/04/16 00:20 INR 1.11 (0.93-1.08) H 06/04/16 00:20 APTT 39.9 Seconds (23.7-30.8) H 06/04/16 00:20 - Constitutional Appears: Non-toxic, No Acute Distress, Older Than Stated Age - Head Exam Head Exam: ATRAUMATIC, NORMOCEPHALIC - Eye Exam Eye Exam: EOMI, Normal appearance, PERRL Pupil Exam: NORMAL ACCOMODATION, PERRL - ENT Exam ENT Exam: Mucous Membranes Moist - Neck Exam Neck Exam: Normal Inspection - Respiratory Exam Respiratory Exam: Clear to Ausculation Bilateral, NORMAL BREATHING PATTERN. absent: Rales, Rhonchi, Wheezes - Cardiovascular Exam Cardiovascular Exam: REGULAR RHYTHM, +S1, +S2. absent: Gallop, Rubs, Murmur - GI/Abdominal Exam GI & Abdominal Exam: Distended, Firm. absent: Tenderness - Extremities Exam Extremities Exam: Pedal Edema (+3 bilateral lower LE to mid thigh) - Neurological Exam Neurological Exam: Alert, Awake, CN II-XII Intact, Oriented x3 - Psychiatric Exam Psychiatric exam: Normal Affect, Normal Mood - Skin Skin Exam: Dry, Intact, Normal Color, Warm Assessment and Plan - Assessment and Plan (Free Text) Assessment: 60 yo F with PMH of Metastatic Uterine CA (s/p Chemo + Surgery, now on Chemo s/ p recurrence of CA), LLE DVT, persistent R pleural effusions s/p indwelling R pleural cath insertion, abdominal ascites, and HTN. Plan: SIRS R/O sepsis 2/2 pneumonia v UTI v Catheter infection * Patient remains afebrile * Persistent tachycardia 100-120's * No leukocytosis * Hgb stable currently * Blood cx: NGTD * Urine Cx: Group B strep * repeat procalcitonin 22.38 * Pleural cath d/c'd as possible source of sepsis * Per Dr. 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 Ascites, Possible metastatic lesions of vertebral body. Plan: Merrem, Vanc per ID F/u heme/onc recs f/u ID recs f/u blood and pleural fluid culture, catheter tip culture Ascites * Lasix 40mg IVP BID * No paracentesis performed because not enough fluid identified. * Abd US ordered Persistent R pleural effusion * CXR: no change in effusion * IR stated that they could not use pleural catheter, it was d/c'd as possible source of infection * bnp: 500 Plan Continue ABX per ID f/u ID recs f/u surgery recs monitor for SOB Lasix 40 IV BID Anemia : Imrpoved * Hgb 9.1 today * Tachycardia 100-130's * Iron: 20, TIBC: 120, 17% saturation Plan F/u heme/onc recs Hypokalemia * will continue to monitor and replace as needed Hx LLE DVT * BL LE duplex: Segmental thrombus in L common femoral and L proximal femoral vein * S/p IVC filter Plan Continued on Therapeutic Lovenox 70mg SC Q12H as per pt hx Monitor No SCD's Uterine CA on chemo * CT Abd/pelvis: large neoplasm throughout the pelvis, perisplenic ascites, multiloculated pleural effusion * Per Dr. 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 Grullon recs: Stage IV, supportive care f/u Diane Barrios discussions with patient and family regarding end of life decisions/therapy Constipation: * patient eating little * had BM two days ago * likely due to opiods * plan: miralax, colace GI/DVT ppx * On therapeutic lovenox * Protonix 40mg IVP daily * SCDs contraindicated due to DVT and leg edema Dispo * monitor on telemetry * VS Q4H * Zofran 4mg Q6H PRN * O2 PRN * HHD * HOB to 30 degrees * Strict I/Os * possible DC soon. Case discussed with attending <Alyson Gonzalez - Last Filed: 06/09/16 14:22> Objective - Vital Signs/Intake and Output Vital Signs (last 24 hours): Temp Pulse Resp BP Pulse Ox 98.6 F 118 H 22 100/53 L 98 06/09/16 12:00 06/09/16 14:00 06/09/16 12:00 06/09/16 12:00 06/09/16 06:00 Intake and Output: 06/09/16 06/09/16 06:59 18:59 Intake Total 200 Balance 200 - Medications Medications: Current Medications Acetaminophen (Tylenol 325mg Tab) 650 mg PO Q6H PRN PRN Reason: Fever >100.4 F Last Admin: 06/05/16 05:07 Dose: 650 mg Docusate Sodium (Colace) 100 mg PO TID [facility] Last Admin: 06/09/16 14:15 Dose: 100 mg Doxycycline Hyclate (Doryx) 100 mg PO Q12 [facility] PRN Reason: Protocol Stop: 06/13/16 22:01 Last Admin: 06/09/16 11:01 Dose: 100 mg Enoxaparin Sodium (Lovenox) 70 mg SC Q12H [facility] PRN Reason: Protocol Last Admin: 06/09/16 14:15 Dose: 70 mg Furosemide (Lasix) 40 mg IVP BID [facility] Last Admin: 06/09/16 11:02 Dose: Not Given Hydromorphone HCl (Dilaudid) 0.5 mg IVP Q3H PRN PRN Reason: Pain, moderate (4-7) Last Admin: 06/05/16 16:25 Dose: 0.5 mg Meropenem 1g/NS 100mL IVPB (Meropenem 1g/Ns 100ml Ivpb) 1 gm in 100 mls @ 100 mls/hr IVPB Q8 [facility] PRN Reason: Protocol Stop: 06/11/16 10:04 Last Admin: 06/09/16 14:15 Dose: 100 mls/hr Metoprolol Tartrate (Lopressor) 5 mg IVP Q6H [facility] Last Admin: 06/09/16 11:32 Dose: 5 mg Ondansetron HCl (Zofran Inj) 4 mg IVP Q6H PRN PRN Reason: Nausea/Vomiting Pantoprazole Sodium (Protonix Ec Tab) 40 mg PO 0630 [facility] Last Admin: 06/09/16 05:37 Dose: 40 mg Polyethylene Glycol (Miralax) 17 gm PO BID [facility] Last Admin: 06/09/16 11:02 Dose: 17 gm - Labs Labs: 06/09/16 06:00 06/09/16 06:00 PT 12.0 Seconds (9.9-11.8) H 06/04/16 00:20 INR 1.11 (0.93-1.08) H 06/04/16 00:20 APTT 39.9 Seconds (23.7-30.8) H 06/04/16 00:20 Attending/Attestation - Attestation I have personally seen and examined this patient.: Yes I have fully participated in the care of the patient.: Yes I have reviewed all pertinent clinical information, including history, physical exam and plan: Yes Notes (Text): 06/09/16 14:18 60 year old female with past medical history of uterine cancer s/p hysterectomy on chemotherapy who presented with sepsis secondary to HCAP and GBS UTI. CT showed loculated pleural effusion and anasarca. Continue with antibiotics as per ID. Her pleurex catheter was removed. She was seen by hematology / oncology as well as palliative care. She is on lasix bid for anasarca. Abdominal ultrasound was ordered and pending. She is on lovenox for DVT. Continue to monitor cbc closely for anemia. Will replete and repeat potassium. She is on colace and miralax for constipation. Continue with physical therapy. Alyson Gonzalez MD Hospitalist.
--- NOTE | 2016-06-09 16:07 | PN ---
DATE: 06/09/2016 The patient is in bed in no acute distress, was seen earlier this morning in 265, bed 2. PHYSICAL EXAMINATION: VITAL SIGNS: Temperature is 98, blood pressure is 100/60, respiratory rate 16. HEENT: Unremarkable. NECK: Supple. LUNGS: Have decreased breath sounds. HEART: Normal S1, S2. ABDOMEN: Soft, nontender. LABORATORY DATA: Reveals a white count of 10,000, hemoglobin of 9 and platelets of 251 and a BUN of 24, creatinine of 0.9 and procalcitonin of 22. Urinalysis is noted. Influenza is negative and blood cultures are negative. Currently, patient is on p.o. doxycycline and meropenem. Dr. Gonzalez's note i s reviewed. ASSESSMENT AND PLAN: This is a 60-year-old female with sepsis with group B strep and urinary tract i nfection, healthcare-associated pneumonia, pleural catheter, loculated effusion, uterine cancer and c hemotherapy. The patient is status post hysterectomy on doxycycline and meropenem and normal white c ount now. Day #6 of antibiotics. We will discontinue the antibiotics with negative blood cultures a nd normal white count now, afebrile. Chest x-ray from yesterday read by Dr. Miko Gonzalez is noted. We will follow with you. We will check on the HIV also. Jose Solitario MD cc: 350 TT: 06/09/2016 16:07:07 Confirmation # [id number] Dictation # [id number]
--- NOTE | 2016-06-09 21:23 | CP.PCM.PN ---
Subjective - Date & Time of Evaluation Date of Evaluation: 06/09/16 Time of Evaluation: 13:00 - Subjective Subjective: Feels weak Objective - Vital Signs/Intake and Output Vital Signs (last 24 hours): Temp Pulse Resp BP Pulse Ox 98.8 F 125 H 20 108/65 98 06/09/16 18:00 06/09/16 18:27 06/09/16 18:00 06/09/16 18:26 06/09/16 06:00 Intake and Output: 06/09/16 06/10/16 18:59 06:59 Intake Total 480 Balance 480 - Medications Medications: Current Medications Acetaminophen (Tylenol 325mg Tab) 650 mg PO Q6H PRN PRN Reason: Fever >100.4 F Last Admin: 06/05/16 05:07 Dose: 650 mg Docusate Sodium (Colace) 100 mg PO TID [facility] Last Admin: 06/09/16 18:26 Dose: 100 mg Enoxaparin Sodium (Lovenox) 70 mg SC Q12H [facility] PRN Reason: Protocol Last Admin: 06/09/16 14:15 Dose: 70 mg Furosemide (Lasix) 40 mg IVP BID [facility] Last Admin: 06/09/16 18:26 Dose: 40 mg Hydromorphone HCl (Dilaudid) 0.5 mg IVP Q3H PRN PRN Reason: Pain, moderate (4-7) Last Admin: 06/05/16 16:25 Dose: 0.5 mg Metoprolol Tartrate (Lopressor) 5 mg IVP Q6H [facility] Last Admin: 06/09/16 18:27 Dose: 5 mg Ondansetron HCl (Zofran Inj) 4 mg IVP Q6H PRN PRN Reason: Nausea/Vomiting Pantoprazole Sodium (Protonix Ec Tab) 40 mg PO 0630 [facility] Last Admin: 06/09/16 05:37 Dose: 40 mg Polyethylene Glycol (Miralax) 17 gm PO BID [facility] Last Admin: 06/09/16 18:28 Dose: 17 gm - Labs Labs: 06/09/16 06:00 06/09/16 06:00 PT 12.0 Seconds (9.9-11.8) H 06/04/16 00:20 INR 1.11 (0.93-1.08) H 06/04/16 00:20 APTT 39.9 Seconds (23.7-30.8) H 06/04/16 00:20 - Constitutional Appears: Cachectic - Head Exam Head Exam: ATRAUMATIC - Eye Exam Eye Exam: Normal appearance - ENT Exam ENT Exam: Mucous Membranes Dry - Respiratory Exam Respiratory Exam: NORMAL BREATHING PATTERN - Cardiovascular Exam Cardiovascular Exam: +S1, +S2 - GI/Abdominal Exam GI & Abdominal Exam: Normal Bowel Sounds Assessment and Plan (1) Anemia Assessment & Plan: work up consistent with anemia of chronic disease Status: Acute (2) Uterine cancer Assessment & Plan: stage IV malignant pleural effusion per pts outpatient oncologist pleurex catheter removed for infection concern on outpatient chemotherapy supportive care/palliative care f/u Status: Acute
[2016-06-10] MEDS: Enoxaparin 80 mg Syringe SC SCH ×2 (02:30→18:08)
[2016-06-10] MEDS: Pantoprazole 40 mg EC Tab PO SCH (06:01)
[2016-06-10] MEDS: Metoprolol 1 mg/ml Inj IVP SCH ×4 (06:05→22:59)
[2016-06-10 07:22] LABS: ADD MANUAL DIFF? NO
[2016-06-10 07:27] LABS: BASO # 0.01 K/mm3 (0.0-2.0); BASO % 0.1 % (0.0-3.0); EOS % 0.1 % (1.5-5.0); GRAN # 9.79 (1.4-6.5); HEMATOCRIT 26.2 % (36.0-48.0); LYMPH # 1.1 (1.2-3.4); MEAN CELL VOLUME 88.8 fL (80.0-105.0); MEAN CORPUSCULAR HEMOGLOBIN 28.1 pg (25.0-35.0); MEAN CORPUSCULAR HGB CONC 31.7 g/dl (31.0-37.0); MEAN PLATELET VOLUME 9.3 fl (7.0-11.0); MONO # 1.2 (0.1-0.6); MONO % 9.8 % (1.0-6.0); PLATELET COUNT 284 10^3/uL (120.0-450.0); WHITE BLOOD COUNT 12.1 10^3/ul (4.5-11.0)
[2016-06-10 07:40] LABS: BLOOD UREA NITROGEN 29 mg/dL (7-21); CALCIUM 8.2 mg/dL (8.4-10.5); CARBON DIOXIDE 29 mmol/L (21-33); CHLORIDE 99 mmol/L (98-107); GFR AFRICAN-AMERICAN > 60; GLUCOSE,RANDOM 90 mg/dL (70-110); POTASSIUM 3.7 mmol/L (3.6-5.0); SODIUM 136 mmol/L (132-148)
--- NOTE | 2016-06-10 07:54 | CP.PCM.PN ---
Subjective - Date & Time of Evaluation Date of Evaluation: 06/10/16 Time of Evaluation: 07:52 - Subjective Subjective: General Surgery: Dr Coughlin Pt S&E. NAEO. Resting comfortably. Pt reports no SOB, no chest pain, fevers or chills. Denies N/V. Tolerating diet. WBC slightly elevated again today. ID recommendations noted: defer to their recs on abx course Objective - Vital Signs/Intake and Output Vital Signs (last 24 hours): Temp Pulse Resp BP Pulse Ox 99.1 F 127 H 18 95/63 L 96 06/10/16 06:00 06/10/16 06:05 06/10/16 06:00 06/10/16 06:58 06/10/16 06:00 Intake and Output: 06/10/16 06/10/16 06:59 18:59 Intake Total 360 Balance 360 - Medications Medications: Current Medications Acetaminophen (Tylenol 325mg Tab) 650 mg PO Q6H PRN PRN Reason: Fever >100.4 F Last Admin: 06/05/16 05:07 Dose: 650 mg Docusate Sodium (Colace) 100 mg PO TID [facility] Last Admin: 06/09/16 18:26 Dose: 100 mg Enoxaparin Sodium (Lovenox) 70 mg SC Q12H [facility] PRN Reason: Protocol Last Admin: 06/10/16 02:30 Dose: 70 mg Furosemide (Lasix) 40 mg IVP BID [facility] Last Admin: 06/09/16 18:26 Dose: 40 mg Hydromorphone HCl (Dilaudid) 0.5 mg IVP Q3H PRN PRN Reason: Pain, moderate (4-7) Last Admin: 06/05/16 16:25 Dose: 0.5 mg Metoprolol Tartrate (Lopressor) 5 mg IVP Q6H [facility] Last Admin: 06/10/16 06:05 Dose: Not Given Ondansetron HCl (Zofran Inj) 4 mg IVP Q6H PRN PRN Reason: Nausea/Vomiting Pantoprazole Sodium (Protonix Ec Tab) 40 mg PO 0630 [facility] Last Admin: 06/10/16 06:01 Dose: 40 mg Polyethylene Glycol (Miralax) 17 gm PO BID [facility] Last Admin: 06/09/16 18:28 Dose: 17 gm - Labs Labs: 06/10/16 07:00 06/10/16 07:00 PT 12.0 Seconds (9.9-11.8) H 06/04/16 00:20 INR 1.11 (0.93-1.08) H 06/04/16 00:20 APTT 39.9 Seconds (23.7-30.8) H 06/04/16 00:20 - Constitutional Appears: Non-toxic, No Acute Distress - Eye Exam Eye Exam: Normal appearance - Respiratory Exam Respiratory Exam: absent: Accessory Muscle Use, Respiratory Distress - GI/Abdominal Exam GI & Abdominal Exam: Soft. absent: Distended, Tenderness - Extremities Exam Extremities Exam: Pedal Edema. absent: Calf Tenderness Additional comments: +3 pitting edema - Neurological Exam Neurological Exam: Alert, Awake - Skin Skin Exam: Normal Color, Warm Assessment and Plan - Assessment and Plan (Free Text) Assessment: 60F with sepsis secondary to bactermia; sx consulted for loculated effusion Plan: Effusion likely malignant Pt poor surgical candidate No intervention planned for effusion cont abx per ID recommendations will cont to follow peripherally but please reconsult as necessary will d/w Dr Coughlin
--- NOTE | 2016-06-10 09:23 | CP.PCM.PN ---
<Laine Bowens - Last Filed: 06/10/16 16:47> Subjective - Date & Time of Evaluation Date of Evaluation: 06/10/16 Time of Evaluation: 07:30 - Subjective Subjective: Pt seen and evaluated at bedside. Pt denies SOB, N/V, chest pain, abdominal pain, hematuria, dysuria. Reports normal BM yesterday. Afebrile overnight. Objective - Vital Signs/Intake and Output Vital Signs (last 24 hours): Temp Pulse Resp BP Pulse Ox 99.1 F 127 H 18 95/63 L 96 06/10/16 06:00 06/10/16 06:05 06/10/16 06:00 06/10/16 06:58 06/10/16 06:00 Intake and Output: 06/10/16 06/10/16 06:59 18:59 Intake Total 360 Balance 360 - Medications Medications: Current Medications Acetaminophen (Tylenol 325mg Tab) 650 mg PO Q6H PRN PRN Reason: Fever >100.4 F Last Admin: 06/05/16 05:07 Dose: 650 mg Docusate Sodium (Colace) 100 mg PO TID [facility] Last Admin: 06/09/16 18:26 Dose: 100 mg Enoxaparin Sodium (Lovenox) 70 mg SC Q12H [facility] PRN Reason: Protocol Last Admin: 06/10/16 02:30 Dose: 70 mg Furosemide (Lasix) 40 mg IVP BID [facility] Last Admin: 06/09/16 18:26 Dose: 40 mg Hydromorphone HCl (Dilaudid) 0.5 mg IVP Q3H PRN PRN Reason: Pain, moderate (4-7) Last Admin: 06/05/16 16:25 Dose: 0.5 mg Metoprolol Tartrate (Lopressor) 5 mg IVP Q6H [facility] Last Admin: 06/10/16 06:05 Dose: Not Given Ondansetron HCl (Zofran Inj) 4 mg IVP Q6H PRN PRN Reason: Nausea/Vomiting Pantoprazole Sodium (Protonix Ec Tab) 40 mg PO 0630 [facility] Last Admin: 06/10/16 06:01 Dose: 40 mg Polyethylene Glycol (Miralax) 17 gm PO BID [facility] Last Admin: 06/09/16 18:28 Dose: 17 gm - Labs Labs: 06/10/16 07:00 06/10/16 07:00 PT 12.0 Seconds (9.9-11.8) H 06/04/16 00:20 INR 1.11 (0.93-1.08) H 06/04/16 00:20 APTT 39.9 Seconds (23.7-30.8) H 06/04/16 00:20 - Constitutional Appears: Non-toxic, No Acute Distress - Head Exam Head Exam: ATRAUMATIC, NORMOCEPHALIC - Eye Exam Eye Exam: EOMI, Normal appearance - Respiratory Exam Respiratory Exam: Clear to Ausculation Bilateral, NORMAL BREATHING PATTERN - Cardiovascular Exam Cardiovascular Exam: Tachycardia, +S1, +S2 - GI/Abdominal Exam GI & Abdominal Exam: Distended. absent: Tenderness - Exam External exam: absent: Ecchymosis, Erythema - Extremities Exam Extremities Exam: Pedal Edema. absent: Tenderness - Neurological Exam Neurological Exam: Alert, Awake - Skin Skin Exam: Dry, Intact Assessment and Plan - Assessment and Plan (Free Text) Plan: 60 yo F with PMH of Metastatic Uterine CA (s/p Chemo + Surgery, now on Chemo s/ p recurrence of CA), LLE DVT, persistent R pleural effusions s/p indwelling R pleural cath insertion, abdominal ascites, and HTN. SIRS R/O sepsis 2/2 pneumonia v UTI v Catheter infection * Patient remains afebrile * Persistent tachycardia 110-130's * leukocytosis of 12.1 * Hgb stable currently * Blood cx: NGTD * Urine Cx: Group B strep * repeat procalcitonin 22.38, f/u procalcitonin ordered * Pleural cath d/c'd as possible source of sepsis * Per Dr. 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 Ascites, Possible metastatic lesions of vertebral body. Plan: no abx currently, as per ID F/u heme/onc recs f/u ID recs f/u blood and pleural fluid culture, catheter tip culture IVF at 200cc/hr for hypotension, improved to 109/70 today low dose carvedilol for tachycardia Ascites * Lasix 40mg IVP BID * No paracentesis performed because not enough fluid identified. * Abd US ordered Persistent R pleural effusion * CXR: no change in effusion * IR stated that they could not use pleural catheter, it was d/c'd as possible source of infection * bnp: 500 Plan f/u ID recs f/u surgery recs monitor for SOB Lasix 40 IV BID Anemia : Improved * Hgb 8.3 today * Tachycardia 100-130's * Iron: 20, TIBC: 120, 17% saturation Plan F/u heme/onc recs Hypokalemia * will continue to monitor and replace as needed Hx LLE DVT * BL LE duplex: Segmental thrombus in L common femoral and L proximal femoral vein * S/p IVC filter Plan Continued on Therapeutic Lovenox 70mg SC Q12H as per pt hx Monitor No SCD's Uterine CA on chemo * CT Abd/pelvis: large neoplasm throughout the pelvis, perisplenic ascites, multiloculated pleural effusion * Per Dr. 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 Grullon recs: Stage IV, supportive care f/u Diane Barrios discussions with patient and family regarding end of life decisions/therapy Constipation: * patient eating little * had BM today after lactulose administration * likely due to opiods plan: miralax, colace GI/DVT ppx * On therapeutic lovenox * Protonix 40mg IVP daily * SCDs contraindicated due to DVT and leg edema Dispo * monitor on telemetry * VS Q4H * Zofran 4mg Q6H PRN * O2 PRN * HHD * HOB to 30 degrees * Strict I/Os Case discussed with attending <Rosa AMIN,Dariana - Last Filed: 06/10/16 17:45> Objective - Vital Signs/Intake and Output Vital Signs (last 24 hours): Temp Pulse Resp BP Pulse Ox 98.1 F 127 H 20 109/71 96 06/10/16 11:55 06/10/16 14:00 06/10/16 11:55 06/10/16 13:06 06/10/16 06:00 Intake and Output: 06/10/16 06/10/16 06:59 18:59 Intake Total 360 300 Balance 360 300 - Medications Medications: Current Medications Acetaminophen (Tylenol 325mg Tab) 650 mg PO Q6H PRN PRN Reason: Fever >100.4 F Last Admin: 06/05/16 05:07 Dose: 650 mg Carvedilol (Coreg) 6.25 mg PO Q12 [facility] Docusate Sodium (Colace) 100 mg PO TID [facility] Last Admin: 06/10/16 15:00 Dose: Not Given Enoxaparin Sodium (Lovenox) 70 mg SC Q12H [facility] PRN Reason: Protocol Last Admin: 06/10/16 02:30 Dose: 70 mg Furosemide (Lasix) 40 mg IVP BID [facility] Last Admin: 06/10/16 10:22 Dose: Not Given Hydromorphone HCl (Dilaudid) 0.5 mg IVP Q3H PRN PRN Reason: Pain, moderate (4-7) Last Admin: 06/05/16 16:25 Dose: 0.5 mg Sodium Chloride (Sodium Chloride 0.9%) 500 mls @ 200 mls/hr IV .Q2H30M [facility] Last Admin: 06/10/16 15:00 Dose: Not Given Metoprolol Tartrate (Lopressor) 5 mg IVP Q6H [facility] Last Admin: 06/10/16 11:45 Dose: 5 mg Ondansetron HCl (Zofran Inj) 4 mg IVP Q6H PRN PRN Reason: Nausea/Vomiting Pantoprazole Sodium (Protonix Ec Tab) 40 mg PO 0630 [facility] Last Admin: 06/10/16 06:01 Dose: 40 mg Polyethylene Glycol (Miralax) 17 gm PO BID [facility] Last Admin: 06/10/16 10:22 Dose: 17 gm - Labs Labs: 06/10/16 07:00 06/10/16 07:00 PT 12.0 Seconds (9.9-11.8) H 06/04/16 00:20 INR 1.11 (0.93-1.08) H 06/04/16 00:20 APTT 39.9 Seconds (23.7-30.8) H 06/04/16 00:20 Attending/Attestation - Attestation I have personally seen and examined this patient.: Yes I have fully participated in the care of the patient.: Yes I have reviewed all pertinent clinical information, including history, physical exam and plan: Yes Notes (Text): Patient was seen and examined with medical review coordinator .Agreed with resident assessment and plan. 60 F with Metastatic uterine cancer , malignant loculated pleural effusion, recently treated for HCAP and group B streptococuc UTI, was found to be tachycardiac and hypotensive today, was given fluid bolus, blood pressure has improved.Heart rate is coming down, patient does not look to be septic.She was on metoprolol at home which she is not getting here in hospital, anemia and pain could also be contributing to sinus tachycardia, . We will monitor in Tele, TSH was not low, will start low dose of coreg. WBC mildly up today, off antibiotics, we will monitor, if WBC increase, antibiotics may need to be restarted,ID is on case. Patient is on full anticoagulation for DVT. Management plan was discussed in detail with patient Education was provided.
[2016-06-10] MEDS: Sodium Chloride 0.9% 500 ML IV SCH ×4 (10:22→18:10)
[2016-06-10] MEDS: POLYETHYLENE GLYCOL 3350 17 GM/Dose PACKET PO SCH ×2 (10:22→18:10)
--- NOTE | 2016-06-10 15:31 | CARD ---
APPROVED REPORT EKG Measurement Heart [id number] <Conclusion> Sinus tachycardia Nonspecific T wave abnormality Abnormal ECG
--- NOTE | 2016-06-10 18:39 | PN ---
DATE: 06/10/2016 The patient is in bed, in no acute distress, nontoxic. PHYSICAL EXAMINATION: VITAL SIGNS: Temperature is 98, blood pressure is 107/60, respiratory rate 20, heart rate of 130. HEENT: Unremarkable. NECK: Supple. LUNGS: Have decreased breath sounds. HEART: Normal S1, S2. ABDOMEN: Soft, nontender. LABORATORY DATA: Reveals a white count of 12,100, hemoglobin of 8 and platelets of 289. Chemistries reveal the BUN of 29, creatinine of 0.9, alkaline phosphatase is 128. Procalcitonin is 22.38. MICROBIOLOGY: Reveals the urine to have group B strep. The blood cultures are no growth. Urinalysi s is unremarkable. REVIEW OF ORDERS: Reveals the patient to be off of antibiotics. The patient had a chest x-ray on 06/08/2016 which revealed redemonstrated opacity in right lateral lo wer lung field representing loculated right effusion. Dr. Lee's progress note is reviewed. Dr. Coughlin's note is reviewed. Of note, the patient's blood cultures are negative. The patient was never bacteremic. She did have 1 urine culture which was gr oup B strep in the urine, although the urinalysis was noncontributory and the patient's white count o f 12,100 with 81% granulocytosis. The patient is off of antibiotics. ASSESSMENT AND PLAN: This is a 60-year-old female with sepsis with group B streptococcal urinary tra ct infection with normal urinalysis actually, and a healthcare-associated pneumonia with a pleural ca theter and loculated effusion, uterine cancer and chemotherapy, history of hysterectomy. Currently, now the patient had received 6 days of meropenem and doxycycline. Currently off of antibiotics, afeb rile. Has mild leukocytosis. Overall prognosis is poor. The patient does have malignant pleural ef fusions per patient's outpatient oncologist, and a PleurX catheter removed, on outpatient chemotherap y, at stage IV malignant pleural effusion. Will follow closely with you. Jose Soiltario MD cc: 350 TT: 06/10/2016 18:38:27 Confirmation # [id number] Dictation # [id number] mn
[2016-06-11] MEDS: Enoxaparin 80 mg Syringe SC SCH ×2 (02:54→13:54)
[2016-06-11] MEDS: Pantoprazole 40 mg EC Tab PO SCH (05:47)
[2016-06-11] MEDS: Metoprolol 1 mg/ml Inj IVP SCH ×3 (05:47→16:59)
[2016-06-11 07:10] LABS: ADD MANUAL DIFF? NO; BASO # 0.01 K/mm3 (0.0-2.0); BASO % 0.1 % (0.0-3.0); GRAN # 12.85 (1.4-6.5); GRAN % 82.9 % (50.0-68.0); HEMATOCRIT 25.5 % (36.0-48.0); LYMPH % 6.3 % (22.0-35.0); MEAN CELL VOLUME 88.2 fL (80.0-105.0); MEAN CORPUSCULAR HEMOGLOBIN 27.7 pg (25.0-35.0); MEAN CORPUSCULAR HGB CONC 31.4 g/dl (31.0-37.0); MONO # 1.7 (0.1-0.6); MONO % 10.7 % (1.0-6.0); PLATELET COUNT 286 10^3/uL (120.0-450.0); RED CELL DISTRIBUTION WIDTH 21.8 % (11.5-14.5); WHITE BLOOD COUNT 15.5 10^3/ul (4.5-11.0)
[2016-06-11 07:32] LABS: ALB/GLOB RATIO 0.7 (1.1-1.8); BILIRUBIN,TOTAL 0.5 mg/dL (0.2-1.3); CALCIUM 8.1 mg/dL (8.4-10.5); POTASSIUM 3.9 mmol/L (3.6-5.0); TOTAL PROTEIN 4.9 g/dL (5.8-8.3)
[2016-06-11] MEDS ORDERED: Vancomycin 1gm in NS 250ml 1 GM/250 ML BAG IVPB SCH (11:15)
[2016-06-11] MEDS ORDERED: Sodium Chloride 0.9% 500 ML IV STA ×2 (12:00→13:35)
[2016-06-11] MEDS: Piperacill/Tazo 4.5gm in NS 4.5 GM/100 ML BAG IVPB SCH ×2 (12:30→17:11)
[2016-06-11] MEDS: POLYETHYLENE GLYCOL 3350 17 GM/Dose PACKET PO SCH ×2 (12:36→17:00)
--- NOTE | 2016-06-11 13:25 | CP.PCM.PN ---
<Laine Bowens - Last Filed: 06/11/16 13:40> Subjective - Date & Time of Evaluation Date of Evaluation: 06/11/16 Time of Evaluation: 07:35 - Subjective Subjective: Pt seen and evaluated at bedside. Pt denies SOB, N/V, abdominal pain, chest pain, urinary symptoms. BM yesterday multiple times after lactulose. Pt reports low appetite. Afebrile overnight. Objective - Vital Signs/Intake and Output Vital Signs (last 24 hours): Temp Pulse Resp BP Pulse Ox 97 F L 102 H 21 90/50 L 96 06/11/16 12:00 06/11/16 12:00 06/11/16 12:00 06/11/16 12:36 06/10/16 06:00 Intake and Output: 06/11/16 06/11/16 06:59 18:59 Intake Total 500 Balance 500 - Medications Medications: Current Medications Acetaminophen (Tylenol 325mg Tab) 650 mg PO Q6H PRN PRN Reason: Fever >100.4 F Last Admin: 06/05/16 05:07 Dose: 650 mg Carvedilol (Coreg) 6.25 mg PO Q12 [facility] Last Admin: 06/10/16 21:35 Dose: 6.25 mg Docusate Sodium (Colace) 100 mg PO TID [facility] Last Admin: 06/11/16 12:35 Dose: Not Given Enoxaparin Sodium (Lovenox) 70 mg SC Q12H [facility] PRN Reason: Protocol Last Admin: 06/11/16 02:54 Dose: 70 mg Furosemide (Lasix) 40 mg IVP BID [facility] Last Admin: 06/11/16 12:36 Dose: Not Given Hydromorphone HCl (Dilaudid) 0.5 mg IVP Q3H PRN PRN Reason: Pain, moderate (4-7) Last Admin: 06/05/16 16:25 Dose: 0.5 mg Sodium Chloride (Sodium Chloride 0.9%) 500 mls @ 200 mls/hr IV .Q2H30M [facility] Last Admin: 06/10/16 18:10 Dose: Not Given Vancomycin HCl (Vancomycin 1gm) 1 gm in 250 mls @ 167 mls/hr IVPB DAILY [facility] PRN Reason: Protocol Piperacillin Sod/Tazobactam Sod (Zosyn 4.5 Gm In Ns 100ml) 4.5 gm in 100 mls @ 200 mls/hr IVPB Q6 [facility] PRN Reason: Protocol Stop: 06/11/16 18:29 Metoprolol Tartrate (Lopressor) 5 mg IVP Q6H [facility] Last Admin: 06/11/16 12:36 Dose: Not Given Ondansetron HCl (Zofran Inj) 4 mg IVP Q6H PRN PRN Reason: Nausea/Vomiting Pantoprazole Sodium (Protonix Ec Tab) 40 mg PO 0630 [facility] Last Admin: 06/11/16 05:47 Dose: 40 mg Polyethylene Glycol (Miralax) 17 gm PO BID [facility] Last Admin: 06/11/16 12:36 Dose: Not Given - Labs Labs: 06/11/16 07:00 06/11/16 07:00 PT 12.0 Seconds (9.9-11.8) H 06/04/16 00:20 INR 1.11 (0.93-1.08) H 06/04/16 00:20 APTT 39.9 Seconds (23.7-30.8) H 06/04/16 00:20 - Constitutional Appears: Non-toxic, No Acute Distress - Head Exam Head Exam: ATRAUMATIC, NORMOCEPHALIC - Eye Exam Eye Exam: EOMI, Periorbital tenderness Pupil Exam: NORMAL ACCOMODATION - Respiratory Exam Respiratory Exam: Clear to Ausculation Bilateral, NORMAL BREATHING PATTERN - Cardiovascular Exam Cardiovascular Exam: +S1, +S2. absent: Bradycardia - GI/Abdominal Exam GI & Abdominal Exam: Distended. absent: Tenderness - Exam External exam: absent: Ecchymosis, Erythema - Extremities Exam Extremities Exam: Pedal Edema. absent: Tenderness - Neurological Exam Neurological Exam: Alert, Awake - Skin Skin Exam: Intact, Normal Color Assessment and Plan - Assessment and Plan (Free Text) Plan: 60 yo F with PMH of Metastatic Uterine CA (s/p Chemo + Surgery, now on Chemo s/ p recurrence of CA), LLE DVT, persistent R pleural effusions s/p indwelling R pleural cath insertion, abdominal ascites, and HTN. SIRS R/O sepsis 2/2 pneumonia v UTI v Catheter infection * Patient remains afebrile * Tachycardia resolved on carvedilol * Hgb stable currently * Blood cx: NG * Pleural cath d/c'd as possible source of sepsis * Per Dr. 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 Ascites, Possible metastatic lesions of vertebral body. * Urine Cx: Group B strep, repeat ordered * repeat procalcitonin 22.38, f/u procalcitonin 50+ * leukocytosis of 15.5 * lactic acid of 3.2 Plan: Vanc and Zosyn started today F/u heme/onc recs f/u ID recs f/u blood and pleural fluid culture, catheter tip culture low dose carvedilol for tachycardia bolus x1 for lactic acid, f/u lactic acid for 5:30 pm Ascites * Lasix 40mg IVP BID * No paracentesis performed because not enough fluid identified. * Abd US ordered Persistent R pleural effusion * CXR: no change in effusion * IR stated that they could not use pleural catheter, it was d/c'd as possible source of infection * bnp: 500 Plan f/u ID recs f/u surgery recs monitor for SOB Lasix 40 IV BID Anemia : Improved * Hgb 8.0 today * Tachycardia resolved * Iron: 20, TIBC: 120, 17% saturation Plan F/u heme/onc recs Hypokalemia * will continue to monitor and replace as needed Hx LLE DVT * BL LE duplex: Segmental thrombus in L common femoral and L proximal femoral vein * S/p IVC filter Plan Continued on Therapeutic Lovenox 70mg SC Q12H as per pt hx Monitor No SCD's Uterine CA on chemo * CT Abd/pelvis: large neoplasm throughout the pelvis, perisplenic ascites, multiloculated pleural effusion * Per Dr. 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 Grullon recs: Stage IV, supportive care f/u Diane Barrios discussions with patient and family regarding end of life decisions/therapy Constipation: * patient eating little * had BM yesterday after lactulose administration * constipation likely due to opiods plan: miralax, colace GI/DVT ppx * On therapeutic lovenox * Protonix 40mg IVP daily * SCDs contraindicated due to DVT and leg edema Dispo * monitor on telemetry * VS Q4H * Zofran 4mg Q6H PRN * O2 PRN * HHD * HOB to 30 degrees * Strict I/Os <Rosa AMIN,Dariana - Last Filed: 06/11/16 15:23> Objective - Vital Signs/Intake and Output Vital Signs (last 24 hours): Temp Pulse Resp BP Pulse Ox 97 F L 125 H 125 H 91/52 L 96 06/11/16 12:00 06/11/16 14:00 06/11/16 15:04 06/11/16 15:04 06/10/16 06:00 Intake and Output: 06/11/16 06/11/16 06:59 18:59 Intake Total 500 Balance 500 - Medications Medications: Current Medications Acetaminophen (Tylenol 325mg Tab) 650 mg PO Q6H PRN PRN Reason: Fever >100.4 F Last Admin: 06/05/16 05:07 Dose: 650 mg Carvedilol (Coreg) 6.25 mg PO Q12 [facility] Last Admin: 06/11/16 13:46 Dose: Not Given Docusate Sodium (Colace) 100 mg PO TID [facility] Last Admin: 06/11/16 13:46 Dose: Not Given Enoxaparin Sodium (Lovenox) 70 mg SC Q12H [facility] PRN Reason: Protocol Last Admin: 06/11/16 13:54 Dose: 70 mg Furosemide (Lasix) 40 mg IVP BID [facility] Last Admin: 06/11/16 12:36 Dose: Not Given Hydromorphone HCl (Dilaudid) 0.5 mg IVP Q3H PRN PRN Reason: Pain, moderate (4-7) Last Admin: 06/05/16 16:25 Dose: 0.5 mg Sodium Chloride (Sodium Chloride 0.9%) 500 mls @ 200 mls/hr IV .Q2H30M [facility] Last Admin: 06/10/16 18:10 Dose: Not Given Vancomycin HCl (Vancomycin 1gm) 1 gm in 250 mls @ 167 mls/hr IVPB DAILY [facility] PRN Reason: Protocol Last Admin: 06/11/16 13:48 Dose: 167 mls/hr Piperacillin Sod/Tazobactam Sod (Zosyn 4.5 Gm In Ns 100ml) 4.5 gm in 100 mls @ 200 mls/hr IVPB Q6 [facility] PRN Reason: Protocol Stop: 06/11/16 18:29 Last Admin: 06/11/16 12:30 Dose: 200 mls/hr Metoprolol Tartrate (Lopressor) 5 mg IVP Q6H [facility] Last Admin: 06/11/16 12:36 Dose: Not Given Ondansetron HCl (Zofran Inj) 4 mg IVP Q6H PRN PRN Reason: Nausea/Vomiting Pantoprazole Sodium (Protonix Ec Tab) 40 mg PO 0630 [facility] Last Admin: 06/11/16 05:47 Dose: 40 mg Polyethylene Glycol (Miralax) 17 gm PO BID [facility] Last Admin: 06/11/16 12:36 Dose: Not Given - Labs Labs: 06/11/16 07:00 06/11/16 07:00 PT 12.0 Seconds (9.9-11.8) H 06/04/16 00:20 INR 1.11 (0.93-1.08) H 06/04/16 00:20 APTT 39.9 Seconds (23.7-30.8) H 06/04/16 00:20 Attending/Attestation - Attestation I have personally seen and examined this patient.: Yes I have fully participated in the care of the patient.: Yes I have reviewed all pertinent clinical information, including history, physical exam and plan: Yes Notes (Text): 06/11/16 15:17 Patient was seen and examined with biomedical analytical scientist .Agreed with resident assessment and plan. 60 F with Metastatic UTreine cancer with malignant Pleural effusion was treated for HCAP Pneumonia and group B streptococus, antibiotics were discontinued 2 days back, now patient is hypotensive, lactic acid level is high and Procalcitonin level has increased.We will give IV fluid bolus, will do blood and urine cultures, will start on broad spectrum antibiotics Vancomycina nd Zosyn. was discussed by biomedical analytical scientist with ID attending. The issue of DNR and DNI was discussed with patient.Patient has decided to be DNI , but she is not DNR. Patient case was discussed with patient primary oncologist Dr.Hauf ferreira() who has recommended Hospice and palliative care for her .Patient is refusing for Palliative care at this time. Prognosis is guarded. Management plan was discussed in detail with patient Education was provided.
[2016-06-11 13:44] LABS: TROPONIN I < 0.01 ng/mL
--- NOTE | 2016-06-11 17:48 | CP.PCM.PN ---
Subjective - Date & Time of Evaluation Date of Evaluation: 06/11/16 Time of Evaluation: 12:10 - Subjective Subjective: Comfortable, afebrile overnight, not in distress. Objective - Vital Signs/Intake and Output Vital Signs (last 24 hours): Temp Pulse Resp BP Pulse Ox 98.4 F 122 H 18 96/58 L 96 06/11/16 06:00 06/11/16 06:00 06/11/16 06:00 06/11/16 06:00 06/10/16 06:00 Intake and Output: 06/11/16 06/11/16 06:59 18:59 Intake Total 500 Balance 500 - Medications Medications: Current Medications Acetaminophen (Tylenol 325mg Tab) 650 mg PO Q6H PRN PRN Reason: Fever >100.4 F Last Admin: 06/05/16 05:07 Dose: 650 mg Carvedilol (Coreg) 6.25 mg PO Q12 [facility] Last Admin: 06/10/16 21:35 Dose: 6.25 mg Docusate Sodium (Colace) 100 mg PO TID [facility] Last Admin: 06/10/16 18:10 Dose: Not Given Enoxaparin Sodium (Lovenox) 70 mg SC Q12H [facility] PRN Reason: Protocol Last Admin: 06/11/16 02:54 Dose: 70 mg Furosemide (Lasix) 40 mg IVP BID [facility] Last Admin: 06/10/16 18:08 Dose: 40 mg Hydromorphone HCl (Dilaudid) 0.5 mg IVP Q3H PRN PRN Reason: Pain, moderate (4-7) Last Admin: 06/05/16 16:25 Dose: 0.5 mg Sodium Chloride (Sodium Chloride 0.9%) 500 mls @ 200 mls/hr IV .Q2H30M [facility] Last Admin: 06/10/16 18:10 Dose: Not Given Metoprolol Tartrate (Lopressor) 5 mg IVP Q6H [facility] Last Admin: 06/11/16 05:47 Dose: Not Given Ondansetron HCl (Zofran Inj) 4 mg IVP Q6H PRN PRN Reason: Nausea/Vomiting Pantoprazole Sodium (Protonix Ec Tab) 40 mg PO 0630 [facility] Last Admin: 06/11/16 05:47 Dose: 40 mg Polyethylene Glycol (Miralax) 17 gm PO BID [facility] Last Admin: 06/10/16 18:10 Dose: Not Given - Labs Labs: 06/11/16 07:00 06/11/16 07:00 PT 12.0 Seconds (9.9-11.8) H 06/04/16 00:20 INR 1.11 (0.93-1.08) H 06/04/16 00:20 APTT 39.9 Seconds (23.7-30.8) H 06/04/16 00:20 - Constitutional Appears: Non-toxic, No Acute Distress - Head Exam Head Exam: NORMAL INSPECTION - ENT Exam ENT Exam: Mucous Membranes Moist - Neck Exam Neck Exam: absent: Lymphadenopathy, Meningismus - Respiratory Exam Respiratory Exam: Decreased Breath Sounds - Cardiovascular Exam Cardiovascular Exam: +S1, +S2 - GI/Abdominal Exam GI & Abdominal Exam: Soft. absent: Tenderness Assessment and Plan - Assessment and Plan (Free Text) Plan: Assessment S/P treatment for sepsis with group B strep UTI and right sided HCAP, clinically improved uterine cancer on chemotherapy last session 3 weeks ago S/P hysterectomy history of left lower extremity DVT HTN S/P right pleurex catheter placement S/P port-a-cath placement Plan Continue to monitor off antibiotics since she is at risk or nosocomial infections
[2016-06-11] MEDS ORDERED: Sodium Chloride 0.9% 1,000 ML IV STA (19:06)
--- NOTE | 2016-06-11 19:53 | PCM.SEPTIC ---
Sepsis Progress Note - Reassessment Type Date of Evaluation: 06/11/16 Time of Evaluation: 19:20 Reassessment Type: Non-invasive reassessment - Non Invasive Reassessment Were the most recent vital sign reviewed: Yes Vital Sign (Latest): Temp Pulse Resp BP Pulse Ox 98.3 F 127 H 21 93/52 L 96 06/11/16 16:47 06/11/16 18:00 06/11/16 16:47 06/11/16 16:59 06/11/16 16:47 Cardiovascular: Yes: Regular Rate, Rhythm, Chest Non Tender, Edema, Tachycardia Respiratory: Yes: Decreased Breath Sounds Capillary Refill: Normal (Less than 2 sec) Pulses: Normal Radial, Normal Dorsalis Pedis, Decreased Posterior Tibialis Skin: Warm, Dry - Invasive Reassessment (complete 2 of 4) Was a Central Venous Pressure Measurement obtained within 6 Hours after the presentation of septic shock: No Was a central venous oxygen measurement obtained within 6 hours after the presentation of septic shock: No Was a bedside cardiovascular ultrasound performed within 6 hours after the presentation of septic shock: No Was a passive leg raise performed or was a fluid challenge performed within 6 hrs of the initial fluid bolus: Yes Passive Leg Raise Result: Not Applicable Fluid Challenge performed: Yes
--- NOTE | 2016-06-11 20:30 | CP.PCM.PN ---
Subjective - Date & Time of Evaluation Date of Evaluation: 06/11/16 Time of Evaluation: 20:00 - Subjective Subjective: Appears fatigued noted to be hypotensive with concern for sepsis Objective - Vital Signs/Intake and Output Vital Signs (last 24 hours): Temp Pulse Resp BP Pulse Ox 98.3 F 127 H 21 93/52 L 96 06/11/16 16:47 06/11/16 18:00 06/11/16 16:47 06/11/16 16:59 06/11/16 16:47 Intake and Output: 06/11/16 06/12/16 18:59 06:59 Intake Total 240 Output Total 0 Balance 240 - Medications Medications: Current Medications Acetaminophen (Tylenol 325mg Tab) 650 mg PO Q6H PRN PRN Reason: Fever >100.4 F Last Admin: 06/05/16 05:07 Dose: 650 mg Carvedilol (Coreg) 6.25 mg PO Q12 [facility] Last Admin: 06/11/16 13:46 Dose: Not Given Docusate Sodium (Colace) 100 mg PO TID [facility] Last Admin: 06/11/16 17:00 Dose: Not Given Enoxaparin Sodium (Lovenox) 70 mg SC Q12H [facility] PRN Reason: Protocol Last Admin: 06/11/16 13:54 Dose: 70 mg Hydromorphone HCl (Dilaudid) 0.5 mg IVP Q3H PRN PRN Reason: Pain, moderate (4-7) Last Admin: 06/05/16 16:25 Dose: 0.5 mg Piperacillin Sod/Tazobactam Sod (Zosyn 4.5 Gm In Ns 100ml) 4.5 gm in 100 mls @ 200 mls/hr IVPB Q6 [facility] PRN Reason: Protocol Stop: 06/16/16 12:01 Last Admin: 06/11/16 17:11 Dose: 200 mls/hr Sodium Chloride (Sodium Chloride 0.9%) 1,000 mls @ 500 mls/hr IV .Q2H STA Stop: 06/11/16 21:05 Metoprolol Tartrate (Lopressor) 5 mg IVP Q6H [facility] Last Admin: 06/11/16 16:59 Dose: Not Given Ondansetron HCl (Zofran Inj) 4 mg IVP Q6H PRN PRN Reason: Nausea/Vomiting Pantoprazole Sodium (Protonix Ec Tab) 40 mg PO 0630 [facility] Last Admin: 06/11/16 05:47 Dose: 40 mg Polyethylene Glycol (Miralax) 17 gm PO BID [facility] Last Admin: 06/11/16 17:00 Dose: Not Given - Labs Labs: 06/11/16 07:00 06/11/16 07:00 PT 12.0 Seconds (9.9-11.8) H 06/04/16 00:20 INR 1.11 (0.93-1.08) H 06/04/16 00:20 APTT 39.9 Seconds (23.7-30.8) H 06/04/16 00:20 - Constitutional Appears: Cachectic - Head Exam Head Exam: ATRAUMATIC - ENT Exam ENT Exam: Mucous Membranes Dry - Respiratory Exam Respiratory Exam: Decreased Breath Sounds - Cardiovascular Exam Cardiovascular Exam: +S1, +S2 - GI/Abdominal Exam GI & Abdominal Exam: Normal Bowel Sounds Assessment and Plan (1) Anemia Assessment & Plan: chronic disease transfusion support PRN Status: Acute (2) Uterine cancer Assessment & Plan: stage IV malignant pleural effusion supportive care, palliative care Status: Acute
[2016-06-11 23:49] LABS: TROPONIN I < 0.01 ng/mL
[2016-06-12] MEDS: Piperacill/Tazo 4.5gm in NS 4.5 GM/100 ML BAG IVPB SCH ×4 (00:07→20:01)
[2016-06-12] MEDS: Enoxaparin 80 mg Syringe SC SCH ×2 (02:24→14:28)
[2016-06-12] MEDS ORDERED: Sodium Chloride 0.9% 500 ML IV STA ×2 (02:39→09:40)
[2016-06-12] MEDS: Pantoprazole 40 mg EC Tab PO SCH (06:38)
[2016-06-12] MEDS: Metoprolol 1 mg/ml Inj IVP SCH ×4 (07:37→20:01)
[2016-06-12 07:59] LABS: ADD MANUAL DIFF? NO
[2016-06-12 08:04] LABS: BASO # 0.01 K/mm3 (0.0-2.0); BASO % 0.1 % (0.0-3.0); MONO # 1.5 (0.1-0.6); WHITE BLOOD COUNT 18.5 10^3/ul (4.5-11.0)
[2016-06-12 08:19] LABS: EOS % 0.1 % (1.5-5.0); GRAN # 16.07 (1.4-6.5); LYMPH # 0.8 (1.2-3.4); LYMPH % 4.6 % (22.0-35.0); MEAN CORPUSCULAR HEMOGLOBIN 27.8 pg (25.0-35.0); MEAN CORPUSCULAR HGB CONC 31.6 g/dl (31.0-37.0); MEAN PLATELET VOLUME 8.8 fl (7.0-11.0); MONO % 8.2 % (1.0-6.0); PLATELET COUNT 274 10^3/uL (120.0-450.0)
[2016-06-12 08:21] LABS: ALB/GLOB RATIO 0.7 (1.1-1.8); BILIRUBIN,TOTAL 0.5 mg/dL (0.2-1.3); CALCIUM 7.3 mg/dL (8.4-10.5); POTASSIUM 3.8 mmol/L (3.6-5.0); TOTAL PROTEIN 4.7 g/dL (5.8-8.3)
[2016-06-12 08:27] LABS: HEMATOCRIT 20.6 % (36.0-48.0)
--- NOTE | 2016-06-12 10:20 | CP.PCM.PN ---
Subjective - Date & Time of Evaluation Date of Evaluation: 06/12/16 Time of Evaluation: 09:00 - Subjective Subjective: Lethargic, denies pain. Dyspnea on exertion. appetite, denies nausea/ vomiting. Objective - Vital Signs/Intake and Output Vital Signs (last 24 hours): Temp Pulse Resp BP Pulse Ox 97.8 F 122 H 18 101/63 99 06/12/16 06:00 06/12/16 06:00 06/12/16 06:00 06/12/16 06:00 06/12/16 00:01 Intake and Output: 06/12/16 06/12/16 06:59 18:59 Intake Total 2920 Output Total 2 Balance 2918 - Medications Medications: Current Medications Acetaminophen (Tylenol 325mg Tab) 650 mg PO Q6H PRN PRN Reason: Fever >100.4 F Last Admin: 06/05/16 05:07 Dose: 650 mg Carvedilol (Coreg) 6.25 mg PO Q12 [facility] Last Admin: 06/11/16 22:18 Dose: Not Given Docusate Sodium (Colace) 100 mg PO TID [facility] Last Admin: 06/12/16 09:43 Dose: 100 mg Enoxaparin Sodium (Lovenox) 70 mg SC Q12H [facility] PRN Reason: Protocol Last Admin: 06/12/16 02:24 Dose: 70 mg Hydromorphone HCl (Dilaudid) 0.5 mg IVP Q3H PRN PRN Reason: Pain, moderate (4-7) Last Admin: 06/05/16 16:25 Dose: 0.5 mg Piperacillin Sod/Tazobactam Sod (Zosyn 4.5 Gm In Ns 100ml) 4.5 gm in 100 mls @ 200 mls/hr IVPB Q6 [facility] PRN Reason: Protocol Stop: 06/16/16 12:01 Last Admin: 06/12/16 06:38 Dose: 200 mls/hr Metoprolol Tartrate (Lopressor) 5 mg IVP Q6H [facility] Last Admin: 06/12/16 07:37 Dose: Not Given Ondansetron HCl (Zofran Inj) 4 mg IVP Q6H PRN PRN Reason: Nausea/Vomiting Pantoprazole Sodium (Protonix Ec Tab) 40 mg PO 0630 [facility] Last Admin: 06/12/16 06:38 Dose: 40 mg Polyethylene Glycol (Miralax) 17 gm PO BID [facility] Last Admin: 06/11/16 17:00 Dose: Not Given - Labs Labs: 06/12/16 07:00 06/12/16 07:00 PT 12.0 Seconds (9.9-11.8) H 06/04/16 00:20 INR 1.11 (0.93-1.08) H 06/04/16 00:20 APTT 39.9 Seconds (23.7-30.8) H 06/04/16 00:20 - Constitutional Appears: Cachectic, Chronically Ill - Head Exam Head Exam: NORMAL INSPECTION - Eye Exam Eye Exam: Normal appearance, PERRL - ENT Exam ENT Exam: Normal Oropharynx - Neck Exam Neck Exam: Normal Inspection - Respiratory Exam Respiratory Exam: Decreased Breath Sounds, Rales - Cardiovascular Exam Cardiovascular Exam: REGULAR RHYTHM, +S1 - GI/Abdominal Exam GI & Abdominal Exam: Distended, Soft, Diminished Bowel Sounds - Extremities Exam Additional comments: 3 + pitting edema of both lower extremities - Neurological Exam Neurological Exam: Alert, Oriented x3 - Psychiatric Exam Psychiatric exam: Depressed - Skin Skin Exam: Pallor Assessment and Plan - Assessment and Plan (Free Text) Assessment: 60 year old female with metastatic uterine cancer s/p hysterectomy, s/p chemotherapy who is admitted weaknesses, lethargy, sepsis, ascites, anemia. She is lethargic, with dyspnea on exertion. She is oriented to self, place and time. She has been told by the medical team that she has very advanced cancer and that she is not a candidate for further treatment. She has been told that despite medical interventions, her condition is declining and that she is nearing end of life. Itried to discuss options for for comfort /hospice care. The patient is unwilling to engage in any discussions with me . Patient's daughter, Bertha Villalta met with myself and bilingual patient support caseworker to discuss option for hospice care. Bertha understands her mothers medical condition and terminal prognosis. I explained that her mother was not a candidate for chemotherapy and that her condition was rapidly declining. Daughter states that she understands that her mother is terminally ill. Options for hospice care discussed at length, questions answered. Also spoke with daughter about enacting DNR as well as DNI. Burdens of resuscitation explained Daughter states that she will speak with her mother about options for care and get back to us with an answer.Psychosocial support given. Time spent in discussion with patients daughter regarding goals of care/ hospice services and end of life counseling, 30 minutes Plan: Will assist with advance care planning, end of life counseling
--- NOTE | 2016-06-12 14:15 | CP.PCM.PN ---
Addendum entered and electronically signed by Laine Bowens DO 06/12/16 14:30: only one PRBC transfused today thus far Original Note: <Laine Bowens - Last Filed: 06/12/16 14:27> Subjective - Date & Time of Evaluation Date of Evaluation: 06/12/16 Time of Evaluation: 07:40 - Subjective Subjective: Pt seen and evaluated at bedside. Denies SOB/chest pain/n/v/urinary symptoms. Afebrile overnight. Lethargic in bed. Objective - Vital Signs/Intake and Output Vital Signs (last 24 hours): Temp Pulse Resp BP Pulse Ox 98 F 61 16 93/51 L 99 06/12/16 12:00 06/12/16 12:00 06/12/16 12:00 06/12/16 12:00 06/12/16 00:01 Intake and Output: 06/12/16 06/12/16 06:59 18:59 Intake Total 2920 Output Total 2 Balance 2918 - Medications Medications: Current Medications Acetaminophen (Tylenol 325mg Tab) 650 mg PO Q6H PRN PRN Reason: Fever >100.4 F Last Admin: 06/05/16 05:07 Dose: 650 mg Carvedilol (Coreg) 6.25 mg PO Q12 [facility] Last Admin: 06/11/16 22:18 Dose: Not Given Docusate Sodium (Colace) 100 mg PO TID [facility] Last Admin: 06/12/16 09:43 Dose: 100 mg Enoxaparin Sodium (Lovenox) 70 mg SC Q12H [facility] PRN Reason: Protocol Last Admin: 06/12/16 02:24 Dose: 70 mg Hydromorphone HCl (Dilaudid) 0.5 mg IVP Q3H PRN PRN Reason: Pain, moderate (4-7) Last Admin: 06/05/16 16:25 Dose: 0.5 mg Piperacillin Sod/Tazobactam Sod (Zosyn 4.5 Gm In Ns 100ml) 4.5 gm in 100 mls @ 200 mls/hr IVPB Q6 [facility] PRN Reason: Protocol Stop: 06/16/16 12:01 Last Admin: 06/12/16 06:38 Dose: 200 mls/hr Metoprolol Tartrate (Lopressor) 5 mg IVP Q6H [facility] Last Admin: 06/12/16 07:37 Dose: Not Given Ondansetron HCl (Zofran Inj) 4 mg IVP Q6H PRN PRN Reason: Nausea/Vomiting Pantoprazole Sodium (Protonix Ec Tab) 40 mg PO 0630 [facility] Last Admin: 06/12/16 06:38 Dose: 40 mg Polyethylene Glycol (Miralax) 17 gm PO BID [facility] Last Admin: 06/11/16 17:00 Dose: Not Given - Labs Labs: 06/12/16 07:00 06/12/16 07:00 PT 12.0 Seconds (9.9-11.8) H 06/04/16 00:20 INR 1.11 (0.93-1.08) H 06/04/16 00:20 APTT 39.9 Seconds (23.7-30.8) H 06/04/16 00:20 - Constitutional Appears: No Acute Distress, Chronically Ill - Head Exam Head Exam: ATRAUMATIC, NORMOCEPHALIC - Eye Exam Eye Exam: EOMI, Normal appearance - Respiratory Exam Respiratory Exam: Rhonchi, NORMAL BREATHING PATTERN Additional comments: L sided wheezing - Cardiovascular Exam Cardiovascular Exam: Tachycardia, +S1, +S2 - GI/Abdominal Exam GI & Abdominal Exam: Distended. absent: Tenderness - Exam External exam: absent: Ecchymosis, Erythema - Extremities Exam Extremities Exam: Pedal Edema. absent: Tenderness Additional comments: pitting edema of +3 - Neurological Exam Neurological Exam: Alert, Awake - Skin Skin Exam: Dry, Intact Assessment and Plan - Assessment and Plan (Free Text) Plan: 60 yo F with PMH of Metastatic Uterine CA (s/p Chemo + Surgery, now on Chemo s/ p recurrence of CA), LLE DVT, persistent R pleural effusions s/p indwelling R pleural cath insertion, abdominal ascites, and HTN. SIRS R/O sepsis 2/2 pneumonia v UTI v Catheter infection * Patient remains afebrile * Tachycardia resolved on carvedilol * Hgb stable currently * Blood cx: NG * Pleural cath d/c'd as possible source of sepsis * Per Dr. 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 Ascites, Possible metastatic lesions of vertebral body. * Urine Cx: Group B strep, repeat Ucx ordered * repeat procalcitonin 22.38, f/u procalcitonin 50+ * leukocytosis of 18.5 * lactic acid of 3.5 Plan: Zosyn F/u heme/onc recs f/u ID recs f/u blood and pleural fluid culture, catheter tip culture low dose carvedilol for tachycardia half bolus x1 for lactic acid Ascites * Lasix 40mg IVP BID * No paracentesis performed because not enough fluid identified. * Abd US ordered Persistent R pleural effusion * CXR: no change in effusion * IR stated that they could not use pleural catheter, it was d/c'd as possible source of infection * bnp: 500 Plan f/u ID recs f/u surgery recs monitor for SOB Lasix 40 IV BID Anemia : Improved * Hgb 6.5 today * Tachycardia in 120's * Iron: 20, TIBC: 120, 17% saturation Plan F/u heme/onc recs 2 PrBC transfused today Hypokalemia * will continue to monitor and replace as needed Hx LLE DVT * BL LE duplex: Segmental thrombus in L common femoral and L proximal femoral vein * S/p IVC filter Plan Continued on Therapeutic Lovenox 70mg SC Q12H as per pt hx Monitor No SCD's Uterine CA on chemo * CT Abd/pelvis: large neoplasm throughout the pelvis, perisplenic ascites, multiloculated pleural effusion * Per Dr. 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 Grullon recs: Stage IV, supportive care f/u Diane Barrios discussions with patient and family regarding end of life decisions/therapy Constipation: * patient eating little * had BM yesterday * constipation likely due to opiods plan: miralax, colace GI/DVT ppx * On therapeutic lovenox * Protonix 40mg IVP daily * SCDs contraindicated due to DVT and leg edema Dispo * monitor on telemetry * VS Q4H * Zofran 4mg Q6H PRN * O2 PRN * HHD * HOB to 30 degrees * Strict I/Os <Rosa AMIN,Dariana - Last Filed: 06/12/16 17:16> Objective - Vital Signs/Intake and Output Vital Signs (last 24 hours): Temp Pulse Resp BP Pulse Ox 97.5 F L 122 H 26 H 89/52 L 100 06/12/16 16:28 06/12/16 16:28 06/12/16 16:28 06/12/16 16:28 06/12/16 15:40 Intake and Output: 06/12/16 06/12/16 06:59 18:59 Intake Total 2920 420 Output Total 2 Balance 2918 420 - Medications Medications: Current Medications Acetaminophen (Tylenol 325mg Tab) 650 mg PO Q6H PRN PRN Reason: Fever >100.4 F Last Admin: 06/05/16 05:07 Dose: 650 mg Carvedilol (Coreg) 6.25 mg PO Q12 [facility] Last Admin: 06/12/16 14:21 Dose: Not Given Docusate Sodium (Colace) 100 mg PO TID [facility] Last Admin: 06/12/16 14:20 Dose: Not Given Enoxaparin Sodium (Lovenox) 70 mg SC Q12H [facility] PRN Reason: Protocol Last Admin: 06/12/16 14:28 Dose: Not Given Hydromorphone HCl (Dilaudid) 0.5 mg IVP Q3H PRN PRN Reason: Pain, moderate (4-7) Last Admin: 06/05/16 16:25 Dose: 0.5 mg Piperacillin Sod/Tazobactam Sod (Zosyn 4.5 Gm In Ns 100ml) 4.5 gm in 100 mls @ 200 mls/hr IVPB Q6 [facility] PRN Reason: Protocol Stop: 06/16/16 12:01 Last Admin: 06/12/16 14:23 Dose: 200 mls/hr Metoprolol Tartrate (Lopressor) 5 mg IVP Q6H [facility] Last Admin: 06/12/16 14:21 Dose: Not Given Ondansetron HCl (Zofran Inj) 4 mg IVP Q6H PRN PRN Reason: Nausea/Vomiting Pantoprazole Sodium (Protonix Ec Tab) 40 mg PO 0630 [facility] Last Admin: 06/12/16 06:38 Dose: 40 mg Polyethylene Glycol (Miralax) 17 gm PO BID [facility] Last Admin: 06/12/16 14:24 Dose: Not Given - Labs Labs: 06/12/16 07:00 06/12/16 07:00 PT 12.0 Seconds (9.9-11.8) H 06/04/16 00:20 INR 1.11 (0.93-1.08) H 06/04/16 00:20 APTT 39.9 Seconds (23.7-30.8) H 06/04/16 00:20 Attending/Attestation - Attestation I have personally seen and examined this patient.: Yes I have fully participated in the care of the patient.: Yes I have reviewed all pertinent clinical information, including history, physical exam and plan: Yes Notes (Text): 06/12/16 17:10 Patient was seen and examined with registered medical transcriptionist .Agreed with resident assessment and plan. 60 year old female with metastatic uterine cancer s/p hysterectomy, s/p chemotherapy who was admitted with weaknesses, lethargy, sepsis, ascites, anemia was treated for HCAP Pneumonia and group B streptococus UTI, now hypotensive and tachycardiac, due to sepsis, patient blood pressure has not improved despite aggressive IV hydration, She is DNI but not DNR.The issue of hospice and palliative care was discussed ind etail with her by me and palliative care , still not ready.She is on IV antibiotic Zosyn as per ID, was also given Vancomycin earlier.The case was discussed with ICU attending for possible transfer to ICU for pressor.ICU team is going to evaluate the patient.Patient hemoglobin dropped due to IV hydration.There is no evidence of bleeding.Patient is getting one unit of PRBC . Patient is DNI but not DNR. Prognosis is guarded.. Management plan was discussed in detail with patient Education was provided.
[2016-06-12] MEDS: POLYETHYLENE GLYCOL 3350 17 GM/Dose PACKET PO SCH ×2 (14:24→20:01)
--- NOTE | 2016-06-12 16:31 | CP.PCM.PN ---
Subjective - Date & Time of Evaluation Date of Evaluation: 06/12/16 Time of Evaluation: 12:35 - Subjective Subjective: Comfortable in bed, not in distress but feels weak. Appetite is poor. No fevers overnight. Objective - Vital Signs/Intake and Output Vital Signs (last 24 hours): Temp Pulse Resp BP Pulse Ox 97.5 F L 122 H 20 83/50 L 100 06/12/16 16:13 06/12/16 16:13 06/12/16 16:13 06/12/16 16:13 06/12/16 15:40 Intake and Output: 06/12/16 06/12/16 06:59 18:59 Intake Total 2920 420 Output Total 2 Balance 2918 420 - Medications Medications: Current Medications Acetaminophen (Tylenol 325mg Tab) 650 mg PO Q6H PRN PRN Reason: Fever >100.4 F Last Admin: 06/05/16 05:07 Dose: 650 mg Carvedilol (Coreg) 6.25 mg PO Q12 [facility] Last Admin: 06/12/16 14:21 Dose: Not Given Docusate Sodium (Colace) 100 mg PO TID [facility] Last Admin: 06/12/16 14:20 Dose: Not Given Enoxaparin Sodium (Lovenox) 70 mg SC Q12H [facility] PRN Reason: Protocol Last Admin: 06/12/16 14:28 Dose: Not Given Hydromorphone HCl (Dilaudid) 0.5 mg IVP Q3H PRN PRN Reason: Pain, moderate (4-7) Last Admin: 06/05/16 16:25 Dose: 0.5 mg Piperacillin Sod/Tazobactam Sod (Zosyn 4.5 Gm In Ns 100ml) 4.5 gm in 100 mls @ 200 mls/hr IVPB Q6 [facility] PRN Reason: Protocol Stop: 06/16/16 12:01 Last Admin: 06/12/16 14:23 Dose: 200 mls/hr Metoprolol Tartrate (Lopressor) 5 mg IVP Q6H [facility] Last Admin: 06/12/16 14:21 Dose: Not Given Ondansetron HCl (Zofran Inj) 4 mg IVP Q6H PRN PRN Reason: Nausea/Vomiting Pantoprazole Sodium (Protonix Ec Tab) 40 mg PO 0630 [facility] Last Admin: 06/12/16 06:38 Dose: 40 mg Polyethylene Glycol (Miralax) 17 gm PO BID [facility] Last Admin: 06/12/16 14:24 Dose: Not Given - Labs Labs: 06/12/16 07:00 06/12/16 07:00 PT 12.0 Seconds (9.9-11.8) H 06/04/16 00:20 INR 1.11 (0.93-1.08) H 06/04/16 00:20 APTT 39.9 Seconds (23.7-30.8) H 06/04/16 00:20 - Constitutional Appears: Non-toxic, No Acute Distress - Head Exam Head Exam: NORMAL INSPECTION - ENT Exam ENT Exam: Mucous Membranes Moist - Neck Exam Neck Exam: absent: Lymphadenopathy, Meningismus - Respiratory Exam Respiratory Exam: Decreased Breath Sounds - Cardiovascular Exam Cardiovascular Exam: +S1, +S2 - GI/Abdominal Exam GI & Abdominal Exam: Soft. absent: Tenderness Assessment and Plan - Assessment and Plan (Free Text) Plan: Assessment Persistent leukocytosis and transient episodes of hypotension, R/O new onset sepsis Acute renal failure S/P treatment for sepsis with group B strep UTI and right sided HCAP, clinically improved uterine cancer on chemotherapy last session 3 weeks ago S/P hysterectomy history of left lower extremity DVT HTN S/P right pleurex catheter placement S/P port-a-cath placement Plan Continue zosyn (given one dose of IV Vancomycin yesterday) pending urine cx, CXR ; Blood cx from yesterday are negative x 24 hours; PCT is elevated but it is not accurate in the setting of acute renal failure Overall prognosis is poor and there is discussion about hospice care
--- NOTE | 2016-06-12 17:58 | CP.PCM.PN ---
Subjective - Date & Time of Evaluation Date of Evaluation: 06/12/16 Time of Evaluation: 17:25 - Subjective Subjective: 60 y/o F w/ Metastatic uterine ca w/ RLL PNA and possible para pneumonic effusion/ Empyema Called by the hospitalist due to increased WOb and hypotension. Pt is aao x 3 and is unsure of her wishes at this stage of her disease. She cannot decide if sh ewants aggressive measure such as Chest tube etc/ Central lines / vasopressors etc. She has received several L of Normal saline and [id number]. Pt agreed to BIPAP while she thinks about her decisions. Objective - Vital Signs/Intake and Output Vital Signs (last 24 hours): Temp Pulse Resp BP Pulse Ox 97.6 F 124 H 26 H 86/50 L 100 06/12/16 17:13 06/12/16 17:13 06/12/16 17:13 06/12/16 17:13 06/12/16 15:40 Intake and Output: 06/12/16 06/12/16 06:59 18:59 Intake Total 2920 420 Output Total 2 Balance 2918 420 - Medications Medications: Current Medications Acetaminophen (Tylenol 325mg Tab) 650 mg PO Q6H PRN PRN Reason: Fever >100.4 F Last Admin: 06/05/16 05:07 Dose: 650 mg Carvedilol (Coreg) 6.[address] [facility] Last Admin: 06/12/16 14:21 Dose: Not Given Docusate Sodium (Colace) [address] [facility] Last Admin: 06/12/16 14:20 Dose: Not Given Enoxaparin Sodium (Lovenox) 70 mg SC Q12H [facility] PRN Reason: Protocol Last Admin: 06/12/16 14:28 Dose: Not Given Hydromorphone HCl (Dilaudid) 0.5 mg IVP Q3H PRN PRN Reason: Pain, moderate (4-7) Last Admin: 06/05/16 16:25 Dose: 0.5 mg Piperacillin Sod/Tazobactam Sod (Zosyn 4.5 Gm In Ns 100ml) 4.5 gm in 100 mls @ 200 mls/hr IVPB Q6 [facility] PRN Reason: Protocol Stop: 06/16/16 12:01 Last Admin: 06/12/16 14:23 Dose: 200 mls/hr Metoprolol Tartrate (Lopressor) [address] [facility] Last Admin: 06/12/16 14:21 Dose: Not Given Ondansetron HCl (Zofran Inj) 4 mg IVP Q6H PRN PRN Reason: Nausea/Vomiting Pantoprazole Sodium (Protonix Ec Tab) [address] [facility] Last Admin: 06/12/16 06:38 Dose: 40 mg Polyethylene Glycol (Miralax) [address] [facility] Last Admin: 06/12/16 14:24 Dose: Not Given - Labs Labs: 06/12/16 07:00 06/12/16 07:00 PT 12.0 Seconds (9.9-11.8) H 06/04/16 00:20 INR 1.11 (0.93-1.08) H 06/04/16 00:20 APTT 39.9 Seconds (23.7-30.8) H 06/04/16 00:20 - Constitutional Appears: In Acute Distress, Unkempt - Eye Exam Eye Exam: Normal appearance - ENT Exam ENT Exam: Mucous Membranes Moist - Respiratory Exam Respiratory Exam: Decreased Breath Sounds, Prolonged Expiratory Phase, Respiratory Distress - Cardiovascular Exam Cardiovascular Exam: Tachycardia - GI/Abdominal Exam GI & Abdominal Exam: Mass - Exam External exam: NORMAL EXTERNAL EXAM Assessment and Plan - Assessment and Plan (Free Text) Assessment: 60 y/o F w/ end stage Uterine CA w/ RLL PNA / empyema/ Complicated parapneumonic effusion. Plans currently unclear. Spoke to the patient's daughter as well, unclear as far as what aggressive measure to undertake. Ok for BIPAP to help with Increased WOB. Insert Acevedo to help with possible urinary retention and possible abd compartment syndrome. CXR images reviewed, w/ elevated WBC w/ RLL dense infiltrate concerning for source of infection. Chest tube could possibly help and be palliative as well. Continue broad spectrum abx and hold Lovenox tonight and a.m in the event that the patient is willing and able for a CT in the a.m. Very Poor prognosis cc time 72 min
--- NOTE | 2016-06-12 18:17 | CP.PCM.PN ---
Subjective - Date & Time of Evaluation Date of Evaluation: 06/12/16 Time of Evaluation: 17:10 - Subjective Subjective: General Surgery progress note for Dr. Coughlin Pt was seen and examined at beside on telemetry floor. Surgery was asked to re- evaluate the patient for worsening SOB and chest discomfort and possible need for a chest tube placement. Patient stated that she had a horrible feeling in the center of her chest like the "air was catching" making it so she couldn't breath properly. Patient states that she has never felt like this before. Patient is currently getting PRBC infusions for severe anemia and therapeutic doses of Lovenox for a chronic DVT. Patient is currently a DNI but not DNR, states that she wants to do whatever will give her relief, but is uncertain if she wants to have the chest tube placed at this time, and wants to see how her symptoms improve with BiPAP. Objective - Vital Signs/Intake and Output Vital Signs (last 24 hours): Temp Pulse Resp BP Pulse Ox 98 F 71 18 91/49 L 100 06/12/16 18:00 06/12/16 18:00 06/12/16 18:00 06/12/16 18:00 06/12/16 15:40 Intake and Output: 06/12/16 06/12/16 06:59 18:59 Intake Total 2920 420 Output Total 2 Balance 2918 420 - Medications Medications: Current Medications Acetaminophen (Tylenol 325mg Tab) 650 mg PO Q6H PRN PRN Reason: Fever >100.4 F Last Admin: 06/05/16 05:07 Dose: 650 mg Carvedilol (Coreg) 6.25 mg PO Q12 [facility] Last Admin: 06/12/16 14:21 Dose: Not Given Docusate Sodium (Colace) 100 mg PO TID [facility] Last Admin: 06/12/16 14:20 Dose: Not Given Enoxaparin Sodium (Lovenox) 70 mg SC Q12H ANDRY PRN Reason: Protocol Last Admin: 06/12/16 14:28 Dose: Not Given Hydromorphone HCl (Dilaudid) 0.5 mg IVP Q3H PRN PRN Reason: Pain, moderate (4-7) Last Admin: 06/05/16 16:25 Dose: 0.5 mg Piperacillin Sod/Tazobactam Sod (Zosyn 4.5 Gm In Ns 100ml) 4.5 gm in 100 mls @ 200 mls/hr IVPB Q6 ANDRY PRN Reason: Protocol Stop: 06/16/16 12:01 Last Admin: 06/12/16 14:23 Dose: 200 mls/hr Metoprolol Tartrate (Lopressor) 5 mg IVP Q6H [facility] Last Admin: 06/12/16 14:21 Dose: Not Given Ondansetron HCl (Zofran Inj) 4 mg IVP Q6H PRN PRN Reason: Nausea/Vomiting Pantoprazole Sodium (Protonix Ec Tab) 40 mg PO 0630 [facility] Last Admin: 06/12/16 06:38 Dose: 40 mg Polyethylene Glycol (Miralax) 17 gm PO BID [facility] Last Admin: 06/12/16 14:24 Dose: Not Given - Labs Labs: 06/12/16 07:00 06/12/16 07:00 PT 12.0 Seconds (9.9-11.8) H 06/04/16 00:20 INR 1.11 (0.93-1.08) H 06/04/16 00:20 APTT 39.9 Seconds (23.7-30.8) H 06/04/16 00:20 - Constitutional Appears: In Acute Distress, Older Than Stated Age, Cachectic - Head Exam Head Exam: ATRAUMATIC, NORMOCEPHALIC - Eye Exam Eye Exam: Normal appearance. absent: Conjunctival injection, Scleral icterus - ENT Exam ENT Exam: Mucous Membranes Moist, Normal Oropharynx - Respiratory Exam Respiratory Exam: Accessory Muscle Use, Respiratory Distress - Cardiovascular Exam Cardiovascular Exam: Tachycardia - GI/Abdominal Exam GI & Abdominal Exam: Distended, Mass - Extremities Exam Additional comments: Pitting edema from her feet to her thighs - Neurological Exam Neurological Exam: Alert, Awake, Oriented x3 - Psychiatric Exam Psychiatric exam: Anxious, Normal Affect - Skin Skin Exam: Dry, Normal Color, Warm Assessment and Plan - Assessment and Plan (Free Text) Assessment: 60F with sepsis secondary to bactermia, recurrent uterine cancer with large mass in abdomen/pelvis; chronic loculated pleural effusion with previous pleural cath for fluid drainage removed this admission for possible source of sepsis Hgb 6.5 Pt satting 100% on pulse ox, but tachypneic Cause of patient's symptoms are multifactorial: respiratory distress from R effusion vs. empyema vs. PNA, possible cardiac in nature Pleural effusion loculated on previous CT, likely need VATS by cardiothoracic surgeon for definitive, therapeutic treatment Currently on therapeutic dose of lovenox Patient undecided on whether or not she wants a chest tube Plan: No emergent surgical intervention at this time, given patient's severe anemia, current lovenox regimen, lack of hypoxia, and indecision regarding treatment Hold Lovenox Transfer to ICU--f/u effectiveness of BiPAP treatment cont abx per ID recommendations Possible large bore chest tube placement tomorrow AM for palliative purposes F/U patient's and family's decisions for further intervention NPO after midnight Discussed with Dr. Ced Washington, PGY1
[2016-06-12 19:26] LABS: ARTERIAL BLOOD GAS O2 CAPACITY 9.5 mL/dl (16-24); ARTERIAL BLOOD GAS O2 CONTENT 9.4 ML/dl (15-23); ARTERIAL BLOOD GAS PH 7.38 (7.35-7.45); HHB 0.6 % (0-5); METHEMOGLOBIN 0.5 % (0.0-3.0)
[2016-06-12] MEDS: Sodium Chloride 0.9% 1,000 ML IV SCH (22:25)
[2016-06-13] MEDS: Piperacill/Tazo 4.5gm in NS 4.5 GM/100 ML BAG IVPB SCH ×2 (00:36→05:31)
[2016-06-13] MEDS: Metoprolol 1 mg/ml Inj IVP SCH ×3 (01:10→12:00)
[2016-06-13 06:38] LABS: MEAN CELL VOLUME 85.8 fL (80.0-105.0); MEAN CORPUSCULAR HEMOGLOBIN 27.7 pg (25.0-35.0); MEAN CORPUSCULAR HGB CONC 32.3 g/dl (31.0-37.0); PLATELET COUNT 274 10^3/uL (120.0-450.0); RED CELL DISTRIBUTION WIDTH 21.8 % (11.5-14.5)
[2016-06-13 06:46] LABS: HEMATOCRIT 22.3 % (36.0-48.0)
[2016-06-13 06:48] LABS: ALB/GLOB RATIO 0.7 (1.1-1.8); BILIRUBIN,TOTAL 0.6 mg/dL (0.2-1.3); POTASSIUM 4.1 mmol/L (3.6-5.0); TOTAL PROTEIN 4.7 g/dL (5.8-8.3)
[2016-06-13 07:00] LABS: ADD MANUAL DIFF? YES
[2016-06-13 07:05] LABS: CALCIUM 6.8 mg/dL (8.4-10.5); INR 1.37 (0.93-1.08); PARTIAL THROMBOPLASTIN TIME 45.5 Seconds (23.7-30.8)
[2016-06-13 07:46] LABS: MAGNESIUM 2.1 mg/dL (1.7-2.2); PHOSPHOROUS 7.7 mg/dL (2.5-4.5)
[2016-06-13 08:24] LABS: BAND 2 % (0-2); HYPOCHROMIA 1+; NEUTROPHIL 91 % (50.0-70.0); PLATELET ESTIMATE NORMAL (NORMAL); POIKILOCYTOSIS SLIGHT; POLYCHROMASIA SLIGHT
[2016-06-13 08:25] LABS: ANISOCYTOSIS 1+; OVALOCYTES SLIGHT
--- NOTE | 2016-06-13 08:27 | RAD ---
HISTORY: SOB COMPARISON: 06/08/2016 FINDINGS: LUNGS: No active pulmonary disease. PLEURA: Small right-sided pleural effusion unchanged CARDIOVASCULAR: Normal. OSSEOUS STRUCTURES: No significant abnormalities. VISUALIZED UPPER ABDOMEN: Normal. OTHER FINDINGS: None. IMPRESSION: Small right-sided pleural effusion unchanged
[2016-06-13] MEDS: DOPamine 400mg/250ml D5W 400 MG/250 ML BAG IV PRN (08:29)
--- NOTE | 2016-06-13 08:39 | RAD ---
HISTORY: SOB, f/u COMPARISON: 06/12/2016 FINDINGS: The right IJV line terminates in the right atrium. LUNGS: There is redemonstration of a moderate loculated right pleural effusion. The left lung is clear. PLEURA: No left pleural effusion. No pneumothorax apparent. CARDIOVASCULAR: Normal. OSSEOUS STRUCTURES: No significant abnormalities. VISUALIZED UPPER ABDOMEN: Normal. OTHER FINDINGS: None. IMPRESSION: No significant interval change in moderate loculated right pleural effusion.
[2016-06-13] MEDS: Sodium Chloride 0.9% 1,000 ML IV SCH ×2 (09:15→23:25)
--- NOTE | 2016-06-13 09:19 | PN ---
DATE: 06/13/2016 The patient seen and examined at bedside. She appears to be breathing comfortably, however in mild respiratory distress when talks. She is on 8 mcg per minute of Levophed. PHYSICAL EXAMINATION: VITAL SIGNS: Blood pressure 98/62, heart rate 115, oxygen saturation 100%, respiratory rate 38. Of note, the patient is DNI. HEAD AND NECK: Atraumatic. LUNGS: Clear to auscultation bilaterally. HEART: Regular rate and rhythm. S1, S2 distant. ABDOMEN: Soft, distended, tense, but does not appear to be tender on palpation. Attempts at putting Asher in were unsuccessful before. We will get consult for probably a Asher catheter placement. MUSCULOSKELETAL: 2+ bilateral pedal and ankle edema. NEUROLOGIC: The patient moves all extremities spontaneously. SKIN: Moist. PSYCHIATRIC: The patient is alert and oriented x 3. LABORATORY DATA: WBC 24, hemoglobin 7.2, platelet count 274. Sodium 140, potassium 4.1, chloride 107, carbon dioxide 19, BUN 55, creatinine 2.3, glucose 96. MEDICATIONS: Tylenol p.r.n., Coreg, Colace, dopamine, Lovenox 70 mg subQ q. 12. Today, morning dose is on hold in anticipation of thoracentesis. Dilaudid p.r.n., metoprolol, midodrine, Zofran p.r.n., Protonix, normal saline 100 mL per hour, Zosyn. ASSESSMENT AND PLAN: This is a 60-year-old lady with advanced uterine malignancy with multiple metastases. At present time, the patient does not want to be intubated. She might be septic and we will rule out empyema as etiology for it. If pleural fluid comes back negative for empyema, possibility of intraabdominal pathology (provided very large tumor burden inside the belly) would be next possibility. We are trying to proceed with as minimally invasive approach as possible to maintain balance between her comfort and treating potentially reversible causes of her respiratory compromise; however, the patient would be unlikely a candidate for any aggressive chemotherapy or surgery to remove tumor bulk (as per her primary hospitalist and [facility] oncologist and reportedly as per her primary oncologist). We will continue to target euvolemia, euglycemia, normothermia and oxygen saturation more than 90%. We will continue with deep venous thrombosis treatment and gastrointestinal prophylaxis. We will continue with daily update the patient on her condition. We will continue with antibiotics at present time. Palliative care consult will be called. Addendum: pleural effusion tapped, chest tube placed by surgical service. called to put asher in as 3 prior attempts by non- providers failed--concern for mechanical obstruction present. Nephro consult is appreciated. ccm time 40 min Kvng Lomeli MD cc: [id number] TT: 06/13/2016 09:18:35 Confirmation # [id number] Dictation # [id number] tn MTDD
[2016-06-13] MEDS: POLYETHYLENE GLYCOL 3350 17 GM/Dose PACKET PO SCH ×2 (10:00→18:27)
[2016-06-13] MEDS: HYDROmorphone 0.5 mg/0.5 ml ISec IVP PRN (10:18)
--- NOTE | 2016-06-13 11:27 | RAD ---
HISTORY: assess right chest tube placement COMPARISON: Earlier same day FINDINGS: LUNGS: No active pulmonary disease. PLEURA: There is now a right-sided chest tube in place in the region of the minor fissure. There is no pneumothorax. There is persistent loculation in the right lung apex. CARDIOVASCULAR: Normal. OSSEOUS STRUCTURES: No significant abnormalities. VISUALIZED UPPER ABDOMEN: Normal. OTHER FINDINGS: None. IMPRESSION: There is now a right-sided chest tube in place in the region of the minor fissure. There is no pneumothorax. There is persistent loculation in the right lung apex.
--- NOTE | 2016-06-13 11:31 | PCM.PROC ---
Procedures Attestation:: I certify that I have explained the specified Operation(s) or Procedure(s), risks, benefits and reasonable alternatives to the Patient and/or other person responsible. The opportunity was given to ask questions and all questions answered - Chest Tube Chest Tube Location: Mid-Axillary Right (3rd intercostal space due to scar tissue from previous CTs and elevated diaphragm) Size of Tube (cm): 28 (Spanish) Chest Tube Procedure: Chlorhexidine Tube Sutured to Skin: Yes Sterile Dressing Applied: Yes Anesthesia: Lidocaine 1% Volume Anesthetic (mls): 15 Incision Made With: #11 blade Post Procedure: sutured to skin, sterile dressing applied, air occlusive dressing [place] of Air [place]: Yes Tube Drainage: fluid Amount of Initial Drainage: 200 Post Procedure CXR?: Yes Patient Tolerated Procedure: Yes Progress: Consent was obtained. Pt was prepped and draped in a sterile fashion. Pt was given 0.5mg Dilaudid prior to the procedure start. area was numbed using lidocaine. 32F tube was attempted; however was not able to be advanced between the rib space. 28F tube was successfully placed. O silk suture was used to close the incision and secure the chest tube to the abdominal wall.
[2016-06-13] MEDS ORDERED: DAPTOmycin 500 mg Inj (Cubicin) IV SCH (13:00)
--- NOTE | 2016-06-13 13:10 | PN ---
DATE: 06/13/2016 SUBJECTIVE: The patient is in bed. Was seen earlier in [facility], bed 2. Overall in poor condition, is w eak, short of breath. No fevers documented. PHYSICAL EXAMINATION: VITAL SIGNS: Temperature is 98, blood pressure is 90/60, respiratory rate of 22, heart rate of 120. HEENT: Unremarkable. NECK: Supple. LUNGS: Have decreased breath sounds. HEART: Normal S1, S2. ABDOMEN: Soft, nontender. LABORATORY DATA: Reveals a white count of 24,000, hemoglobin of 7 and platelets of 274, 91% polys. C oagulation is noted. Chemistries reveal the BUN of 55, creatinine is up to 2.3 (which is changed fro 06/10/2016 which was 0.9). The patient's lactic acid is noted to be at 4.2. Microbiology reveals the gram-positive cocci in clusters in 1 blood culture, and there is a urine culture with beta hemoly tic strep. Blood cultures are coag-negative staph. Review of the medications reveals the patient to be on Zosyn full dose. The patient also had a procalcitonin of 53. ASSESSMENT AND PLAN: This is a 60-year-old female seen in the ICU earlier, 128, bed 2, with severe s epsis with acute kidney injury, gram-positive cocci bacteremia, dose of vancomycin was given. Will s tart daptomycin and change the Zosyn to renal dosing in this patient who has uterine cancer on chemot herapy, status post hysterectomy, hypertension and right PleurX catheter placement. The patient has a Port-A-Cath. Will repeat the blood cultures x 2. Start daptomycin and Zosyn, dose adjusted, in th is patient who has a malignant pleural effusion, outpatient oncologist seen, PleurX catheter, status post chemotherapy and stage IV malignant pleural effusion. Overall prognosis is quite poor for this patient who is cachectic, end-stage, wasting syndrome. Will follow closely with you. Jose Solitario MD cc: [id number] TT: 06/13/2016 13:09:15 Confirmation # [id number] Dictation # [id number] mn
[2016-06-13 13:18] LABS: ADD MANUAL DIFF? NO
[2016-06-13 13:24] LABS: BASO # 0.01 K/mm3 (0.0-2.0); GRAN # 22.04 (1.4-6.5); LYMPH # 0.8 (1.2-3.4); LYMPH % 3.4 % (22.0-35.0); MEAN CELL VOLUME 86.9 fL (80.0-105.0); MEAN CORPUSCULAR HEMOGLOBIN 27.7 pg (25.0-35.0); MEAN CORPUSCULAR HGB CONC 31.9 g/dl (31.0-37.0); MEAN PLATELET VOLUME 8.7 fl (7.0-11.0); MONO # 1.4 (0.1-0.6); MONO % 5.6 % (1.0-6.0); PLATELET COUNT 262 10^3/uL (120.0-450.0); WHITE BLOOD COUNT 24.2 10^3/ul (4.5-11.0)
[2016-06-13 13:27] LABS: HEMATOCRIT 22.6 % (36.0-48.0)
--- NOTE | 2016-06-13 14:28 | CP.PCM.PN ---
<Laine Bowens - Last Filed: 06/14/16 06:21> Subjective - Date & Time of Evaluation Date of Evaluation: 06/13/16 Time of Evaluation: 07:20 - Subjective Subjective: Pt seen and evaluated at bedside. Chest tube inserted by surgery earlier in day. Pt denies SOB, N/V, abdominal and chest pain, urinary symptoms. Afebrile overnight. Pt refusing asher for today. Objective - Vital Signs/Intake and Output Vital Signs (last 24 hours): Temp Pulse Resp BP Pulse Ox 97.5 F L 126 H 26 H 87/44 L 100 06/13/16 12:00 06/13/16 10:35 06/13/16 10:35 06/13/16 10:35 06/13/16 10:35 Intake and Output: 06/13/16 06/13/16 06:59 18:59 Intake Total 1739 39 Balance 1739 39 - Medications Medications: Current Medications Acetaminophen (Tylenol 325mg Tab) 650 mg PO Q6H PRN PRN Reason: Fever >100.4 F Last Admin: 06/12/16 20:31 Dose: 650 mg Calcium Acetate (Phoslo) 1,334 mg PO WM ANDRY Carvedilol (Coreg) 6.25 mg PO Q12 [facility] Last Admin: 06/12/16 21:40 Dose: Not Given Daptomycin (Cubicin) 550 mg 6 mg/kg (550 mg) IV Q48H [facility] PRN Reason: Protocol Stop: 06/27/16 13:01 Docusate Sodium (Colace) 100 mg PO TID [facility] Last Admin: 06/12/16 20:00 Dose: Not Given Enoxaparin Sodium (Lovenox) 70 mg SC Q12H [facility] PRN Reason: Protocol Last Admin: 06/12/16 14:28 Dose: Not Given Hydromorphone HCl (Dilaudid) 0.5 mg IVP Q3H PRN PRN Reason: Pain, moderate (4-7) Last Admin: 06/13/16 10:18 Dose: 0.5 mg Sodium Chloride (Sodium Chloride 0.9%) 1,000 mls @ 100 mls/hr IV .Q10H [facility] Last Admin: 06/12/16 22:25 Dose: 100 mls/hr Dopamine HCl/Dextrose (Dopamine 400mg/250ml D5w) 400 mg in 250 mls @ 17.095 mls /hr IV .[id number] PRN; Protocol; 5 MCG/KG/MIN PRN Reason: TITRATE PER MD ORDER Last Titration: 06/13/16 10:20 Dose: 12 mcg/kg/min, 41.027 mls/hr Piperacillin Sod/Tazobactam Sod (Zosyn 2.25 Gm In 0.9% 100 Ml) 2.25 gm in 100 mls @ 100 mls/hr IV Q8 ANDRY PRN Reason: Protocol Stop: 06/27/16 14:01 Daptomycin 550 mg/ Sodium (Chloride) 100 mls @ 200 mls/hr IV Q48H [facility] Stop: 06/27/16 13:46 Metoprolol Tartrate (Lopressor) 5 mg IVP Q6H [facility] Last Admin: 06/13/16 11:30 Dose: Not Given Midodrine (Proamatine) 7.5 mg PO TID [facility] Ondansetron HCl (Zofran Inj) 4 mg IVP Q6H PRN PRN Reason: Nausea/Vomiting Pantoprazole Sodium (Protonix Ec Tab) 40 mg PO 0630 [facility] Last Admin: 06/12/16 06:38 Dose: 40 mg Polyethylene Glycol (Miralax) 17 gm PO BID [facility] Last Admin: 06/12/16 20:01 Dose: Not Given - Labs Labs: 06/13/16 13:00 06/13/16 06:00 PT 14.8 Seconds (9.9-11.8) H 06/13/16 06:00 INR 1.37 (0.93-1.08) H 06/13/16 06:00 APTT 45.5 Seconds (23.7-30.8) H 06/13/16 06:00 - GI/Abdominal Exam Additional comments: epigastric - Additional Findings Additional findings: - Constitutional Appears: No Acute Distress, Chronically Ill - Head Exam Head Exam: ATRAUMATIC, NORMOCEPHALIC - Eye Exam Eye Exam: EOMI, Normal appearance - Respiratory Exam Respiratory Exam: NORMAL BREATHING PATTERN, labored - Cardiovascular Exam Cardiovascular Exam: Tachycardia, +S1, +S2 - GI/Abdominal Exam GI & Abdominal Exam: Distended. absent: Tenderness - Exam External exam: absent: Ecchymosis, Erythema - Extremities Exam Extremities Exam: Pedal Edema. absent: Tenderness Additional comments: pitting edema of +3 - Neurological Exam Neurological Exam: Alert, Awake - Skin Skin Exam: Dry, Intact Assessment and Plan - Assessment and Plan (Free Text) Plan: 60 yo F with PMH of Metastatic Uterine CA (s/p Chemo + Surgery, now on Chemo s/ p recurrence of CA), LLE DVT, persistent R pleural effusions s/p indwelling R pleural cath insertion, abdominal ascites, and HTN. SIRS R/O sepsis 2/2 pneumonia v UTI v Catheter infection * Patient remains afebrile * Tachycardia resolved on carvedilol * Hgb at 7.2 this am * Blood cx: NG * Pleural cath d/c'd as possible source of sepsis * Per Dr. 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 Ascites, Possible metastatic lesions of vertebral body. * Urine Cx: Group B strep, repeat Ucx ordered * Bcx: G+ clusters * repeat procalcitonin 22.38, f/u procalcitonin 50+ * leukocytosis of 24 * lactic acid of 3.5 * hypotension * Under ICU care for hypotension and increased work of breathing Plan: Daptomycin Zosyn reduced today due to high creatinine, 2.3 F/u heme/onc recs f/u ID recs f/u blood and pleural fluid culture, catheter tip culture low dose carvedilol for tachycardia dopamine drip, midodrine for hypotension nephrology consulted Retaining 300+ cc in bladder but pt currently refusing asher. Ascites * Lasix 40mg IVP BID * No paracentesis performed because not enough fluid identified. * Abd US ordered Persistent R pleural effusion * CXR: no change in effusion * IR stated that they could not use pleural catheter, it was d/c'd as possible source of infection * bnp: 500 Plan f/u ID recs f/u surgery recs monitor for SOB Lasix 40 IV BID Anemia : Improved * Hgb 7.2 today * Tachycardia in 110's * Iron: 20, TIBC: 120, 17% saturation Plan F/u heme/onc recs 1 PrBC transfused yesterday Hypokalemia * will continue to monitor and replace as needed Hx LLE DVT * BL LE duplex: Segmental thrombus in L common femoral and L proximal femoral vein * S/p IVC filter Plan Continued on Therapeutic Lovenox 70mg SC Q12H as per pt hx Monitor No SCD's Uterine CA on chemo * CT Abd/pelvis: large neoplasm throughout the pelvis, perisplenic ascites, multiloculated pleural effusion * Per Dr. 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 Grullon recs: Stage IV, supportive care f/u Diane Barrios discussions with patient and family regarding end of life decisions/therapy Constipation: * patient eating little * had BM yesterday * constipation likely due to opiods plan: miralax, colace GI/DVT ppx * On therapeutic lovenox * Protonix 40mg IVP daily * SCDs contraindicated due to DVT and leg edema Dispo * monitor on telemetry * VS Q4H * Zofran 4mg Q6H PRN * O2 PRN * HHD * HOB to 30 degrees * Strict I/Os * * <Rosa AMIN,Nadiyamansfieldadamaris - Last Filed: 06/14/16 12:21> Objective - Vital Signs/Intake and Output Vital Signs (last 24 hours): Temp Pulse Resp BP Pulse Ox 93 F L 79 24 79/46 L 100 06/14/16 08:00 06/14/16 11:48 06/14/16 07:31 06/14/16 11:48 06/14/16 08:20 Intake and Output: 06/14/16 06/14/16 06:59 18:59 Intake Total 1930 100 Output Total 800 Balance 1130 100 - Medications Medications: Current Medications Acetaminophen (Tylenol 325mg Tab) 650 mg PO Q6H PRN PRN Reason: Fever >100.4 F Last Admin: 06/12/16 20:31 Dose: 650 mg Calcium Acetate (Phoslo) 1,334 mg PO WM [facility] Last Admin: 06/14/16 09:11 Dose: Not Given Carvedilol (Coreg) 6.25 mg PO Q12 [facility] Last Admin: 06/14/16 11:01 Dose: Not Given Docusate Sodium (Colace) 100 mg PO TID [facility] Last Admin: 06/14/16 11:01 Dose: Not Given Enoxaparin Sodium (Lovenox) 70 mg SC Q12H [facility] PRN Reason: Protocol Last Admin: 06/12/16 14:28 Dose: Not Given Hydromorphone HCl (Dilaudid) 0.5 mg IVP Q3H PRN PRN Reason: Pain, moderate (4-7) Last Admin: 06/13/16 10:18 Dose: 0.5 mg Sodium Chloride (Sodium Chloride 0.9%) 1,000 mls @ 100 mls/hr IV .Q10H [facility] Last Admin: 06/13/16 23:25 Dose: 100 mls/hr Dopamine HCl/Dextrose (Dopamine 400mg/250ml D5w) 400 mg in 250 mls @ 17.095 mls /hr IV .[id number] PRN; Protocol; 5 MCG/KG/MIN PRN Reason: TITRATE PER MD ORDER Last Admin: 06/14/16 09:55 Dose: 25 mcg/kg/min, 85.474 mls/hr Piperacillin Sod/Tazobactam Sod (Zosyn 2.25 Gm In 0.9% 100 Ml) 2.25 gm in 100 mls @ 100 mls/hr IV Q8 [facility] PRN Reason: Protocol Stop: 06/27/16 14:01 Last Admin: 06/14/16 07:12 Dose: 100 mls/hr Daptomycin 550 mg/ Sodium (Chloride) 100 mls @ 200 mls/hr IV Q48H [facility] Stop: 06/27/16 13:46 Last Admin: 06/13/16 14:20 Dose: 200 mls/hr Sodium Chloride (Sodium Chloride 0.9%) 1,000 mls @ 999 mls/hr IV .Q1H1M [facility] Stop: 06/14/16 12:16 Last Admin: 06/14/16 11:24 Dose: 999 mls/hr Metoprolol Tartrate (Lopressor) 5 mg IVP Q6H [facility] Last Admin: 06/14/16 11:48 Dose: Not Given Midodrine (Proamatine) 7.5 mg PO TID [facility] Last Admin: 06/14/16 11:02 Dose: Not Given Ondansetron HCl (Zofran Inj) 4 mg IVP Q6H PRN PRN Reason: Nausea/Vomiting Pantoprazole Sodium (Protonix Ec Tab) 40 mg PO 0630 [facility] Last Admin: 06/14/16 05:50 Dose: Not Given Polyethylene Glycol (Miralax) 17 gm PO BID [facility] Last Admin: 06/14/16 11:02 Dose: Not Given - Labs Labs: 06/14/16 05:35 06/14/16 05:35 PT 14.8 Seconds (9.9-11.8) H 06/13/16 06:00 INR 1.37 (0.93-1.08) H 06/13/16 06:00 APTT 45.5 Seconds (23.7-30.8) H 06/13/16 06:00 Attending/Attestation - Attestation I have personally seen and examined this patient.: Yes I have fully participated in the care of the patient.: Yes I have reviewed all pertinent clinical information, including history, physical exam and plan: Yes Notes (Text): 06/14/16 12:06 Patient was seen and examined with medical or surgical instrument maker .Agreed with resident assessment and plan. 60 year old female with metastatic uterine cancer s/p hysterectomy, s/p chemotherapy who was admitted with weaknesses, lethargy, sepsis, ascites, anemia was treated for HCAP Pneumonia and group B streptococus UTI, became hypotensive and tachycardiac on the floor , Lactic acid level was high, Patient hypotension and tachycardia did not improve with IV hydration and patient was transferred to ICU, Patient is on pressore, renal functions are getting worse.We will get Nephrology consult. Patient also had right sided chest tube placed , will follow up pleural fluid results. Patient is on IV zosyn as per ID, renal dose was adjusted. Critical care team/ ID are following. Prognosis is guarded Management plan was discussed in detail with patient Education was provided. Addendum Patient was DNI but she changed her code status to full and was intubated last night 06/14/16 12:20
[2016-06-13] MEDS: Piperacillin/Tazobact 2.25gm 2.25 GM/100 ML BAG IV SCH ×2 (14:35→21:55)
--- NOTE | 2016-06-13 18:09 | CT ---
CT abdomen and pelvis without IV contrast Indication: Rule out obstruction, assess Acevedo placement Technique: Contiguous axial images of the abdomen and pelvis. Oral contrast was administered. No IV contrast given. Coronal and Sagittal reformats generated and reviewed. This CT exam was performed using 1 or more of the following dose reduction techniques: Automated exposure control, adjustment of the MAA and/or kV according to patient size, and/or use of iterative reconstruction technique. Radiation dose: Total exam DLP = 1219.41 mGy-cm. Comparison: CT of the abdomen and pelvis without oral or IV contrast performed 06/03/16 Findings: Examination markedly limited due to paucity of intra-abdominal or intrapelvic fat as well as lack of IV or oral contrast. Right-sided chest tube. Loculated appearing right-sided pleural fluid and consolidation. Moderate left-sided pleural effusion and associated consolidation. No visible pneumothorax. Calcified mediastinal nodules, partially imaged. Suspect mild sludge within the gallbladder. Grossly unremarkable unenhanced appearance of the liver. Punctate splenic calcification, likely granuloma. The unenhanced pancreas and adrenal glands appear unremarkable. No hydronephrosis or obstructing calculus evident. No evidence of bowel obstruction. There is no definite free air. Small abdominal ascites. Large heterogeneous pelvic mass measuring approximately 31.5 cm on sagittal view in longest dimension, similar to prior study when remeasured in a similar location. The urinary bladder appears collapsed and contains air with Acevedo catheter present. IVC filter. Diffuse anasarca. Osseous demineralization. Degenerative changes. Impression: Examination markedly limited due to paucity of intra-abdominal or intrapelvic fat as well as lack of IV or oral contrast. Right-sided chest tube. Loculated appearing right-sided pleural fluid and consolidation. Moderate left-sided pleural effusion and associated consolidation. Small abdominal ascites. Large heterogeneous pelvic mass measuring approximately 31.5 cm on sagittal view in longest dimension, similar to prior study when remeasured in a similar location. This is compatible with provided history of uterine cancer. The urinary bladder appears collapsed and contains air with Acevedo catheter present. Recommend clinical correlation including urinalysis. IVC filter. Diffuse anasarca.
[2016-06-13] MEDS: Pantoprazole 40 mg EC Tab PO SCH (18:29)
[2016-06-13] MEDS ORDERED: Sodium Chloride 0.9% 1,000 ML IV STA (21:08)
[2016-06-14] MEDS: Metoprolol 1 mg/ml Inj IVP SCH ×4 (00:17→17:18)
--- NOTE | 2016-06-14 05:43 | CP.PCM.PCO ---
Physician Communication Note - Physician Communication Note Physician Communication Note: Pt w/ agonal breathing at 5:30AM and therefore intubated
[2016-06-14] MEDS: Pantoprazole 40 mg EC Tab PO SCH (05:50)
[2016-06-14 06:05] LABS: MEAN CELL VOLUME 92.1 fL (80.0-105.0); MEAN CORPUSCULAR HGB CONC 30.3 g/dl (31.0-37.0); MEAN PLATELET VOLUME 8.9 fl (7.0-11.0); PLATELET COUNT 232 10^3/uL (120.0-450.0); RED CELL DISTRIBUTION WIDTH 22.9 % (11.5-14.5); WHITE BLOOD COUNT 22.7 10^3/ul (4.5-11.0)
[2016-06-14 06:20] LABS: ALB/GLOB RATIO 0.7 (1.1-1.8); BILIRUBIN,TOTAL 0.5 mg/dL (0.2-1.3); TOTAL PROTEIN 4.5 g/dL (5.8-8.3)
[2016-06-14] MEDS ORDERED: Midazolam 5 MG/5 ML VIAL IVP ONE (06:32)
[2016-06-14 06:48] LABS: CALCIUM 6.4 mg/dL (8.4-10.5)
--- NOTE | 2016-06-14 06:50 | CP.PCM.CON ---
History of Present Illness - History of Present Illness History of Present Illness: 60 yo F w/ pmh of uterine cancer, s/p hysterectomy, last chemo round in May 2016, DVT s/p IVC filter on AC, pleural effusions w/ R pleurex catheter, initially admitted to ICU for possible sepsis in the setting of R loculated pleural effusion and after presenting with severe lethargy for 1 week; Patient with hypotension over past 2 days; on treatment for HCAP with coag neg Staph in recent blood culture; Further review of systems very limited as patient extremely lethargic, daughter who is at bedside unable to give much more details. Past Patient History - Past Social History Smoking Status: Former Smoker - CARDIAC Hx Hypertension: Yes - PULMONARY Hx Respiratory Disorders: Yes Other/Comment: Right pleural effusion - NEUROLOGICAL Hx Neurological Disorder: No - RENAL Hx Chronic Kidney Disease: No - ENDOCRINE/METABOLIC Hx Endocrine Disorders: No - HEMATOLOGICAL/ONCOLOGICAL Hx Cancer: Yes (Uterine -dx chemo and radiation) Other/Comment: DVT - LLE. Cancer reoccurred - chemo restarted - INTEGUMENTARY Hx Dermatological Problems: No - MUSCULOSKELETAL/RHEUMATOLOGICAL Hx Falls: No - GENITOURINARY/GYNECOLOGICAL Hx Genitourinary Disorders: No - PSYCHIATRIC Hx Psychophysiologic Disorder: No Hx Substance Use: No - SURGICAL HISTORY Hx Surgeries: Yes Hx Hysterectomy: Yes Other/Comment: IVC filter. Right Portacath. Right pleurX cath. - ANESTHESIA Hx Anesthesia: Yes Hx Anesthesia Reactions: No Hx Malignant Hyperthermia: No Meds Allergies/Adverse Reactions: Allergies Allergy/AdvReac Type Severity Reaction Status Date / Time No Known Allergies Allergy Unverified 06/03/16 22:32 - Medications Medications: Current Medications Acetaminophen (Tylenol 325mg Tab) 650 mg PO Q6H PRN PRN Reason: Fever >100.4 F Last Admin: 06/12/16 20:31 Dose: 650 mg Calcium Acetate (Phoslo) 1,334 mg PO WM [facility] Last Admin: 06/13/16 17:55 Dose: Not Given Carvedilol (Coreg) 6.25 mg PO Q12 [facility] Last Admin: 06/13/16 21:45 Dose: Not Given Docusate Sodium (Colace) 100 mg PO TID [facility] Last Admin: 06/13/16 18:08 Dose: Not Given Enoxaparin Sodium (Lovenox) 70 mg SC Q12H [facility] PRN Reason: Protocol Last Admin: 06/12/16 14:28 Dose: Not Given Hydromorphone HCl (Dilaudid) 0.5 mg IVP Q3H PRN PRN Reason: Pain, moderate (4-7) Last Admin: 06/13/16 10:18 Dose: 0.5 mg Sodium Chloride (Sodium Chloride 0.9%) 1,000 mls @ 100 mls/hr IV .Q10H [facility] Last Admin: 06/13/16 23:25 Dose: 100 mls/hr Dopamine HCl/Dextrose (Dopamine 400mg/250ml D5w) 400 mg in 250 mls @ 17.095 mls /hr IV .[id number] PRN; Protocol; 5 MCG/KG/MIN PRN Reason: TITRATE PER MD ORDER Last Titration: 06/14/16 05:04 Dose: 20 mcg/kg/min, 68.379 mls/hr Piperacillin Sod/Tazobactam Sod (Zosyn 2.25 Gm In 0.9% 100 Ml) 2.25 gm in 100 mls @ 100 mls/hr IV Q8 [facility] PRN Reason: Protocol Stop: 06/27/16 14:01 Last Admin: 06/13/16 21:55 Dose: 100 mls/hr Daptomycin 550 mg/ Sodium (Chloride) 100 mls @ 200 mls/hr IV Q48H [facility] Stop: 06/27/16 13:46 Last Admin: 06/13/16 14:20 Dose: 200 mls/hr Metoprolol Tartrate (Lopressor) 5 mg IVP Q6H [facility] Last Admin: 06/14/16 05:40 Dose: Not Given Midodrine (Proamatine) 7.5 mg PO TID [facility] Last Admin: 06/13/16 18:29 Dose: Not Given Ondansetron HCl (Zofran Inj) 4 mg IVP Q6H PRN PRN Reason: Nausea/Vomiting Pantoprazole Sodium (Protonix Ec Tab) 40 mg PO 0630 [facility] Last Admin: 06/14/16 05:50 Dose: Not Given Polyethylene Glycol (Miralax) 17 gm PO BID [facility] Last Admin: 06/13/16 18:27 Dose: Not Given Results - Vital Signs Recent Vital Signs: Last Vital Signs Temp 97.8 F 06/13/16 16:00 Pulse 101 H 06/14/16 00:17 Resp 31 H 06/13/16 20:30 BP 94/53 L 06/14/16 00:17 Pulse Ox 100 06/13/16 20:30 - Labs Result Diagrams: 06/13/16 13:00 06/13/16 06:00 Labs: Laboratory Results - last 24 hr 06/13/16 06/13/16 06/13/16 06:00 06:00 06:00 WBC 24.0 H D RBC 2.60 L Hgb 7.2 L Hct 22.3 L MCV 85.8 MCH 27.7 MCHC 32.3 RDW 21.8 H Plt Count 274 MPV 9.0 Gran % [employer] Lymph % (Auto) [employer] Holt % (Auto) [employer] Eos % (Auto) [employer] Baso % (Auto) [employer] Gran # [employer] Lymph # [employer] Holt # [employer] Eos # [employer] Baso # [employer] Neutrophils % (Manual) 91 H Band Neutrophils % 2 Lymphocytes % (Manual) 5 L Monocytes % (Manual) 2 Platelet Evaluation Normal Polychromasia Slight Hypochromasia 1+ Poikilocytosis (manual Slight Anisocytosis (manual) 1+ Ovalocytes Slight PT 14.8 H INR 1.37 H APTT 45.5 H Sodium 140 Potassium 4.1 Chloride 107 Carbon Dioxide 19 L Anion Gap 18 BUN 55 H Creatinine 2.3 H Est GFR ( Amer) 26 Est GFR (Non-Af Amer) 21 Random Glucose 96 Calcium 6.8 L* Phosphorus Magnesium Total Bilirubin 0.6 AST 80 H ALT 34 Alkaline Phosphatase 83 Total Protein 4.7 L Albumin 1.9 L Globulin 2.8 Albumin/Globulin Ratio 0.7 L 06/13/16 06/13/16 06:00 13:00 WBC 24.2 H RBC 2.60 L Hgb 7.2 L Hct 22.6 L MCV 86.9 MCH 27.7 MCHC 31.9 RDW 22.0 H Plt Count 262 MPV 8.7 Gran % 91.0 H Lymph % (Auto) 3.4 L Holt % (Auto) 5.6 Eos % (Auto) 0.0 L Baso % (Auto) 0.0 Gran # 22.04 H Lymph # 0.8 L Holt # 1.4 H Eos # 0.0 Baso # 0.01 Neutrophils % (Manual) Band Neutrophils % Lymphocytes % (Manual) Monocytes % (Manual) Platelet Evaluation Polychromasia Hypochromasia Poikilocytosis (manual Anisocytosis (manual) Ovalocytes PT INR APTT Sodium Potassium Chloride Carbon Dioxide Anion Gap BUN Creatinine Est GFR ( Amer) Est GFR (Non-Af Amer) Random Glucose Calcium Phosphorus 7.7 H Magnesium 2.1 Total Bilirubin AST ALT Alkaline Phosphatase Total Protein Albumin Globulin Albumin/Globulin Ratio Assessment & Plan (1) Acute renal failure (ARF) Assessment and Plan: Most likely ATN as the rise in serum creatinine correlates with the recent hypotension; however, question of pre-renal component and even obstructive component remains; unable to quantify urine output as of this evening; asher inserted late this afternoon by urology but has zero UO in the few hours since then;; Case discussed with attending covering ICU this evening; recommending to bolus with IVF, at least 1-2 L, especially as patient's code status was just changed to full code (earlier today was DNI); CT abd/pelvis today showing no hydronephrosis and no extenral mass appears to be involving renal collecting system, will review images with radiology, especially if still no UO after IVF; -continue to maintain MAP > 65 with vasopressor support as needed -will check urine micro once available -urine lytes once available Status: Acute (2) Sepsis Status: Acute (3) Uterine cancer Status: Acute
[2016-06-14 06:52] LABS: MAGNESIUM 2.5 mg/dL (1.7-2.2); PHOSPHOROUS 12.4 mg/dL (2.5-4.5)
[2016-06-14 06:56] LABS: POTASSIUM 5.8 mmol/L (3.6-5.0)
[2016-06-14] MEDS: Piperacillin/Tazobact 2.25gm 2.25 GM/100 ML BAG IV SCH ×2 (07:12→14:41)
[2016-06-14] MEDS ORDERED: Insulin Lispro 1 UNITS/0.01 ML SC ONE (07:19)
[2016-06-14] MEDS ORDERED: Dextrose 50% SYRINGE Inj (50 ml) IVP ONE (07:19)
[2016-06-14 07:41] LABS: ADD MANUAL DIFF? YES; HEMATOCRIT 23.4 % (36.0-48.0)
--- NOTE | 2016-06-14 08:40 | PN ---
DATE: 06/14/2016 The patient is in bed. Was seen earlier this morning. Intubated on a ventilator, in poor condition. PHYSICAL EXAMINATION: VITAL SIGNS: Temperature is 97, blood pressure is 100/50, respiratory rate on a vent, heart rate of 101. HEENT: Reveals ET tube in place. NECK: Supple. LUNGS: Have decreased breath sounds. HEART: Normal S1, S2. ABDOMEN: Soft and nontender. LABORATORY DATA: Reveals a white count of 22,000, hemoglobin of 7, BUN of 56, creatinine of 2.9. Ur inalysis is noted. HIV is negative. Microbiology is gram-positive cocci in clusters in 1 bottle. P leural fluid culture is pending. The urine culture is a group B strep. Dr. Coleman's note has been rev iewed. Dr. Ospina's note from yesterday is reviewed. Chest x-ray from this morning, results are pen ding. The patient also had a CAT scan of the abdomen and pelvis yesterday. ASSESSMENT AND PLAN: This is a 60-year-old female who was seen earlier in the ICU 128, bed 2, with s evere sepsis now with respiratory failure, intubated, on a ventilator; acute kidney injury, gram-posi tive cocci bacteremia. On daptomycin and Zosyn. Status post hysterectomy, history of hypertension a nd right PleurX catheter and does have a Port-A-Cath. Waiting for repeat cultures, awaiting for iden tification of gram-positive cocci in this patient with stage IV malignant pleural effusion. Overall prognosis is quite poor. Should consider hospice setting for this patient who is end stage and cache ctic. Will follow with you. Jose Solitario MD cc: [id number] TT: 06/14/2016 08:40:06 Confirmation # [id number] Dictation # [id number] soto
--- NOTE | 2016-06-14 08:43 | CP.PCM.PN ---
Subjective - Date & Time of Evaluation Date of Evaluation: 06/14/16 Time of Evaluation: 08:40 - Subjective Subjective: Gen Surg: Dr Coughlin 24Hr events: Pt had right chest tube placed yesterday at bedside. Initially had 400cc output, now up to 1400cc, serosanguinous. Pt was found in worsening respiratory distress this morning. Family and patient decided to remove DNI orders and accept full code. Pt was intubated. Currently on PRVC 100%/07/03/ 350. Unresponsive w/o sedation. On 25mcg of dopamine w/ MAP of 60 Objective - Vital Signs/Intake and Output Vital Signs (last 24 hours): Temp Pulse Resp BP Pulse Ox 97.8 F 79 24 90/40 L 100 06/13/16 16:00 06/14/16 08:20 06/14/16 07:31 06/14/16 08:01 06/14/16 08:20 Intake and Output: 06/14/16 06/14/16 06:59 18:59 Intake Total 1930 Output Total 800 Balance 1130 - Medications Medications: Current Medications Acetaminophen (Tylenol 325mg Tab) 650 mg PO Q6H PRN PRN Reason: Fever >100.4 F Last Admin: 06/12/16 20:31 Dose: 650 mg Calcium Acetate (Phoslo) 1,334 mg PO [facility] Last Admin: 06/13/16 17:55 Dose: Not Given Carvedilol (Coreg) 6.25 mg PO Q12 [facility] Last Admin: 06/13/16 21:45 Dose: Not Given Docusate Sodium (Colace) 100 mg PO TID [facility] Last Admin: 06/13/16 18:08 Dose: Not Given Enoxaparin Sodium (Lovenox) 70 mg SC Q12H [facility] PRN Reason: Protocol Last Admin: 06/12/16 14:28 Dose: Not Given Hydromorphone HCl (Dilaudid) 0.5 mg IVP Q3H PRN PRN Reason: Pain, moderate (4-7) Last Admin: 06/13/16 10:18 Dose: 0.5 mg Sodium Chloride (Sodium Chloride 0.9%) 1,000 mls @ 100 mls/hr IV .Q10H [facility] Last Admin: 06/13/16 23:25 Dose: 100 mls/hr Dopamine HCl/Dextrose (Dopamine 400mg/250ml D5w) 400 mg in 250 mls @ 17.095 mls /hr IV .[id number] PRN; Protocol; 5 MCG/KG/MIN PRN Reason: TITRATE PER MD ORDER Last Titration: 06/14/16 06:55 Dose: 25 mcg/kg/min, 85.474 mls/hr Piperacillin Sod/Tazobactam Sod (Zosyn 2.25 Gm In 0.9% 100 Ml) 2.25 gm in 100 mls @ 100 mls/hr IV Q8 [facility] PRN Reason: Protocol Stop: 06/27/16 14:01 Last Admin: 06/14/16 07:12 Dose: 100 mls/hr Daptomycin 550 mg/ Sodium (Chloride) 100 mls @ 200 mls/hr IV Q48H [facility] Stop: 06/27/16 13:46 Last Admin: 06/13/16 14:20 Dose: 200 mls/hr Metoprolol Tartrate (Lopressor) 5 mg IVP Q6H [facility] Last Admin: 06/14/16 05:40 Dose: Not Given Midodrine (Proamatine) 7.5 mg PO TID [facility] Last Admin: 06/13/16 18:29 Dose: Not Given Ondansetron HCl (Zofran Inj) 4 mg IVP Q6H PRN PRN Reason: Nausea/Vomiting Pantoprazole Sodium (Protonix Ec Tab) 40 mg PO 0630 [facility] Last Admin: 06/14/16 05:50 Dose: Not Given Polyethylene Glycol (Miralax) 17 gm PO BID [facility] Last Admin: 06/13/16 18:27 Dose: Not Given - Labs Labs: 06/14/16 05:35 06/14/16 05:35 PT 14.8 Seconds (9.9-11.8) H 06/13/16 06:00 INR 1.37 (0.93-1.08) H 06/13/16 06:00 APTT 45.5 Seconds (23.7-30.8) H 06/13/16 06:00 - Constitutional Appears: Toxic, Chronically Ill, Other - Respiratory Exam Additional comments: intubated: 100%/524/350 - Cardiovascular Exam Cardiovascular Exam: REGULAR RHYTHM. absent: Tachycardia Additional comments: hypotension: 80/60s. On dopamine 25mcg - GI/Abdominal Exam GI & Abdominal Exam: Soft. absent: Distended - Neurological Exam Neurological Exam: absent: Alert, Awake - Skin Skin Exam: Normal Color Assessment and Plan - Assessment and Plan (Free Text) Assessment: 60F with metastatic cancer complicated by malignant effusion, respiratory failure, peripheral venous obstruction; now intubated and full code Plan: will continue to monitor CT output no surgical intervention planned prognosis extremely poor recommend revisiting palliative care issues with family d/w Dr Ced Holliday, DO, PGY2
--- NOTE | 2016-06-14 08:53 | PN ---
DATE: 06/14/2016 The patient seen and examined at bedside. She is not sedated, however, unresponsive. She is on PRVC and occasionally triggers breath. PHYSICAL EXAMINATION: VITAL SIGNS: She does have heart rate 80, blood pressure 83/42, oxygen saturation 100% on 100% FiO2. Ventilator setting is 350/24/5/100. HEAD AND NECK: Atraumatic. LUNGS: Clear to auscultation bilaterally. HEART: Regular rate and rhythm. S1, S2 distant. ABDOMEN: Tense, distended, hard. MUSCULOSKELETAL: 1-2+ bilateral pedal and ankle edema. NEUROLOGIC: The patient is nonresponsive. SKIN: Moist. PSYCHIATRIC: The patient is nonresponsive. LABORATORIES: WBC 22.7, hemoglobin 7.1, platelet count 232. Sodium 138, potassium 5.8, chloride 108, carbon dioxide 12, BUN 56, creatinine 2.9, calcium 6.4, AST 156, ALT 37. MEDICATIONS: Tylenol p.r.n., PhosLo, Coreg, daptomycin, Colace, Lovenox, Dilaudid p.r.n., metoprolol, midodrine, Zofran p.r.n., Protonix, normal saline 100 mL per hour, Zosyn. ASSESSMENT AND PLAN: This is a 60-year-old lady with end-stage uterine malignancy. The patient had agonal breathing last night and was intubated. It does appear that she is in the process of dying, however as per her wishes she wanted to be intubated, which was done. At present time, I will continue speaking with patient's daughter to update her as well. Comfort and palliative care do appear to be most reasonable approach in this patient's care. I will convey that to patient's daughter and I will answer all her questions. At present time, we will continue with mechanical ventilatory support, with vasopressor support. Addendum: spoke with daughter--she wants patient to be DNR ccm time 40 min Kvng Lomlei MD cc: [id number] TT: 06/14/2016 08:53:17 Confirmation # [id number] Dictation # [id number] en MTDD
[2016-06-14 09:16] LABS: BAND 2 % (0-2); MYELOCYTE 1 %; NEUTROPHIL 90 % (50.0-70.0)
[2016-06-14 09:17] LABS: ANISOCYTOSIS 1+; BURR CELLS SLIGHT; HYPOCHROMIA 2+; OVALOCYTES SLIGHT; PLATELET CLUMPS PRESENT; PLATELET ESTIMATE NORMAL (NORMAL); POIKILOCYTOSIS SLIGHT; POLYCHROMASIA SLIGHT; TEAR DROP CELLS SLIGHT
--- NOTE | 2016-06-14 09:23 | RAD ---
HISTORY: chest tube COMPARISON: 06/13/2016 FINDINGS: LUNGS: No active pulmonary disease. PLEURA: No significant pleural effusion identified, no pneumothorax apparent. CARDIOVASCULAR: Normal. OSSEOUS STRUCTURES: No significant abnormalities. VISUALIZED UPPER ABDOMEN: Normal. OTHER FINDINGS: Right-sided Port-A-Cath. The endotracheal tube is in satisfactory position IMPRESSION: Endotracheal tube in satisfactory position
[2016-06-14] MEDS: DOPamine 400mg/250ml D5W 400 MG/250 ML BAG IV PRN ×2 (09:55→13:28)
--- NOTE | 2016-06-14 10:20 | CP.PCM.CON ---
History of Present Illness - History of Present Illness History of Present Illness: 60 yo F w/ pmh of uterine cancer, s/p hysterectomy, last chemo round in May 2016, DVT s/p IVC filter on AC, pleural effusions w/ R pleurex catheter, initially admitted to ICU for possible sepsis in the setting of R loculated pleural effusion and after presenting with severe lethargy for 1 week; Patient with hypotension over past 2 days; on treatment for HCAP with coag neg Staph in recent blood culture; underwent R chest tube today placement for loculated effusion; per nursing staff, patient had UO earlier today (with wet sheets noted); however, multiple attempts to place asher for I/O were unsuccessful; Further review of systems very limited as patient extremely lethargic, daughter who is at bedside unable to give much more details; said that patient was barely eating anything lately; also said that when asked about goal of care, that patient wanted all measures taken for her care. Review of Systems - Review of Systems Systems not reviewed;Unavailable: Other (Patient severely lethargic, daughter at bedside able to provide limited further info;) Past Patient History - Past Social History Smoking Status: Former Smoker - CARDIAC Hx Hypertension: Yes - PULMONARY Hx Respiratory Disorders: Yes Other/Comment: Right pleural effusion - NEUROLOGICAL Hx Neurological Disorder: No - RENAL Hx Chronic Kidney Disease: No - ENDOCRINE/METABOLIC Hx Endocrine Disorders: No - HEMATOLOGICAL/ONCOLOGICAL Hx Cancer: Yes (Uterine -dx 2 chemo and radiation) Other/Comment: DVT - LLE. Cancer reoccurred - chemo restarted - INTEGUMENTARY Hx Dermatological Problems: No - MUSCULOSKELETAL/RHEUMATOLOGICAL Hx Falls: No - GENITOURINARY/GYNECOLOGICAL Hx Genitourinary Disorders: No - PSYCHIATRIC Hx Psychophysiologic Disorder: No Hx Substance Use: No - SURGICAL HISTORY Hx Surgeries: Yes Hx Hysterectomy: Yes Other/Comment: IVC filter. Right Portacath. Right pleurX cath. - ANESTHESIA Hx Anesthesia: Yes Hx Anesthesia Reactions: No Hx Malignant Hyperthermia: No Meds Allergies/Adverse Reactions: Allergies Allergy/AdvReac Type Severity Reaction Status Date / Time No Known Allergies Allergy Unverified 06/03/16 22:32 - Medications Medications: Current Medications Acetaminophen (Tylenol 325mg Tab) 650 mg PO Q6H PRN PRN Reason: Fever >100.4 F Last Admin: 06/12/16 20:31 Dose: 650 mg Calcium Acetate (Phoslo) 1,334 mg PO WM [facility] Last Admin: 06/14/16 09:11 Dose: Not Given Carvedilol (Coreg) 6.25 mg PO Q12 [facility] Last Admin: 06/13/16 21:45 Dose: Not Given Docusate Sodium (Colace) 100 mg PO TID [facility] Last Admin: 06/13/16 18:08 Dose: Not Given Enoxaparin Sodium (Lovenox) 70 mg SC Q12H [facility] PRN Reason: Protocol Last Admin: 06/12/16 14:28 Dose: Not Given Hydromorphone HCl (Dilaudid) 0.5 mg IVP Q3H PRN PRN Reason: Pain, moderate (4-7) Last Admin: 06/13/16 10:18 Dose: 0.5 mg Sodium Chloride (Sodium Chloride 0.9%) 1,000 mls @ 100 mls/hr IV .Q10H [facility] Last Admin: 06/13/16 23:25 Dose: 100 mls/hr Dopamine HCl/Dextrose (Dopamine 400mg/250ml D5w) 400 mg in 250 mls @ 17.095 mls /hr IV .[id number] PRN; Protocol; 5 MCG/KG/MIN PRN Reason: TITRATE PER MD ORDER Last Admin: 06/14/16 09:55 Dose: 25 mcg/kg/min, 85.474 mls/hr Piperacillin Sod/Tazobactam Sod (Zosyn 2.25 Gm In 0.9% 100 Ml) 2.25 gm in 100 mls @ 100 mls/hr IV Q8 [facility] PRN Reason: Protocol Stop: 06/27/16 14:01 Last Admin: 06/14/16 07:12 Dose: 100 mls/hr Daptomycin 550 mg/ Sodium (Chloride) 100 mls @ 200 mls/hr IV Q48H [facility] Stop: 06/27/16 13:46 Last Admin: 06/13/16 14:20 Dose: 200 mls/hr Metoprolol Tartrate (Lopressor) 5 mg IVP Q6H [facility] Last Admin: 06/14/16 05:40 Dose: Not Given Midodrine (Proamatine) 7.5 mg PO TID [facility] Last Admin: 06/13/16 18:29 Dose: Not Given Ondansetron HCl (Zofran Inj) 4 mg IVP Q6H PRN PRN Reason: Nausea/Vomiting Pantoprazole Sodium (Protonix Ec Tab) 40 mg PO 0630 [facility] Last Admin: 06/14/16 05:50 Dose: Not Given Polyethylene Glycol (Miralax) 17 gm PO BID [facility] Last Admin: 06/13/16 18:27 Dose: Not Given Physical Exam - Constitutional Additional comments: Extremely lethargic, cachectic; - Head Exam Head Exam: ATRAUMATIC, NORMOCEPHALIC - Eye Exam Eye Exam: Normal appearance. absent: Scleral icterus - ENT Exam ENT Exam: Mucous Membranes Moist - Neck Exam Neck exam: Positive for: Normal Inspection - Respiratory Exam Respiratory Exam: absent: Rales, Rhonchi Additional comments: Decreased sounds R >> L; - Cardiovascular Exam Cardiovascular Exam: REGULAR RHYTHM, +S1, +S2. absent: Gallop - GI/Abdominal Exam GI & Abdominal Exam: Distended, Mass Additional comments: Large palpable firm mass occupying most of abdomen; - Exam Additional comments: Asher in place; - Extremities Exam Additional comments: Severe leg edema extending to abd, back; - Neurological Exam Neurological exam: Altered Additional comments: Not able to consistently follow commands; - Skin Skin Exam: Normal Color Additional comments: Distal ext cool to touch; Results - Vital Signs Recent Vital Signs: Last Vital Signs Temp 93 F L 06/14/16 08:00 Pulse 79 06/14/16 08:20 Resp 24 06/14/16 07:31 BP 90/40 L 06/14/16 08:01 Pulse Ox 100 06/14/16 08:20 - Labs Result Diagrams: 06/14/16 05:35 06/14/16 05:35 - Imaging and Cardiology CT scan - abdomen Status: Image reviewed by me Additional comment: No overt hydronephrosis; Assessment & Plan (1) Acute renal failure (ARF) Status: Acute (2) Sepsis Assessment and Plan: On zosyn and daptomycin; continue to dose abx for CrCl < 10 ml/min; Status: Acute (3) Uterine cancer Assessment and Plan: Poor prognosis per oncology consult; large tumor will eventually involve renal collecting system/ureters (if it hasn't already occurred) if patient even survives that long; may need nephrostomy tube placement imminently but will monitor for now; Status: Acute - Assessment and Plan (Free Text) Assessment: Anemia - In the setting of Ca and some element of iron deficiency; transfuse prn ; Hyperphosphatemia - In the setting of renal failure; may also indicate high tumor burden; not much role for phos binders acutely, epecially if patient not eating;
--- NOTE | 2016-06-14 10:28 | CP.CCUPN ---
CCU Subjective - Physician Review Subjective (Free Text): 06/14/16 10:14 Patient seen and examined at bedside in ICU. Today is hospital day 11. Overnight, patient became increasingly unresponsive and agonal breathing, requiring intubation (patient revoked DNI yesterday evening). She experienced two episodes of emesis during the intubation, both times suctioning was used to clear the airway. She was placed on mechanical ventilation, and her dopamine was increased to 20mcg/kg/hr due to her progressively worsening blood pressures. Prognosis is grim. CCU Objective - Vital Signs / Intake & Output Vital Signs (Last 4 hours): Vital Signs Temp Pulse Resp BP Pulse Ox 06/14/16 08:20 79 100 06/14/16 08:10 80 100 06/14/16 08:01 81 90/40 L 100 06/14/16 08:00 93 F L 81 100 06/14/16 07:50 80 100 06/14/16 07:40 81 100 06/14/16 07:31 24 100 06/14/16 07:30 78 83/42 L 100 06/14/16 07:26 79 84/57 L 99 06/14/16 07:20 78 23 96 06/14/16 07:10 79 25 H 100 06/14/16 07:00 79 25 H 88/53 L 97 06/14/16 06:57 77 24 82/60 L 99 06/14/16 06:50 78 23 100 06/14/16 06:45 79 23 88/60 L 97 06/14/16 06:40 79 30 H 100 06/14/16 06:34 78 33 H 79/39 L 96 06/14/16 06:30 78 32 H 87/30 L 97 06/14/16 06:25 78 34 H 95/45 L 97 06/14/16 06:20 72 28 H 73 L Intake and Output (Last 8hrs): Intake & Output 06/13/16 06/14/16 06/14/16 22:59 06:59 14:59 Intake Total 1611 1929 100 Output Total 550 800 Balance 1062 1130 100 Intake: IV 1611 1929 100 Right Subclavian 1612 1860 Oral 0 Output: Chest Tube Drainage 550 800 Right Posterior Chest 550 800 Urine 0 0 Urine, Voided 0 0 Other: Voiding Method Diaper # Voids Urine, Voided 0 # Bowel Movements 0 - Physical Exam Head: Positive for: Atraumatic, Normocephalic Pupils: Positive for: PERRL, Sluggish Extroacular Muscles: Positive for: Other (eyes rolled up in head, not moving eyes, no avoidance of direct light challenge for PERRL testing). Negative for: EOMI, Gaze Palsy, Entrapment Conjunctiva: Positive for: Normal. Negative for: Injected, Icteric Mouth: Positive for: Moist Mucous Membranes, Normal Tounge, Other (ETT in place , with vidal). Negative for: Normal Teeth (wearing upper and lower complete dentures) Pharnyx: Positive for: Other (prior to intubation, no edema, erythema; some vomitus at back of throat (removed with suction)) Nose (External): Positive for: Atraumatic. Negative for: Abrasion, Contusion, Laceration Neck: Positive for: Trachea Midline. Negative for: JVD Respiratory/Chest: Positive for: Respiratory Distress (prior to intubation, agonal/abdominal breathing, now intubated and mechanically ventilated), Rales ( prominent diffuse rales in all luong, worse compared to yesterday), Other ( right-sided chest tube in place with serosanguinous draninage in tube, 1350ccs in canister at time of exam). Negative for: Clear to Auscultation, Good Air Exchange, Accessory Muscle Use Cardiovascular: Positive for: Other (regular rate and rhythm, S1/2 present but poorly heard under diffuse breath sounds in all luong). Negative for: Murmurs , Irregular Rhythm, Bradycardic Abdomen: Positive for: Distention (firm but not rigid, highly distended abdomen) , Other. Negative for: Tenderness, Normal Bowel Sounds (no bowel sounds heard) , Peritoneal Signs, Feeding Tubes, Ostomy Tubes Upper Extremity: Positive for: Other (Cachetic/frail-appearing upper extremities ). Negative for: Normal Inspection, Cyanosis, Edema, Normal ROM (minimal ROM, mostly retraction from pain stimuli, few spontaneous movements of fingers, holding extremities limp), NORMAL PULSES (weak +1 bilateral radials), Tenderness , Swelling, Erythema, Deformity Lower Extremity: Positive for: Edema (3+ pitting edema in bilateral legs extending from feet mid point between groin and knees, +2 pitting edema up to groin, Anasarca), Swelling. Negative for: CALF TENDERNESS, NORMAL PULSES ( unable to palpate pedal pulses), Normal ROM (no spontaneous movement witnessed) , Tenderness, Erythema Neurological: Negative for: GCS=15 (E2V(T)M4), Speech Normal, Motor Func Grossly Intact (mininal movements, mainly retraction from painful stimuli, rare spontaneous movement of hands/fingers) Skin: Positive for: Warm, Dry, Normal Color. Negative for: Rashes Psychiatric: Positive for: Other (intubated, minimally responsive, not following commands). Negative for: Alert, Oriented x 3, Normal Insight, Normal Concentration, Normal Affect, Normal Mood - Medications Active Medications: Active Medications Generic Name Dose Route Start Last Admin Trade Name Freq PRN Reason Stop Dose Admin Acetaminophen 650 mg 06/04/16 10:58 06/12/16 20:31 Tylenol 325mg Tab PO 650 mg Q6H PRN Administration Fever >100.4 F Calcium Acetate 1,334 mg 06/13/16 12:00 06/14/16 09:11 Phoslo PO Not Given WM [facility] Carvedilol 6.25 mg 06/10/16 22:00 06/13/16 21:45 Coreg PO Not Given Q12 ANDRY Docusate Sodium 100 mg 06/04/16 14:00 06/13/16 18:08 Colace PO Not Given TID [facility] Enoxaparin Sodium 70 mg 06/04/16 02:00 06/12/16 14:28 Lovenox SC Not Given Q12H [facility] Protocol Hydromorphone HCl 0.5 mg 06/05/16 16:05 06/13/16 10:18 Dilaudid IVP 0.5 mg Q3H PRN Administration Pain, moderate (4-7) Sodium Chloride 1,000 mls @ 100 mls/hr 06/12/16 22:30 06/13/16 23:25 Sodium Chloride 0.9% IV 100 mls/hr .Q10H ANDRY Administration Dopamine HCl/Dextrose 400 mg in 250 mls @ 17.095 mls/hr 06/13/16 08:22 09:55 Dopamine 400mg/250ml D5w IV 25 mcg/kg/min .[id number] PRN 85.474 mls/hr TITRATE PER MD ORDER Administration Protocol 5 MCG/KG/MIN Piperacillin Sod/Tazobactam Sod 2.25 gm in 100 mls @ 100 mls/hr 06/13/16 14: 00 06/14/16 07:12 Zosyn 2.25 Gm In 0.9% 100 Ml IV 06/27/16 14:01 100 mls/hr Q8 [facility] Administration Protocol Daptomycin 550 mg/ Sodium 100 mls @ 200 mls/hr 06/13/16 13:45 06/13/16 14:20 Chloride IV 06/27/16 13:46 200 mls/hr Q48H ANDRY Administration Metoprolol Tartrate 5 mg 06/04/16 11:30 06/14/16 05:40 Lopressor IVP Not Given Q6H [facility] Midodrine 7.5 mg 06/13/16 10:00 06/13/16 18:29 Proamatine PO Not Given TID [facility] Ondansetron HCl 4 mg 06/04/16 01:30 Zofran Inj IVP Q6H PRN Nausea/Vomiting Pantoprazole Sodium 40 mg 06/09/16 06:30 06/14/16 05:50 Protonix Ec Tab PO Not Given 0630 [facility] Polyethylene Glycol 17 gm 06/04/16 18:00 06/13/16 18:27 Miralax PO Not Given BID [facility] - Patient Studies Lab Studies: Microbiology Studies 06/11/16 12:30 S.aureus & Coag-Neg Staph PNA FISH - Final Blood Blood Culture - Final Coagulase Neg Staphylococcus Gram Stain - Final 06/13/16 11:08 Gram Stain - Final Pleural Fluid 06/11/16 12:30 Blood Culture - Preliminary Blood NO GROWTH AFTER 48 HOURS Lab Studies 06/14/16 06/14/16 06/14/16 Range/Units 09:00 05:35 05:35 WBC (4.5-11.0) 10^3/ul RBC (3.5-6.1) 10^6/uL Hgb (12.0-16.0) gm/dL Hct (36.0-48.0) % MCV (80.0-105.0) fL MCH (25.0-35.0) pg MCHC (31.0-37.0) g/dl RDW (11.5-14.5) % Plt Count (120.0-450.0) 10^3/uL MPV (7.0-11.0) fl Gran % (50.0-68.0) % Lymph % (Auto) (22.0-35.0) % Morgan % (Auto) (1.0-6.0) % Eos % (Auto) (1.5-5.0) % Baso % (Auto) (0.0-3.0) % Gran # (1.4-6.5) Lymph # (1.2-3.4) Morgan # (0.1-0.6) Eos # (0.0-0.7) Baso # (0.0-2.0) K/mm3 Neutrophils % (Manual) (50.0-70.0) % Band Neutrophils % (0-2) % Lymphocytes % (Manual) (22.0-35.0) % Monocytes % (Manual) (1.0-6.0) % Myelocytes % % Platelet Evaluation (NORMAL) Plt Clumps, EDTA Polychromasia Hypochromasia Poikilocytosis (manual Anisocytosis (manual) Tear Drop Cells Ovalocytes Albin Cells Sodium 138 (132-148) mmol/L Potassium 5.8 H* D (3.6-5.0) mmol/L Chloride 108 (95-110) mmol/L Carbon Dioxide 12 L (21-33) mmol/L Anion Gap 24 H (10-20) BUN 56 H (7-21) mg/dL Creatinine 2.9 H (0.5-1.4) mg/dL Est GFR ( Amer) 20 Est GFR (Non-Af Amer) 16 Random Glucose 83 (70-110) mg/dL Calcium 6.4 L* (8.4-10.5) mg/dL Phosphorus 12.4 H (2.5-4.5) mg/dL Magnesium 2.5 H (1.7-2.2) mg/dL Total Bilirubin 0.5 (0.2-1.3) mg/dL AST 156 H (15-39) U/L ALT 37 (7-56) U/L Alkaline Phosphatase 104 (38-133) U/L Total Protein 4.5 L (5.8-8.3) g/dL Albumin 1.8 L (3.0-4.8) g/dL Globulin 2.7 gm/dL Albumin/Globulin Ratio 0.7 L (1.1-1.8) Ur Random Sodium 88 meq/L 06/14/16 06/13/16 Range/Units 05:35 13:00 WBC 22.7 H 24.2 H (4.5-11.0) 10^3/ul RBC 2.54 L 2.60 L (3.5-6.1) 10^6/uL Hgb 7.1 L 7.2 L (12.0-16.0) gm/dL Hct 23.4 L 22.6 L (36.0-48.0) % MCV 92.1 86.9 (80.0-105.0) fL MCH 28.0 27.7 (25.0-35.0) pg MCHC 30.3 L 31.9 (31.0-37.0) g/dl RDW 22.9 H 22.0 H (11.5-14.5) % Plt Count 232 262 (120.0-450.0) 10^3/uL MPV 8.9 8.7 (7.0-11.0) fl Gran % 91.0 H (50.0-68.0) % Lymph % (Auto) 3.4 L (22.0-35.0) % Morgan % (Auto) 5.6 (1.0-6.0) % Eos % (Auto) 0.0 L (1.5-5.0) % Baso % (Auto) 0.0 (0.0-3.0) % Gran # 22.04 H (1.4-6.5) Lymph # 0.8 L (1.2-3.4) Morgan # 1.4 H (0.1-0.6) Eos # 0.0 (0.0-0.7) Baso # 0.01 (0.0-2.0) K/mm3 Neutrophils % (Manual) 90 H (50.0-70.0) % Band Neutrophils % 2 (0-2) % Lymphocytes % (Manual) 5 L (22.0-35.0) % Monocytes % (Manual) 2 (1.0-6.0) % Myelocytes % 1 % Platelet Evaluation Normal (NORMAL) Plt Clumps, EDTA Present Polychromasia Slight Hypochromasia 2+ Poikilocytosis (manual Slight Anisocytosis (manual) 1+ Tear Drop Cells Slight Ovalocytes Slight Magen Cells Slight Sodium (132-148) mmol/L Potassium (3.6-5.0) mmol/L Chloride (95-110) mmol/L Carbon Dioxide (21-33) mmol/L Anion Gap (10-20) BUN (7-21) mg/dL Creatinine (0.5-1.4) mg/dL Est GFR ( Amer) Est GFR (Non-Af Amer) Random Glucose (70-110) mg/dL Calcium (8.4-10.5) mg/dL Phosphorus (2.5-4.5) mg/dL Magnesium (1.7-2.2) mg/dL Total Bilirubin (0.2-1.3) mg/dL AST (15-39) U/L ALT (7-56) U/L Alkaline Phosphatase (38-133) U/L Total Protein (5.8-8.3) g/dL Albumin (3.0-4.8) g/dL Globulin gm/dL Albumin/Globulin Ratio (1.1-1.8) Ur Random Sodium meq/L Laboratory Results - last 24 hr 06/13/16 06/14/16 06/14/16 13:00 05:35 05:35 WBC 24.2 H 22.7 H RBC 2.60 L 2.54 L Hgb 7.2 L 7.1 L Hct 22.6 L 23.4 L MCV 86.9 92.1 MCH 27.7 28.0 MCHC 31.9 30.3 L RDW 22.0 H 22.9 H Plt Count 262 232 MPV 8.7 8.9 Gran % 91.0 H Lymph % (Auto) 3.4 L Morgan % (Auto) 5.6 Eos % (Auto) 0.0 L Baso % (Auto) 0.0 Gran # 22.04 H Lymph # 0.8 L Morgan # 1.4 H Eos # 0.0 Baso # 0.01 Neutrophils % (Manual) 90 H Band Neutrophils % 2 Lymphocytes % (Manual) 5 L Monocytes % (Manual) 2 Myelocytes % 1 Platelet Evaluation Normal Plt Clumps, EDTA Present Polychromasia Slight Hypochromasia 2+ Poikilocytosis (manual Slight Anisocytosis (manual) 1+ Tear Drop Cells Slight Ovalocytes Slight Magen Cells Slight Sodium 138 Potassium 5.8 H* D Chloride 108 Carbon Dioxide 12 L Anion Gap 24 H BUN 56 H Creatinine 2.9 H Est GFR ( Amer) 20 Est GFR (Non-Af Amer) 16 Random Glucose 83 Calcium 6.4 L* Phosphorus Magnesium Total Bilirubin 0.5 AST 156 H ALT 37 Alkaline Phosphatase 104 Total Protein 4.5 L Albumin 1.8 L Globulin 2.7 Albumin/Globulin Ratio 0.7 L Ur Random Sodium 06/14/16 06/14/16 05:35 09:00 WBC RBC Hgb Hct MCV MCH MCHC RDW Plt Count MPV Gran % Lymph % (Auto) Morgan % (Auto) Eos % (Auto) Baso % (Auto) Gran # Lymph # Morgan # Eos # Baso # Neutrophils % (Manual) Band Neutrophils % Lymphocytes % (Manual) Monocytes % (Manual) Myelocytes % Platelet Evaluation Plt Clumps, EDTA Polychromasia Hypochromasia Poikilocytosis (manual Anisocytosis (manual) Tear Drop Cells Ovalocytes Albin Cells Sodium Potassium Chloride Carbon Dioxide Anion Gap BUN Creatinine Est GFR ( Amer) Est GFR (Non-Af Amer) Random Glucose Calcium Phosphorus 12.4 H Magnesium 2.5 H Total Bilirubin AST ALT Alkaline Phosphatase Total Protein Albumin Globulin Albumin/Globulin Ratio Ur Random Sodium 88 Review of Systems - Review of Systems Systems not reviewed;Unavailable: Acuity of Condition Critical Care Progress Note - Nutrition Nutrition: Nutrition Category Date Time Status Heart Healthy Diet [DIET] Diets 06/04/16 Breakfast Ordered Assessment/Plan - Assessment and Plan (Free Text) Assessment: This is a 60 yo AA F with PMH of Metastatic Uterine CA (s/p Chemo + Surgery, now on Chemo s/p reoccurence of CA), LLE DVT, prior pleural effusions and abdominal ascites (s/p thoracentesis and paracentesis ~1 year prior), and HTN who was readmitted to the ICU for persistent hypotension requiring pressor support and is now experiencing likely multiorgan dysfunction with likely imminent expiration. Prognosis is grim. Plan: Neuro: -intubated, minimally responsive without sedation -hypothermic to 93F rectally, jaelyn hugger -continue to monitor Pulm: -CT abd on admission notable for: Right multiloculated pleural effusion, soft tissue rim suggestive of malignant vs infected effusion -Right chest tube placed 1 day prior by Surgery, 1350cc serosanguinous fluid drained since placement (800cc overnight) -Intubated and mechanically ventilated due to agonal/abdominal breathing with worsening O2 sats, pending respiratory failure; PRVC 100%/07/03/350 -Maintain SaO2 > 90% and paO2 > 60 -Protective lung ventilation strategy, VAP bundle, Aspiration precautions, head of bed to 30 degrees -Covering with Zosyn (renally-dosed) and Daptomycin as per ID -ID (Dr. Peraza) and Heme/Onc (Dr. Syeda Grullon) consulted, appreciate any recs -procal 53.63 -vomited x2 during intubation, high risk of aspiration, but already on Zosyn, so covered appropriately Cardio: -Worsening hemodynamic instability, Dopamine 20mcg/kg/min for pressor suppport -Maintain MAP > 65 -therapeutic lovenox q12 for LLE DVT; held 2 nights prior to Chest tube placement yesterday -Pitting edema vs ANASARCA in bilateral LE, given malignancy and large mass may be compressing the IVC and impeding venous return GI: -NPO -Protonix for GI ppx -CT on admission abd notable for mild perisplenic ascites, diffuse anasarca, large mass through pelvic and lower/mid abdomen (22.7x22.6x16.5 cm), and questionable rectal wall thickening vs underdistention; repeat CT abd/pelvis notable for asher in bladder with air, right-sided chest tube with loculated appearing right effusion, moderate left effusion, punctate splenic calcifications likely granulomas, persistence of abdominal mass -Heme/onc consulted, appreciate any recs Renal: -Likely Acute renal failure, Cr increased to 2.9, anuric overnight despite placed asher (confirmed on CT), elevated phos up to 12.4 -monitor and replete electrolytes as needed -avoid nephrotoxic drugs where feasible -Nephro on board, appreciate all recs ID: -WBC 22.7, hypothermic to 93F (rectal), now jaelyn hugger -drainage from CT all serosanguinous, so less likely empyema, but still could have collection at bottom not yet drained -vomited x2 during intubation, high risk of aspiration, but already on Zosyn, so covered appropriately -procal 53.63 -ID (Dr. Peraza) on board, appreciate all recs -Covering with Daptomycin and Renally-dosed Zosyn -Urine from 06/04 positive for GBS beta-hemolytic; 1 of 2 Blood cultures / positive for coag-negative staph; pleural fluid culture from chest tube pending Heme: -Hgb 7.1, was 7.2 -continue to monitor Dispo: ICU, acutely worsening condition, intubated and mechanically ventilated, on pressor support FEN: NPO Access: Peripheral IV, R-chest port-a-cath, R-chest tube Consults: ID, Heme-onc, Palliative, Nephro, Surgery, IR, Urology Ppx: Protonix for GI, holding AC Patient seen, reviewed, and discussed with attending, Dr. Lomeli.
[2016-06-14] MEDS: POLYETHYLENE GLYCOL 3350 17 GM/Dose PACKET PO SCH ×2 (11:02→17:18)
[2016-06-14] MEDS ORDERED: Sodium Chloride 0.9% 1,000 ML IV STA (11:16)
[2016-06-14 11:39] LABS: URIC ACID 18.3 mg/dL (2.5-6.2)
[2016-06-14 11:54] LABS: PH,URINE 5.5 (4.7-8.0); URINE BILIRUBIN NEGATIVE (NEGATIVE); URINE BLOOD LARGE (NEGATIVE); URINE GLUCOSE (UA) NEGATIVE (NEGATIVE); URINE KETONE TRACE mg/dL (NEGATIVE); URINE LEUKOCYTE ESTERASE NEGATIVE Leu/uL (NEGATIVE); URINE PROTEIN >=300 mg/dL (<30 mg/dL); URINE UROBILINOGEN 0.2 E.U./dL (<1 E.U./dL)
[2016-06-14 12:01] LABS: URINE APPEARANCE CLEAR (CLEAR); URINE COLOR YELLOW (YELLOW)
--- NOTE | 2016-06-14 12:07 | CP.PCM.PN ---
<KwanLaine - Last Filed: 06/14/16 14:39> Subjective - Date & Time of Evaluation Date of Evaluation: 06/14/16 Time of Evaluation: 07:55 - Subjective Subjective: Pt seen and evaluated at bedside. Intubated on mechanical respirator and asher placed. Chest tube draining serosanguinously. Objective - Vital Signs/Intake and Output Vital Signs (last 24 hours): Temp Pulse Resp BP Pulse Ox 93 F L 79 24 79/46 L 100 06/14/16 08:00 06/14/16 11:48 06/14/16 07:31 06/14/16 11:48 06/14/16 08:20 Intake and Output: 06/14/16 06/14/16 06:59 18:59 Intake Total 1930 100 Output Total 800 Balance 1130 100 - Medications Medications: Current Medications Acetaminophen (Tylenol 325mg Tab) 650 mg PO Q6H PRN PRN Reason: Fever >100.4 F Last Admin: 06/12/16 20:31 Dose: 650 mg Calcium Acetate (Phoslo) 1,334 mg PO WM [facility] Last Admin: 06/14/16 09:11 Dose: Not Given Carvedilol (Coreg) 6.25 mg PO Q12 [facility] Last Admin: 06/14/16 11:01 Dose: Not Given Docusate Sodium (Colace) 100 mg PO TID [facility] Last Admin: 06/14/16 11:01 Dose: Not Given Enoxaparin Sodium (Lovenox) 70 mg SC Q12H ANDRY PRN Reason: Protocol Last Admin: 06/12/16 14:28 Dose: Not Given Hydromorphone HCl (Dilaudid) 0.5 mg IVP Q3H PRN PRN Reason: Pain, moderate (4-7) Last Admin: 06/13/16 10:18 Dose: 0.5 mg Sodium Chloride (Sodium Chloride 0.9%) 1,000 mls @ 100 mls/hr IV .Q10H ANDRY Last Admin: 06/13/16 23:25 Dose: 100 mls/hr Dopamine HCl/Dextrose (Dopamine 400mg/250ml D5w) 400 mg in 250 mls @ 17.095 mls /hr IV .[id number] PRN; Protocol; 5 MCG/KG/MIN PRN Reason: TITRATE PER MD ORDER Last Admin: 06/14/16 09:55 Dose: 25 mcg/kg/min, 85.474 mls/hr Piperacillin Sod/Tazobactam Sod (Zosyn 2.25 Gm In 0.9% 100 Ml) 2.25 gm in 100 mls @ 100 mls/hr IV Q8 [facility] PRN Reason: Protocol Stop: 06/27/16 14:01 Last Admin: 06/14/16 07:12 Dose: 100 mls/hr Daptomycin 550 mg/ Sodium (Chloride) 100 mls @ 200 mls/hr IV Q48H [facility] Stop: 06/27/16 13:46 Last Admin: 06/13/16 14:20 Dose: 200 mls/hr Sodium Chloride (Sodium Chloride 0.9%) 1,000 mls @ 999 mls/hr IV .Q1H1M [facility] Stop: 06/14/16 12:16 Last Admin: 06/14/16 11:24 Dose: 999 mls/hr Metoprolol Tartrate (Lopressor) 5 mg IVP Q6H [facility] Last Admin: 06/14/16 11:48 Dose: Not Given Midodrine (Proamatine) 7.5 mg PO TID [facility] Last Admin: 06/14/16 11:02 Dose: Not Given Ondansetron HCl (Zofran Inj) 4 mg IVP Q6H PRN PRN Reason: Nausea/Vomiting Pantoprazole Sodium (Protonix Ec Tab) 40 mg PO 0630 [facility] Last Admin: 06/14/16 05:50 Dose: Not Given Polyethylene Glycol (Miralax) 17 gm PO BID [facility] Last Admin: 06/14/16 11:02 Dose: Not Given - Labs Labs: 06/14/16 05:35 06/14/16 05:35 PT 14.8 Seconds (9.9-11.8) H 06/13/16 06:00 INR 1.37 (0.93-1.08) H 06/13/16 06:00 APTT 45.5 Seconds (23.7-30.8) H 06/13/16 06:00 - Additional Findings Additional findings: - Constitutional Appears: Chronically Ill, cachectic - Head Exam Head Exam: ATRAUMATIC, NORMOCEPHALIC - Respiratory Exam Respiratory Exam: intubated, BREATHING PATTERN on respirator, decreased breathing sounds - Cardiovascular Exam Cardiovascular Exam: not Tachycardic, +S1, +S2 - GI/Abdominal Exam GI & Abdominal Exam: Distended. absent: Tenderness - Exam External exam: absent: Ecchymosis, Erythema - Extremities Exam Extremities Exam: Pedal Edema. absent: Tenderness Additional comments: pitting edema of +3 - External Exam External Exam: no ecchymosis, no lesions - Neurological Exam Neurological Exam: not rousable - Skin Skin Exam: Dry, Intact Assessment and Plan - Assessment and Plan (Free Text) Plan: 60 yo F with PMH of Metastatic Uterine CA (s/p Chemo + Surgery, now on Chemo s/ p recurrence of CA), LLE DVT, persistent R pleural effusions, abdominal ascites , and HTN, s/p R portacath. Initally admitted to critical care for sepsis/sirs , was downgraded to telemetry, but back under critical care for persistent hypotension. Currently intubated, with R chest tube and asher inserted. SIRS R/O sepsis 2/2 pneumonia v UTI v Catheter infection * Patient remains afebrile, w/ rectal temp of 93F * Hgb at 7.1 this AM * Blood cx: NG * Pleural cath d/c'd as possible source of sepsis, chest tube draining serosanguinously * Per Dr. 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 Ascites, Possible metastatic lesions of vertebral body. * Urine Cx: Group B strep, repeat Ucx ordered * Bcx: coag neg staph, repeat cx negative at 24 hours * repeat procalcitonin 22.38, f/u procalcitonin 50+ * leukocytosis of 24 * lactic acid of 3.5 * hypotension * Under ICU care for hypotension and increased work of breathing Plan: Daptomycin Zosyn reduced due to high creatinine, currently 2.9 F/u heme/onc recs f/u ID recs f/u blood and pleural fluid culture, catheter tip culture low dose carvedilol for tachycardia dopamine drip, midodrine for hypotension nephrology consulted Asher inserted yesterday, with total balance being positive at 2200. 1L bolus given today for hypotension Ascites * Lasix 40mg IVP BID * No paracentesis performed because not enough fluid identified. * Abd US ordered Persistent R pleural effusion * CXR: no change in effusion * IR stated that they could not use pleural catheter, it was d/c'd as possible source of infection * bnp: 500 * chest tube inserted yesterday, draining serosanguinously Plan f/u ID recs f/u surgery recs monitor for SOB Lasix 40 IV BID Anemia : * Hgb 7.1 today * Iron: 20, TIBC: 120, 17% saturation Plan F/u heme/onc recs 1 PrBC transfused on 06/12/2016 Hyperkalemia * 5.8 today * insulin given Hx LLE DVT * BL LE duplex: Segmental thrombus in L common femoral and L proximal femoral vein * S/p IVC filter Plan Continued on Therapeutic Lovenox 70mg SC Q12H as per pt hx Monitor No SCD's Uterine CA on chemo * CT Abd/pelvis: large neoplasm throughout the pelvis, perisplenic ascites, multiloculated pleural effusion * Per Dr. 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 Grullon recs: Stage IV, supportive care f/u Diane Barrios discussions with patient and family regarding end of life decisions/therapy Constipation: plan: miralax, colace GI/DVT ppx * On therapeutic lovenox * Protonix 40mg IVP daily * SCDs contraindicated due to DVT and leg edema Dispo * monitor on telemetry * VS Q4H * Zofran 4mg Q6H PRN * O2 PRN * HHD * HOB to 30 degrees * Strict I/Os <Rosa AMIN,Dariana - Last Filed: 06/14/16 17:38> Objective - Vital Signs/Intake and Output Vital Signs (last 24 hours): Temp Pulse Resp BP Pulse Ox 94 F L 78 24 55/0 L 100 06/14/16 16:00 06/14/16 16:00 06/14/16 07:31 06/14/16 16:40 06/14/16 16:00 Intake and Output: 06/14/16 06/14/16 06:59 18:59 Intake Total 1930 350 Output Total 800 Balance 1130 350 - Medications Medications: Current Medications Acetaminophen (Tylenol 325mg Tab) 650 mg PO Q6H PRN PRN Reason: Fever >100.4 F Last Admin: 06/12/16 20:31 Dose: 650 mg Calcium Acetate (Phoslo) 1,334 mg PO WM [facility] Last Admin: 06/14/16 17:18 Dose: Not Given Carvedilol (Coreg) 6.25 mg PO Q12 [facility] Last Admin: 06/14/16 11:01 Dose: Not Given Docusate Sodium (Colace) 100 mg PO TID [facility] Last Admin: 06/14/16 17:18 Dose: Not Given Enoxaparin Sodium (Lovenox) 70 mg SC Q12H ANDRY PRN Reason: Protocol Last Admin: 06/12/16 14:28 Dose: Not Given Hydromorphone HCl (Dilaudid) 0.5 mg IVP Q3H PRN PRN Reason: Pain, moderate (4-7) Last Admin: 06/13/16 10:18 Dose: 0.5 mg Sodium Chloride (Sodium Chloride 0.9%) 1,000 mls @ 100 mls/hr IV .Q10H [facility] Last Admin: 06/13/16 23:25 Dose: 100 mls/hr Dopamine HCl/Dextrose (Dopamine 400mg/250ml D5w) 400 mg in 250 mls @ 17.095 mls /hr IV .[id number] PRN; Protocol; 5 MCG/KG/MIN PRN Reason: TITRATE PER MD ORDER Last Admin: 06/14/16 13:28 Dose: 25 mcg/kg/min, 85.474 mls/hr Piperacillin Sod/Tazobactam Sod (Zosyn 2.25 Gm In 0.9% 100 Ml) 2.25 gm in 100 mls @ 100 mls/hr IV Q8 ANDRY PRN Reason: Protocol Stop: 06/27/16 14:01 Last Admin: 06/14/16 14:41 Dose: 100 mls/hr Daptomycin 550 mg/ Sodium (Chloride) 100 mls @ 200 mls/hr IV Q48H [facility] Stop: 06/27/16 13:46 Last Admin: 06/13/16 14:20 Dose: 200 mls/hr Metoprolol Tartrate (Lopressor) 5 mg IVP Q6H [facility] Last Admin: 06/14/16 17:18 Dose: Not Given Midodrine (Proamatine) 7.5 mg PO TID [facility] Last Admin: 06/14/16 17:19 Dose: Not Given Ondansetron HCl (Zofran Inj) 4 mg IVP Q6H PRN PRN Reason: Nausea/Vomiting Pantoprazole Sodium (Protonix Ec Tab) 40 mg PO 0630 [facility] Last Admin: 06/14/16 05:50 Dose: Not Given Polyethylene Glycol (Miralax) 17 gm PO BID [facility] Last Admin: 06/14/16 17:18 Dose: Not Given - Labs Labs: 06/14/16 05:35 06/14/16 05:35 PT 14.8 Seconds (9.9-11.8) H 06/13/16 06:00 INR 1.37 (0.93-1.08) H 06/13/16 06:00 APTT 45.5 Seconds (23.7-30.8) H 06/13/16 06:00 Attending/Attestation - Attestation I have personally seen and examined this patient.: Yes I have fully participated in the care of the patient.: Yes I have reviewed all pertinent clinical information, including history, physical exam and plan: Yes Notes (Text): Patient was seen and examined with medical delivery technician .Agreed with resident assessment and plan. 60 Yrs old female with metastatic uterine cancer, malignant Pleural effusion, SP chest tube , with sepsis, hypotension, acute renal failure, was intubated last night, still very hypotensive on IV fluid, pressor and antibiotics as per ID. .Patient is DNR now. Prognosis is guarded.
[2016-06-14 12:10] LABS: URINE BACTERIA MANY (NEG); URINE WBC 0 - 2 /hpf (0-6)
--- NOTE | 2016-06-14 15:15 | CP.CCUPN ---
CCU Subjective - Physician Review Events Since Last Encounter (Free Text): 06/14/16 15:12 Pt's Rafael RO, , agrees to DNR only. Pt is still intubated. CCU Objective - Vital Signs / Intake & Output Vital Signs (Last 4 hours): Vital Signs Temp Pulse BP Pulse Ox 06/14/16 15:10 94.6 F L 66/0 L 06/14/16 14:20 80 100 06/14/16 14:16 81 141/62 100 06/14/16 14:10 81 100 06/14/16 14:01 81 79/53 L 100 06/14/16 14:00 81 100 06/14/16 13:50 81 100 06/14/16 13:47 80 124/62 100 06/14/16 13:40 80 100 06/14/16 13:30 81 100 06/14/16 13:26 80 06/14/16 13:23 80 06/14/16 13:22 81 06/14/16 13:21 80 06/14/16 13:20 80 06/14/16 13:19 81 06/14/16 13:18 81 06/14/16 13:17 80 06/14/16 13:16 79 06/14/16 13:15 81 63/21 L 100 06/14/16 13:10 81 95 06/14/16 13:00 81 70/47 L 100 06/14/16 12:50 81 100 06/14/16 12:45 80 74/45 L 100 06/14/16 12:40 81 100 06/14/16 12:38 82 06/14/16 12:37 81 06/14/16 12:36 81 06/14/16 12:35 80 06/14/16 12:34 80 06/14/16 12:33 81 06/14/16 12:32 79 06/14/16 12:00 93.3 F L 06/14/16 11:48 79 79/46 L Intake and Output (Last 8hrs): Intake & Output 06/14/16 06/14/16 06/14/16 06:59 14:59 22:59 Intake Total 1930 350 Output Total 800 Balance 1130 350 Intake: IV 1930 350 Right Subclavian 1860 Output: Chest Tube Drainage 800 Right Posterior Chest 800 Urine 0 Urine, Voided 0 - Physical Exam Head: Positive for: Atraumatic, Normocephalic Pupils: Negative for: Pinpoint Extroacular Muscles: Positive for: EOMI. Negative for: Gaze Palsy, Entrapment Conjunctiva: Positive for: Normal, Other (sunken eyeballs ). Negative for: Injected, Icteric Mouth: Positive for: Moist Mucous Membranes, Normal Tounge, Normal Teeth Nose (External): Positive for: Atraumatic. Negative for: Abrasion, Contusion, Laceration Neck: Positive for: Normal Range of Motion, Trachea Midline. Negative for: JVD Respiratory/Chest: Positive for: Rales (diffuse mild-moderate rales in all auscultated luong, R>L, most prominent on R base). Negative for: Clear to Auscultation, Good Air Exchange, Respiratory Distress, Accessory Muscle Use Cardiovascular: Positive for: Regular Rate and Rhythm, Normal S1, S2. Negative for: Murmurs, Irregular Rhythm, Tachycardic, Bradycardic Abdomen: Positive for: Distention, Normal Bowel Sounds, Other (firm, distended, and non-tender ). Negative for: Tenderness, Peritoneal Signs Upper Extremity: Positive for: Normal Inspection, Normal ROM, NORMAL PULSES (+2 radials bilaterally). Negative for: Cyanosis, Edema, Tenderness, Swelling, Erythema, Deformity Lower Extremity: Positive for: Edema (3+ pitting edema in bilateral legs extending from feet to inferior aspect of knees, +1 pitting edema above knees bilaterally), Swelling. Negative for: CALF TENDERNESS, NORMAL PULSES (unable to palpate pedal pulses), Normal ROM (minimal movement, 2/2 "heaviness" of legs) , Tenderness, Erythema Neurological: Positive for: GCS=15, CN II-XII Intact, Speech Normal. Negative for: Motor Func Grossly Intact (upper trunk and upper extremity ROM grossly intact, minimal LE ROM 2/2 "heaviness") Skin: Positive for: Warm, Dry, Normal Color. Negative for: Rashes Psychiatric: Positive for: Alert, Oriented x 3 (x4 (self, location, time, president)), Normal Insight, Normal Concentration, Normal Affect, Anxious - Medications Active Medications: Active Medications Generic Name Dose Route Start Last Admin Trade Name Freq PRN Reason Stop Dose Admin Acetaminophen 650 mg 06/04/16 10:58 06/12/16 20:31 Tylenol 325mg Tab PO 650 mg Q6H PRN Administration Fever >100.4 F Calcium Acetate 1,334 mg 06/13/16 12:00 06/14/16 12:38 Phoslo PO Not Given WM ANDRY Carvedilol 6.25 mg 06/10/16 22:00 06/14/16 11:01 Coreg PO Not Given Q12 ANDRY Docusate Sodium 100 mg 06/04/16 14:00 06/14/16 14:23 Colace PO Not Given TID [facility] Enoxaparin Sodium 70 mg 06/04/16 02:00 06/12/16 14:28 Lovenox SC Not Given Q12H ANDRY Protocol Hydromorphone HCl 0.5 mg 06/05/16 16:05 06/13/16 10:18 Dilaudid IVP 0.5 mg Q3H PRN Administration Pain, moderate (4-7) Sodium Chloride 1,000 mls @ 100 mls/hr 06/12/16 22:30 06/13/16 23:25 Sodium Chloride 0.9% IV 100 mls/hr .Q10H ANDRY Administration Dopamine HCl/Dextrose 400 mg in 250 mls @ 17.095 mls/hr 06/13/16 08:22 13:28 Dopamine 400mg/250ml D5w IV 25 mcg/kg/min .[id number] PRN 85.474 mls/hr TITRATE PER MD ORDER Administration Protocol 5 MCG/KG/MIN Piperacillin Sod/Tazobactam Sod 2.25 gm in 100 mls @ 100 mls/hr 06/13/16 14: 00 06/14/16 14:41 Zosyn 2.25 Gm In 0.9% 100 Ml IV 06/27/16 14:01 100 mls/hr Q8 ANDRY Administration Protocol Daptomycin 550 mg/ Sodium 100 mls @ 200 mls/hr 06/13/16 13:45 06/13/16 14:20 Chloride IV 06/27/16 13:46 200 mls/hr Q48H ANDRY Administration Metoprolol Tartrate 5 mg 06/04/16 11:30 06/14/16 11:48 Lopressor IVP Not Given Q6H [facility] Midodrine 7.5 mg 06/13/16 10:00 06/14/16 14:23 Proamatine PO Not Given TID [facility] Ondansetron HCl 4 mg 06/04/16 01:30 Zofran Inj IVP Q6H PRN Nausea/Vomiting Pantoprazole Sodium 40 mg 06/09/16 06:30 06/14/16 05:50 Protonix Ec Tab PO Not Given 0630 [facility] Polyethylene Glycol 17 gm 06/04/16 18:00 06/14/16 11:02 Miralax PO Not Given BID ANDRY - Patient Studies Lab Studies: Microbiology Studies 06/11/16 12:30 Blood Culture - Preliminary Blood NO GROWTH AFTER 3 DAYS 06/13/16 14:00 Blood Culture - Preliminary Blood NO GROWTH AFTER 24 HOURS 06/13/16 13:00 Blood Culture - Preliminary Blood NO GROWTH AFTER 24 HOURS 06/13/16 11:08 Gram Stain - Final Pleural Fluid Body Fluid Culture - Preliminary NO GROWTH AFTER 24 HOURS 06/11/16 12:30 S.aureus & Coag-Neg Staph PNA FISH - Final Blood Blood Culture - Final Coagulase Neg Staphylococcus Gram Stain - Final Lab Studies 06/14/16 06/14/16 06/14/16 Range/Units 09:00 09:00 09:00 WBC (4.5-11.0) 10^3/ul RBC (3.5-6.1) 10^6/uL Hgb (12.0-16.0) gm/dL Hct (36.0-48.0) % MCV (80.0-105.0) fL MCH (25.0-35.0) pg MCHC (31.0-37.0) g/dl RDW (11.5-14.5) % Plt Count (120.0-450.0) 10^3/uL MPV (7.0-11.0) fl Neutrophils % (Manual) (50.0-70.0) % Band Neutrophils % (0-2) % Lymphocytes % (Manual) (22.0-35.0) % Monocytes % (Manual) (1.0-6.0) % Myelocytes % % Platelet Evaluation (NORMAL) Plt Clumps, EDTA Polychromasia Hypochromasia Poikilocytosis (manual Anisocytosis (manual) Tear Drop Cells Ovalocytes [place] Cells Sodium (132-148) mmol/L Potassium (3.6-5.0) mmol/L Chloride (95-110) mmol/L Carbon Dioxide (21-33) mmol/L Anion Gap (10-20) BUN (7-21) mg/dL Creatinine (0.5-1.4) mg/dL Est GFR ( Amer) Est GFR (Non-Af Amer) Random Glucose (70-110) mg/dL Uric Acid (2.5-6.2) mg/dL Calcium (8.4-10.5) mg/dL Phosphorus (2.5-4.5) mg/dL Magnesium (1.7-2.2) mg/dL Total Bilirubin (0.2-1.3) mg/dL AST (15-39) U/L ALT (7-56) U/L Alkaline Phosphatase (38-133) U/L Total Protein (5.8-8.3) g/dL Albumin (3.0-4.8) g/dL Globulin gm/dL Albumin/Globulin Ratio (1.1-1.8) Urine Color Yellow (YELLOW) Urine Appearance Clear (CLEAR) Urine pH 5.5 (4.7-8.0) Ur Specific [place] 1.025 (1.005-1.035) Urine Protein >=300 H (<30 mg/dL) mg/dL Urine Glucose (UA) Negative (NEGATIVE) mg/dL Urine Ketones Trace H (NEGATIVE) mg/dL Urine Blood Large H (NEGATIVE) Urine Nitrate Negative (NEGATIVE) Urine Bilirubin Negative (NEGATIVE) Urine Urobilinogen 0.2 (<1 E.U./dL) E.U./dL Ur Leukocyte Esterase Negative (NEGATIVE) Joseph/uL Urine RBC 10 - 15 (0-2) /hpf Urine WBC 0 - 2 (0-6) /hpf Urine Bacteria Many (NEG) Urine Eosinophils Negative Urine Osmolality (50-645) mosm/kg Ur Random Creatinine 47 mg/dL Ur Random Sodium meq/L 06/14/16 06/14/16 06/14/16 Range/Units 09:00 05:35 05:35 WBC (4.5-11.0) 10^3/ul RBC (3.5-6.1) 10^6/uL Hgb (12.0-16.0) gm/dL Hct (36.0-48.0) % MCV (80.0-105.0) fL MCH (25.0-35.0) pg MCHC (31.0-37.0) g/dl RDW (11.5-14.5) % Plt Count (120.0-450.0) 10^3/uL MPV (7.0-11.0) fl Neutrophils % (Manual) (50.0-70.0) % Band Neutrophils % (0-2) % Lymphocytes % (Manual) (22.0-35.0) % Monocytes % (Manual) (1.0-6.0) % Myelocytes % % Platelet Evaluation (NORMAL) Plt Clumps, EDTA Polychromasia Hypochromasia Poikilocytosis (manual Anisocytosis (manual) Tear Drop Cells Ovalocytes [place] Cells Sodium 138 (132-148) mmol/L Potassium 5.8 H* D (3.6-5.0) mmol/L Chloride 108 (95-110) mmol/L Carbon Dioxide 12 L (21-33) mmol/L Anion Gap 24 H (10-20) BUN 56 H (7-21) mg/dL Creatinine 2.9 H (0.5-1.4) mg/dL Est GFR ( Amer) 20 Est GFR (Non-Af Amer) 16 Random Glucose 83 (70-110) mg/dL Uric Acid 18.3 H (2.5-6.2) mg/dL Calcium 6.4 L* (8.4-10.5) mg/dL Phosphorus 12.4 H (2.5-4.5) mg/dL Magnesium 2.5 H (1.7-2.2) mg/dL Total Bilirubin 0.5 (0.2-1.3) mg/dL AST 156 H (15-39) U/L ALT 37 (7-56) U/L Alkaline Phosphatase 104 (38-133) U/L Total Protein 4.5 L (5.8-8.3) g/dL Albumin 1.8 L (3.0-4.8) g/dL Globulin 2.7 gm/dL Albumin/Globulin Ratio 0.7 L (1.1-1.8) Urine Color (YELLOW) Urine Appearance (CLEAR) Urine pH (4.7-8.0) Ur Specific [place] (1.005-1.035) Urine Protein (<30 mg/dL) mg/dL Urine Glucose (UA) (NEGATIVE) mg/dL Urine Ketones (NEGATIVE) mg/dL Urine Blood (NEGATIVE) Urine Nitrate (NEGATIVE) Urine Bilirubin (NEGATIVE) Urine Urobilinogen (<1 E.U./dL) E.U./dL Ur Leukocyte Esterase (NEGATIVE) Joseph/uL Urine RBC (0-2) /hpf Urine WBC (0-6) /hpf Urine Bacteria (NEG) Urine Eosinophils Urine Osmolality 320 (50-645) mosm/kg Ur Random Creatinine mg/dL Ur Random Sodium 88 meq/L 05/06/26 Range/Units 05:35 WBC 22.7 H (4.5-11.0) 10^3/ul RBC 2.54 L (3.5-6.1) 10^6/uL Hgb 7.1 L (12.0-16.0) gm/dL Hct 23.4 L (36.0-48.0) % MCV 92.1 (80.0-105.0) fL MCH 28.0 (25.0-35.0) pg MCHC 30.3 L (31.0-37.0) g/dl RDW 22.9 H (11.5-14.5) % Plt Count 232 (120.0-450.0) 10^3/uL MPV 8.9 (7.0-11.0) fl Neutrophils % (Manual) 90 H (50.0-70.0) % Band Neutrophils % 2 (0-2) % Lymphocytes % (Manual) 5 L (22.0-35.0) % Monocytes % (Manual) 2 (1.0-6.0) % Myelocytes % 1 % Platelet Evaluation Normal (NORMAL) Plt Clumps, EDTA Present Polychromasia Slight Hypochromasia 2+ Poikilocytosis (manual Slight Anisocytosis (manual) 1+ Tear Drop Cells Slight Ovalocytes Slight [place] Cells Slight Sodium (132-148) mmol/L Potassium (3.6-5.0) mmol/L Chloride (95-110) mmol/L Carbon Dioxide (21-33) mmol/L Anion Gap (10-20) BUN (7-21) mg/dL Creatinine (0.5-1.4) mg/dL Est GFR ( Amer) Est GFR (Non-Af Amer) Random Glucose (70-110) mg/dL Uric Acid (2.5-6.2) mg/dL Calcium (8.4-10.5) mg/dL Phosphorus (2.5-4.5) mg/dL Magnesium (1.7-2.2) mg/dL Total Bilirubin (0.2-1.3) mg/dL AST (15-39) U/L ALT (7-56) U/L Alkaline Phosphatase (38-133) U/L Total Protein (5.8-8.3) g/dL Albumin (3.0-4.8) g/dL Globulin gm/dL Albumin/Globulin Ratio (1.1-1.8) Urine Color (YELLOW) Urine Appearance (CLEAR) Urine pH (4.7-8.0) Ur Specific [place] (1.005-1.035) Urine Protein (<30 mg/dL) mg/dL Urine Glucose (UA) (NEGATIVE) mg/dL Urine Ketones (NEGATIVE) mg/dL Urine Blood (NEGATIVE) Urine Nitrate (NEGATIVE) Urine Bilirubin (NEGATIVE) Urine Urobilinogen (<1 E.U./dL) E.U./dL Ur Leukocyte Esterase (NEGATIVE) Joseph/uL Urine RBC (0-2) /hpf Urine WBC (0-6) /hpf Urine Bacteria (NEG) Urine Eosinophils Urine Osmolality (50-645) mosm/kg Ur Random Creatinine mg/dL Ur Random Sodium meq/L Laboratory Results - last 24 hr 06/14/16 06/14/16 06/14/16 05:35 05:35 05:35 WBC 22.7 H RBC 2.54 L Hgb 7.1 L Hct 23.4 L MCV 92.1 MCH 28.0 MCHC 30.3 L RDW 22.9 H Plt Count 232 MPV 8.9 Neutrophils % (Manual) 90 H Band Neutrophils % 2 Lymphocytes % (Manual) 5 L Monocytes % (Manual) 2 Myelocytes % 1 Platelet Evaluation Normal Plt Clumps, EDTA Present Polychromasia Slight Hypochromasia 2+ Poikilocytosis (manual Slight Anisocytosis (manual) 1+ Tear Drop Cells Slight Ovalocytes Slight [place] Cells Slight Sodium 138 Potassium 5.8 H* D Chloride 108 Carbon Dioxide 12 L Anion Gap 24 H BUN 56 H Creatinine 2.9 H Est GFR ( Amer) 20 Est GFR (Non-Af Amer) 16 Random Glucose 83 Uric Acid 18.3 H Calcium 6.4 L* Phosphorus 12.4 H Magnesium 2.5 H Total Bilirubin 0.5 AST 156 H ALT 37 Alkaline Phosphatase 104 Total Protein 4.5 L Albumin 1.8 L Globulin 2.7 Albumin/Globulin Ratio 0.7 L Urine Color Urine Appearance Urine pH Ur Specific [place] Urine Protein Urine Glucose (UA) Urine Ketones Urine Blood Urine Nitrate Urine Bilirubin Urine Urobilinogen Ur Leukocyte Esterase Urine RBC Urine WBC Urine Bacteria Urine Eosinophils Urine Osmolality Ur Random Creatinine Ur Random Sodium 06/14/16 06/14/16 06/14/16 09:00 09:00 09:00 WBC RBC Hgb Hct MCV MCH MCHC RDW Plt Count MPV Neutrophils % (Manual) Band Neutrophils % Lymphocytes % (Manual) Monocytes % (Manual) Myelocytes % Platelet Evaluation Plt Clumps, EDTA Polychromasia Hypochromasia Poikilocytosis (manual Anisocytosis (manual) Tear Drop Cells Ovalocytes [place] Cells Sodium Potassium Chloride Carbon Dioxide Anion Gap BUN Creatinine Est GFR ( Amer) Est GFR (Non-Af Amer) Random Glucose Uric Acid Calcium Phosphorus Magnesium Total Bilirubin AST ALT Alkaline Phosphatase Total Protein Albumin Globulin Albumin/Globulin Ratio Urine Color Urine Appearance Urine pH Ur Specific [place] Urine Protein Urine Glucose (UA) Urine Ketones Urine Blood Urine Nitrate Urine Bilirubin Urine Urobilinogen Ur Leukocyte Esterase Urine RBC Urine WBC Urine Bacteria Urine Eosinophils Negative Urine Osmolality 320 Ur Random Creatinine 47 Ur Random Sodium 88 06/14/16 09:00 WBC RBC Hgb Hct MCV MCH MCHC RDW Plt Count MPV Neutrophils % (Manual) Band Neutrophils % Lymphocytes % (Manual) Monocytes % (Manual) Myelocytes % Platelet Evaluation Plt Clumps, EDTA Polychromasia Hypochromasia Poikilocytosis (manual Anisocytosis (manual) Tear Drop Cells Ovalocytes [place] Cells Sodium Potassium Chloride Carbon Dioxide Anion Gap BUN Creatinine Est GFR ( Amer) Est GFR (Non-Af Amer) Random Glucose Uric Acid Calcium Phosphorus Magnesium Total Bilirubin AST ALT Alkaline Phosphatase Total Protein Albumin Globulin Albumin/Globulin Ratio Urine Color Yellow Urine Appearance Clear Urine pH 5.5 Ur Specific [place] 1.025 Urine Protein >=300 H Urine Glucose (UA) Negative Urine Ketones Trace H Urine Blood Large H Urine Nitrate Negative Urine Bilirubin Negative Urine Urobilinogen 0.2 Ur Leukocyte Esterase Negative Urine RBC 10 - 15 Urine WBC 0 - 2 Urine Bacteria Many Urine Eosinophils Urine Osmolality Ur Random Creatinine Ur Random Sodium Critical Care Progress Note - Nutrition Nutrition: Nutrition Category Date Time Status Heart Healthy Diet [DIET] Diets 06/04/16 Breakfast Ordered
[2016-06-14 16:11] VITALS: TEMP 94
[2016-06-14 16:43] VITALS: BP 55/0
--- NOTE | 2016-06-14 20:10 | CP.PCM.PRO ---
Pronouncement of Note - Clinical Findings Physical Exam: No Response Verbal/Painful Stimuli, Absent Peripheral Pulses{ Carotid & Femoral}, No Pupillary Light Reflex, No Corneal Reflex, Pupils Fixed & Dilated, Absence of Vital Signs - Pronouncement Time Time of Pronouncement of : 20:00 - Notifications Pronouncement Notifications: Family Notified, Atending Notified Refuse And Recycling Worker Notified: No - Autopsy Autopsy Requested: No [place] [id number] Additional Comments: Family present at bedside; condolences offered.
[2016-06-14 23:56] VITALS: RESP 15; O2SAT 83
[2016-06-15 00:01] VITALS: PULSE 75
[2016-06-15 07:44] LABS: CHLORIDE URINE 73 mmol/L (32-290)
--- NOTE | 2016-06-17 11:13 | PQF RESP ---
06/17/16 Dr. Coleman, Respiratory failure is documented on progress notes for this patient on 06/14. Please indicate whether this is acute, chronic, both and if with hypoxia and/or hypercapnia. Thank you. Clarification of your documentation is requested to better reflect the severity of illness and intensity of treatment of your patient. Indicators present [] Use of Home Oxygen [] Respiratory rate > 28 or <8/min (Labored respirations) [] PCO2 > 50 mm Hg or (Hypercapnia) (somnolence) [] PaO2 < 60 mm Hg or Hypoxemia (confusion) [] ABG blood gas pH < 7.35 [] SpO2 < 90% sat on Room Air [] Cyanosis [] Unable to Speak in Full Sentences [] Use of Accessory Muscles / Tripoding [] Wheezing [] Other: [] Location in the medical record that reflects the above clinical findings: [] Treatment Provided: [] PHYSICIAN'S RESPONSE Based on your medical judgment of the clinical indicators outlined above, are you treating this patient for a known or suspected: [] Acute Respiratory Failure (hypoxia or hypercapnia) [] Chronic Respiratory Failure (hypoxia or hypercapnia) [] Acute on Chronic Respiratory Failure (hypoxia or hypercapnia) [] Hypoxemia please specify ACUTE, CHRONIC or ACUTE on CHRONIC [] Other []_ [] If unable to determine, please check the box, sign and date. Present On Admission (POA) Indicator: [] Present at the time of admission [] Not present at the time of admission [] Clinically Undetermined In responding to this query, please exercise your independent professional judgment. The fact that a question is asked does not imply that any particular answer is desired or expected. Thank you for your clarification on this documentation. If you have any questions please call:[ ] * Thank you, [ ] traffic chief Chronic Respiratory Failure Description: Respiratory failure is a syndrome in which the respiratory system fails in one or both of its gas exchange functions: oxygenation and carbon dioxide elimination. In theory, respiratory failure is defined as a Pa02 value of <60 mm/Hg or a PaC02 of >50 mm/Hg. However, these values may be affected by renal compensation. Respiratory failure may be acute or chronic. While acute respiratory failure is characterized by life-threatening derangement in arterial blood gases and acid-base balance, the manifestations of chronic respiratory failure are less dramatic and may not be as readily apparent. Classifications: Respiratory failure may be classified as hypoxemic (usually characterized by Pa02 of <60 mm/Hg) or hypercapnic (usually characterized by PaC02 >50 mm/Hg) and either may be acute or chronic. Chronic hypercapnic respiratory failure develops over time and allows for renal compensation and an increase in bicarbonate concentration; therefore the pH is usually only slightly decreased. The distinction between acute and chronic hypoxemic respiratory failure cannot readily be made on the basis of ABGs; the clinical markers of chronic hypoxemia, such as polythycemia or cor pulmonale suggest a long standing disorder (chronic hypoxemic respiratory failure). Clinical Indicators: dyspnea at rest or "chronic" dyspnea, concomitant conditions such as polycythemia or cor pulmonale, requirement for continuous oxygen support, forced expiratory volume in one second (FEV1) of 49 or less, pursed lip breathing, "barrel" chest, hyperinflation by CXR, muscle wasting, malnutrition/obesity, poor exercise capacity, peripheral edema, description as a "blue bloater" (usually associated with chronic, obstructive bronchitis) or "pink puffer" (usually associated with emphysema) Risks: Chronic Hypoxemic Respiratory Failure - COPD, pulmonary fibrosis, asthma , pulmonary arterial hypertension, granulomatous lung diseases, congenital heart disease, bronchiectasis, kyphoscoliosis, obesity; Chronic Hypercapnic Respiratory Failure - COPD, severe asthma, myasthenia gravis, polyneuropathy, polio, head and cervical spine injuries, obesity hypoventilation syndrome. Treatment: supplemental oxygen, bronchodilators, corticosteroids, adequate nutrition, lung transplant References: Am. J. Respir. Crit. Care Med. "Global Strategy for the Diagnosis, Management and Prevention of COPD: GOLD Exectuive Summary," Alana Cool Anzueto - 2007; Proceedings of the [place] [employer] "Mechanisms and Measurements of Dyspnea in COPD," Fidel - 2006; WebMD; Respiratory Failure, Nito Joyce MD - 08/2005; Hao's Principles of Internal Medicine, 17th edition. Acute Respiratory Failure Acute Respiratory Failure indicators include: ~Respirations >28 ~Air hunger ~Use of accessory muscles of respiration ~Inability to speak in full sentences Cyanosis ~Pulse ox <90% RA or <95% on O2 pH <7.35 or >7.45 ~pO2 < 60 mm Hg (or 10mm below COPD patient's baseline) ~pCO2 >50mm Hg (or 10mm above COPD patient's baseline) "Respiratory failure may be assigned as a principal diagnosis when it is the condition established after study to be chiefly responsible for occasioning admission to the hospital. The fact that the respiratory failure was managed without intubation and mechanical ventilation does not preclude its use." [facility], 3rd Qtr., 1988, p. 7 MTDD
--- NOTE | 2016-07-05 09:39 | CP.PCM.DIS ---
<Laine Bowens - Last Filed: 07/09/16 07:42> Provider - Provider Date of Admission: 06/04/16 01:28 Attending physician: Dariana Lee MD Primary care physician: NO PRIMARY CARE PROVIDER Consults: Mitchel Ramos, Victoria Coughlin, Khadijah Ospina. Time Spent in preparation of Discharge (in minutes): 35 Hospital Course - Lab Results Lab Results: Micro Results 06/13/16 14:00 Blood Blood Culture - Final NO GROWTH AFTER 5 DAYS 06/13/16 14:00 Blood Gram Stain - Final TEST NOT PERFORMED 06/13/16 13:00 Blood Blood Culture - Final NO GROWTH AFTER 5 DAYS 06/13/16 13:00 Blood Gram Stain - Final 06/12/16 21:19 Naris MRSA Culture (Admit) - Final MRSA NOT DETECTED 06/13/16 11:08 Pleural Fluid Gram Stain - Final 06/13/16 11:08 Pleural Fluid Body Fluid Culture - Final Coagulase Neg Staphylococcus 06/11/16 12:30 Blood Blood Culture - Final Coagulase Neg Staphylococcus 06/11/16 12:30 Blood Gram Stain - Final 06/14/16 09:00 Urine Urine Culture - Final No Growth (<1,000 CFU/ML) 06/11/16 12:30 Blood S.aureus & Coag-Neg Staph PNA FISH - Final 06/11/16 12:30 Blood Blood Culture - Final Coagulase Neg Staphylococcus 06/11/16 12:30 Blood Gram Stain - Final 06/10/16 20:18 Stool C. difficile Antigen & Toxin A,B (M - Final 06/04/16 01:30 Blood-Venous Blood Culture - Final NO GROWTH AFTER 5 DAYS 06/04/16 01:30 Blood-Venous Gram Stain - Final TEST NOT PERFORMED 06/04/16 02:30 Urine Urine Culture - Final Beta Hemolytic Strep Group B 06/04/16 04:05 Nose MRSA Culture (Admit) - Final MRSA NOT DETECTED Most Recent Lab Values WBC 22.7 10^3/ul (4.5-11.0) H 06/14/16 05:35 RBC 2.54 10^6/uL (3.5-6.1) L 06/14/16 05:35 Hgb 7.1 gm/dL (12.0-16.0) L 06/14/16 05:35 Hct 23.4 % (36.0-48.0) L 06/14/16 05:35 MCV 92.1 fL (80.0-105.0) 06/14/16 05:35 MCH 28.0 pg (25.0-35.0) 06/14/16 05:35 MCHC 30.3 g/dl (31.0-37.0) L 06/14/16 05:35 RDW 22.9 % (11.5-14.5) H 06/14/16 05:35 Plt Count 232 10^3/uL (120.0-450.0) 06/14/16 05:35 MPV 8.9 fl (7.0-11.0) 06/14/16 05:35 Gran % 91.0 % (50.0-68.0) H 06/13/16 13:00 Lymph % (Auto) 3.4 % (22.0-35.0) L 06/13/16 13:00 Hitchcock % (Auto) 5.6 % (1.0-6.0) 06/13/16 13:00 Eos % (Auto) 0.0 % (1.5-5.0) L 06/13/16 13:00 Baso % (Auto) 0.0 % (0.0-3.0) 06/13/16 13:00 Gran # 22.04 (1.4-6.5) H 06/13/16 13:00 Lymph # 0.8 (1.2-3.4) L 06/13/16 13:00 Hitchcock # 1.4 (0.1-0.6) H 06/13/16 13:00 Eos # 0.0 (0.0-0.7) 06/13/16 13:00 Baso # 0.01 K/mm3 (0.0-2.0) 06/13/16 13:00 Neutrophils % (Manual) 90 % (50.0-70.0) H 06/14/16 05:35 Band Neutrophils % 2 % (0-2) 06/14/16 05:35 Lymphocytes % (Manual) 5 % (22.0-35.0) L 06/14/16 05:35 Atypical Lymphs % 1 % (0.0-0.0) H 06/06/16 05:00 Monocytes % (Manual) 2 % (1.0-6.0) 06/14/16 05:35 Myelocytes % 1 % 06/14/16 05:35 Platelet Evaluation Normal (NORMAL) 06/14/16 05:35 Plt Clumps, EDTA Present 06/14/16 05:35 Polychromasia Slight 06/14/16 05:35 Hypochromasia 2+ 06/14/16 05:35 Poikilocytosis (manual Slight 06/14/16 05:35 Anisocytosis (manual) 1+ 06/14/16 05:35 Tear Drop Cells Slight 06/14/16 05:35 Ovalocytes Slight 06/14/16 05:35 [place] Cells Slight 06/14/16 05:35 Retic Count 1.83 % (0.5-1.5) H 06/05/16 07:30 PT 14.8 Seconds (9.9-11.8) H 06/13/16 06:00 INR 1.37 (0.93-1.08) H 06/13/16 06:00 APTT 45.5 Seconds (23.7-30.8) H 06/13/16 06:00 pCO2 22 mm/Hg (35-45) L 06/12/16 19:23 pO2 101.0 mm/Hg (80-100) H 06/12/16 19:23 HCO3 13.0 mmol/L (21-28) L 06/12/16 19:23 ABG pH 7.38 (7.35-7.45) 06/12/16 19:23 ABG Total CO2 13.7 mmol.L (22-28) L 06/12/16 19:23 ABG O2 Saturation 99.4 % (95-98) H 06/12/16 19:23 ABG O2 Content 9.4 ML/dl (15-23) L 06/12/16 19:23 ABG Base Excess -11.0 mmol/L (-2.0-3.0) L 06/12/16 19:23 ABG Hemoglobin 6.7 g/dL (11.7-17.4) L 06/12/16 19:23 ABG Carboxyhemoglobin 2.0 % (0.5-1.5) H 06/12/16 19:23 POC ABG HHb (Measured) 0.6 % (0-5) 06/12/16 19:23 ABG Methemoglobin 0.5 % (0.0-3.0) 06/12/16 19:23 ABG O2 Capacity 9.5 mL/dl (16-24) L 06/12/16 19:23 VBG pH 7.42 (7.32-7.43) 06/04/16 03:30 VBG pCO2 46.0 (40-60) 06/04/16 03:30 VBG HCO3 29.8 mmol/l (21-28) H 06/04/16 03:30 VBG Total CO2 31.2 mmol.L (22-28) H 06/04/16 03:30 VBG O2 Sat (Calc) 99.7 % (40-65) H 06/04/16 03:30 VBG Base Excess 4.5 mmol/L (0.0-2.0) H 06/04/16 03:30 VBG Potassium 3.0 mmol/L (3.6-5.2) L 06/04/16 03:30 Hgb O2 Saturation 97.0 % (95.0-98.0) 06/12/16 19:23 Sodium 143.0 mmol/L (132-148) 06/04/16 03:30 Chloride 110.0 mmol/L (98-107) H 06/04/16 03:30 Glucose 106 mg/dl (65-105) H 06/04/16 03:30 Lactate 3.6 mmol/L (0.7-2.1) H 06/04/16 03:30 FiO2 28.0 % 06/12/16 19:23 Sodium 138 mmol/L (132-148) 06/14/16 05:35 Potassium 5.8 mmol/L (3.6-5.0) H* D 06/14/16 05:35 Chloride 108 mmol/L (95-110) 06/14/16 05:35 Carbon Dioxide 12 mmol/L (21-33) L 06/14/16 05:35 Anion Gap 24 (10-20) H 06/14/16 05:35 BUN 56 mg/dL (7-21) H 06/14/16 05:35 Creatinine 2.9 mg/dL (0.5-1.4) H 06/14/16 05:35 Est GFR ( Amer) 20 06/14/16 05:35 Est GFR (Non-Af Amer) 16 06/14/16 05:35 Random Glucose 83 mg/dL (70-110) 06/14/16 05:35 Lactic Acid 3.2 mmol/L (0.7-2.1) H 06/11/16 23:10 Uric Acid 18.3 mg/dL (2.5-6.2) H 06/14/16 05:35 Calcium 6.4 mg/dL (8.4-10.5) L* 06/14/16 05:35 Phosphorus 12.4 mg/dL (2.5-4.5) H 06/14/16 05:35 Magnesium 2.5 mg/dL (1.7-2.2) H 06/14/16 05:35 Iron 20 ug/dL (45-180) L 06/05/16 08:50 TIBC 120 ug/dL (265-497) L 06/05/16 08:50 % Saturation 17 % (20-55) L 06/05/16 08:50 Ferritin 3730.0 ng/mL 06/05/16 08:50 Total Bilirubin 0.5 mg/dL (0.2-1.3) 06/14/16 05:35 AST 156 U/L (15-39) H 06/14/16 05:35 ALT 37 U/L (7-56) 06/14/16 05:35 Alkaline Phosphatase 104 U/L (38-133) 06/14/16 05:35 Ammonia 12 umol/L (9-33) 06/04/16 11:35 Lactate Dehydrogenase 1989 U/L (333-699) H 06/11/16 23:10 Total Creatine Kinase 35 U/L (35-230) 06/11/16 23:10 Troponin I < 0.01 ng/mL 06/11/16 23:10 NT-Pro-B Natriuret Pep 507 pg/mL (0-450) H 06/04/16 12:50 Total Protein 4.5 g/dL (5.8-8.3) L 06/14/16 05:35 Albumin 1.8 g/dL (3.0-4.8) L 06/14/16 05:35 Globulin 2.7 gm/dL 06/14/16 05:35 Albumin/Globulin Ratio 0.7 (1.1-1.8) L 06/14/16 05:35 Lipase 12 U/L (23-300) L 06/04/16 00:20 Vitamin B12 > 1000 pg/mL (239-931) H 06/05/16 08:50 Folate 4.9 ng/mL 06/05/16 08:50 Procalcitonin 53.63 NG/ML (0.19-0.49) H 06/11/16 07:00 TSH 3rd Generation 4.69 mIU/mL (0.46-4.68) H 06/05/16 06:00 Venous Blood Potassium 3.0 mmol/L (3.6-5.2) L 06/04/16 03:30 Urine Color Yellow (YELLOW) 06/14/16 09:00 Urine Appearance Clear (CLEAR) 06/14/16 09:00 Urine pH 5.5 (4.7-8.0) 06/14/16 09:00 Ur Specific [place] 1.025 (1.005-1.035) 06/14/16 09:00 Urine Protein >=300 mg/dL (<30 mg/dL) H 06/14/16 09:00 Urine Glucose (UA) Negative mg/dL (NEGATIVE) 06/14/16 09:00 Urine Ketones Trace mg/dL (NEGATIVE) H 06/14/16 09:00 Urine Blood Large (NEGATIVE) H 06/14/16 09:00 Urine Nitrate Negative (NEGATIVE) 06/14/16 09:00 Urine Bilirubin Negative (NEGATIVE) 06/14/16 09:00 Urine Urobilinogen 0.2 E.U./dL (<1 E.U./dL) 06/14/16 09:00 Ur Leukocyte Esterase Negative Joseph/uL (NEGATIVE) 06/14/16 09:00 Urine RBC 10 - 15 /hpf (0-2) 06/14/16 09:00 Urine WBC 0 - 2 /hpf (0-6) 06/14/16 09:00 Ur Epithelial Cells 1 - 3 /hpf (0-5) 06/04/16 02:30 Urine Bacteria Many (NEG) 06/14/16 09:00 Urine Other Mucus 06/04/16 02:30 Urine Eosinophils Negative 06/14/16 09:00 Urine Osmolality 320 mosm/kg (50-645) 06/14/16 09:00 Ur Random Creatinine 47 mg/dL 06/14/16 09:00 Ur Random Sodium 88 meq/L 06/14/16 09:00 Urine Chloride 73 mmol/L (32-290) 06/14/16 09:00 Stool Occult Blood Negative (NEGATIVE) 06/05/16 20:35 HIV 1&2 Ag/Ab, 4th Gen Nonreactive (Nonreactive) 06/09/16 06:00 Influenza Typ A,B (EIA) Negative for flu a/b (NEGATIVE) 06/05/16 14:45 Blood Type O POSITIVE 06/12/16 11:00 Blood Type Confirm O POSITIVE 06/05/16 09:41 Antibody Screen Negative 06/12/16 11:00 Crossmatch See Detail 06/12/16 11:00 BBK History Checked Patient has bt 06/12/16 11:00 - Hospital Course Hospital Course: 60F w/PMHx of uterine cancer on chemotherapy s/p hysterectomy, pleural effusions s/p right pleurex catheter, s/p port-a-cath placement, LLE DVT on anticoagulation, and hypertension admitted to ICU with lethargy for one week. Reports B/L LE swelling, "heavy legs", increased sleep, weakness, fatigue. CT scan showed large neoplasm throughout the pelvis, anasarca and multiloculated pleural effusion. Procalcitonin is elevated. Leukocytosis is noted. Admitted for Inpatient under critical care for dx of Sepsis/SIRS, and uterine CA /pulmonary effusion/anasarca/abdominal mass. In unit: administered abx for HCAP and GBS UTI, her pleurex catheter was removed. Pt has anasarca for which she was administered lasix, ECHO shows mildly depressed systolic function EF (46%), mild LVH and mild depressed RV function. Anemia monitored and transfused two PRBC during admission, stool occult negative. Administered daily lovenox for history of DVT. She has history of IVC filter. LE doppler showed segmental thrombus in L proximal and common femoral vein, daily lovenox increased to 70u sc q12. Hypokalemia repleted during course of admission. Pt was on lopressor for hypertension, then progressively became hypotensive, still very hypotensive despite multiple boluses so transferred back to critical care. Daily colace and miralax for constipation. Palliative care consult was appreciated. R Chest tube inserted for drain of pleural effusion with serosanguinsous drain. Intubated for agonal breathing. Acute kidney injury, increased serum creatine, likely due to recent hypotension , but further fluid administration limited by pt's fluid overloaded state. Pt' s POA agreed on 06/14/2016, and pt passed on 06/14/2016 20:00. Discharge Exam - Additional Findings Additional findings: As per pronouncement of notice Discharge Plan - Follow Up Plan Condition: GOOD Disposition: WITH WITHOUT AUTOPSY Referrals: PCP,OLI [Primary Care Provider] - <Rosa AMIN,Dariana - Last Filed: 07/09/16 07:55> Provider - Provider Date of Admission: 06/04/16 01:28 Attending physician: Dariana Lee MD Primary care physician: OLI PRIMARY CARE PROVIDER Hospital Course - Lab Results Lab Results: Micro Results 06/13/16 14:00 Blood Blood Culture - Final NO GROWTH AFTER 5 DAYS 06/13/16 14:00 Blood Gram Stain - Final TEST NOT PERFORMED 06/13/16 13:00 Blood Blood Culture - Final NO GROWTH AFTER 5 DAYS 06/13/16 13:00 Blood Gram Stain - Final 06/12/16 21:19 Naris MRSA Culture (Admit) - Final MRSA NOT DETECTED 06/13/16 11:08 Pleural Fluid Gram Stain - Final 06/13/16 11:08 Pleural Fluid Body Fluid Culture - Final Coagulase Neg Staphylococcus 06/11/16 12:30 Blood Blood Culture - Final Coagulase Neg Staphylococcus 06/11/16 12:30 Blood Gram Stain - Final 06/14/16 09:00 Urine Urine Culture - Final No Growth (<1,000 CFU/ML) 06/11/16 12:30 Blood S.aureus & Coag-Neg Staph PNA FISH - Final 06/11/16 12:30 Blood Blood Culture - Final Coagulase Neg Staphylococcus 06/11/16 12:30 Blood Gram Stain - Final 06/10/16 20:18 Stool C. difficile Antigen & Toxin A,B (M - Final 06/04/16 01:30 Blood-Venous Blood Culture - Final NO GROWTH AFTER 5 DAYS 06/04/16 01:30 Blood-Venous Gram Stain - Final TEST NOT PERFORMED 06/04/16 02:30 Urine Urine Culture - Final Beta Hemolytic Strep Group B 06/04/16 04:05 Nose MRSA Culture (Admit) - Final MRSA NOT DETECTED Most Recent Lab Values WBC 22.7 10^3/ul (4.5-11.0) H 06/14/16 05:35 RBC 2.54 10^6/uL (3.5-6.1) L 06/14/16 05:35 Hgb 7.1 gm/dL (12.0-16.0) L 06/14/16 05:35 Hct 23.4 % (36.0-48.0) L 06/14/16 05:35 MCV 92.1 fL (80.0-105.0) 06/14/16 05:35 MCH 28.0 pg (25.0-35.0) 06/14/16 05:35 MCHC 30.3 g/dl (31.0-37.0) L 06/14/16 05:35 RDW 22.9 % (11.5-14.5) H 06/14/16 05:35 Plt Count 232 10^3/uL (120.0-450.0) 06/14/16 05:35 MPV 8.9 fl (7.0-11.0) 06/14/16 05:35 Gran % 91.0 % (50.0-68.0) H 06/13/16 13:00 Lymph % (Auto) 3.4 % (22.0-35.0) L 06/13/16 13:00 Hitchcock % (Auto) 5.6 % (1.0-6.0) 06/13/16 13:00 Eos % (Auto) 0.0 % (1.5-5.0) L 06/13/16 13:00 Baso % (Auto) 0.0 % (0.0-3.0) 06/13/16 13:00 Gran # 22.04 (1.4-6.5) H 06/13/16 13:00 Lymph # 0.8 (1.2-3.4) L 06/13/16 13:00 Hitchcock # 1.4 (0.1-0.6) H 06/13/16 13:00 Eos # 0.0 (0.0-0.7) 06/13/16 13:00 Baso # 0.01 K/mm3 (0.0-2.0) 06/13/16 13:00 Neutrophils % (Manual) 90 % (50.0-70.0) H 06/14/16 05:35 Band Neutrophils % 2 % (0-2) 06/14/16 05:35 Lymphocytes % (Manual) 5 % (22.0-35.0) L 06/14/16 05:35 Atypical Lymphs % 1 % (0.0-0.0) H 06/06/16 05:00 Monocytes % (Manual) 2 % (1.0-6.0) 06/14/16 05:35 Myelocytes % 1 % 06/14/16 05:35 Platelet Evaluation Normal (NORMAL) 06/14/16 05:35 Plt Clumps, EDTA Present 06/14/16 05:35 Polychromasia Slight 06/14/16 05:35 Hypochromasia 2+ 06/14/16 05:35 Poikilocytosis (manual Slight 06/14/16 05:35 Anisocytosis (manual) 1+ 06/14/16 05:35 Tear Drop Cells Slight 06/14/16 05:35 Ovalocytes Slight 06/14/16 05:35 [place] Cells Slight 06/14/16 05:35 Retic Count 1.83 % (0.5-1.5) H 06/05/16 07:30 PT 14.8 Seconds (9.9-11.8) H 06/13/16 06:00 INR 1.37 (0.93-1.08) H 06/13/16 06:00 APTT 45.5 Seconds (23.7-30.8) H 06/13/16 06:00 pCO2 22 mm/Hg (35-45) L 06/12/16 19:23 pO2 101.0 mm/Hg (80-100) H 06/12/16 19:23 HCO3 13.0 mmol/L (21-28) L 06/12/16 19:23 ABG pH 7.38 (7.35-7.45) 06/12/16 19:23 ABG Total CO2 13.7 mmol.L (22-28) L 06/12/16 19:23 ABG O2 Saturation 99.4 % (95-98) H 06/12/16 19:23 ABG O2 Content 9.4 ML/dl (15-23) L 06/12/16 19:23 ABG Base Excess -11.0 mmol/L (-2.0-3.0) L 06/12/16 19:23 ABG Hemoglobin 6.7 g/dL (11.7-17.4) L 06/12/16 19:23 ABG Carboxyhemoglobin 2.0 % (0.5-1.5) H 06/12/16 19:23 POC ABG HHb (Measured) 0.6 % (0-5) 06/12/16 19:23 ABG Methemoglobin 0.5 % (0.0-3.0) 06/12/16 19:23 ABG O2 Capacity 9.5 mL/dl (16-24) L 06/12/16 19:23 VBG pH 7.42 (7.32-7.43) 06/04/16 03:30 VBG pCO2 46.0 (40-60) 06/04/16 03:30 VBG HCO3 29.8 mmol/l (21-28) H 06/04/16 03:30 VBG Total CO2 31.2 mmol.L (22-28) H 06/04/16 03:30 VBG O2 Sat (Calc) 99.7 % (40-65) H 06/04/16 03:30 VBG Base Excess 4.5 mmol/L (0.0-2.0) H 06/04/16 03:30 VBG Potassium 3.0 mmol/L (3.6-5.2) L 06/04/16 03:30 Hgb O2 Saturation 97.0 % (95.0-98.0) 06/12/16 19:23 Sodium 143.0 mmol/L (132-148) 06/04/16 03:30 Chloride 110.0 mmol/L (98-107) H 06/04/16 03:30 Glucose 106 mg/dl (65-105) H 06/04/16 03:30 Lactate 3.6 mmol/L (0.7-2.1) H 06/04/16 03:30 FiO2 28.0 % 06/12/16 19:23 Sodium 138 mmol/L (132-148) 06/14/16 05:35 Potassium 5.8 mmol/L (3.6-5.0) H* D 06/14/16 05:35 Chloride 108 mmol/L (95-110) 06/14/16 05:35 Carbon Dioxide 12 mmol/L (21-33) L 06/14/16 05:35 Anion Gap 24 (10-20) H 06/14/16 05:35 BUN 56 mg/dL (7-21) H 06/14/16 05:35 Creatinine 2.9 mg/dL (0.5-1.4) H 06/14/16 05:35 Est GFR ( Amer) 20 06/14/16 05:35 Est GFR (Non-Af Amer) 16 06/14/16 05:35 Random Glucose 83 mg/dL (70-110) 06/14/16 05:35 Lactic Acid 3.2 mmol/L (0.7-2.1) H 06/11/16 23:10 Uric Acid 18.3 mg/dL (2.5-6.2) H 06/14/16 05:35 Calcium 6.4 mg/dL (8.4-10.5) L* 06/14/16 05:35 Phosphorus 12.4 mg/dL (2.5-4.5) H 06/14/16 05:35 Magnesium 2.5 mg/dL (1.7-2.2) H 06/14/16 05:35 Iron 20 ug/dL (45-180) L 06/05/16 08:50 TIBC 120 ug/dL (265-497) L 06/05/16 08:50 % Saturation 17 % (20-55) L 06/05/16 08:50 Ferritin 3730.0 ng/mL 06/05/16 08:50 Total Bilirubin 0.5 mg/dL (0.2-1.3) 06/14/16 05:35 AST 156 U/L (15-39) H 06/14/16 05:35 ALT 37 U/L (7-56) 06/14/16 05:35 Alkaline Phosphatase 104 U/L (38-133) 06/14/16 05:35 Ammonia 12 umol/L (9-33) 06/04/16 11:35 Lactate Dehydrogenase 1989 U/L (333-699) H 06/11/16 23:10 Total Creatine Kinase 35 U/L (35-230) 06/11/16 23:10 Troponin I < 0.01 ng/mL 06/11/16 23:10 NT-Pro-B Natriuret Pep 507 pg/mL (0-450) H 06/04/16 12:50 Total Protein 4.5 g/dL (5.8-8.3) L 06/14/16 05:35 Albumin 1.8 g/dL (3.0-4.8) L 06/14/16 05:35 Globulin 2.7 gm/dL 06/14/16 05:35 Albumin/Globulin Ratio 0.7 (1.1-1.8) L 06/14/16 05:35 Lipase 12 U/L (23-300) L 06/04/16 00:20 Vitamin B12 > 1000 pg/mL (239-931) H 06/05/16 08:50 Folate 4.9 ng/mL 06/05/16 08:50 Procalcitonin 53.63 NG/ML (0.19-0.49) H 06/11/16 07:00 TSH 3rd Generation 4.69 mIU/mL (0.46-4.68) H 06/05/16 06:00 Venous Blood Potassium 3.0 mmol/L (3.6-5.2) L 06/04/16 03:30 Urine Color Yellow (YELLOW) 06/14/16 09:00 Urine Appearance Clear (CLEAR) 06/14/16 09:00 Urine pH 5.5 (4.7-8.0) 06/14/16 09:00 Ur Specific [place] 1.025 (1.005-1.035) 06/14/16 09:00 Urine Protein >=300 mg/dL (<30 mg/dL) H 06/14/16 09:00 Urine Glucose (UA) Negative mg/dL (NEGATIVE) 06/14/16 09:00 Urine Ketones Trace mg/dL (NEGATIVE) H 06/14/16 09:00 Urine Blood Large (NEGATIVE) H 06/14/16 09:00 Urine Nitrate Negative (NEGATIVE) 06/14/16 09:00 Urine Bilirubin Negative (NEGATIVE) 06/14/16 09:00 Urine Urobilinogen 0.2 E.U./dL (<1 E.U./dL) 06/14/16 09:00 Ur Leukocyte Esterase Negative Joseph/uL (NEGATIVE) 06/14/16 09:00 Urine RBC 10 - 15 /hpf (0-2) 06/14/16 09:00 Urine WBC 0 - 2 /hpf (0-6) 06/14/16 09:00 Ur Epithelial Cells 1 - 3 /hpf (0-5) 06/04/16 02:30 Urine Bacteria Many (NEG) 06/14/16 09:00 Urine Other Mucus 06/04/16 02:30 Urine Eosinophils Negative 06/14/16 09:00 Urine Osmolality 320 mosm/kg (50-645) 06/14/16 09:00 Ur Random Creatinine 47 mg/dL 06/14/16 09:00 Ur Random Sodium 88 meq/L 06/14/16 09:00 Urine Chloride 73 mmol/L (32-290) 06/14/16 09:00 Stool Occult Blood Negative (NEGATIVE) 06/05/16 20:35 HIV 1&2 Ag/Ab, 4th Gen Nonreactive (Nonreactive) 06/09/16 06:00 Influenza Typ A,B (EIA) Negative for flu a/b (NEGATIVE) 06/05/16 14:45 Blood Type O POSITIVE 06/12/16 11:00 Blood Type Confirm O POSITIVE 06/05/16 09:41 Antibody Screen Negative 06/12/16 11:00 Crossmatch See Detail 06/12/16 11:00 BBK History Checked Patient has bt 06/12/16 11:00 Attending/Attestation - Attestation I have personally seen and examined this patient.: Yes I have fully participated in the care of the patient.: Yes I have reviewed all pertinent clinical information, including history, physical exam and plan: Yes
== END 2016-06-14 20:00 | DRG 584 ==
LOC: ED 21:40 → ERH 06-04 01:28 → CCU 06-04 04:05 → 2RNO 06-05 21:58 → CCU 06-12 20:15
PROVIDERS: ADMIT Internal Medicine; ATTEND Internal Medicine
PROC: 30233N1 Transfusion of Nonautologous Red Blood Cells into Peripheral Vein, Percutaneous Approach (ICD-10-PCS; 2016-06-12)
PROC: 0W9930Z Drainage of Right Pleural Cavity with Drainage Device, Percutaneous Approach (ICD-10-PCS; principal; 2016-06-13)
PROC: 5A1935Z Respiratory Ventilation, Less than 24 Consecutive Hours (ICD-10-PCS; 2016-06-14)
PROC: 0BH17EZ Insertion of Endotracheal Airway into Trachea, Via Natural or Artificial Opening (ICD-10-PCS; 2016-06-14)
DX: A40.1 Sepsis due to streptococcus, group B (principal); I82.412 Acute embolism and thrombosis of left femoral vein; N17.0 Acute kidney failure with tubular necrosis; J96.20 Acute and chronic respiratory failure, unspecified whether with hypoxia or hypercapnia; J86.9 Pyothorax without fistula; R65.20 Severe sepsis without septic shock; R64 Cachexia; J18.9 Pneumonia, unspecified organism; J91.0 Malignant pleural effusion; C79.51 Secondary malignant neoplasm of bone; R18.8 Other ascites; N39.0 Urinary tract infection, site not specified; E87.6 Hypokalemia; D89.9 Disorder involving the immune mechanism, unspecified; E83.39 Other disorders of phosphorus metabolism; C55 Malignant neoplasm of uterus, part unspecified; D63.0 Anemia in neoplastic disease; I10 Essential (primary) hypertension; D50.9 Iron deficiency anemia, unspecified; Z66 Do not resuscitate; Y95 Nosocomial condition; B96.89 Other specified bacterial agents as the cause of diseases classified elsewhere; K59.00 Constipation, unspecified; R62.7 Adult failure to thrive; Z80.3 Family history of malignant neoplasm of breast; Z87.891 Personal history of nicotine dependence; Z90.710 Acquired absence of both cervix and uterus; Z92.21 Personal history of antineoplastic chemotherapy; Z92.3 Personal history of irradiation; R40.2412 Glasgow coma scale score 13-15, at arrival to emergency department; K80.20 Calculus of gallbladder without cholecystitis without obstruction; R60.1 Generalized edema; Z74.01 Bed confinement status